=== PATIENT | male | born 1955 | race Caucasian/White ===

== ENCOUNTER 2021-10-23 16:01 | Inpatient (IN) | payer MEDICARE, SELFPAY ==
[2021-10-23] VITALS (31 sets, daily range): BP systolic 151–186; BP diastolic 91–123; PULSE 75–101; RESP 8–26; TEMP 36.6–37.2; O2SAT 92–100; BMI 23.3
--- NOTE | ~2021-10-23 | US_ITS ---
US renal BI DATE: 10/24/2021 10:05 INDICATION: Renal failure TECHNIQUE: Real-time imaging of kidneys and urinary bladder COMPARISON: None FINDINGS: The right kidney measures approximately 9.8 cm length, left kidney 10.8 cm. Approximately 1.3 cm right renal cyst. Approximately 1.3 cm left renal cyst. Probable dromedary hump of the mid left kidney. There is increased echogenicity of the renal parenchyma bilaterally, suggesting chronic medical disea se. There is no hydronephrosis of either kidney. The urinary bladder is very distended. No apparent filling defect is noted. IMPRESSION: Bilateral chronic renal disease; no hydronephrosis 1.3 cm cyst of each kidney Limited evaluation of urinary bladder Reviewed, dictated and finalized at [facility]. Reviewed, dictated and finalized at location B.
--- NOTE | ~2021-10-23 | XR_ITS ---
EXAMINATION: XR chest 2V DATE: 10/23/2021 16:44 INDICATION: Left-sided chest pain TECHNIQUE: PA and lateral views of the chest are obtained. COMPARISON: None available FINDINGS: The lungs are free of acute opacities. There is no pleural effusion or pneumothorax. The ca rdiomediastinal silhouette is normal. There is moderate thoracic spondylosis. IMPRESSION: 1. No acute cardiopulmonary abnormality. Reviewed, dictated and finalized at location A.
--- NOTE | 2021-10-23 16:02 | ECG_ITS ---
Measurements Intervals [place] Rate: 85 P: 37 W[place]: 137 QRS: -10 QRSD: 70 T: 32 QT: 360 QTc: 428 Interpretive Statements SINUS RHYTHM SEPTAL MYOCARDIAL INFARCTION , OF INDETERMINATE AGE T-WAVE ABNORMALITY, CONSIDER ISCHEMIA NO PREVIOUS ECG AVAILABLE FOR COMPARISON Electronically Signed On 10-24-2021 10:45:14 CDT by Ty Alba M.D.
[2021-10-23 16:19] LABS: Basophils Percent Auto 0.3 % (0.2-1.2); Hematocrit 39.9 % (42.0-52.0); Hemoglobin 13.9 g/dL (14.0-18.0); Immature Granulocyte Absolute 0.04 K/mm3 (0.00-0.031); Immature Granulocyte Percent A 0.3 % (0-0.5); Lymphocytes Absolute Auto 0.82 K/mm3 (0.9-3.2); Lymphocytes Percent Auto 6.8 % (18.3-44.2); Mean Corpuscular HGB Conc 34.8 g/dl (32-36); Mean Corpuscular Hemoglobin 33.2 pg (26-34); Mean Corpuscular Volume 95.2 fl (80-100); Mean Platelet Volume 9.8 fl (7.4-10.4); Monocytes Absolute Auto 0.6 K/mm3 (0.1-0.6); Monocytes Percent Auto 4.8 % (2.6-8.5); Neutrophils Absolute Auto 10.5 K/mm3 (1.3-6.7); Neutrophils Percent Auto 87.8 % (45.5-73.1); Platelet Count Result 241 k/mm3 (150-375); Red Blood Count 4.19 M/mm3 (4.6-6.20); Red Cell Distribution Width 11.3 % (11.5-14.5)
[2021-10-23 16:28] LABS: Alanine Aminotransferase 19 U/L (6-50); Albumin Level 4.2 g/dL (3.5-5.1); Alkaline Phosphatase 65 U/L (38-126); Anion Gap 10 mmol/L (8-16); Aspartate Amino Transferase 30 U/L (17-59); Blood Urea Nitrogen 18 mg/dL (9-20); Calcium 9.1 mg/dL (8.4-10.2); Carbon Dioxide 20 mmol/L (22-30); Chloride 110 mmol/L (98-107); Estimated CRCL calculation 25 ml/min; Estimated Glomerular Filt Rate 28; Glucose 127 mg/dL (65-110); Lipase 433 U/L (23-300); Potassium 3.6 mmol/L (3.4-5.0); Sodium 140 mmol/L (137-145)
[2021-10-23 16:35] LABS: Prothrombin Time 12.7 Seconds (11.1-14.7)
[2021-10-23 16:36] LABS: Partial Thromboplastin Time 23.1 SECONDS (22.3-36.8)
[2021-10-23 16:49] LABS: Troponin I 0.262 ng/mL (0.000-0.034)
--- NOTE | 2021-10-23 16:52 | ED.GENADULT ---
HPI - General Adult General Chief complaint: Chest Pain Stated complaint: pcp sent here for a heart attack Time Seen by Provider: 10/23/21 16:24 History of Present Illness HPI narrative: Patient is a 66-year-old male who presents ER with chest pain. Ongoing intermittently for the last 8 months. Worsening over the last month. Occur sporadically. Sharp intense left-sided chest pain that radiates to his back and down his left arm. He can last for hours. Patient has not seen her primary care doctor for several years since his primary retired. He endorses 30 pound weight loss. She reports she is always feeling cold and chilled. No fevers. No runny nose or sore throat or productive cough. Related Data Home Medications Medication Instructions Recorded Confirmed No Home Medications 10/23/21 10/23/21 Allergies Allergy/AdvReac Type Severity Reaction Status Date / Time No Known Allergies Allergy Unverified 10/23/21 14:39 Review of Systems Review of Systems: All systems reviewed & are unremarkable except as noted in HPI and below Constitutional: Constitutional: Reports chills, Reports fatigue and Denies fever(s) ENT: Denies nasal congestion and Denies sore throat Cardiovascular: Cardiovascular: Reports chest pain, Denies rapid heart rate and Reports radiating jaw, neck or arm pain Respiratory: Respiratory: Denies chest congestion, Denies cough and Reports dyspnea Gastrointestinal: Gastrointestinal: Denies abdominal pain, Denies nausea and Denies vomiting Neurologic: Denies headache(s), Denies focal weakness and Denies numbness PMFSH Past Medical History Medical History (Updated 10/23/21 @ 17:46 by Jacques Santos MD) Anxiety Arthritis Broken shoulder Left CTS (carpal tunnel syndrome) Surgery Dyslipidemia GERD (gastroesophageal reflux disease) Hypertension Surgical History Surgical History (Updated 10/23/21 @ 17:42 by Jacques Santos MD) H/O hand surgery Family History Family History (Updated 10/23/21 @ 14:40 by Clarita Pedroza CMA) Mother Acute myocardial infarction Liver cancer Father Acute myocardial infarction Liver cancer Social History Social History (Updated 10/23/21 @ 14:40 by Clarita Pedroza CMA) Smoking status: Former smoker Alcohol intake: current Exam Narrative: GENERAL: Well-appearing, well-nourished, and in no acute distress. HEAD: Normocephalic, atraumatic. EYES: PERRL and EOMI. ENT: Mucous membranes moist. CHEST: Clear to auscultation. No respiratory distress. HEART: Regular rate and rhythm. Normal peripheral pulses. ABDOMEN: Soft, nontender, nondistended. EXTREMITIES: Normal range of motion. No edema. SKIN: Warm, dry, no rash. NEURO: Alert and oriented x3. PSYCH: Normal mood and affect. Course Course Emergency Course: Patient resting comfortably. No chest pain at this time. Blood pressure elevated. As is troponin. Admit to hospitalist service. Heparin drip started. Cardiology consulted. Vital Signs Vital signs: Vital Signs Temperature 97.8 F 10/23/21 16:16 Pulse Rate 101 H 10/23/21 16:16 Respiratory Rate 18 10/23/21 16:16 Blood Pressure 176/108 H 10/23/21 16:16 Pulse Oximetry 100 10/23/21 16:16 Oxygen Delivery Room Air 10/23/21 16:16 Temperature 97.8 F 10/23/21 16:16 Pulse Rate 92 10/23/21 17:05 Respiratory Rate 18 10/23/21 16:16 Blood Pressure 176/108 H 10/23/21 16:16 Pulse Oximetry 100 10/23/21 16:16 Oxygen Delivery Room Air 10/23/21 16:16 Medical Decision Making Vital Signs Vital Signs: Vital Signs Temperature 97.8 F 10/23/21 16:16 Pulse Rate 101 H 10/23/21 16:16 Respiratory Rate 18 10/23/21 16:16 Blood Pressure 176/108 H 10/23/21 16:16 Pulse Oximetry 100 10/23/21 16:16 Oxygen Delivery Room Air 10/23/21 16:16 Temperature 97.8 F 10/23/21 16:16 Pulse Rate 92 10/23/21 17:05 Respiratory Rate 18 10/23/21 16:16 Blood Pressure 176/108 H 10/23
[2021-10-23] MEDS: ASPIRIN 81 MG CHEWABLE TABLET 324 MG PO (17:05)
[2021-10-23] MEDS: carvediloL 6.25 MG TABLET PO (17:05)
[2021-10-23] MEDS: HEPARIN SODIUM 5,000 UNITS/ML VIAL 4000 UNITS IV PUSH ×2 (17:06→23:37)
--- NOTE | 2021-10-23 17:08 | PC.NURSE ---
Dr. Javier at bedside to assess pt.
--- NOTE | 2021-10-23 17:19 | PM.CNCAR ---
Assessment and Plan Assessment and plan (1) Unstable angina: Code(s): I20.0 - Unstable angina Status: Acute Assessment and Plan: Received aspirin 325 x1 in ED. Start aspirin 81 mg daily in AM. Starting heparin drip. Trend troponin as first elevated at 0.262. EKG shows cannot r/o septal infarct, borderline ST-T wave abnormality in ant/high lat leads. Obtain echo. Discuss left heart cath with patient and risks/benefits/alternative treatment and he is agreeable to procedure. Advise he has higher risk for renal failure given his baseline significant CKD. Will notify HCG in AM about procedure. (2) Hypertension: Code(s): I10 - Essential (primary) hypertension Status: Acute Assessment and Plan: High. Start Coreg 6.25 mg BID. Monitor BP. (3) Dyslipidemia: Code(s): E78.5 - Hyperlipidemia, unspecified Status: Acute Assessment and Plan: Start Atorvastatin 80 mg daily. Obtain Lipid panel. History of Present Illness History of Present Illness Consult date/time: 10/23/21 17:19 Requesting physician: Jacques Santos MD Consult reason: chest pain Reason For Visit: pcp sent here for a heart attack Narrative: 66 yr old man presents to ER with his with chest pain. He has a history of hypertension and dyslipidemia, and borderline DM, CKD. Reports when his PCP Dr. Sawant retired he could not find a suitable PCP and stopped taking all his medication. He finally got a PCP today with Dr. Armando. Reports he has been having intermittent resting dull left side chest pain radiating to his back and left arm and sometimes associated with vomiting. In last week this has been happening more frequently and after he relayed this info to Dr. Armando today he was advised to come to ER. Currently chest pain free. He states he can walk unlimited distance and walking does not cause pain. He shivers due to being cold as he likes the room warmer. Denies orthopnea, PND, edema, dizziness, palpitations. Review of Systems Review of Systems: All systems reviewed & are unremarkable except as noted in HPI and below Constitutional: Constitutional: Reports as per HPI, Reports chills and Denies fever(s) Cardiovascular: Cardiovascular: Reports as per HPI, Reports chest pain, Denies irregular heart rhythm, Denies leg edema and Denies lightheadedness Respiratory: Respiratory: Reports as per HPI and Denies dyspnea Gastrointestinal: Gastrointestinal: Reports as per HPI and Denies abdominal pain Genitourinary: Genitourinary: Reports as per HPI and Denies dysuria Musculoskeletal: Musculoskeletal: Reports as per HPI Neurologic: Reports as per HPI, Denies dizziness and Denies syncope [facility] Past Medical History Medical History (Updated 10/23/21 @ 17:26 by Beny Javier DO) Anxiety Arthritis Broken shoulder Left CTS (carpal tunnel syndrome) Surgery GERD (gastroesophageal reflux disease) Family History Family History (Updated 10/23/21 @ 14:40 by Clarita Pedroza CMA) Mother Acute myocardial infarction Liver cancer Father Acute myocardial infarction Liver cancer Social History Social History (Updated 10/23/21 @ 14:40 by Clarita Pedroza CMA) Smoking status: Former smoker Alcohol intake: current Meds Home Medications and Allergies Home Medications Medication Instructions Recorded Confirmed Type No Home Medications 10/23/21 10/23/21 History Allergies Allergy/AdvReac Type Severity Reaction Status Date / Time No Known Allergies Allergy Unverified 10/23/21 14:39 Vital Signs Vital Signs - 24 hr 10/23/21 16:16 Temperature 97.8 F Pulse Rate 101 H Respiratory Rate 18 Blood Pressure 176/108 H Pulse Oximetry 100 Oxygen Delivery Room Air Exam Const: General: cooperative, healthy appearing and comfortable Resp: Auscultation: clear to auscultation bilaterally, no crackles, no rales, no rhonchi and no wheezes Cardio: Jugular venous distens
[2021-10-23] MEDS: HEPARIN SOD/D5W 100 UNITS/ML 25,000 UNITS/250 ML BAG 8 UNITS IV CONT (17:30)
[2021-10-23 18:12] LABS: SARS-CoV-2 RNA PCR Negative
[2021-10-23 18:18] LABS: Thyroid Stimulating Hormone 0.869 uIU/mL (0.465-4.680)
--- NOTE | 2021-10-23 19:15 | PC.NURSE ---
Patient report given to DENNIS Cole. All questions answered and care of patient transferred.
--- NOTE | 2021-10-23 19:58 | ADMGEN ---
This patient, Esther Altman, was admitted to IMU Room 200-01. Patient/family oriented to hospital policies and general routines including ID bracelet, bed and alarms, visiting hours, pain management, procedures, bathroom and other care routines, personal items, smoking policy, room service/diet, and visiting hours. Information on how to activate the Rapid Response Team has been discussed. Patient/Family are encouraged to report perceived risks to care and to ask questions if they do not understand what they are told or what they should do.
[2021-10-23 19:59] LABS: Cholesterol 196 mg/dL (0-200); HDL Direct 52 mg/dL; Triglycerides 146 mg/dL (<150)
[2021-10-23 20:10] LABS: LDL Cholesterol Direct 84 mg/dL
[2021-10-23 20:28] LABS: Troponin I 0.243 ng/mL (0.000-0.034)
[2021-10-23] MEDS: ATORVASTATIN 40 MG TABLET 80 MG PO (21:17)
--- NOTE | 2021-10-23 22:42 | PM.IMHP ---
H&P: HPI History of Present Illness Date/Time: 10/23/21 22:42 Chief Complaint: Chest pain Narrative: 66-year-old male with a past medical history of hypertension, hyperlipidemia, chronic kidney disease and kidney stones who presented to the ER with chest pain. The patient reports that he has been having chest pain for almost a year. Initially the pain was intermittent in nature but he has had a marked increase in symptoms since Saturday. He reported that he had 6 episodes on Saturday alone. The pain is in the left chest radiate down the left arm and radiating to his back. The pain is sharp and severe in nature. Was 9/10 in intensity at its worst. It usually lasts around 20 or 30 minutes but can last couple of hours. It is usually accompanied by profuse diaphoresis. He denies any cough, congestion, nausea or vomiting. He has not noticed any relation is symptoms to exertion. However he does state that when he got up to adjust the thermostat in the room he did have some chest pressure. He quit seeing his primary care physician in 2014 when he retired because he thought that his baseline hypertension with likely due to the stress he was under at his job. He had a colonoscopy in 2011 that demonstrated 3 colon polyps and internal hemorrhoids. He has not had a colonoscopy since that time. He has been having intermittent bloody stools but usually occurs when he is constipated. Does not eat much in the form of fiber or vegetables. He has had a 30 lb weight loss over the last year. The weight loss is unintentional. He reports good appetite and eating adequate amount of food. He did report having some dental issues to the ER physician that may have contributed to some of his weight loss. 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 He does report having get up 2 or 3 times a night to urinate. He denies any symptoms of incomplete bladder emptying. He denies any hematuria. Nursing staff reports that he is having multiple small voids of 80-100 mL. But his bladder scan demonstrated 0 residual. He reports that he drinks Pedialyte in order to stay hydrated. He reports increased fatigue with his chest pain symptoms. He asked what his blood pressure was while I was evaluating him. I told him that his systolic blood pressures were in the 170s. He shrugged and stated ?well I know they have been higher in the past.? Review of Systems Review of Systems: 12 systems were reviewed with pertinent positives and negatives per HPI. Except as documented in the HPI, all other systems were reviewed and are negative. [facility] Past Medical History Medical History (Updated 10/24/21 @ 05:14 by Patricia Valadez DO) Anxiety Arthritis Chronic kidney disease GERD (gastroesophageal reflux disease) Hyperlipidemia Hypertension Surgical History Surgical History (Updated 10/24/21 @ 05:04 by Patricia Valadez DO) H/O hand surgery Due to trauma had surgical repair of the left thenar eminence History of cardiac catheterization (~2003) No significant blockages History of carpal tunnel surgery of left wrist History of colonoscopy with polypectomy 3 polyps removed, internal hemorrhoids History of hemorrhoidectomy (~2011) History of lithotripsy X2 with complications including with sounds like shock History of repair of right rotator cuff (2008) History of tonsillectomy Family History Family History Mother Acute myocardial infarction Liver cancer Father Acute myocardial infarction Liver cancer Social History Social History (Updated 10/24/21 @ 05:09 by Patricia Valadez DO) Social History: He has been for 41 years. They have 2 children who are healthy. He has never smoked. He does smoke marijuana on a somewhat frequent basis. He drinks a couple of beers a day and some whiskey.
[2021-10-23 23:28] LABS: Cholesterol 199 mg/dL (0-200); HDL Direct 51 mg/dL; Partial Thromboplastin Time 44.3 SECONDS (22.3-36.8); Triglycerides 213 mg/dL (<150)
[2021-10-23 23:32] LABS: Hemoglobin A1C 4.9 % (<5.7)
[2021-10-23 23:38] LABS: Appearance Urine Clear (Clear); Bilirubin Urine Negative (Negative); Blood Urine Trace-lysed (Negative); Color Urine Yellow (Yellow); Glucose Urine UA Negative (Negative); Ketones Urine Negative (Negative); Leukocyte Esterase Ur Negative LEU/UL (NEGATIVE); Nitrate Urine Negative (Negative); Protein Urine 3+ mg/dL (Negative); Specific Grav Ur >= 1.030 (1.001-1.035); Urobilinogen Urine 0.2 mg/dL (<2.0); pH Urine 5.5 (5.0-9.0)
[2021-10-23 23:38] LABS: LDL Cholesterol Direct 92 mg/dL
[2021-10-23] MEDS: METOPROLOL TARTRATE INJ 5 MG/5 ML VIAL IV PUSH (23:39)
[2021-10-23 23:41] LABS: Troponin I 0.273 ng/mL (0.000-0.034)
[2021-10-23 23:43] LABS: Bacteria Urine Trace /hpf; Mucus Urine Rare /lpf; RBC Urine 0-2 /hpf (0-2); Squamous Epithelial Cell Urine Rare /hpf (Few); WBC Urine 0-3 /hpf (0-3)
[2021-10-23 23:44] LABS: Add Urine Microscopic? YES
[2021-10-24] VITALS (27 sets, daily range): BP systolic 136–176; BP diastolic 70–109; PULSE 58–107; RESP 12–20; TEMP 36.6–37.3; O2SAT 97–100
--- NOTE | 2021-10-24 | ECHO_ITS ---
Patient Info Name: Esther Altman Age: 66 years : 1955 Gender: Male Ht: 66 in Wt: 140 lbs BSA: 1.72 m2 HR: 74 bpm BP: 174 / 109 mmHg Heart Rhythm: Sinus Rhythm Technical Quality: Fair Exam Date: 10/24/2021 10:03 AM Exam Location: [facility] Card Pulmonary Patient Status: Inpatient Admit Date: 10/24/2021 Staff Ordering Physician: Beny Javier DO Outsole Compressor: Liz Vasquez RDCS Attending Provider: Gucci Colby MD Referring Physician: Yaya DOMÍNGUEZ; Exam Type: CA echo doppler color flow Study Info Indications - Unstable angina Complete two-dimensional, color flow and Doppler transthoracic echocardiogram is performed. Summary 1. Complete two-dimensional, color flow and Doppler transthoracic echocardiogram is performed. 2. Left ventricular chamber dimension is normal. 3. Left ventricular systolic function is normal, estimated at 60-65%. 4. There is mildly increased left ventricular wall thickness. 5. The left ventricular diastolic function is grade I diastolic dysfunction. 6. E/e' 8 is minimally elevated. 7. No pulmonary hypertension, estimated pulmonary arterial systolic pressure is 27 mmHg. Left Ventricle E/e' 8 is minimally elevated. Left ventricular chamber dimension is normal. Left ventricular systolic function is normal, estimated at 60-65%. There is mildly increased left ventricular wall thickness. The left ventricular diastolic function is grade I diastolic dysfunction. Right Ventricle Right ventricular systolic function is normal and with normal TAPSE 2.3 cm. Right ventricular chamber dimension is normal. Left Atria Left atrial chamber dimension is normal. Right Atria Right atrial chamber dimension is normal. Aortic Valve The aortic valve is trileaflet. There is no aortic valve stenosis. There is no aortic valve regurgitation. Pulmonic Valve There is no pulmonic regurgitation. Mitral Valve There is no mitral valve stenosis. There is no mitral valve regurgitation. Tricuspid Valve There is no tricuspid valve regurgitation. No pulmonary hypertension, estimated pulmonary arterial systolic pressure is 27 mmHg. Pericardium/Pleural There is no pericardial effusion. Inferior Vena Cava Normal inferior vena cava with >50% collapse upon inspiration consistent with normal right atrial pressure, 5 mmHg. Aorta The aortic root size at the sinus of Valsalva is normal. Left Ventricular Outflow Tract Name Value Normal LVOT 2D LVOT Diameter 2.1 cm LVOT Doppler LVOT Peak Gradient 7 mmHg LVOT Mean Gradient 3 mmHg LVOT VTI 25 cm LVOT VTI/AV VTI Ratio 0.9 LVOT Stroke Volume 89 ml LVOT CO 5.8 l/min LVOT CI 3.4 l/min/m2 Pulmonic Valve Name Value Normal RVOT Doppler ----
[2021-10-24] MEDS: SODIUM CHLORIDE 0.9% IV 1,000 ML 999 ML IV CONT (05:57)
[2021-10-24 06:45] LABS: Basophils Absolute Auto 0.1 K/mm3 (0.0-0.1); Basophils Percent Auto 0.5 % (0.2-1.2); Eosinophils Absolute Auto 0.1 K/mm3 (0-0.3); Eosinophils Percent Auto 0.9 % (0-4.4); Hematocrit 32.5 % (42.0-52.0); Hemoglobin 11.4 g/dL (14.0-18.0); Immature Granulocyte Absolute 0.03 K/mm3 (0.00-0.031); Immature Granulocyte Percent A 0.3 % (0-0.5); Lymphocytes Absolute Auto 2.02 K/mm3 (0.9-3.2); Lymphocytes Percent Auto 19.1 % (18.3-44.2); Mean Corpuscular HGB Conc 35.1 g/dl (32-36); Mean Corpuscular Hemoglobin 33.5 pg (26-34); Mean Corpuscular Volume 95.6 fl (80-100); Monocytes Absolute Auto 0.9 K/mm3 (0.1-0.6); Monocytes Percent Auto 8.2 % (2.6-8.5); Neutrophils Absolute Auto 7.5 K/mm3 (1.3-6.7); Platelet Count Result 191 k/mm3 (150-375); Red Cell Distribution Width 11.4 % (11.5-14.5); White Blood Count 10.6 K/mm3 (4.5-10.0)
[2021-10-24 06:55] LABS: Partial Thromboplastin Time 115.9 SECONDS (22.3-36.8)
[2021-10-24 07:03] LABS: Anion Gap 2 mmol/L (8-16); Blood Urea Nitrogen 19 mg/dL (9-20); Calcium 8.2 mg/dL (8.4-10.2); Carbon Dioxide 22 mmol/L (22-30); Chloride 112 mmol/L (98-107); Estimated CRCL calculation 28 ml/min; Estimated Glomerular Filt Rate 32; Glucose 107 mg/dL (65-110); Potassium 3.5 mmol/L (3.4-5.0); Sodium 136 mmol/L (137-145)
[2021-10-24] MEDS: SODIUM CHLORIDE 0.9% IV 1,000 ML 100 ML IV CONT ×3 (07:33→23:30)
[2021-10-24] MEDS: hydrALAZINE HCL 20 MG/ML VIAL 10 MG IV PUSH (07:51)
--- NOTE | 2021-10-24 08:20 | PM.PNCARD ---
Progress Note: A&P Assessment and Plan (1) Hypertension: Code(s): I10 - Essential (primary) hypertension Status: Acute Assessment and Plan: High. Increase Coreg 12.5 mg BID. Hold off on Alexis or ARB given renal dysfunction. Hydralazine q 4 hours prn for SBP>150. (2) Non-ST elevation MT (NSTEMI): Code(s): I21.4 - Non-ST elevation (NSTEMI) myocardial infarction Status: Acute Assessment and Plan: Received aspirin 325 x1 in ED.? Started aspirin 81 mg daily in AM. On heparin drip. Trend troponin which is moderately elevated at 0.273 not peaked. EKG shows cannot r/o septal infarct, borderline ST-T wave abnormality in ant/high lat leads. Obtain echo. Discuss left heart cath with patient and risks/benefits/alternative treatment and he is agreeable to procedure. Advise he has higher risk for renal failure given his baseline significant CKD.? Notified HCG about procedure. (3) Hyperlipidemia: Qualifiers: Hyperlipidemia type: mixed hyperlipidemia Qualified Code(s): E78.2 - Mixed hyperlipidemia Code(s): E78.5 - Hyperlipidemia, unspecified Status: Acute Assessment and Plan: Started Atorvastatin 80 mg daily. Subjective Date/time seen: 10/24/21 08:20 Reports intermittent chest pain. No sob. Exam Const: General: cooperative, healthy appearing and comfortable Resp: Auscultation: clear to auscultation bilaterally, no crackles, no rales, no rhonchi and no wheezes Cardio: Jugular venous distension: no JVD Rate: regular rate Rhythm: regular rhythm Heart sounds: no murmurs Peripheral pulses: dorsalis pedis present GI: GI Palp: No abdominal tenderness and Yes Soft to palpation Neuro: General: oriented to person, oriented to place and oriented to time Extrem: Right lower extremity: no edema Left lower extremity: no edema Objective Data Vital Signs Vital Signs: Vital Signs - 24 hr 10/23/21 16:16 10/23/21 17:05 10/23/21 17:16 Temperature 97.8 F Pulse Rate 101 H 92 89 Respiratory Rate 18 18 Blood Pressure 176/108 H Pulse Oximetry 100 100 Oxygen Delivery Room Air 10/23/21 17:17 10/23/21 17:29 10/23/21 17:30 Temperature Pulse Rate 89 90 87 Respiratory Rate 16 10 L 26 H Blood Pressure 178/112 H 165/106 H Pulse Oximetry Oxygen Delivery 10/23/21 17:31 10/23/21 17:45 10/23/21 17:46 Temperature Pulse Rate 87 81 83 Respiratory Rate 18 25 H 25 H Blood Pressure 176/120 H 151/102 H Pulse Oximetry 95 94 Oxygen Delivery 10/23/21 18:00 10/23/21 18:01 10/23/21 18:15 Temperature Pulse Rate 77 77 82 Respiratory Rate 8 L 21 H 21 H Blood Pressure 168/102 H Pulse Oximetry 95 92 97 Oxygen Delivery 10/23/21 18:16 10/23/21 18:17 10/23/21 18:30 Temperature Pulse Rate 75 75 77 Respiratory Rate 18 16 17 Blood Pressure 166/103 H Pulse Oximetry 95 95 96 Oxygen Delivery 10/23/21 18:31 10/23/21 18:45 10/23/21 18:46 Temperature Pulse Rate 77 87 87 Respiratory Rate 21 H 19 24 H Blood Pressure 168/100 H 167/109 H Pulse Oximetry 95 98 98 Oxygen Delivery 10/23/21 19:00 10/23/21 19:01 10/23/21 19:15 Temperature Pulse Rate 80 81 79 Respiratory Rate 23 H 18 16 Blood Pressure 165/109 H Pulse Oximetry 98 97 97 Oxygen Delivery 10/23/21 19:16 10/23/21 19:17 10/23/21 19:30 Temperature Pulse Rate 77 80 78 Respiratory Rate 17 19 16 Blood Pressure 164/114 H Pulse Oximetry 97 97 97 Oxygen Delivery 10/23/21 19:31 10/23/21 17:00 10/23/21 20:00 Temperature 98.9 F Pulse Rate 78 88 Respiratory Rate 17 18 Blood Pressure 167/103 H 186/123 H Pulse Oximetry 97 97 99 Oxygen Delivery Room Air 10/23/21 20:59 10/23/21 20:00 10/23/21 20:00 Temperature Pulse Rate 84 89 Respiratory Rate Blood Pressure 172/107 H Pulse Oximetry Oxygen Delivery Room Air 10/23/21 23:39 10/23/21 23:42 10/23/21 22:00 Temperature 98.2 F Pulse Rate 78 90 86 Respiratory Rate
--- NOTE | 2021-10-24 08:34 | PM.CNCAR ---
Assessment and Plan Assessment and plan (1) Non-ST elevation AR (NSTEMI): Code(s): I21.4 - Non-ST elevation (NSTEMI) myocardial infarction Status: Acute Assessment and Plan: 66-year-old male with hypertension, CKD, dyslipidemia. Patient admitted to the hospital with worsening chest pain. Troponins minimally elevated. EKG shows sinus rhythm, septal infarct age undetermined, nonspecific T-wave abnormality. Clinical presentation consistent with non ST elevation AR. After discussing benefits, risks and alternatives, patient is willing to proceed with cardiac catheterization with an eye towards intervention as necessary. Patient has renal insufficiency, and would be at increased risk of contrast induced nephropathy. Patient was informed about that, and he is willing to proceed. Patient will be initiated on IV hydration with normal saline pre and postprocedure. Standard treatment for ACS has been initiated including antiplatelet treatment, beta manuel, anticoagulation, statin. Further recommendations will follow after cardiac catheterization is complete. (2) Hypertension: Code(s): I10 - Essential (primary) hypertension Status: Acute Assessment and Plan: Optimal blood pressure control History of Present Illness History of Present Illness Consult date/time: 10/24/21 08:34 Requesting physician: Beny Javier, DO Consult reason: Other (Cardiac catheterization) Reason For Visit: NSTEMI Narrative: DATE OF CONSULT: 10/24/2021 REASON FOR CONSULT: Cardiac catheterization REQUESTING PHYSICIAN: CHIEF COMPLAINT: Chest pain, off and on for last several months HPI: 66-year-old male with hypertension, CKD, dyslipidemia. Patient presented to [facility] Emergency Room on 10/23/2021 with complaints of chest pain. Patient states that he has been experiencing chest pain for last several months with worsening of symptoms for last 1 week. He describes his chest pain as sharp pain in the left upper chest with radiation to the back and left arm, associated with shortness of breath and nausea/vomiting when the pain is intense. Patient states that he did not seek medical attention until symptoms got very intense lately. He denies palpitation, dizziness or syncope. No PND, orthopnea lower extremity swelling. Patient gives vague history of cardiac catheterization about 10-15 years ago, does not recall the name of the hospital. He does not recall being diagnosed with any significant obstructive CAD or any angioplasty or stenting. EKG on my personal evaluation shows sinus rhythm, septal infarct age undetermined, nonspecific T-wave abnormality. Troponins mildly elevated with current peak troponin level of 0.27. Chest x-ray unremarkable. COVID-19 negative. UA shows proteinuria. Patient has been evaluated by General Cardiology Dr. Javier, and interventional Cardiology was consulted cardiac catheterization and possible intervention. Review of Systems Review of Systems: General: Negative for fever, chills, fatigue Psychological: Negative for anxiety, depression Ophthalmic: negative for loss of vision ENT: Negative for epistaxis, headaches Allergy and immunology: Negative for hives, nasal congestion Hematologic and lymphatic: Negative for overt bleeding problems Endocrine: Negative for hot flashes, palpitations Respiratory: Negative for cough, hemoptysis Cardiovascular: Positive for chest pain Gastrointestinal: Positive for occasional nausea vomiting Musculoskeletal: Negative for myalgia, joint pains Neurological: Negative for weakness Dermatological: Negative for rash, skin discoloration PMFSH Past Medical History Medical History Anxiety Arthritis Chronic kidney disease GERD (gastroesophageal reflux disease) Hyperlipidemia Hypertension Surgical History Surgical History H/O hand surge
[2021-10-24] MEDS: carvediloL 12.5 MG TABLET PO ×2 (08:55→20:28)
[2021-10-24] MEDS: ASPIRIN 81 MG ENTERIC TABLET PO (08:55)
--- NOTE | 2021-10-24 09:08 | WPDMODSED ---
Moderate Sedation Note-Pt Data Patient Data Allergies Allergy/AdvReac Type Severity Reaction Status Date / Time No Known Allergies Allergy Unverified 10/23/21 14:39 Home Medications Medication Instructions Recorded Confirmed Type No Home Medications 10/23/21 10/23/21 History Current Medications: Active Medications Acetaminophen (Acetaminophen 325 Mg Tablet) 650 mg PO Q4H PRN PRN Reason: Mild Pain (1-3) or Fever Hydrocodone Bitart/Acetaminophen (Hydrocodone/Acetaminophen (*Crx) 5-325 Mg Tablet) 1 tab PO Q4H PRN PRN Reason: Pain Rated 4-6 Aspirin (Aspirin 81 Mg Enteric Tablet) 81 mg PO QAM [facility] Last Admin: 10/24/21 08:55 Dose: 81 mg Atorvastatin Calcium (Atorvastatin 40 Mg Tablet) 80 mg PO QHS [facility] Last Admin: 10/23/21 21:17 Dose: 80 mg Carvedilol (Carvedilol 12.5 Mg Tablet) 12.5 mg PO Q12HR [facility] Last Admin: 10/24/21 08:55 Dose: 12.5 mg Heparin Sodium (Porcine) (Heparin Sodium 5,000 Units/Ml Vial) 4,000 units IV PUSH PRN PRN PRN Reason: aPTT less than 55 seconds Last Admin: 10/23/21 23:37 Dose: 4,000 units Heparin Sodium (Porcine) (Heparin Sodium 5,000 Units/Ml Vial) 2,500 units IV PUSH PRN PRN PRN Reason: aPTT 55 - 70 seconds Hydralazine HCl (Hydralazine Hcl 20 Mg/Ml Vial) 10 mg IV PUSH Q4H PRN PRN Reason: Blood Pressure - High Last Admin: 10/24/21 07:51 Dose: 10 mg Heparin Sodium/Dextrose (Heparin Sodium/D5w 100 Units/Ml) 25,000 units in 250 mls @ 10 mls/hr IV CONT .Q24H [facility]; Protocol Last Titration: 10/24/21 07:02 Dose: 1,000 units/hr, 10 mls/hr Sodium Chloride (Normal Saline Iv) 1,000 mls @ 100 mls/hr IV CONT .Q10H [facility] Last Admin: 10/24/21 07:33 Dose: 100 mls/hr Morphine Sulfate (Morphine Sulfate (*Crx) 4 Mg/Ml Inj) 4 mg IV PUSH Q2H PRN PRN Reason: Pain Rated 7-10 Ondansetron HCl (Ondansetron Inj 4 Mg/2 Ml Vial) 4 mg IV PUSH Q4H PRN PRN Reason: Nausea Perflutren Lipid Microsphere (Perflutren Lipid Microspheres 1.5 Ml Vial Diluted To 10 Ml Total Volume) 0 ml IV PUSH ONCE PRN; Protocol PRN Reason: adequate visualization Sedation/Anesthesia: No previous sedation/anesthesia problems (including family history). [facility] Past Medical History Medical History Anxiety Arthritis Chronic kidney disease GERD (gastroesophageal reflux disease) Hyperlipidemia Hypertension Surgical History Surgical History H/O hand surgery Due to trauma had surgical repair of the left thenar eminence History of cardiac catheterization (~2003) No significant blockages History of carpal tunnel surgery of left wrist History of colonoscopy with polypectomy 3 polyps removed, internal hemorrhoids History of hemorrhoidectomy (~2011) History of lithotripsy X2 with complications including with sounds like shock History of repair of right rotator cuff (2008) History of tonsillectomy Family History Family History Mother Acute myocardial infarction Liver cancer Father Acute myocardial infarction Liver cancer Social History Social History Social History: He has been for 41 years. They have 2 children who are healthy. He has never smoked. He does smoke marijuana on a somewhat frequent basis. He drinks a couple of beers a day and some whiskey. 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 Spiritual care concerns: No Mod Sed Physical Exam Physical Exam Pre Procedural Exam: Normal: Airway Hours since solid foods: 10 Hour
--- NOTE | 2021-10-24 10:30 | P.PNIM_ITS ---
Progress Note: A&P Assessment and Plan (1) Non-ST elevation [place] (NSTEMI): Code(s): I21.4 - Non-ST elevation (NSTEMI) myocardial infarction Status: Acute Assessment and Plan: * EKG does not have any st elevation * Troponins elevated * Cardiology consulted * Cardiac cath on 10/24/21 and LAD stented for a 95% occlusion * Coreg, aspirin, and lipitor added * Trend Blood pressure * park interpreter (2) Uncontrolled stage 2 hypertension: Code(s): I10 - Essential (primary) hypertension Status: Acute Assessment and Plan: * Longstanding uncontrolled hypertension. * Current BP 163/88 * Continue Coreg poor response noted * Continuie IV Lopressor 5 mg q.6 hours as needed for systolic blood pressures greater than 160. * No further episodes of chest pain. * Continue to trend BP * Adjust therapy as indicated (3) Hyperlipidemia: Qualifiers: Hyperlipidemia type: mixed hyperlipidemia Qualified Code(s): E78.2 - Mixed hyperlipidemia Code(s): E78.5 - Hyperlipidemia, unspecified Status: Acute Assessment and Plan: * hyperlipidemia and hypertriglyceridemia noted per labs. * Continue atorvastatin 80 mg p.o. daily. * Triglycerides 213, cholesterol 199, LDL 92, HDL 51 * Lifestyle changes * Chemist Proteins consult (4) PITA (acute kidney injury): Code(s): N17.9 - Acute kidney failure, unspecified Status: Acute Assessment and Plan: * BUN/Cr 19/2.00 * Probably a componet of CKD * IV fluids for possible dehydration * Continue to trend labs * Labs in the am * Trend urine output * Avoid nephrotoxic medications (5) Abnormal urinalysis: Code(s): R82.90 - Unspecified abnormal findings in urine Status: Acute Assessment and Plan: * Patient's UA did demonstrate 3+ protein, hyaline casts and granular casts. * Protein is likely in part due to his chronically uncontrolled hypertension. * Consider Nephrology consult. . * renal ultrasound bilateral cysts Time Spent With Patient Time with patient: Greater than 35 minutes Subjective Date/time seen: 10/24/21 10:30 Interval history: 10/24/21 1030 Patient stated that he was doing okay today. Patient stated that he had no chest pain overnight. 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 He also stated that he is not urinating enough his blood pressure is high. He also stated that he has had no issues with urination at home. Patient denies any nausea, vomiting, diarrhea, constipation or fatigue. 10/23/21? 22:42 66-year-old male with a past medical history of hypertension, hyperlipidemia, chronic kidney disease and kidney stones who presented to the ER with chest pain.? The patient reports that he has been having chest pain for almost a year.? Initially the pain was intermittent in nature but he has had a marked increase in symptoms since Saturday.? He reported that he had 6 episodes on Saturday alone.? The pain is in the left chest radiate down the left arm and radi ating to his back.? The pain is sharp and severe in nature.? Was 9/10 in intensity at its worst.? It usually lasts around 20 or 30 minutes but can last couple of hours.? It is usually accompanied by profuse diaphoresis.? He denies any cough, congestion, nausea or vomiting.? He has not noticed any relation is symptoms to exertion.? However he does state that when he got up to adjust the thermostat in the [place]
--- NOTE | 2021-10-24 10:30 | PM.IMPN ---
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 Current BP 163/88 Continue Coreg poor response noted Continuie IV Lopressor 5 mg q.6 hours as needed for systolic blood pressures greater than 160. No further episodes of chest pain. Continue to trend BP Adjust therapy as indicated (3) Hyperlipidemia: Qualifiers: Hyperlipidemia type: mixed hyperlipidemia Qualified Code(s): E78.2 - Mixed hyperlipidemia Code(s): E78.5 - Hyperlipidemia, unspecified Status: Acute Assessment and Plan: hyperlipidemia and hypertriglyceridemia noted per labs. Continue atorvastatin 80 mg p.o. daily. Triglycerides 213, cholesterol 199, LDL 92, HDL 51 Lifestyle changes Instructor Decorating consult (4) PITA (acute kidney injury): Code(s): N17.9 - Acute kidney failure, unspecified Status: Acute Assessment and Plan: BUN/Cr 19/2.00 Probably a componet of CKD IV fluids for possible dehydration Continue to trend labs Labs in the am Trend urine output Avoid nephrotoxic medications (5) Abnormal urinalysis: Code(s): R82.90 - Unspecified abnormal findings in urine Status: Acute Assessment and Plan: Patient's UA did demonstrate 3+ protein, hyaline casts and granular casts. Protein is likely in part due to his chronically uncontrolled hypertension. Consider Nephrology consult. . renal ultrasound bilateral cysts Time Spent With Patient Time with patient: Greater than 35 minutes Subjective Date/time seen: 10/24/21 10:30 Interval history: 10/24/21 1030 Patient stated that he was doing okay today. Patient stated that he had no chest pain overnight. 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 He also stated that he is not urinating enough his blood pressure is high. He also stated that he has had no issues with urination at home. Patient denies any nausea, vomiting, diarrhea, constipation or fatigue. 10/23/21? 22:42 66-year-old male with a past medical history of hypertension, hyperlipidemia, chronic kidney disease and kidney stones who presented to the ER with chest pain.? The patient reports that he has been having chest pain for almost a year.? Initially the pain was intermittent in nature but he has had a marked increase in symptoms since Saturday.? He reported that he had 6 episodes on Saturday alone.? The pain is in the left chest radiate down the left arm and radiating to his back.? The pain is sharp and severe in nature.? Was 9/10 in intensity at its worst.? It usually lasts around 20 or 30 minutes but can last couple of hours.? It is usually accompanied by profuse diaphoresis.? He denies any cough, congestion, nausea or vomiting.? He has not noticed any relation is symptoms to exertion.? However he does state that when he got up to adjust the thermostat in the room he did have some chest pressure.? He quit seeing his primary care physician in 2014 when he retired because he thought that his baseline hypertension with likely due to the stress he was under at his job.? He had a colonoscopy in 2011 that demonstrated 3 colon polyps and internal hemorrhoids.? He has not had a colonoscopy since that time.? He has been having intermittent bloody stools but usually occurs when he is constipated.? Does not eat much in the form of fiber or vegetables
--- NOTE | 2021-10-24 10:54 | PC.NURSE ---
1030 To cardiac catheter builder for procedure accompanied by CCL RN's
--- NOTE | 2021-10-24 12:19 | WPDCARDPROC ---
Cardiac Cath Procedure Note Date of procedure:: 10/24/21 Performing physician:: Ty Alba MD Procedure Procedure note:: CARDIAC CATHETERIZATION AND PERCUTANEOUS CORONARY INTERVENTION REPORT DATE OF PROCEDURE: 10/24/2021 INDICATION FOR PROCEDURE: Non ST-elevation myocardial infarction BRIEF CLINICAL HISTORY:66-year-old male with hypertension, CKD, dyslipidemia. Patient admitted to the [facility] on 10/23/2021 with worsening chest pain.? Troponins minimally elevated.? EKG showed sinus rhythm, septal infarct age undetermined, nonspecific T-wave abnormality.? Clinical presentation consistent with non ST elevation NM. After discussing benefits, risks and alternatives, patient was willing to proceed with cardiac catheterization with an eye towards intervention as necessary.? Patient has renal insufficiency, and would be at increased risk of contrast induced nephropathy.? Patient was informed about that, and he was willing to proceed.? Patient was initiated on IV hydration with normal saline prereduce.? Benefits and risks of the procedure were discussed with the patient in depth, and informed consent was obtained prior to the procedure. Risks of the procedure include but are not limited to vascular complications including groin hematoma, retroperitoneal bleed, vessel perforation; periprocedural NM, cardiac arrhythmias, stroke, contrast induced nephropathy, and . After discussing all the benefits, risks and alternatives, patient was willing to proceed with the procedure. PROCEDURES PERFORMED: 1. Left heart catheterization- Selective left and right coronary angiogram; left ventriculogram and hemodynamic assessment 2. Percutaneous coronary intervention- a) balloon angioplasty and stenting of high-grade stenosis in the mid LAD using a 3.5 x 30 mm Biotronik orsiro sirolimus eluting stent; b) intravascular ultrasound (IVUS) of LAD 3. Deployment of Mynx hemostatic device 4. Moderate sedation-CPT code 65531 MODERATE SEDATION: Midazolam 2 mg; fentanyl 50 mcg. Start time 1106 , Stop time 1207 ; Total aqke-fs-utpo time 61 minutes; George Moon RN was trained observer for moderate sedation. ACCESS SITE: Right common femoral artery PROCEDURE NOTE: After obtaining informed consent, patient was brought to catheterization lab and prepped and draped in a usual sterile manner. After local anesthesia with lidocaine, right common femoral artery access was taken with micropuncture needle followed by insertion of a 5 [place] sheath. There was difficulty in engaging the left main coronary artery with catheters including 5 [place] JL 4, 5 [place] JL5. Finally, Selective left and right coronary angiogram was performed using 5 CLS 3.5 guide catheter and JR4 catheters respectively. Orthogonal views were taken. Next, a 5 [place] pigtail catheter was advanced in the LV cavity and was flushed with normal saline. LV pressure measurement was performed. After this, left ventriculogram was performed. The catheter was flushed again, and gradient across the aortic valve was measured on the pullback of the catheter. The angiographic findings and details of intervention are given below. FINDINGS: LEFT MAIN CORONARY: The left main coronary is a large caliber, long vessel. There is about 30-40% stenosis in the distal segment just before it gives rise to LAD and left circumflex branches. LEFT ANTERIOR DESCENDING ARTERY: The LAD is a medium caliber vessel. There is diffuse about 40-50% stenosis in the proximal segment. High-grade, 95% eccentric stenosis seen in the mid segment. The vessel tapers distally and does not reach LV apex. Major diagonal branch is a large caliber vessel, no significant focal stenosis. LEFT CIRCUMFLEX ARTERY: Small to medium caliber vessel, gives rise to small caliber tortuous OM1 and OM2 branches without significant focal stenosis. RIGHT CORONARY ARTERY: A very large caliber, dominant vessel. Diffuse minor irregularitie
--- NOTE | 2021-10-24 12:43 | ECG_ITS ---
Measurements Intervals [place] Rate: 80 P: 66 TX: 142 QRS: 4 QRSD: 83 T: 29 QT: 386 QTc: 446 Interpretive Statements SINUS RHYTHM WITH SINUS ARRHYTHMIA SEPTAL MYOCARDIAL INFARCTION , OF INDETERMINATE AGE T-WAVE ABNORMALITY, CONSIDER ISCHEMIA Electronically Signed On 10-24-2021 12:59:08 CDT by Ty Alba M.D.
--- NOTE | 2021-10-24 13:55 | PC.NURSE ---
1345- returned to room post cardiac cath- right groin with dressing CDI-, + 3 R pedal pulse- pt instructed on post activity - acknowledged understanding;
[2021-10-24 14:15] LABS: Partial Thromboplastin Time 61.4 SECONDS (22.3-36.8)
--- NOTE | 2021-10-24 15:46 | PC.NURSE ---
[facility] flyer was given to patient.
[2021-10-24 17:18] LABS: Appearance Urine Clear (Clear); Bilirubin Urine Negative (Negative); Blood Urine Negative (Negative); Color Urine Yellow (Yellow); Glucose Urine UA Negative (Negative); Ketones Urine Negative (Negative); Leukocyte Esterase Ur Negative LEU/UL (Negative); Nitrate Urine Negative (Negative); Protein Urine 3+ mg/dL (Negative); Specific Grav Ur 1.015 (1.001-1.035); Urobilinogen Urine 0.2 mg/dL (<2.0); pH Urine 5.5 (5.0-9.0)
[2021-10-24 17:20] LABS: Bacteria Urine Trace /hpf; RBC Urine 0-2 /hpf (0-2); Squamous Epithelial Cell Urine Rare /hpf (Few); WBC Urine 0-3 /hpf
[2021-10-24 17:21] LABS: Add Urine Microscopic? YES
[2021-10-24] MEDS: TICAGRELOR 90 MG TABLET PO (20:28)
[2021-10-24] MEDS: ATORVASTATIN 40 MG TABLET 80 MG PO (20:28)
[2021-10-25] VITALS (10 sets, daily range): BP systolic 150–176; BP diastolic 96–100; PULSE 64–88; RESP 18–20; TEMP 36.6–36.9; O2SAT 97–100; BMI 23.3
[2021-10-25 04:39] LABS: Basophils Percent Auto 0.3 % (0.2-1.2); Eosinophils Absolute Auto 0.1 K/mm3 (0-0.3); Eosinophils Percent Auto 0.9 % (0-4.4); Hematocrit 29.2 % (42.0-52.0); Hemoglobin 10.3 g/dL (14.0-18.0); Immature Granulocyte Absolute 0.04 K/mm3 (0.00-0.031); Immature Granulocyte Percent A 0.4 % (0-0.5); Lymphocytes Absolute Auto 1.53 K/mm3 (0.9-3.2); Lymphocytes Percent Auto 14.6 % (18.3-44.2); Mean Corpuscular HGB Conc 35.3 g/dl (32-36); Mean Corpuscular Hemoglobin 33.9 pg (26-34); Mean Corpuscular Volume 96.1 fl (80-100); Mean Platelet Volume 10.1 fl (7.4-10.4); Monocytes Percent Auto 9.1 % (2.6-8.5); Neutrophils Absolute Auto 7.8 K/mm3 (1.3-6.7); Neutrophils Percent Auto 74.7 % (45.5-73.1); Platelet Count Result 172 k/mm3 (150-375); Red Blood Count 3.04 M/mm3 (4.6-6.20); Red Cell Distribution Width 11.6 % (11.5-14.5); White Blood Count 10.5 K/mm3 (4.5-10.0)
[2021-10-25 04:50] LABS: Alanine Aminotransferase 12 U/L (6-50); Albumin Level 2.8 g/dL (3.5-5.1); Alkaline Phosphatase 41 U/L (38-126); Anion Gap 2 mmol/L (8-16); Aspartate Amino Transferase 25 U/L (17-59); Bilirubin,Total 0.8 mg/dL (0.2-1.3); Blood Urea Nitrogen 18 mg/dL (9-20); Calcium 8.1 mg/dL (8.4-10.2); Carbon Dioxide 23 mmol/L (22-30); Chloride 113 mmol/L (98-107); Estimated CRCL calculation 29 ml/min; Estimated Glomerular Filt Rate 33; Glucose 105 mg/dL (65-110); Magnesium 1.7 mg/dL (1.6-2.3); Sodium 138 mmol/L (137-145)
--- NOTE | 2021-10-25 05:11 | ECG_ITS ---
Measurements Intervals [place] Rate: 90 P: 60 WI: 152 QRS: -12 QRSD: 78 T: -14 QT: 404 QTc: 495 Interpretive Statements SINUS RHYTHM ST DEVIATION AND MODERATE T-WAVE ABNORMALITY, CONSIDER ANTEROLATERAL ISCHEMIA [-0.1+ mV T WAVE IN V3-V6] COMPARED TO ECG 10/24/2021 12:51:07 NO SIGNIFICANT CHANGES Electronically Signed On 10-25-2021 12:44:34 CDT by Luna Bliss M.D.
--- NOTE | 2021-10-25 07:46 | PM.PNCARD ---
Progress Note: A&P Assessment and Plan (1) Hypertension: Code(s): I10 - Essential (primary) hypertension Status: Acute Assessment and Plan: High. Increase Coreg 25 mg BID. Start Amlodipine 5 mg daily. Hold off on Alexis or ARB given renal dysfunction. Once renal function stabilizes to a baseline level, then will start Alexis inh or ARB. Hydralazine q 4 hours prn for SBP>150. (2) Non-ST elevation IN (NSTEMI): Code(s): I21.4 - Non-ST elevation (NSTEMI) myocardial infarction Status: Acute Assessment and Plan: Received aspirin 325 x1 in ED.? Started aspirin 81 mg daily in AM. Was treated with heparin drip. Trend troponin which is moderately elevated at 0.273 not peaked. EKG shows cannot r/o septal infarct, borderline ST-T wave abnormality in ant/high lat leads. Echo shows EF 60-65%, mild LVH, grade I diastolic dysfunction (E/e' 8). Cardiac cath with Dr. Alba shows LM distal 30-40%, prox LAD 40-50%, mid 95%, RPL mild plaque; PCI with MARCELLO to mid LAD with good results. On aspirin 81 mg daily, Brilinta 90 mg BID. Advise not to stop dual antiplatelet agents. May d/c home from cardiology standpoint and f/u with pa ini 1 week. At that time will start phase II cardiac rehab. (3) Hyperlipidemia: Qualifiers: Hyperlipidemia type: mixed hyperlipidemia Qualified Code(s): E78.2 - Mixed hyperlipidemia Code(s): E78.5 - Hyperlipidemia, unspecified Status: Acute Assessment and Plan: Started Atorvastatin 80 mg daily. Subjective Date/time seen: 10/25/21 07:46 Denies any more chest pain. No sob. Right groin access site without hematoma/pain/tenderness/bruit. Exam Const: General: cooperative, healthy appearing and comfortable Resp: Auscultation: clear to auscultation bilaterally, no crackles, no rales, no rhonchi and no wheezes Cardio: Jugular venous distension: no JVD Rate: regular rate Rhythm: regular rhythm Heart sounds: no murmurs Peripheral pulses: dorsalis pedis present GI: GI Palp: No abdominal tenderness and Yes Soft to palpation Neuro: General: oriented to person, oriented to place and oriented to time Extrem: Right lower extremity: no edema Left lower extremity: no edema Objective Data Vital Signs Vital Signs: Vital Signs - 24 hr 10/24/21 08:00 10/24/21 08:55 10/24/21 08:40 Temperature 98.0 F Pulse Rate 80 74 88 Respiratory Rate 16 20 Blood Pressure 174/101 H 163/88 H Pulse Oximetry 100 Oxygen Delivery 10/24/21 08:00 10/24/21 10:00 10/24/21 10:00 Temperature Pulse Rate 77 88 88 Respiratory Rate Blood Pressure Pulse Oximetry Oxygen Delivery 10/24/21 14:07 10/24/21 14:37 10/24/21 12:30 Temperature 98.2 F 98.4 F 98.7 F Pulse Rate 107 H 102 H 82 Respiratory Rate 20 18 14 Blood Pressure 158/85 H 143/82 H 176/89 H Pulse Oximetry 100 100 100 Oxygen Delivery Room Air 10/24/21 12:45 10/24/21 13:00 10/24/21 13:15 Temperature Pulse Rate 86 90 87 Respiratory Rate 16 18 15 Blood Pressure 154/87 H 145/88 H 154/91 H Pulse Oximetry 100 100 100 Oxygen Delivery Room Air Room Air Room Air 10/24/21 13:30 10/24/21 15:19 10/24/21 14:00 Temperature 98.8 F Pulse Rate 76 58 L 86 Respiratory Rate 12 18 Blood Pressure 143/70 H 154/85 H Pulse Oximetry 99 99 Oxygen Delivery Room Air 10/24/21 15:30 10/24/21 16:30 10/24/21 16:00 Temperature 98.8 F 98.8 F Pulse Rate 99 62 100 Respiratory Rate 16 16 Blood Pressure 148/94 H 157/93 H Pulse Oximetry 99 99 Oxygen Delivery 10/24/21 17:30 10/24/21 18:00 10/24/21 18:30 Temperature 97.8 F 99.2 F Pulse Rate 87 78 100 Respiratory Rate 16 16 Blood Pressure 136/87 162/89 H Pulse Oximetry 100 99 Oxygen Delivery 10/24/21 20:00 10/24/21 20:28 10/24/21 20:00 Temperature 97.9 F Pulse Rate 90 90 78 Respiratory Rate 18 Blood Pressure 169/93 H Pulse Oximetry 97 Oxygen Delivery 10/24/21 20:00 10/24/21 23:20 10/24/21 22:00 Temperature
[2021-10-25] MEDS: SODIUM CHLORIDE 0.9% IV 1,000 ML 125 ML IV CONT (08:50)
[2021-10-25] MEDS: MAGNESIUM SULF 2 GM/WATER 50ML 2 GM/50 ML BAG IVPB (08:53)
[2021-10-25] MEDS: POTASSIUM CHLORIDE 20 MEQ TABLET 40 MEQ PO (08:56)
[2021-10-25] MEDS: ASPIRIN 81 MG ENTERIC TABLET PO (08:57)
[2021-10-25] MEDS: amLODIPine BESYLATE 5 MG TABLET PO ×2 (08:57→15:32)
[2021-10-25] MEDS: carvediloL 25 MG TABLET PO (08:58)
[2021-10-25] MEDS: TICAGRELOR 90 MG TABLET PO (08:58)
--- NOTE | 2021-10-25 14:36 | P.DS_ITS ---
DS: Admitting Diagnosis Discharge Date 10/25/21 1430 Admitting Diagnosis NSTEMI DS: Discharge Diagnosis Discharge Diagnosis (1) Non-ST elevation OK (NSTEMI): Code(s): I21.4 - Non-ST elevation (NSTEMI) myocardial infarction Status: Acute Assessment and Plan: * EKG does not have any st elevation * Troponins elevated * Cardiology consulted * Cardiac cath on 10/24/21 and LAD stented for a 95% occlusion * Coreg, aspirin, and lipitor added * Brilinta was added * Trend Blood pressure * cotton roll packer (2) Uncontrolled stage 2 hypertension: Code(s): I10 - Essential (primary) hypertension Status: Acute Assessment and Plan: * Longstanding uncontrolled hypertension. * Current BP 156/96 * Continue Coreg poor response noted * amlodipine was added and increased to 10 mg p.o. daily * Continuie IV Lopressor 5 mg q.6 hours as needed for systolic blood pressures greater than 160. * No further episodes of chest pain. * Continue to trend BP * Adjust therapy as indicated (3) Hyperlipidemia: Qualifiers: Hyperlipidemia type: mixed hyperlipidemia Qualified Code(s): E78.2 - Mixed hyperlipidemia Code(s): E78.5 - Hyperlipidemia, unspecified Status: Acute Assessment and Plan: * hyperlipidemia and hypertriglyceridemia noted per labs. * Continue atorvastatin 80 mg p.o. daily. * Triglycerides 213, cholesterol 199, LDL 92, HDL 51 * Lifestyle changes * Branch Service Leader consult (4) PITA (acute kidney injury): Code(s): N17.9 - Acute kidney failure, unspecified Status: Acute Assessment and Plan: * BUN/Cr 18/2.00 * Probably a componet of CKD * IV fluids for possible dehydration * Continue to trend labs * Labs in the am * Trend urine output * Avoid nephrotoxic medications (5) Abnormal urinalysis: Code(s): R82.90 - Unspecified abnormal findings in urine Status: Acute Assessment and Plan: * Patient's UA did demonstrate 3+ protein, hyaline casts and granular casts. * Protein is likely in part due to his chronically uncontrolled hypertension. * Consider Nephrology consult. . * renal ultrasound bilateral cysts DS: Summary Hospital Course Hospital Course: patient is 66-year-old male with past medical history anxiety, chronic kidney disease, GERD, hyperlipidemia, hypertension who presented to the ED with on relieving chest pain. Troponins were noted to be elevated. EKG shows sinus rhythm in the 90s with T-wave abnormality. Cardiology was consulted and patient was started on a heparin drip. It was decided that patient would probably benefit from a cardiac catheterization. Patient did cardiac catheterization and 1 stent was placed in the LAD. Patient was also noted to have hypertension and is patient was placed on carvedilol for blood pressure control. Aspirin and Lipitor were also added for further control. Patient was placed on telemetry which had no ectopy. It was also noted that patient had acute renal failure with a creatinine of 2.4. Patient was started on IV fluids and creatinine has decreased to 2.0 today. Patient did have a renal ultrasound which showed bilateral cyst along with chronic kidney disease. Patient is ready to go and is stable for discharge at this time. Patient denies any chest pain, shortness of breath, nausea, vomiting, diarrhea, constipation, weakness fatigue, sweats, fevers, chills. Patient was updated on the plan of care and it was deep
--- NOTE | 2021-10-25 14:36 | PM.DS ---
DS: Admitting Diagnosis Discharge Date 10/25/21 1430 Admitting Diagnosis NSTEMI DS: Discharge Diagnosis Discharge Diagnosis (1) Non-ST elevation [place] (NSTEMI): Code(s): I21.4 - Non-ST elevation (NSTEMI) myocardial infarction Status: Acute Assessment and Plan: EKG does not have any st elevation Troponins elevated Cardiology consulted Cardiac cath on 10/24/21 and LAD stented for a 95% occlusion Coreg, aspirin, and lipitor added Brilinta was added Trend Blood pressure health information manager (2) Uncontrolled stage 2 hypertension: Code(s): I10 - Essential (primary) hypertension Status: Acute Assessment and Plan: Longstanding uncontrolled hypertension. Current BP 156/96 Continue Coreg poor response noted amlodipine was added and increased to 10 mg p.o. daily Continuie IV Lopressor 5 mg q.6 hours as needed for systolic blood pressures greater than 160. No further episodes of chest pain. Continue to trend BP Adjust therapy as indicated (3) Hyperlipidemia: Qualifiers: Hyperlipidemia type: mixed hyperlipidemia Qualified Code(s): E78.2 - Mixed hyperlipidemia Code(s): E78.5 - Hyperlipidemia, unspecified Status: Acute Assessment and Plan: hyperlipidemia and hypertriglyceridemia noted per labs. Continue atorvastatin 80 mg p.o. daily. Triglycerides 213, cholesterol 199, LDL 92, HDL 51 Lifestyle changes Insurance Business Analyst consult (4) PITA (acute kidney injury): Code(s): N17.9 - Acute kidney failure, unspecified Status: Acute Assessment and Plan: BUN/Cr 18/2.00 Probably a componet of CKD IV fluids for possible dehydration Continue to trend labs Labs in the am Trend urine output Avoid nephrotoxic medications (5) Abnormal urinalysis: Code(s): R82.90 - Unspecified abnormal findings in urine Status: Acute Assessment and Plan: Patient's UA did demonstrate 3+ protein, hyaline casts and granular casts. Protein is likely in part due to his chronically uncontrolled hypertension. Consider Nephrology consult. . renal ultrasound bilateral cysts DS: Summary Hospital Course Hospital Course: patient is 66-year-old male with past medical history anxiety, chronic kidney disease, GERD, hyperlipidemia, hypertension who presented to the ED with on relieving chest pain. Troponins were noted to be elevated. EKG shows sinus rhythm in the 90s with T-wave abnormality. Cardiology was consulted and patient was started on a heparin drip. It was decided that patient would probably benefit from a cardiac catheterization. Patient did cardiac catheterization and 1 stent was placed in the LAD. Patient was also noted to have hypertension and is patient was placed on carvedilol for blood pressure control. Aspirin and Lipitor were also added for further control. Patient was placed on telemetry which had no ectopy. It was also noted that patient had acute renal failure with a creatinine of 2.4. Patient was started on IV fluids and creatinine has decreased to 2.0 today. Patient did have a renal ultrasound which showed bilateral cyst along with chronic kidney disease. Patient is ready to go and is stable for discharge at this time. Patient denies any chest pain, shortness of breath, nausea, vomiting, diarrhea, constipation, weakness fatigue, sweats, fevers, chills. Patient was updated on the plan of care and it was reiterated about taking his medications and bleeding precautions were also given as well. The patient's was present and understood the plan of care. All questions were answered and patient verbalized understanding. Status at Discharge Functional status at discharge: independent ambulation Overall status at discharge: patient is progressing back to baseline Time Spent with Patient Time attestation: Total time spent providing and/or coordinating discharge services:
--- NOTE | 2021-10-25 14:51 | PCNSR ---
On 10/25/21, the student, Yvonne Salgado, provided care and completed [facility] documentation on this patient. I have reviewed the student's documentation and agree with the findings.
[2021-10-25 15:07] LABS: Alanine Aminotransferase 13 U/L (6-50); Albumin Level 2.9 g/dL (3.5-5.1); Alkaline Phosphatase 40 U/L (38-126); Anion Gap 4 mmol/L (8-16); Aspartate Amino Transferase 27 U/L (17-59); Bilirubin,Total 0.4 mg/dL (0.2-1.3); Blood Urea Nitrogen 16 mg/dL (9-20); Carbon Dioxide 21 mmol/L (22-30); Chloride 112 mmol/L (98-107); Estimated CRCL calculation 32 ml/min; Estimated Glomerular Filt Rate 38; Glucose 107 mg/dL (65-110); Potassium 3.4 mmol/L (3.4-5.0); Sodium 137 mmol/L (137-145)
--- NOTE | 2021-10-25 16:53 | PC.NURSE ---
discharged instructions given- pt/spouse verbalized understanding- mynx card given to pt
== END 2021-10-25 17:04 | disposition home or self-care (01) | DRG 247 ==
LOC: ANHED 17:46 → ANHIMU 18:39
PROVIDERS: Internal Medicine; Internal Medicine Cardiovascular Disease; Admitting Provider Internal Medicine; Emergency Provider Emergency Medicine; PCP Internal Medicine; Visit Provider Nurse Practitioner
PROC: 4A023N7 Measurement of Cardiac Sampling and Pressure, Left Heart, Percutaneous Approach (ICD-10-PCS; CPT 93452; principal; 2021-10-24 10:30)
PROC: 027034Z Dilation of Coronary Artery, One Artery with Drug-eluting Intraluminal Device, Percutaneous Approach (ICD-10-PCS; 2021-10-24 10:30)
PROC: 027034Z Dilation of Coronary Artery, One Artery with Drug-eluting Intraluminal Device, Percutaneous Approach (ICD-10-PCS; 2021-10-24 10:30)
PROC: 027034Z Dilation of Coronary Artery, One Artery with Drug-eluting Intraluminal Device, Percutaneous Approach (ICD-10-PCS; 2021-10-24 10:30)
DX: I21.4 Non-ST elevation (NSTEMI) myocardial infarction (principal); N17.9 Acute kidney failure, unspecified; I25.10 Atherosclerotic heart disease of native coronary artery without angina pectoris; E78.2 Mixed hyperlipidemia; R82.90 Unspecified abnormal findings in urine; F41.9 Anxiety disorder, unspecified; I12.9 Hypertensive chronic kidney disease with stage 1 through stage 4 chronic kidney disease, or unspecified chronic kidney disease; Z20.822 Contact with and (suspected) exposure to COVID-19; E11.22 Type 2 diabetes mellitus with diabetic chronic kidney disease; N18.9 Chronic kidney disease, unspecified; M19.90 Unspecified osteoarthritis, unspecified site; K21.9 Gastro-esophageal reflux disease without esophagitis; Z87.891 Personal history of nicotine dependence
CPT/HCPCS: 36415; 71046; 76775; 80048; 80053; 80061; 81001; 83036; 83690; 83735; 84443; 84484; 85025; 85610; 85730; 92978; 93005; 93306; 93458; 96361; 96365; 96366; 96375; 99291; A9270; C1725; C1753; C1760; C1769; C1874; C1887; C1894; C9600; C9803; G0269; G0378; J0360; J0583; J1644; J2250; J3010; J3475; J7030; J7040; U0003; U0005

== ENCOUNTER 2021-11-02 15:03 | Outpatient (CLI) | payer MEDICARE, SELFPAY ==
[2021-11-02 15:47] LABS: Alanine Aminotransferase 18 U/L (6-50); Albumin Level 3.7 g/dL (3.5-5.1); Alkaline Phosphatase 49 U/L (38-126); Anion Gap 4 mmol/L (8-16); Aspartate Amino Transferase 25 U/L (17-59); Bilirubin,Total 0.2 mg/dL (0.2-1.3); Blood Urea Nitrogen 24 mg/dL (9-20); Calcium 8.4 mg/dL (8.4-10.2); Carbon Dioxide 26 mmol/L (22-30); Chloride 107 mmol/L (98-107); Estimated Glomerular Filt Rate 30; Glucose 91 mg/dL (65-110); Potassium 3.8 mmol/L (3.4-5.0); Sodium 137 mmol/L (137-145)
== END 2021-11-02 15:04 | disposition home or self-care (01) ==
LOC: ANHLAB 15:04
PROVIDERS: PCP Internal Medicine; Visit Provider Nurse Practitioner
DX: N17.9 Acute kidney failure, unspecified (principal)
CPT/HCPCS: 36415; 80053

== ENCOUNTER 2021-11-14 15:05 | Outpatient (CLI) | payer MEDICARE, SELFPAY ==
[2021-11-14 18:35] LABS: Hematocrit 35.5 % (42.0-52.0); Hemoglobin 11.8 g/dL (14.0-18.0); Mean Corpuscular HGB Conc 33.2 g/dl (32-36); Mean Corpuscular Hemoglobin 32.7 pg (26-34); Mean Corpuscular Volume 98.3 fl (80-100); Mean Platelet Volume 10.1 fl (7.4-10.4); Platelet Count Result 345 k/mm3 (150-375); Red Blood Count 3.61 M/mm3 (4.6-6.20); White Blood Count 11.4 K/mm3 (4.5-10.0)
[2021-11-14 20:02] LABS: Folic Acid > 20.0 ng/mL (2.76->20)
== END 2021-11-14 15:06 | disposition home or self-care (01) ==
LOC: ANHGOSHLAB 15:08
PROVIDERS: PCP Internal Medicine; Visit Provider Internal Medicine
DX: D64.9 Anemia, unspecified (principal)
CPT/HCPCS: 36415; 82607; 82728; 82746; 85027

== ENCOUNTER 2021-12-06 13:30 | Outpatient (RCR) | payer MEDICARE, SELFPAY | END 2021-12-21 13:46 | disposition home or self-care (01) | LOC: ANHCPREHAB 13:30 | PROVIDERS: PCP Internal Medicine; Visit Provider Internal Medicine Cardiovascular Disease | DX: Z95.5 Presence of coronary angioplasty implant and graft (principal) | CPT/HCPCS: 93798 ==

== ENCOUNTER 2021-12-07 14:50 | Emergency (ER) | payer MEDICARE, SELFPAY ==
--- NOTE | ~2021-12-07 | CT_ITS ---
EXAMINATION: CT chest abdomen pelvis wo con DATE: 12/07/2021 16:54 CDT INDICATION: Fell off horse. Blunt trauma. TECHNIQUE: Computed tomography (CT) of the chest, abdomen, and pelvis was performed without intraveno us contrast. The dose-length product was 416.02 mGy-cm. Automated exposure control and iterative kiki nstruction technique were employed. COMPARISON: None FINDINGS: CHEST CT: No thoracic lymphadenopathy. Heart size normal. There is atherosclerosis of the aorta without aneurys m. Coronary atherosclerosis. No thoracic lymphadenopathy. There is a 3 mm subsolid nodule right upper lobe, image 59. There is dependent atelectasis. No pneumothorax. No endobronchial lesions. There is moderate thoracic and lumbar spondylosis. No acute osseous abnormality. ABDOMEN/PELVIS CT: The liver, spleen, pancreas, adrenal glands are unremarkable. There are bilateral nonobstructing nikolas l stones, largest in the right kidney measuring 12 mm. Gallbladder is distended. There is mild thicke tung of the sigmoid colon with associated colonic diverticula and mild peridiverticular inflammation, consistent with diverticulitis. No free air or free fluid. Bladder is not well distended. IMPRESSION: 1. Acute sigmoid diverticulitis. 2: Subsolid right upper lobe nodule measuring 3 mm, likely benign. 3: Nonobstructing bilateral nephrolithiasis. Reviewed, dictated and finalized at location A.
--- NOTE | ~2021-12-07 | XR_ITS ---
XR_[id number]_CR DATE: 12/07/2021 15:39 INDICATION: Right rib cage pain after being knocked down by horse. TECHNIQUE: AP chest COMPARISON: 10/23/2021 2 view chest FINDINGS: There is a slightly displaced lateral right sixth rib fracture. No other fracture or bone destruction of the right ribs. There is degenerative spurring and mild dextroscoliosis of the thoracic spine. Normal heart size. There is aortic calcification and minimal aortic unfolding. No hilar or mediasti nal enlargement. No pulmonary infiltrate or consolidation, pulmonary vascular congestion or pleural effusion or pneumothorax. IMPRESSION: No active cardiopulmonary disease Aortic atherosclerosis Slightly displaced right lateral sixth rib fracture Reviewed, dictated and finalized at Location [facility]. Reviewed, dictated and finalized at location B.
[2021-12-07 14:59] VITALS: BP 141/71; PULSE 66; RESP 18; TEMP 36.4; O2SAT 100
[2021-12-07] MEDS: ONDANSETRON INJ 4 MG/2 ML VIAL IV PUSH (15:21)
[2021-12-07] MEDS: MORPHINE SULFATE (*CRX) 4 MG/ML INJ IV PUSH (15:21)
--- NOTE | 2021-12-07 15:33 | PC.NURSE ---
Patient off unit to Radiology.
[2021-12-07 15:34] LABS: Basophils Percent Auto 0.3 % (0.2-1.2); Eosinophils Absolute Auto 0.3 K/mm3 (0-0.3); Eosinophils Percent Auto 2.4 % (0-4.4); Hematocrit 28.2 % (42.0-52.0); Hemoglobin 9.3 g/dL (14.0-18.0); Immature Granulocyte Absolute 0.03 K/mm3 (0.00-0.031); Immature Granulocyte Percent A 0.3 % (0-0.5); Lymphocytes Absolute Auto 1.47 K/mm3 (0.9-3.2); Lymphocytes Percent Auto 13.1 % (18.3-44.2); Mean Corpuscular Volume 96.9 fl (80-100); Monocytes Absolute Auto 0.8 K/mm3 (0.1-0.6); Neutrophils Absolute Auto 8.6 K/mm3 (1.3-6.7); Neutrophils Percent Auto 76.9 % (45.5-73.1); Platelet Count Result 205 k/mm3 (150-375); Red Blood Count 2.91 M/mm3 (4.6-6.20); White Blood Count 11.2 K/mm3 (4.5-10.0)
--- NOTE | 2021-12-07 15:37 | ED.FALL ---
HPI - Fall General Chief Complaint: Fall Stated Complaint: right rib pain Time Seen by Provider: 12/07/21 15:07 Source: patient and RN notes reviewed Mode of arrival: ambulatory Limitations: no limitations History of Present Illness HPI Narrative: This is a 66 year old male who presents for evaluation of right rib pain. He states he was riding on a horse yesterday. He was thrown 12 feet onto his right side. He denies hitting his head or LOC. He denies neck pain. He is complaining of right chest pain. He denies nasuea, vomiting or shortness of breath. He has been taking tylenol for his pain. His states she thinks he has taken 25 tylenol over past 24 hours. PAtient thinks he took 9 tylenol around 9 am this morning. he has not taken any medication since. Related Data Allergies Allergy/AdvReac Type Severity Reaction Status Date / Time No Known Allergies Allergy Verified 12/07/21 15:08 Review of Systems Review of Systems: CONSTITUTIONAL: Denies fever, chills, or sweats. EYES: Denies visual changes, redness, or discharge. ENT: Denies rhinorrhea, congestion, sore throat, or otalgia. CARDIOVASCULAR: Denies palpitations, or edema. RESPIRATORY: Denies cough or dyspnea. GASTROINTESTINAL: Denies abdominal pain, nausea, vomiting, or diarrhea. GENITOURINARY: Denies dysuria or hematuria. SKIN: Denies rash or itching. MUSCULOSKELETAL: Denies back pain, joint pain, or myalgia. NEUROLOGIC: Denies headache, numbness, or weakness. PSYCHIATRIC: Denies anxiety or depression. [facility] Past Medical History Medical History (Updated 12/07/21 @ 17:34 by Nelda Olson MD) Anxiety Arthritis Chronic kidney disease CKD (chronic kidney disease) GERD (gastroesophageal reflux disease) Hyperlipidemia Hypertension Osteoarthritis involving multiple joints on both sides of body Surgical History Surgical History H/O hand surgery Due to trauma had surgical repair of the left thenar eminence History of cardiac catheterization (~2003) No significant blockages History of carpal tunnel surgery of left wrist History of colonoscopy with polypectomy 3 polyps removed, internal hemorrhoids History of hemorrhoidectomy (~2011) History of lithotripsy X2 with complications including with sounds like shock History of repair of right rotator cuff (2008) History of tonsillectomy Family History Family History Mother Acute myocardial infarction Liver cancer Father Acute myocardial infarction Liver cancer Social History Social History Social History: He has been for 41 years. They have 2 children who are healthy. He has never smoked. He does smoke marijuana on a somewhat frequent basis. He drinks a couple of beers a day and some whiskey. 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 Spiritual care concerns: No Exam Const: General: alert Nutritional Appearance: well nourished Orientation/consciousness: patient oriented x3 Limitations: no limitations HENMT: Head: normal to inspection, no hematomas and no lacerations General nose exam: Normal external nose present Face and sinus: normal facial exam Mouth: Yes Normal oral and palatal mucosa present Eyes: Pupils: Equal, round and reactive pupils present EOM: EOMs intact bilaterally Neck: Neck: normal visual inspection Chest: Chest palpation & inspection: tenderness (right lateral , no bruising) rib Resp: Effort & Inspection: normal respiratory effo
[2021-12-07 15:44] LABS: INR 1.2; Prothrombin Time 14.9 Seconds (11.1-14.7)
[2021-12-07 15:45] LABS: Partial Thromboplastin Time 34.8 SECONDS (22.3-36.8)
[2021-12-07 15:46] LABS: Alanine Aminotransferase 16 U/L (6-50); Albumin Level 3.6 g/dL (3.5-5.1); Alkaline Phosphatase 51 U/L (38-126); Anion Gap 11 mmol/L (8-16); Aspartate Amino Transferase 31 U/L (17-59); Bilirubin,Total 0.4 mg/dL (0.2-1.3); Blood Urea Nitrogen 27 mg/dL (9-20); Calcium 8.3 mg/dL (8.4-10.2); Carbon Dioxide 19 mmol/L (22-30); Chloride 107 mmol/L (98-107); Estimated CRCL calculation 25 ml/min; Estimated Glomerular Filt Rate 27; Glucose 98 mg/dL (65-110); Potassium 4.7 mmol/L (3.4-5.0); Sodium 137 mmol/L (137-145)
[2021-12-07 15:47] LABS: Acetaminophen 21 ug/mL (10-30)
[2021-12-07 16:21] LABS: Appearance Urine Clear (Clear); Bilirubin Urine Negative (Negative); Blood Urine Negative (Negative); Color Urine Yellow (Yellow); Glucose Urine UA Negative (Negative); Ketones Urine Negative (Negative); Leukocyte Esterase Ur Negative LEU/UL (Negative); Nitrate Urine Negative (Negative); Protein Urine 2+ mg/dL (Negative); Specific Grav Ur 1.015 (1.001-1.035); Urobilinogen Urine 0.2 mg/dL (<2.0)
[2021-12-07 16:29] LABS: Add Urine Microscopic? YES; Mucus Urine Rare /lpf; RBC Urine 0-2 /hpf (0-2); Squamous Epithelial Cell Urine Rare /hpf (Few); WBC Urine 0-3 /hpf
[2021-12-07] MEDS: LACTATED RINGERS 1,000 ML 999 ML IV CONT (16:35)
[2021-12-07 17:55] VITALS: BP 142/75; PULSE 78; RESP 16; O2SAT 96
== END 2021-12-07 17:56 | disposition home or self-care (01) ==
PROVIDERS: Emergency Provider General Practice; PCP Internal Medicine
DX: S22.31XA Fracture of one rib, right side, initial encounter for closed fracture (principal); K57.32 Diverticulitis of large intestine without perforation or abscess without bleeding; I12.9 Hypertensive chronic kidney disease with stage 1 through stage 4 chronic kidney disease, or unspecified chronic kidney disease; N18.9 Chronic kidney disease, unspecified; M19.90 Unspecified osteoarthritis, unspecified site; K21.9 Gastro-esophageal reflux disease without esophagitis; Z86.010 Personal history of colon polyps; R91.1 Solitary pulmonary nodule; N20.0 Calculus of kidney; Z87.442 Personal history of urinary calculi; I70.0 Atherosclerosis of aorta; Z79.82 Long term (current) use of aspirin; Z79.02 Long term (current) use of antithrombotics/antiplatelets; Z79.899 Other long term (current) drug therapy; V80.010A Animal-rider injured by fall from or being thrown from horse in noncollision accident, initial encounter
CPT/HCPCS: 36415; 71101; 71250; 74176; 80053; 80307; 81001; 85025; 85610; 85730; 96374; 96375; 99284; J2270; J2405; J7120

== ENCOUNTER 2022-01-29 14:02 | Outpatient (CLI) | payer MEDICARE, SELFPAY ==
[2022-01-29 19:47] LABS: Iron 109 ug/dL (49-181)
[2022-01-29 19:56] LABS: Percent Iron Saturation 42 % (20-50)
[2022-01-29 20:32] LABS: Alanine Aminotransferase 28 U/L (6-50); Albumin Level 4.1 g/dL (3.5-5.1); Alkaline Phosphatase 49 U/L (38-126); Anion Gap 13 mmol/L (8-16); Aspartate Amino Transferase 95 U/L (17-59); Bilirubin,Total 0.4 mg/dL (0.2-1.3); Blood Urea Nitrogen 30 mg/dL (9-20); Calcium 8.8 mg/dL (8.4-10.2); Carbon Dioxide 20 mmol/L (22-30); Chloride 106 mmol/L (98-107); Estimated Glomerular Filt Rate 25; Glucose 140 mg/dL (65-110); Potassium 4.2 mmol/L (3.4-5.0); Sodium 139 mmol/L (137-145)
[2022-01-29 20:43] LABS: Thyroid Stimulating Hormone 0.384 uIU/mL (0.465-4.680)
[2022-01-29 21:09] LABS: Basophils Percent Auto 0.3 % (0.2-1.2); Eosinophils Absolute Auto 0.1 K/mm3 (0-0.3); Eosinophils Percent Auto 0.8 % (0-4.4); Hematocrit 33.5 % (42.0-52.0); Immature Granulocyte Absolute 0.19 K/mm3 (0.00-0.031); Immature Granulocyte Percent A 1.5 % (0-0.5); Lymphocytes Absolute Auto 1.47 K/mm3 (0.9-3.2); Lymphocytes Percent Auto 11.3 % (18.3-44.2); Mean Corpuscular HGB Conc 32.8 g/dl (32-36); Mean Corpuscular Hemoglobin 32.1 pg (26-34); Mean Corpuscular Volume 97.7 fl (80-100); Mean Platelet Volume 10.6 fl (7.4-10.4); Monocytes Absolute Auto 0.9 K/mm3 (0.1-0.6); Neutrophils Absolute Auto 10.3 K/mm3 (1.3-6.7); Neutrophils Percent Auto 79.1 % (45.5-73.1); Platelet Count Result 237 k/mm3 (150-375); Red Blood Count 3.43 M/mm3 (4.6-6.20); Red Cell Distribution Width 11.7 % (11.5-14.5)
[2022-01-29 21:11] LABS: Prostate Specific Antigen 1.2 ng/mL (< OR = 4.0)
== END 2022-01-29 14:03 | disposition home or self-care (01) ==
LOC: ANHGOSHLAB 14:04
PROVIDERS: PCP Internal Medicine; Visit Provider Nurse Practitioner
DX: D64.9 Anemia, unspecified (principal); N18.9 Chronic kidney disease, unspecified; Z12.5 Encounter for screening for malignant neoplasm of prostate; R53.83 Other fatigue
CPT/HCPCS: 36415; 80053; 83540; 83550; 84153; 84443; 85025; G0103

== ENCOUNTER 2022-02-16 08:48 | Outpatient (CLI) | payer MEDICARE, SELFPAY ==
[2022-02-16 19:44] LABS: Cholesterol 119 mg/dL (0-200); HDL Direct 36 mg/dL; Triglycerides 127 mg/dL (<150)
[2022-02-16 19:56] LABS: LDL Cholesterol Direct 55 mg/dL
[2022-02-16 20:15] LABS: Prostate Specific Antigen 1.3 ng/mL (< OR = 4.0)
== END 2022-02-16 08:49 | disposition home or self-care (01) ==
LOC: ANHGOSHLAB 08:51
PROVIDERS: PCP Internal Medicine; Visit Provider Internal Medicine Cardiovascular Disease
DX: E78.2 Mixed hyperlipidemia (principal); Z12.5 Encounter for screening for malignant neoplasm of prostate
CPT/HCPCS: 36415; 80061; 84153; G0103

== ENCOUNTER 2022-03-02 15:07 | Outpatient (CLI) | payer MEDICARE, SELFPAY ==
[2022-03-02 19:44] LABS: T4 Thyroxine 6.63 ug/dL (5.53-11.0)
[2022-03-02 19:58] LABS: Thyroid Stimulating Hormone 0.605 uIU/mL (0.465-4.680)
[2022-03-02 20:19] LABS: Hemoglobin A1C 5.3 % (<5.7)
== END 2022-03-02 15:08 | disposition home or self-care (01) ==
LOC: ANHGOSHLAB 15:12
PROVIDERS: PCP Internal Medicine; Visit Provider Nurse Practitioner
DX: E05.90 Thyrotoxicosis, unspecified without thyrotoxic crisis or storm (principal); R73.9 Hyperglycemia, unspecified
CPT/HCPCS: 36415; 83036; 84436; 84443

== ENCOUNTER 2022-03-28 14:51 | Outpatient (CLI) | payer MEDICARE, SELFPAY ==
[2022-03-28 19:06] LABS: Albumin Level 4.5 g/dL (3.5-5.1); Anion Gap 6 mmol/L (8-16); Blood Urea Nitrogen 37 mg/dL (9-20); Calcium 9.2 mg/dL (8.4-10.2); Carbon Dioxide 23 mmol/L (22-30); Chloride 108 mmol/L (98-107); Estimated Glomerular Filt Rate 25; Glucose 107 mg/dL (65-110); Potassium 4.7 mmol/L (3.4-5.0); Sodium 137 mmol/L (137-145)
[2022-03-28 19:13] LABS: Creatinine Urine 189.7 mg/dL; Total Protein Urine Random 186 mg/dL; Ur Ttl Prot Creatinine Ratio 0.98 mg/mg (0-0.20)
[2022-03-28 19:17] LABS: Complement C3 100 mg/dL (88-165); Parathyroid Intact 107.9 pg/mL (7.5-53.5)
[2022-03-28 19:18] LABS: Sodium Urine Random 41 meq/L
[2022-03-30 21:29] LABS: Albumin 4.1 g/dL (3.8-4.8); Alpha 1 Globulin 0.3 g/dL (0.2-0.3); Alpha 2 Globulin 0.7 g/dL (0.5-0.9); Beta 1 Globulin 0.4 g/dL (0.4-0.6); Gamma Globulin 0.7 g/dL (0.8-1.7); Protein, Total 6.6 g/dL (6.1-8.1)
[2022-03-30 21:57] LABS: ANCA Screen Negative (Negative)
[2022-04-01 09:01] LABS: Anti Glomerular Basement Memb <1.0 AI (<1.0)
[2022-04-02 20:28] LABS: Creatinine, Random Urine 164 mg/dL (20-320); Total Protein/Creatinine Ratio 957 mg/g creat (25-148)
== END 2022-03-28 14:52 | disposition home or self-care (01) ==
LOC: ANHGOSHLAB 14:55
PROVIDERS: PCP Internal Medicine; Visit Provider Internal Medicine
DX: I12.9 Hypertensive chronic kidney disease with stage 1 through stage 4 chronic kidney disease, or unspecified chronic kidney disease (principal); N18.4 Chronic kidney disease, stage 4 (severe); N20.0 Calculus of kidney
CPT/HCPCS: 36415; 80069; 82306; 82570; 83520; 83970; 84155; 84156; 84165; 84166; 84300; 85999; 86036; 86038; 86160; 86225

== ENCOUNTER 2022-08-08 10:54 | Outpatient (CLI) | payer MEDICARE, SELFPAY ==
[2022-08-08 19:09] LABS: Parathyroid Intact 102.1 pg/mL (7.5-53.5)
[2022-08-08 19:19] LABS: Albumin Level 4.3 g/dL (3.5-5.1); Anion Gap 6 mmol/L (8-16); Blood Urea Nitrogen 27 mg/dL (9-20); Calcium 9.3 mg/dL (8.4-10.2); Carbon Dioxide 26 mmol/L (22-30); Chloride 108 mmol/L (98-107); Estimated Glomerular Filt Rate 21; Glucose 114 mg/dL (65-110); Phosphorus 4.2 mg/dL (2.5-4.5); Potassium 4.8 mmol/L (3.4-5.0); Sodium 140 mmol/L (137-145)
[2022-08-08 19:38] LABS: Creatinine Urine 300.1 mg/dL
[2022-08-08 20:07] LABS: Total Protein Urine Random > 600 mg/dL
[2022-08-08 20:08] LABS: Ur Ttl Prot Creatinine Ratio > 2.00 mg/mg (0-0.20)
== END 2022-08-08 10:55 | disposition home or self-care (01) ==
LOC: ANHGOSHLAB 10:56
PROVIDERS: PCP Internal Medicine; Visit Provider Internal Medicine Nephrology
DX: N25.81 Secondary hyperparathyroidism of renal origin (principal); I12.9 Hypertensive chronic kidney disease with stage 1 through stage 4 chronic kidney disease, or unspecified chronic kidney disease; E55.9 Vitamin D deficiency, unspecified; N18.4 Chronic kidney disease, stage 4 (severe)
CPT/HCPCS: 36415; 80069; 82306; 82570; 83970; 84156

== ENCOUNTER 2022-12-10 15:22 | Outpatient (CLI) | payer MEDICARE, SELFPAY ==
[2022-12-10 19:21] LABS: Creatinine Urine 116.9 mg/dL
[2022-12-10 19:47] LABS: Total Protein Urine Random 317 mg/dL; Ur Ttl Prot Creatinine Ratio 2.71 mg/mg (0-0.20)
[2022-12-10 19:54] LABS: Albumin Level 4.1 g/dL (3.5-5.1); Anion Gap 7 mmol/L (8-16); Blood Urea Nitrogen 39 mg/dL (9-20); Carbon Dioxide 23 mmol/L (22-30); Chloride 107 mmol/L (98-107); Estimated Glomerular Filt Rate 14; Glucose 92 mg/dL (65-110); Potassium 4.9 mmol/L (3.4-5.0); Sodium 137 mmol/L (137-145)
== END 2022-12-10 15:23 | disposition home or self-care (01) ==
LOC: ANHGOSHLAB 15:27
PROVIDERS: PCP Internal Medicine; Visit Provider Internal Medicine Nephrology
DX: I12.9 Hypertensive chronic kidney disease with stage 1 through stage 4 chronic kidney disease, or unspecified chronic kidney disease (principal); N18.4 Chronic kidney disease, stage 4 (severe)
CPT/HCPCS: 36415; 80069; 82570; 84156

== ENCOUNTER 2023-01-14 13:50 | Outpatient (CLI) | payer MEDICARE, SELFPAY ==
[2023-01-14 20:27] LABS: Albumin Level 3.8 g/dL (3.5-5.1); Anion Gap 7 mmol/L (8-16); Blood Urea Nitrogen 49 mg/dL (9-20); Calcium 8.6 mg/dL (8.4-10.2); Carbon Dioxide 21 mmol/L (22-30); Chloride 109 mmol/L (98-107); Estimated Glomerular Filt Rate 15; Glucose 98 mg/dL (65-110); Phosphorus 5.1 mg/dL (2.5-4.5); Sodium 137 mmol/L (137-145)
== END 2023-01-14 13:51 | disposition home or self-care (01) ==
LOC: ANHGOSHLAB 13:52
PROVIDERS: PCP Internal Medicine; Visit Provider Internal Medicine Nephrology
DX: N18.4 Chronic kidney disease, stage 4 (severe) (principal)
CPT/HCPCS: 36415; 80069

== ENCOUNTER 2023-03-01 12:48 | Outpatient (CLI) | payer MEDICARE, SELFPAY ==
[2023-03-01 18:46] LABS: Anion Gap 10 mmol/L (8-16); Blood Urea Nitrogen 45 mg/dL (9-20); Calcium 9.3 mg/dL (8.4-10.2); Carbon Dioxide 23 mmol/L (22-30); Chloride 105 mmol/L (98-107); Estimated Glomerular Filt Rate 10; Glucose 108 mg/dL (65-110); Phosphorus 4.2 mg/dL (2.5-4.5); Potassium 4.5 mmol/L (3.4-5.0); Sodium 138 mmol/L (137-145)
== END 2023-03-01 12:49 | disposition home or self-care (01) ==
LOC: ANHGOSHLAB 12:51
PROVIDERS: PCP Internal Medicine; Visit Provider Internal Medicine Nephrology
DX: N18.4 Chronic kidney disease, stage 4 (severe) (principal)
CPT/HCPCS: 36415; 80069

== ENCOUNTER 2023-03-07 14:14 | Emergency (ER) | payer MEDICARE, SELFPAY ==
--- NOTE | ~2023-03-07 | XR_ITS ---
EXAMINATION: XR shoulder RT min 2V, XR clavicle RT, [id number]_CR DATE: 03/07/2023 14:43 INDICATION: Fall from horse with right rib and shoulder pain TECHNIQUE: 1. AP internally and externally rotated, AP oblique externally rotated and transscapular Y views of t he affected shoulder were obtained. 2. AP and cephalad angled AP views of the right clavicle were obtained. 3. AP and 3 views of the right ribs were obtained. COMPARISON: CT dated 12/07/2021 FINDINGS: Right shoulder and clavicle: Normal alignment. No fracture.Comminuted fracture at the junction of the mid and lateral thirds of t he right clavicle. There is one cortical width caudal displacement of the main lateral fragment relat aleida to the main medial fragment and 10 degrees apex cephalad angulation. There is a greater degree bu t still mild caudal displacement of a couple smaller fracture fragments which are at the expected loc ation of the footplate of the coracoclavicular ligament. Otherwise normal alignment at the right shou lder. No other fractures identified. Mild acromion clavicular osteoarthritis. Minimal joint is normal . Chest and right ribs: There are 11 left-sided ribs and 12 right-sided ribs, the caudal-most right rib is hypoplastic. Mildl y displaced anterolateral right 6th rib fracture. No other rib fractures identified. Calcite nodules at the medial right lung base and calcified subcarinal lymph node consistent with old granulomatous d isease. Lungs are otherwise clear with no airspace opacities, pulmonary edema, pleural effusion or pn eumothorax. Heart size is normal. 1.6 cm renal stone at the lower pole of the right kidney. Moderate thoracic and lumbar spondylosis. IMPRESSION: Mildly displaced, comminuted fractures at the junction of the mid to lateral thirds of the right clav icle. 2. Minimally displaced anterolateral right sixth rib. 3. No pneumothorax or other acute cardiopulmonary disease. 4. 16 mm right renal stone. Reviewed, dictated and finalized at location A. DCAST TRAFFIC COORDINATOR IMPRESSION: Mildly displaced, comminuted fractures at the junction of the mid to lateral th irds of the right clavicle. 2. Minimally displaced anterolateral right sixth rib. 3. No pneumothorax or other acute cardiopulmonary disease. 4. 16 mm right renal stone. IMPRESSION: Mildly displaced, comminuted fractures at the junction of the mid to lateral th irds of the right clavicle. 2. Minimally displaced anterolateral right sixth rib. 3. No pneumothorax or other acute cardiopulmonary disease. 4. 16 mm right renal stone.
--- NOTE | ~2023-03-07 | XR_ITS ---
EXAMINATION: XR tibia fibula RT 2V DATE: 03/07/2023 14:43 INDICATION: Right lower leg pain post fall TECHNIQUE: AP and lateral views of the right tibia and fibula were obtained. COMPARISON: None. FINDINGS: Alignment is normal. No fracture. Joint spaces are normal. Soft tissues are unremarkable. IMPRESSION: 1. Negative right tibia/fibula radiographs. Reviewed, dictated and finalized at location A. EATIONAL VEHICLE RESORT MANAGER
[2023-03-07 14:15] VITALS: BP 175/82; PULSE 99; RESP 18; TEMP 36.4; O2SAT 100
--- NOTE | 2023-03-07 17:33 | ED.GENADULT ---
HPI - General Adult General Chief complaint: Fall Stated complaint: R shoulder pain/RLE pain Time Seen by Provider: 03/07/23 17:13 Source: patient Mode of arrival: wheelchair Limitations: no limitations History of Present Illness HPI narrative: This is a 67-year-old male who presents to the ED with chief complaint of a fall off of a force that happened 2 days ago. Reports pain in the right chest and right shoulder.. Also reports pain in the right tibia-fibula area. Reports bruising and swelling in these areas. Patient states that when he was riding his horses horse suddenly bucked and caused him to fall off onto the right side. Reports the horse was 16 hand side. Patient states he was able to walk after this but had to use his walker due to pain of the leg. Reports swelling in the leg has decreased dramatically. Denies shortness of breath, cough, numbness, weakness, any further site of pain or injury. Denies back pain, neck pain or headache. Denies LOC. Related Data Allergies Allergy/AdvReac Type Severity Reaction Status Date / Time rosuvastatin [From Crestor] Allergy Mild Hives Verified 12/25/22 14:05 Review of Systems Review of Systems: All systems as dictated in [facility] Past Medical History Medical History (Updated 03/07/23 @ 17:39 by Celso Olson PA-C) Anxiety Arthritis Chronic kidney disease CKD (chronic kidney disease) CKD (chronic kidney disease) stage 4, GFR 15-29 ml/min Coronary artery disease GERD (gastroesophageal reflux disease) Hyperlipidemia Hypertension Osteoarthritis involving multiple joints on both sides of body Surgical History Surgical History H/O hand surgery Due to trauma had surgical repair of the left thenar eminence History of cardiac catheterization (~2003) No significant blockages History of carpal tunnel surgery of left wrist History of colonoscopy with polypectomy 3 polyps removed, internal hemorrhoids History of hemorrhoidectomy (~2011) History of lithotripsy X2 with complications including with sounds like shock History of repair of right rotator cuff (2008) History of tonsillectomy Family History Family History Mother Acute myocardial infarction Liver cancer Father Acute myocardial infarction Liver cancer Social History Social History Social History: He has been for 41 years. They have 2 children who are healthy. He has never smoked. He does smoke marijuana on a somewhat frequent basis. He drinks a couple of beers a day and some whiskey. 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 Gender identity (if verbalized by the patient): Male Spiritual care concerns: No Exam Narrative: GENERAL: Well-appearing, well-nourished, and in no acute distress. Presents in wheelchair for mobility HEAD: Normocephalic, atraumatic. EYES: PERRLA and EOMI. ENT: Nares clear, no rhinorrhea or epistaxis. Mucous membranes moist. Oropharynx without tonsillar hypertrophy exudate or other lesions. NECK: Supple. No adenopathy or masses. CHEST: No respiratory distress. Clear to ausculta
[2023-03-07] MEDS: HYDROcodone/acetaminophen (*CRX) 5-325 MG TABLET 1 TAB PO (17:43)
== END 2023-03-07 18:10 | disposition home or self-care (01) ==
LOC: ANHED 17:56
PROVIDERS: Emergency Provider Physician Assistant; PCP Internal Medicine
DX: S42.021A Displaced fracture of shaft of right clavicle, initial encounter for closed fracture (principal); S22.31XA Fracture of one rib, right side, initial encounter for closed fracture; S89.91XA Unspecified injury of right lower leg, initial encounter; I12.9 Hypertensive chronic kidney disease with stage 1 through stage 4 chronic kidney disease, or unspecified chronic kidney disease; N18.4 Chronic kidney disease, stage 4 (severe); I25.10 Atherosclerotic heart disease of native coronary artery without angina pectoris; E78.5 Hyperlipidemia, unspecified; K21.9 Gastro-esophageal reflux disease without esophagitis; M19.90 Unspecified osteoarthritis, unspecified site; Z87.442 Personal history of urinary calculi; V80.010A Animal-rider injured by fall from or being thrown from horse in noncollision accident, initial encounter
CPT/HCPCS: 71101; 73000; 73030; 73590; 99284; A4565; A9270

== ENCOUNTER 2023-03-29 14:34 | Outpatient (CLI) | payer MEDICARE, SELFPAY ==
[2023-03-29 19:48] LABS: Albumin Level 3.9 g/dL (3.5-5.1); Anion Gap 10 mmol/L (8-16); Blood Urea Nitrogen 31 mg/dL (9-20); Calcium 9.1 mg/dL (8.4-10.2); Carbon Dioxide 22 mmol/L (22-30); Chloride 106 mmol/L (98-107); Estimated Glomerular Filt Rate 12; Glucose 95 mg/dL (65-110); Phosphorus 3.6 mg/dL (2.5-4.5); Potassium 4.2 mmol/L (3.4-5.0); Sodium 138 mmol/L (137-145)
== END 2023-03-29 14:35 | disposition home or self-care (01) ==
LOC: ANHGOSHLAB 14:37
PROVIDERS: PCP Internal Medicine; Visit Provider Internal Medicine Nephrology
DX: N18.5 Chronic kidney disease, stage 5 (principal)
CPT/HCPCS: 36415; 80069

== ENCOUNTER 2023-06-04 13:29 | Outpatient (CLI) | payer MEDICARE, SELFPAY ==
[2023-06-04 20:08] LABS: Anion Gap 7 mmol/L (8-16); Blood Urea Nitrogen 36 mg/dL (9-20); Carbon Dioxide 20 mmol/L (22-30); Chloride 111 mmol/L (98-107); Estimated Glomerular Filt Rate 14; Glucose 98 mg/dL (65-110); Phosphorus 4.4 mg/dL (2.5-4.5); Potassium 4.5 mmol/L (3.4-5.0); Sodium 138 mmol/L (137-145)
[2023-06-04 20:18] LABS: Parathyroid Intact 188.5 pg/mL (7.5-53.5)
[2023-06-04 20:21] LABS: Vitamin D 25 Hydroxy 89.8 ng/mL
[2023-06-04 21:08] LABS: Total Protein Urine Random 360 mg/dL; Ur Ttl Prot Creatinine Ratio 2.47 mg/mg (0-0.20)
== END 2023-06-04 13:30 | disposition home or self-care (01) ==
LOC: ANHGOSHLAB 13:31
PROVIDERS: PCP Nurse Practitioner; Visit Provider Internal Medicine Nephrology
DX: E55.9 Vitamin D deficiency, unspecified (principal); I12.9 Hypertensive chronic kidney disease with stage 1 through stage 4 chronic kidney disease, or unspecified chronic kidney disease; N18.5 Chronic kidney disease, stage 5; N25.81 Secondary hyperparathyroidism of renal origin
CPT/HCPCS: 36415; 80069; 82306; 82570; 83970; 84156

== ENCOUNTER 2023-09-18 12:31 | Outpatient (CLI) | payer MEDICARE, SELFPAY ==
[2023-09-18 20:13] LABS: Creatinine Urine 208.3 mg/dL
[2023-09-18 20:23] LABS: Albumin Level 4.1 g/dL (3.5-5.1); Anion Gap 12 mmol/L (4-12); Blood Urea Nitrogen 46 mg/dL (9-20); Calcium 8.7 mg/dL (8.4-10.2); Carbon Dioxide 15 mmol/L (22-30); Chloride 112 mmol/L (98-107); Estimated Glomerular Filt Rate 12; Glucose 93 mg/dL (65-110); Phosphorus 4.4 mg/dL (2.5-4.5); Sodium 139 mmol/L (137-145)
[2023-09-18 20:48] LABS: Total Protein Urine Random 444 mg/dL; Ur Ttl Prot Creatinine Ratio 2.13 mg/mg (0-0.20)
== END 2023-09-18 12:32 | disposition home or self-care (01) ==
LOC: ANHGOSHLAB 12:33
PROVIDERS: PCP Nurse Practitioner; Visit Provider Internal Medicine Nephrology
DX: I12.9 Hypertensive chronic kidney disease with stage 1 through stage 4 chronic kidney disease, or unspecified chronic kidney disease (principal); N18.5 Chronic kidney disease, stage 5
CPT/HCPCS: 36415; 80069; 82570; 84156

== ENCOUNTER 2023-12-17 13:22 | Outpatient (CLI) | payer MEDICARE, SELFPAY ==
[2023-12-17 16:14] LABS: Creatinine Urine 155.1 mg/dL
[2023-12-17 16:54] LABS: Anion Gap 12 mmol/L (4-12); Blood Urea Nitrogen 40 mg/dL (9-20); Calcium 8.5 mg/dL (8.4-10.2); Carbon Dioxide 18 mmol/L (22-30); Chloride 105 mmol/L (98-107); Estimated Glomerular Filt Rate 11; Glucose 110 mg/dL (65-110); Phosphorus 5.7 mg/dL (2.5-4.5); Potassium 4.6 mmol/L (3.4-5.0); Sodium 135 mmol/L (137-145)
[2023-12-17 16:59] LABS: Total Protein Urine Random 295 mg/dL
[2023-12-17 17:06] LABS: Parathyroid Intact 178.7 pg/mL (14.5-75.2)
[2023-12-17 17:12] LABS: Vitamin D 25 Hydroxy 70.6 ng/mL
== END 2023-12-17 13:23 | disposition home or self-care (01) ==
PROVIDERS: PCP Nurse Practitioner; Visit Provider Internal Medicine Nephrology
DX: E55.9 Vitamin D deficiency, unspecified (principal); N25.81 Secondary hyperparathyroidism of renal origin; I12.0 Hypertensive chronic kidney disease with stage 5 chronic kidney disease or end stage renal disease; N18.5 Chronic kidney disease, stage 5
CPT/HCPCS: 36415; 80069; 82306; 82570; 83970; 84156

== ENCOUNTER 2024-04-02 14:19 | Outpatient (CLI) | payer MEDICARE, SELFPAY ==
[2024-04-02 20:15] LABS: Albumin Level 4.1 g/dL (3.5-5.1); Anion Gap 14 mmol/L (4-12); Blood Urea Nitrogen 45 mg/dL (9-20); Calcium 8.5 mg/dL (8.4-10.2); Carbon Dioxide 13 mmol/L (22-30); Chloride 113 mmol/L (98-107); Estimated Glomerular Filt Rate 7; Glucose 102 mg/dL (65-110); Phosphorus 5.4 mg/dL (2.5-4.5); Potassium 3.8 mmol/L (3.4-5.0); Sodium 140 mmol/L (137-145)
[2024-04-02 22:05] LABS: Total Protein Urine Random > 600 mg/dL
[2024-04-02 22:06] LABS: Ur Ttl Prot Creatinine Ratio > 3.37 mg/mg (0-0.20)
== END 2024-04-02 14:20 | disposition home or self-care (01) ==
LOC: ANHGOSHLAB 14:21
PROVIDERS: PCP Nurse Practitioner; Visit Provider Internal Medicine Nephrology
DX: I12.9 Hypertensive chronic kidney disease with stage 1 through stage 4 chronic kidney disease, or unspecified chronic kidney disease (principal); N18.5 Chronic kidney disease, stage 5
CPT/HCPCS: 36415; 80069; 82570; 84156

== ENCOUNTER 2024-04-15 09:56 | Inpatient (IN) | payer MEDICARE, SELFPAY ==
--- NOTE | ~2024-04-15 | XR_ITS ---
XR chest 1V portable Ordering provider: Cheryl Jara PA-C History: 68 years Male with . HTN . Comparison: None. FINDINGS: MEDIASTINUM: The cardiac silhouette is not enlarged. LUNGS: No infiltrates, effusions or pneumothorax. OTHER: No free air under the diaphragm. Degenerative changes of the spine. IMPRESSION: No acute cardiopulmonary pathology. Reviewed, dictated and finalized at location A. OR JAVASCRIPT ENGINEER
--- NOTE | ~2024-04-15 | XR_ITS ---
EXAMINATION: XR fl guide central line place DATE: 04/16/2024 16:28 INDICATION: Central line placement. TECHNIQUE: A single fluoroscopic view of the chest was obtained. I was not present. Fluoroscopy expos ure time was 23 seconds. COMPARISON: Chest single view 04/16/2024 FINDINGS: There is a central line tip at the superior cavoatrial junction. IMPRESSION: 1. Central line tip at the superior cavoatrial junction. Reviewed, dictated and finalized at location A. OMIST RESEARCH ASSISTANT
--- NOTE | ~2024-04-15 | XR_ITS ---
EXAMINATION: XR chest port-a-cath/central DATE: 04/16/2024 16:43 INDICATION: Central line placement. TECHNIQUE: A single frontal view of the chest was obtained. COMPARISON: Chest single view 04/15/2024, chest CT 12/07/2021 FINDINGS: A calcified right lung nodule is consistent with old granulomatous disease. No pleural effu anya or pneumothorax. The heart size is normal. A right internal jugular central venous catheter is s een with tip at the superior cavoatrial junction. There are old healed bilateral rib fractures. There is an old healed fracture of right clavicle. IMPRESSION: 1. Central line tip at the superior cavoatrial junction. Reviewed, dictated and finalized at location A. MANAGER
[2024-04-15 09:59] VITALS: BP 207/98; PULSE 79; RESP 18; TEMP 36.4; O2SAT 100
--- NOTE | 2024-04-15 10:10 | PC.NURSE ---
Family states Dr. Hawthorne sent pt due to his decreased kidney function and would like to be notified of pt's status. Dr. Hawthorne spoke with family about starting dialysis.
--- NOTE | 2024-04-15 10:25 | ECG_ITS ---
Test Date: 2024-04-15 10:45:01 Measurements Intervals [place] Rate: 61 P: 31 [place]: 145 QRS: -26 QRSD: 82 T: 38 QT: 406 QTc: 410 Interpretive Statements SINUS RHYTHM BORDERLINE LEFT AXIS DEVIATION [QRS AXIS < -20] No previous ECG available for comparison Electronically Signed On 04-15-2024 14:44:33 MEDICAL ASSISTANT SUPERVISOR by Tone Benítez M.D.
--- NOTE | 2024-04-15 10:26 | ED.RECABL ---
HPI - Recheck/Abnormal Lab/Rx General Chief Complaint: Recheck/Abnormal Lab/Rx <Cheryl Jara PA-C - Last Filed: 04/15/24 14:40> Stated Complaint: renal failure <Cheryl Jara PA-C - Last Filed: 04/15/24 14:40> Time Seen by Provider: 04/15/24 10:16 <Cheryl Jara PA-C - Last Filed: 04/15/24 14:40> History of Present Illness HPI narrative: 68-year-old male with history of CKD, CAD, GERD, hyperlipidemia, hypertension presents to the ED with friend/ POA at bedside for initiating dialysis. Patient is a patient of Dr. Hawthorne. the patient has had progressive CKD over the past several months and has been noncompliant with his medications including his losartan. When asked why he has not been taking his medications the patient states because I am lazy . The patient went to Dr. Hawthorne's office yesterday and was advised to start dialysis due to progressive renal decline. The patient presents today with hopes to start dialysis. Upon arrival to the ED he is hypertensive at 207/98. He denies signs or symptoms of hypertensive emergency including chest pain or shortness of breath, vision changes or neurologic complaints. Patient states he is still making urine. Denies abdominal pain, dysuria or hematuria, edema. He does note that he has had a GI bug for the past week with nausea, vomiting and diarrhea. His last episode of vomiting and diarrhea was yesterday. He feels like the symptoms are improving. He does endorse an 8 lb weight loss in 2 days at the onset of a GI virus. Patient's friend at bedside states the patient has had decreased p.o. intake. <Cheryl Jara PA-C - Last Filed: 04/15/24 14:40> Related Data Allergies/Adverse Reactions: Allergies Allergy/AdvReac Type Severity Reaction Status Date / Time rosuvastatin (From Crestor) Allergy Mild Hives Verified 04/15/24 10:14 <Cheryl Jara PA-C - Last Filed: 04/15/24 14:40> Review of Systems Review of Systems: All systems reviewed & are unremarkable except as noted in HPI and below <Cheryl Jara PA-C - Last Filed: 04/15/24 14:40> [facility] Past Medical History Medical History: Medical History Coronary artery disease CKD (chronic kidney disease) stage 4, GFR 15-29 ml/min Osteoarthritis involving multiple joints on both sides of body CKD (chronic kidney disease) Chronic kidney disease Hyperlipidemia Hypertension GERD (gastroesophageal reflux disease) Arthritis Anxiety <Cheryl Jara PA-C - Last Filed: 04/15/24 14:40> Surgical History Surgical History: Surgical History History of colonoscopy with polypectomy 3 polyps removed, internal hemorrhoids History of tonsillectomy History of hemorrhoidectomy (~2011) History of carpal tunnel surgery of left wrist History of cardiac catheterization (~2003) No significant blockages History of repair of right rotator cuff (2008) History of lithotripsy X2 with complications including with sounds like shock H/O hand surgery Due to trauma had surgical repair of the left thenar eminence <Cheryl Jara PA-C - Last Filed: 04/15/24 14:40> Family History Family History: Family History Mother Acute myocardial infarction Liver cancer Father Acute myocardial infarction Liver cancer <Cheryl Jara PA-C - Last Filed: 04/15/24 14:40> Social History Social History: Social History (Updated 04/15/24 @ 17:23 by Jud Styles APRN) Social History: He has been for 41 years. They have 2 children who are healthy. He has never smoked. He does smoke marijuana on a somewhat frequent basis. He drinks a couple of beers a day and some whiskey. 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 Gender identity (if verbalized by the patient): Male Spiritual care concerns: No <Cheryl Jara PA-C - Last Filed: 04/15/24 14:40> Exam Narrative: GENERAL: Well-appearing, well-nourished, and in no acute distress. HEAD: Normocephalic, atraumatic. EYES: PERRLA and EOMI. ENT: Nares clear, no rhinorrhea or epistaxis. Mucous membranes moist. NECK: Supple. CHEST: Clear to auscultation. No respiratory distress. HEART: Regular rate and rhythm. No murmur heard. Normal peripheral pulses. ABDOMEN: Soft, nontender, nondistended, normal active bowel sounds. EXTREMITIES: Normal range of motion. No edema. SKIN: Warm, dry, no rash. NEURO: No focal deficits. Alert and oriented x3 <Cheryl Jara PA-C - Last Filed: 04/15/24 14:40> Course SPECIALTY FOOD PRODUCTS SUPERVISOR/PA Physician Supervision For this patient encounter, I reviewed the SPECIALTY FOOD PRODUCTS SUPERVISOR or PA documentation, treatment plan, and medical decision making; and I had [id number] time with this patient. <Sukumar Hi MD - Last Filed: 04/15/24 20:00> Vital Signs Vital signs: Vital Signs Temperature 97.6 F 04/15/24 09:59 Pulse Rate 79 04/15/24 09:59 Respiratory Rate 18 04/15/24 09:59 Blood Pressure 207/98 H 04/15/24 09:59 Pulse Oximetry 100 04/15/24 09:59 Oxygen Delivery Room Air 04/15/24 09:59 Temperature 97.6 F 04/15/24 09:59 Pulse Rate 61 04/15/24 11:44 Respiratory Rate 16 04/15/24 11:44 Blood Pressure 181/98 H 04/15/24 11:44 Pulse Oximetry 100 04/15/24 11:44 Oxygen Delivery Room Air 04/15/24 09:59 <Cheryl Jara PA-C - Last Filed: 04/15/24 14:40> Vital Signs Temperature 97.6 F 04/15/24 09:59 Pulse Rate 79 04/15/24 09:59 Respiratory Rate 18 04/15/24 09:59 Blood Pressure 207/98 H 04/15/24 09:59 Pulse Oximetry 100 04/15/24 09:59 Oxygen Delivery Room Air 04/15/24 09:59 Temperature 97.6 F 04/15/24 09:59 Pulse Rate 61 04/15/24 11:44 Respiratory Rate 16 04/15/24 11:44 Blood Pressure 181/98 H 04/15/24 11:44 Pulse Oximetry 100 04/15/24 11:44 Oxygen Delivery Room Air 04/15/24 09:59 <Sukumar Hi MD - Last Filed: 04/15/24 20:00> MDM - Recheck/Abnormal Lab/Rx MDM Narrative Medical decision making narrative: 68-year-old male with stage 5 CKD, hypertension, hyperlipidemia, CAD presents to the emergency department with friend/POA at bedside for progressive renal failure an desire to start dialysis per Dr. Hawtohrne's recommendation. upon arrival to the ED the patient is hypertensive at 207/98. He admits to noncompliance with his antihypertensives. Denies symptoms of hypertensive emergency. Will provide his daily dose of p.o. XR and closely monitor. The patient has no complaints at this time. Will obtain lab work, EKG, electrolytes, chest x-ray with plans to consult Dr. Hawthorne. CBC shows nonspecific leukocytosis of 11.3 with chronic normocytic anemia with hemoglobin of 9.4. Chemistries are remarkable for CKD stage 5 with a GFR of 6, creatinine of 9, BUN of 62, bicarb of 9 and anion gap of 16. Potassium normal at 3.8. Phosphorus is elevated at 7.5 and magnesium is normal at 2.1. Urinalysis with 3+ protein urea. Chest x-ray shows no acute cardiopulmonary findings. EKG shows sinus rhythm with rate of 61 ppm, normal [place] interval, normal QRS duration, normal QTC, LAD, no ischemic changes. Patient and family updated on workup. His blood pressure remained persistently high at greater at 200/100. He was given a dose of labetalol with improvement at 181/98. Discussed the case with Dr. Hawthorne who agrees to admission and placement of tunneled dialysis catheter. Discussed with Dr. Mora who agrees to consult on admission for dialysis catheter placement. Discussed with hospitalist SPECIALTY FOOD PRODUCTS SUPERVISOR, Gypsy, who accepts admission. <Cheryl Jara PA-C - Last Filed: 04/15/24 14:40> Lab Data Result diagrams: 04/15/24 10:32 04/15/24 10:32 <Cheryl Jara PA-C - Last Filed: 04/15/24 14:40> Labs: Lab Results 04/15/24 04/15/24 04/15/24 Range/Units 10:32 10:32 11:19 WBC 11.3 H (4.5-10.0) K/mm3 RBC 3.06 L (4.6-6.20) M/mm3 Hgb 9.4 L (14.0-18.0) g/dL Hct 28.1 L (42.0-52.0) % MCV 91.8 (80-100) fl MCH 30.7 (26-34) pg MCHC 33.5 (32-36) g/dl RDW 13.1 (11.5-14.5) % Plt Count 262 (150-375) k/mm3 MPV 10.0 (7.4-10.4) fl Immature Gran % (Auto) 0.4 (0-0.5) % Neut % (Auto) 65.3 (45.5-73.1) % Lymph % (Auto) 24.0 (18.3-44.2) % [place] % (Auto) 5.0 (2.6-8.5) % Eos % (Auto) 4.8 H (0-4.4) % Baso % (Auto) 0.5 (0.2-1.2) % Lymph # (Auto) 2.71 (0.9-3.2) K/mm3 [place] # (Auto) 0.6 (0.1-0.6) K/mm3 Eos # (Auto) 0.5 H (0-0.3) K/mm3 Baso # (Auto) 0.1 (0.0-0.1) K/mm3 Abs Immat Gran (auto) 0.04 H (0.00-0.031) K/mm3 Absolute Neuts (auto) 7.4 H (1.3-6.7) K/mm3 Absolute Nucleated RBC 0.000 (0.0-0.012) K/mm3 Nucleated RBC % 0.0 (0.0-0.2) % Sodium 138 (137-145) mmol/L Potassium 3.8 (3.4-5.0) mmol/L Chloride 113 H (98-107) mmol/L Carbon Dioxide 9 L (22-30) mmol/L Anion Gap 16 H (4-12) mmol/L BUN 62 H D (9-20) mg/dL Creatinine 9.00 H (0.7-1.3) mg/dL Estim Creat Clear Calc 6 ml/min Estimated GFR 6 L (59 - ) Glucose 114 H (65-110) mg/dL Calcium 8.6 (8.4-10.2) mg/dL Phosphorus 7.5 H Cancelled (2.5-4.5) mg/dL Magnesium 2.1 (1.6-2.3) mg/dL Total Bilirubin 0.4 (0.2-1.3) mg/dL AST 23 (17-59) U/L ALT 12 (6-50) U/L Alkaline Phosphatase 57 (38-126) U/L Total Protein 7.0 (6.3-8.2) g/dL Albumin 4.4 (3.5-5.1) g/dL Urine Color Yellow (Yellow) Urine Appearance Clear (Clear) Urine pH 5.0 (5.0-9.0) Ur Specific [place] 1.013 (1.001-1.035) Urine Protein 3+ H (Negative) mg/dL Urine Glucose (UA) Negative (Negative) mg/dL Urine Ketones Negative (Negative) mg/dL Ur Blood (Man) Trace (Negative) Urine Nitrate Negative (Negative) Urine Bilirubin Negative (Negative) Urine Urobilinogen 0.2 (<2.0) mg/dL Leukocyte Esterase Rfl Negative (Negative) MADIHA/UL Urine RBC 0-2 (0-2) /hpf Urine WBC 0-5 (0-3) /hpf Ur Squamous Epith Cells None seen (Few) /hpf Urine Bacteria None seen /hpf Urine Casts 3-5 <Cheryl Jara PA-C - Last Filed: 04/15/24 14:40> Lab Results 04/15/24 04/15/24 04/15/24 Range/Units 10:32 10:32 11:19 WBC 11.3 H (4.5-10.0) K/mm3 RBC 3.06 L (4.6-6.20) M/mm3 Hgb 9.4 L (14.0-18.0) g/dL Hct 28.1 L (42.0-52.0) % MCV 91.8 (80-100) fl MCH 30.7 (26-34) pg MCHC 33.5 (32-36) g/dl RDW 13.1 (11.5-14.5) % Plt Count 262 (150-375) k/mm3 MPV 10.0 (7.4-10.4) fl Immature Gran % (Auto) 0.4 (0-0.5) % Neut % (Auto) 65.3 (45.5-73.1) % Lymph % (Auto) 24.0 (18.3-44.2) % [place] % (Auto) 5.0 (2.6-8.5) % Eos % (Auto) 4.8 H (0-4.4) % Baso % (Auto) 0.5 (0.2-1.2) % Lymph # (Auto) 2.71 (0.9-3.2) K/mm3 [place] # (Auto) 0.6 (0.1-0.6) K/mm3 Eos # (Auto) 0.5 H (0-0.3) K/mm3 Baso # (Auto) 0.1 (0.0-0.1) K/mm3 Abs Immat Gran (auto) 0.04 H (0.00-0.031) K/mm3 Absolute Neuts (auto) 7.4 H (1.3-6.7) K/mm3 Absolute Nucleated RBC 0.000 (0.0-0.012) K/mm3 Nucleated RBC % 0.0 (0.0-0.2) % Sodium 138 (137-145) mmol/L Potassium 3.8 (3.4-5.0) mmol/L Chloride 113 H (98-107) mmol/L Carbon Dioxide 9 L (22-30) mmol/L Anion Gap 16 H (4-12) mmol/L BUN 62 H D (9-20) mg/dL Creatinine 9.00 H (0.7-1.3) mg/dL Estim Creat Clear Calc 6 ml/min Estimated GFR 6 L (59 - ) Glucose 114 H (65-110) mg/dL Calcium 8.6 (8.4-10.2) mg/dL Phosphorus 7.5 H Cancelled (2.5-4.5) mg/dL Magnesium 2.1 (1.6-2.3) mg/dL Total Bilirubin 0.4 (0.2-1.3) mg/dL AST 23 (17-59) U/L ALT 12 (6-50) U/L Alkaline Phosphatase 57 (38-126) U/L Total Protein 7.0 (6.3-8.2) g/dL Albumin 4.4 (3.5-5.1) g/dL Urine Color Yellow (Yellow) Urine Appearance Clear (Clear) Urine pH 5.0 (5.0-9.0) Ur Specific [place] 1.013 (1.001-1.035) Urine Protein 3+ H (Negative) mg/dL Urine Glucose (UA) Negative (Negative) mg/dL Urine Ketones Negative (Negative) mg/dL Ur Blood (Man) Trace (Negative) Urine Nitrate Negative (Negative) Urine Bilirubin Negative (Negative) Urine Urobilinogen 0.2 (<2.0) mg/dL Leukocyte Esterase Rfl Negative (Negative) MADIHA/UL Urine RBC 0-2 (0-2) /hpf Urine WBC 0-5 (0-3) /hpf Ur Squamous Epith Cells None seen (Few) /hpf Urine Bacteria None seen /hpf Urine Casts 3-5 <Sukumra Hi MD - Last Filed: 04/15/24 20:00> Discharge Plan Discharge Clinical Impression: Renal failure Qualifiers: Renal failure chronicity: chronic Chronic kidney disease stage: stage 5 (GFR < 15), not on chronic dialysis Qualified Code(s): N18.5 - Chronic kidney disease, stage 5 Hypertension Qualifiers: Hypertension type: unspecified Qualified Code(s): I10 - Essential (primary) hypertension <Cheryl Jara PA-C - Last Filed: 04/15/24 14:40> Patient Disposition: Still a Patient <Cheryl Jara PA-C - Last Filed: 04/15/24 14:40> Condition: Stable <Cheryl Jara PA-C - Last Filed: 04/15/24 14:40>
[2024-04-15] MEDS: LOSARTAN POTASSIUM 25 MG TABLET PO (10:36)
[2024-04-15 10:37] VITALS: BP 205/93; PULSE 72; RESP 16; O2SAT 100
[2024-04-15 10:47] LABS: Basophils Absolute Auto 0.1 K/mm3 (0.0-0.1); Basophils Percent Auto 0.5 % (0.2-1.2); Eosinophils Absolute Auto 0.5 K/mm3 (0-0.3); Eosinophils Percent Auto 4.8 % (0-4.4); Hematocrit 28.1 % (42.0-52.0); Hemoglobin 9.4 g/dL (14.0-18.0); Immature Granulocyte Absolute 0.04 K/mm3 (0.00-0.031); Immature Granulocyte Percent A 0.4 % (0-0.5); Lymphocytes Absolute Auto 2.71 K/mm3 (0.9-3.2); Mean Corpuscular HGB Conc 33.5 g/dl (32-36); Mean Corpuscular Hemoglobin 30.7 pg (26-34); Mean Corpuscular Volume 91.8 fl (80-100); Monocytes Absolute Auto 0.6 K/mm3 (0.1-0.6); Neutrophils Absolute Auto 7.4 K/mm3 (1.3-6.7); Neutrophils Percent Auto 65.3 % (45.5-73.1); Platelet Count Result 262 k/mm3 (150-375); Red Blood Count 3.06 M/mm3 (4.6-6.20); Red Cell Distribution Width 13.1 % (11.5-14.5); White Blood Count 11.3 K/mm3 (4.5-10.0)
[2024-04-15 10:57] LABS: Alanine Aminotransferase 12 U/L (6-50); Albumin Level 4.4 g/dL (3.5-5.1); Alkaline Phosphatase 57 U/L (38-126); Anion Gap 16 mmol/L (4-12); Aspartate Amino Transferase 23 U/L (17-59); Bilirubin,Total 0.4 mg/dL (0.2-1.3); Blood Urea Nitrogen 62 mg/dL (9-20); Calcium 8.6 mg/dL (8.4-10.2); Carbon Dioxide 9 mmol/L (22-30); Chloride 113 mmol/L (98-107); Estimated CRCL calculation 6 ml/min; Estimated Glomerular Filt Rate 6; Glucose 114 mg/dL (65-110); Magnesium 2.1 mg/dL (1.6-2.3); Phosphorus 7.5 mg/dL (2.5-4.5); Potassium 3.8 mmol/L (3.4-5.0); Sodium 138 mmol/L (137-145)
[2024-04-15] MEDS: LABETALOL HCL INJ 100 MG/20 ML VIAL 20 MG IV PUSH (11:04)
[2024-04-15 11:30] LABS: Add Urine Microscopic? YES; Appearance Urine Clear (Clear); Bacteria Urine None Seen /hpf; Bilirubin Urine Negative (Negative); Blood Urine Trace (Negative); Color Urine Yellow (Yellow); Glucose Urine UA Negative (Negative); Ketones Urine Negative (Negative); Leukocyte Esterase Ur Negative LEU/UL (Negative); Nitrate Urine Negative (Negative); Protein Urine 3+ mg/dL (Negative); RBC Urine 0-2 /hpf (0-2); Specific Grav Ur 1.013 (1.001-1.035); Squamous Epithelial Cell Urine None Seen /hpf (Few); Urobilinogen Urine 0.2 mg/dL (<2.0); WBC Urine 0-5 /hpf (0-3)
[2024-04-15 11:44] VITALS: BP 181/98; PULSE 61; RESP 16; O2SAT 100
--- NOTE | 2024-04-15 13:03 | PC.NURSE ---
OR called with update, Dr. Mora just started a case and it will be several hours before he would be able to do surgery on this pt. Provider aware.
--- NOTE | 2024-04-15 13:27 | P.HP_ITS ---
H&P: HPI History of Present Illness Date/Time: 04/15/24 13:27 Chief Complaint: Abnormal Labs Narrative: 68 y/o M presents here with abnormal labs with PMH of CKD stage 5, anxiety, arthritis, CAD, GERD, HLD, and HTN. The patient presents here from home for further evaluation of abnormal labs regarding his kidney function. He has been following with the [facility] for his nephro care. He has had long standing CKD stage 4. Dialysis was not indicated in Dec of this year given he had no critical electrolyte, acid-base disorders, signs of volume overload, or evidence of uremia. Patient then followed up on 04/14/2024 with his nephrologists and at this visit he reported poor appetite, nausea, vomiting, diarrhea, fatigue, and general malaise. Reported then that he has been off all his medications due to stress over his 's health and his symptoms. Stating today he has been off of his medications for the past 6 months. During his visit yesterday, the patient and his diesel engine mechanic apprentice discussed him being directed to the ER for initiation of dialysis. However the patient elected to go home and attempt to review things prior to coming to the ER today. Patient is still able to make urine, volume has not decreased. Now reporting right upper lip swelling that started shortly after 21:00. Denies throat itching, dysphagia, or shortness of breath. Initial VS at presentation: 97.6? F, HR 79, R 18, 207/98, and 100% on RA. ED workup showed: wbc 11.3, hgb 9.4, K 3.8, anion gap 16, creatinine 9.0 and GFR 6, glucose 114, phosphorus 7.5, mag 2.1, and UA showed 3+ protein. CXR showed no acute cardiopulmonary pathology. Review of Systems Review of Systems: All systems reviewed & are unremarkable except as noted in HPI and below [facility] Past Medical History Medical History Coronary artery disease CKD (chronic kidney disease) stage 4, GFR 15-29 ml/min Osteoarthritis involving multiple joints on both sides of body CKD (chronic kidney disease) Chronic kidney disease Hyperlipidemia Hypertension GERD (gastroesophageal reflux disease) Arthritis Anxiety Surgical History Surgical History History of colonoscopy with polypectomy 3 polyps removed, internal hemorrhoids History of tonsillectomy History of hemorrhoidectomy (~2011) History of carpal tunnel surgery of left wrist History of cardiac catheterization (~2003) No significant blockages History of repair of right rotator cuff (2008) History of lithotripsy X2 with complications including with sounds like shock H/O hand surgery Due to trauma had surgical repair of the left thenar eminence Family History Family History Mother Acute myocardial infarction Liver cancer Father Acute myocardial infarction Liver cancer Social History Social History Social History: He has been for 41 years. They have 2 children who are healthy. He has never smoked. He does smoke marijuana on a somewhat frequent basis. He drinks a couple of beers a day and some whiskey. 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 Gender identity (if verbalized by the patient): Male Spiritual care concerns: No Meds Home Medications and Allergies Home Medications ?Medication ?Instructions ?Recorded ?Confirmed ?Type amlodipine 10 mg tablet 10 mg PO QAM #90 tabs 03/14/23 04/15/24 Rx aspirin 81 mg tablet,delayed See Rx Instructions .Route 03/14/23 04/15/24 Rx release .COMPLEX #90 tabs atorvastatin 80 mg tablet 80 mg PO QHS #90 tabs 03/14/23 04/15/24 Rx carvedilol 6.25 mg tablet 6.25 mg PO Q12H #180 tabs 03/14/23 04/15/24 Rx clopidogrel 75 mg tablet 75 mg PO DAILY #90 tabs 03/14/23 04/15/24 Rx sodium bicarbonate 650 mg tablet 650 mg PO BID #60 tabs 09/24/23 04/15/24 Rx losartan 25 mg tablet See Rx Instructions .Route 02/24/24 04/15/24 Rx .COMPLEX #90 tabs acetaminophen 300 mg-codeine 30 mg 1 tablet PO TID PRN pain #30 tabs 02/28/24 04/15/24 Rx tablet Allergies Allergy/AdvReac Type Severity Reaction Status Date / Time rosuvastatin (From [employer]) Allergy Mild Hives Verified 04/15/24 10:14 Vital Signs Vital Signs - 24 hr 04/15/24 09:59 04/15/24 10:37 04/15/24 11:44 Temperature 97.6 F Pulse Rate 79 72 61 Respiratory Rate 18 16 16 Blood Pressure 207/98 H 205/93 H 181/98 H Pulse Oximetry 100 100 100 Oxygen Delivery Room Air Exam Const: General: comfortable and no acute distress Other: , male, elderly, nontoxic appearance HENMT: Face/Nose/Sinus: Normal nares present Mouth: Yes moist mucous membranes Other: Right upper lip swelling approximately 1 cm across and unilateral. No palatal or tongue swelling. Uvula midline. Eyes: General: appearance normal, both eyes and all related structures Sclera: sclerae normal Pupils: Equal, round and reactive pupils present EOM: EOMs intact bilaterally Resp: Effort & Inspection: normal respiratory effort Auscultation: clear to auscultation bilaterally Cardio: Rate: regular rate Rhythm: regular rhythm Other: S1-S2 present without murmur, rub, ectopy GI: Other: Abdomen soft, nondistended, nontender. : Other: Urine clear, pale yellow. Skin: General skin exam: normal color and no rashes or lesions noted Wounds: no wounds Neuro: Speech: normal speech Motor exam (neuro): 5/5 motor strength present throughout Sensory Exam: normal sensation Other: A&O x4 Extrem: General: normal to inspection Psych: Mental Status: mental status grossly normal Affect: normal affect Other: Good insight and judgment, pleasant H&P: Results Labs Labs: Short CBC 04/15/24 Range/Units 10:32 WBC 11.3 H (4.5-10.0) K/mm3 Hgb 9.4 L (14.0-18.0) g/dL Hct 28.1 L (42.0-52.0) % Plt Count 262 (150-375) k/mm3 BMP 04/15/24 10:32 Sodium 138 Potassium 3.8 Chloride 113 H Carbon Dioxide 9 L BUN 62 H D Creatinine 9.00 H Glucose 114 H Calcium 8.6 Liver Function 04/15/24 Range/Units 10:32 Total Bilirubin 0.4 (0.2-1.3) mg/dL AST 23 (17-59) U/L ALT 12 (6-50) U/L Alkaline Phosphatase 57 (38-126) U/L Albumin 4.4 (3.5-5.1) g/dL Urine 04/15/24 Range/Units 11:19 Urine Color Yellow (Yellow) Urine Appearance Clear (Clear) Urine pH 5.0 (5.0-9.0) Ur Specific [place] 1.013 (1.001-1.035) Urine Protein 3+ H (Negative) mg/dL Urine Glucose (UA) Negative (Negative) mg/dL Assessment and Plan Assessment and plan (1) Chronic kidney disease (CKD), stage V: Code(s): N18.5 - Chronic kidney disease, stage 5 Status: Acute Assessment and Plan: - creatinine 9.0 and GFR 6 <- 8.0 and GFR 7 (04/02/2024) <- 5.1 and GFR 11 (12/17/2023) - nephrology consulted, plan for initiation of dialysis - general surgery consulted for dialysis catheter placement - trend renal function - trend electrolytes, correct as needed (2) Hypertension: Qualifiers: Hypertension type: unspecified Qualified Code(s): I10 - Essential (primary) hypertension Code(s): I10 - Essential (primary) hypertension Status: Chronic Assessment and Plan: - chronic, currently 181/98 -hypertension meds re-initiated: Losartan 25 mg daily, held due to lip swelling Coreg 6.25 mg b.i.d. - p.r.n. hydralazine for BP greater than 180/90 - monitor (3) Anemia: Qualifiers: Anemia type: other cause Other causes of anemia: chronic disease, other Qualified Code(s): D63.8 - Anemia in other chronic diseases classified elsewhere Code(s): D64.9 - Anemia, unspecified Status: Acute Assessment and Plan: - Hgb 9.4 - normal MCV and MCHC - trend (4) Swollen upper lip: Code(s): R22.0 - Localized swelling, mass and lump, head Status: Acute Assessment and Plan: - upper lip swelling on the left starting around 21:00 - given losartan at 10:30 a.m., now discontinued - famotidine PO and Benadryl IVP ordered - nursing staff alerted to change, plan for close monitoring overnight - education to patient about red flag symptoms and when to alert staff to changes Plan Diet: renal GI Prophylaxis: not currently indicated DVT Prophylaxis: SCDs Lines: peripheral Code Status: full code Quality VTE Prophylaxis VTE prophylaxis: mechanical ordered Hospitalist MIPS Advance Care Plan I have confirmed that the patient's Advanced Care Plan is present, code status is documented, or surrogate decision maker is listed in patient medical record.: Yes Medication Reconciliation I have utilized all available resources to obtain, update and review the patients current medications (includes all prescriptions, OTC, herbals, cannabis, and nutritional supplements).: Yes
--- NOTE | 2024-04-15 14:53 | ADMGEN ---
This patient, Esther Altman, was admitted to Medical Room 252-01. Patient/family oriented to hospital policies and general routines including ID bracelet, bed and alarms, visiting hours, pain management, procedures, bathroom and other care routines, personal items, smoking policy, room service/diet, and visiting hours. Information on how to activate the Rapid Response Team has been discussed. Patient/Family are encouraged to report perceived risks to care and to ask questions if they do not understand what they are told or what they should do.
[2024-04-15 15:45] VITALS: BMI 20.8
--- NOTE | 2024-04-15 15:48 | PM.CNGS ---
Assessment and Plan Assessment and plan (1) CKD (chronic kidney disease) stage 5, GFR less than 15 ml/min: Code(s): N18.5 - Chronic kidney disease, stage 5 Status: Acute Assessment and Plan: Progressive chronic kidney disease with some mild uremic symptoms. He was seen by Nephrology as an outpatient yesterday and is now being admitted for initiation of hemodialysis. Nephrology has asked our service to place a tunneled hemodialysis catheter. Description of the procedure, risks, benefits, alternatives, and expected recovery were discussed with the patient in detail. He agrees to proceed and all questions were answered. He has been added on for Permcath placement tomorrow by Dr. Mora. We will allow him to eat a diet tonight, and make him NPO after midnight. (2) Anemia: Qualifiers: Anemia type: other cause Other causes of anemia: chronic disease, other Qualified Code(s): D63.8 - Anemia in other chronic diseases classified elsewhere Code(s): D64.9 - Anemia, unspecified Status: Acute (3) Hypertension: Qualifiers: Hypertension type: primary hypertension Qualified Code(s): I10 - Essential (primary) hypertension Code(s): I10 - Essential (primary) hypertension Status: Acute (4) Coronary artery disease: Qualifiers: Coronary Disease-Associated Artery/Lesion type: unspecified vessel or lesion type [place] vs. transplanted heart: unspecified whether [place] or transplanted heart Associated angina: unspecified whether angina present Qualified Code(s): I25.10 - Atherosclerotic heart disease of [place] coronary artery without angina pectoris Code(s): I25.10 - Atherosclerotic heart disease of [place] coronary artery without angina pectoris Status: Acute Assessment and Plan: Hx CAD with stent placement 2 years ago, previously on Plavix which he stopped taking on his own about 1 year ago. Plan I have discussed the patient's case and plan of care with Dr. Mora. History of Present Illness Consult details Consult date: 04/15/24 Reason for consult: other (Placement of tunneled hemodialysis catheter) Requesting physician: Maricruz Hawthorne MD Narrative: This is a 68-year-old man with PMH of CKD stage 5, anxiety, arthritis, CAD s/p cardiac stent 2 years ago, GERD, HLD, and HTN, who we have been asked to see in surgical consultation for placement of a tunneled hemodialysis catheter for initiation of hemodialysis. The patient has never required hemodialysis in the past, but has followed with nephrology for chronic kidney disease. He was evaluated by the natural sciences professor yesterday in the office and has had progression of his chronic kidney disease over the last several months. He also endorses generalized malaise, fatigue, nausea, vomiting, diarrhea, and poor appetite over the past few weeks. He has not been eating or taking good care of himself due to stress and health issues with his over the past year. He reportedly stopped taking all his home medications about a year ago. He is not currently on any medications and has not been on the Plavix for a year. He had discussions with Nephrology as an outpatient and decision was made to come into the ED and be admitted for initiation of hemodialysis due to progressive chronic kidney disease. He went home and returned to the ED today after taking care of a few things at his house. [place] [address], hemoglobin 9.4, hematocrit 28.1, sodium 138, potassium 3.8, chloride 113, phosphorus 7.5, carbon dioxide 9, BUN 62, creatinine 9.0, GFR 6. He has been admitted to the hospitalist service. He was hypertensive on arrival, but asymptomatic. He has been given antihypertensives with some improvement in his blood pressure. Review of Systems Review of Systems: All systems reviewed & are unremarkable except as noted in HPI and below PMFSH Past Medical History Medical History Coronary artery disease CKD (chronic kidney disease) stage 4, GFR 15-29 ml/min Osteoarthritis involving multiple joints on both sides of body CKD (chronic kidney disease) Chronic kidney disease Hyperlipidemia Hypertension GERD (gastroesophageal reflux disease) Arthritis Anxiety Surgical History Surgical History History of colonoscopy with polypectomy 3 polyps removed, internal hemorrhoids History of tonsillectomy History of hemorrhoidectomy (~2011) History of carpal tunnel surgery of left wrist History of cardiac catheterization (~2003) No significant blockages History of repair of right rotator cuff (2008) History of lithotripsy X2 with complications including with sounds like shock H/O hand surgery Due to trauma had surgical repair of the left thenar eminence Family History Family History Mother Acute myocardial infarction Liver cancer Father Acute myocardial infarction Liver cancer Social History Social History Social History: He has been for 41 years. They have 2 children who are healthy. He has never smoked. He does smoke marijuana on a somewhat frequent basis. He drinks a couple of beers a day and some whiskey. 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 Gender identity (if verbalized by the patient): Male Spiritual care concerns: No Meds Home Medications and Allergies Home Medications ?Medication ?Instructions ?Recorded ?Confirmed ?Type amlodipine 10 mg tablet 10 mg PO QAM #90 tabs 03/14/23 04/15/24 Rx aspirin 81 mg tablet,delayed See Rx Instructions .Route 03/14/23 04/15/24 Rx release .COMPLEX #90 tabs atorvastatin 80 mg tablet 80 mg PO QHS #90 tabs 03/14/23 04/15/24 Rx carvedilol 6.25 mg tablet 6.25 mg PO Q12H #180 tabs 03/14/23 04/15/24 Rx clopidogrel 75 mg tablet 75 mg PO DAILY #90 tabs 03/14/23 04/15/24 Rx sodium bicarbonate 650 mg tablet 650 mg PO BID #60 tabs 09/24/23 04/15/24 Rx losartan 25 mg tablet See Rx Instructions .Route 02/24/24 04/15/24 Rx .COMPLEX #90 tabs acetaminophen 300 mg-codeine 30 mg 1 tablet PO TID PRN pain #30 tabs 02/28/24 04/15/24 Rx tablet Allergies Allergy/AdvReac Type Severity Reaction Status Date / Time rosuvastatin (From Crestor) Allergy Mild Hives Verified 04/15/24 10:14 Vital Signs Vital Signs - 24 hr 04/15/24 09:59 04/15/24 10:37 04/15/24 11:44 Temperature 97.6 F Pulse Rate 79 72 61 Respiratory Rate 18 16 16 Blood Pressure 207/98 H 205/93 H 181/98 H Pulse Oximetry 100 100 100 Oxygen Delivery Room Air Exam Const: General: comfortable and no acute distress Nutritional Appearance: average body habitus Orientation/consciousness: patient oriented x3 HENMT: Head: normocephalic and atraumatic Ears: hearing grossly normal bilaterally Mouth: Yes moist mucous membranes Eyes: General: appearance normal, both eyes and all related structures Pupils: Equal, round and reactive pupils present Neck: Neck: normal visual inspection, full ROM and no lymphadenopathy Chest: Chest palpation & inspection: normal inspection of the chest and normal palpation of entire chest wall Resp: Effort & Inspection: no respiratory distress Auscultation: clear to auscultation bilaterally Cardio: Rate: regular rate Rhythm: regular rhythm Peripheral pulses: Peripheral pulses 2+ throughout GI: Inspection: non-distended and no visible herniation GI Palp: Yes Soft to palpation, No Tenderness to palpation present (GI), No Guarding due to palpation present (GI) and No Rebound tenderness present Percussion: Yes normal to percussion Auscultation: normal bowel sounds Skin: General skin exam: normal color Neuro: General: moves all extremities and no focal motor deficits Speech: normal speech Motor exam (neuro): 5/5 motor strength present throughout Extrem: General: normal to inspection and no edema Psych: Mental Status: mental status grossly normal Attitude: cooperative Insight: Good insight present (Psych) Judgement: Good judgement present (Psych) Results Labs 04/15/24 10:32 04/15/24 10:32 Labs: Abnormal lab results 04/15/24 04/15/24 Range/Units 10:32 11:19 WBC 11.3 H (4.5-10.0) K/mm3 RBC 3.06 L (4.6-6.20) M/mm3 Hgb 9.4 L (14.0-18.0) g/dL Hct 28.1 L (42.0-52.0) % Eos % (Auto) 4.8 H (0-4.4) % Eos # (Auto) 0.5 H (0-0.3) K/mm3 Abs Immat Gran (auto) 0.04 H (0.00-0.031) K/mm3 Absolute Neuts (auto) 7.4 H (1.3-6.7) K/mm3 Chloride 113 H (98-107) mmol/L Carbon Dioxide 9 L (22-30) mmol/L Anion Gap 16 H (4-12) mmol/L BUN 62 H D (9-20) mg/dL Creatinine 9.00 H (0.7-1.3) mg/dL Estimated GFR 6 L (59 - ) Glucose 114 H (65-110) mg/dL Phosphorus 7.5 H (2.5-4.5) mg/dL Urine Protein 3+ H (Negative) mg/dL Diabetes panel 04/15/24 Range/Units 10:32 Sodium 138 (137-145) mmol/L Potassium 3.8 (3.4-5.0) mmol/L Chloride 113 H (98-107) mmol/L Carbon Dioxide 9 L (22-30) mmol/L BUN 62 H D (9-20) mg/dL Creatinine 9.00 H (0.7-1.3) mg/dL Glucose 114 H (65-110) mg/dL Calcium 8.6 (8.4-10.2) mg/dL AST 23 (17-59) U/L ALT 12 (6-50) U/L Alkaline Phosphatase 57 (38-126) U/L Total Protein 7.0 (6.3-8.2) g/dL Albumin 4.4 (3.5-5.1) g/dL Calcium panel 04/15/24 04/15/24 Range/Units 10:32 10:32 Calcium 8.6 (8.4-10.2) mg/dL Phosphorus 7.5 H Cancelled (2.5-4.5) mg/dL Albumin 4.4 (3.5-5.1) g/dL Pituitary panel 04/15/24 Range/Units 10:32 Sodium 138 (137-145) mmol/L Potassium 3.8 (3.4-5.0) mmol/L Chloride 113 H (98-107) mmol/L Carbon Dioxide 9 L (22-30) mmol/L BUN 62 H D (9-20) mg/dL Creatinine 9.00 H (0.7-1.3) mg/dL Glucose 114 H (65-110) mg/dL Calcium 8.6 (8.4-10.2) mg/dL Adrenal panel 04/15/24 Range/Units 10:32 Sodium 138 (137-145) mmol/L Potassium 3.8 (3.4-5.0) mmol/L Chloride 113 H (98-107) mmol/L Carbon Dioxide 9 L (22-30) mmol/L BUN 62 H D (9-20) mg/dL Creatinine 9.00 H (0.7-1.3) mg/dL Glucose 114 H (65-110) mg/dL Calcium 8.6 (8.4-10.2) mg/dL Total Bilirubin 0.4 (0.2-1.3) mg/dL AST 23 (17-59) U/L ALT 12 (6-50) U/L Alkaline Phosphatase 57 (38-126) U/L Total Protein 7.0 (6.3-8.2) g/dL Albumin 4.4 (3.5-5.1) g/dL All other labs normal. Imaging Additional studies: ITS Impressions Chest X-Ray 04/15/24 10:46 IMPRESSION: No acute cardiopulmonary pathology.
--- NOTE | 2024-04-15 16:31 | PM.CNNEP ---
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 admission Surgery consulted for tunneled HD catheter placement follow electrolytes, volume status, and clearance (2) Uremia: Code(s): N19 - Unspecified kidney failure Status: Acute Assessment and Plan: as suggested by current symptoms: fatigue malaise poor appetite/oral intake weight loss nausea vomiting should hopefully improve with dialysis (but may take a while) continue supportive therapy (3) Hypertension: Qualifiers: Hypertension type: unspecified Qualified Code(s): I10 - Essential (primary) hypertension Code(s): I10 - Essential (primary) hypertension Status: Chronic Assessment and Plan: quite elevated on admission worsened by non-compliance with medications home BP medications initiated p.r.n. hydralazine ordered as well will adjust further once dialysis started (4) Anemia: Qualifiers: Anemia type: other cause Other causes of anemia: chronic disease, other Qualified Code(s): D63.8 - Anemia in other chronic diseases classified elsewhere Code(s): D64.9 - Anemia, unspecified Status: Chronic Assessment and Plan: likely due to advanced CKD/ESRD check iron studies Retacrit with HD follow trend of H/H (5) Renal osteodystrophy: Code(s): N25.0 - Renal osteodystrophy Status: Chronic Assessment and Plan: check PTH and Vitamin D follow trend of phosphorus with dialysis will likely need binders down the line Long extensive discussion (greater than 20 minutes) with the patient along with family/friends at bedside regarding his advanced chronic kidney disease and subsequent symptoms related to uremia and the need for renal replacement therapy/dialysis given his symptoms. I already discussed with them yesterday as well as today the issue placement of tunneled dialysis catheter, the procedure itself, the risks, benefits, pros, cons...etc with regard to dialysis in general and the hope that this intervention will clinically improve how he feels and his symptoms in general. They all appeared to voice understanding and are willing to proceed. I will continue to follow the patient with you while he remains hospitalized and make further recommendations as deemed necessary. Thank you for allowing me to participate in the care of this patient. History of Present Illness Reason for Consult Consult date: 04/15/24 Reason for consult: end stage renal disease Chief Complaint Chief complaint: renal failure History of Present Illness Narrative: The patient is a 68-year-old male with a past medical history as outlined who presented to [facility] Emergency Room due to his worsening renal function by recent blood work. The patient has a known history of advanced chronic kidney disease that has been slowly and progressively worsening over last several months. More recently, he has noted multiple symptoms concerning for uremia including poor appetite, nausea, vomiting, profound fatigue, generalized malaise and generalized sensation of just not feeling good. Further complicating matters is that due to recent stressors at home, he decided to stop all of his medications and has not taken any of them for last 6 months. When I saw the patient in the office yesterday, and reviewed with him his most recent labs, I voiced my concern that he may be at a point where we need to start renal replacement therapy/dialysis and I offered to directly admit him to the hospital this purpose but he want to go home to take care of some things as he has been having some issues and problems with his 's health. He then informed me that he would come back to the hospital via the ER. Workup and evaluation emergency room demonstrated the patient to be hemodynamically stable quite hypertensive. Repeat labs demonstrated mildly elevated white blood cell count 11.3 relative anemia hemoglobin 9.4, normal platelet count, and a chemistry panel that was consistent his known history of advanced chronic kidney disease. His chest x-ray showed no acute cardiopulmonary pathology. He was given IV labetalol to help improve his blood pressure and reinitiate his home blood pressure medications. He was subsequently admitted to the hospital initiation of renal replacement therapy /dialysis. Since his admission to the hospital, he has already been seen by surgery and is tentatively scheduled for a tunneled dialysis catheter placement sometime tomorrow. Renal consultation was requested due to his advanced chronic kidney disease that appears to have progressed to end-stage renal disease. As mentioned above, I have been following the patient for his chronic kidney disease her last few years and in the last several months, I have urged him to get access placement for the eventual need for renal replacement therapy/dialysis. He did attend [employer] (dialysis education) and initially was interested in a home-based dialysis therapy but per my discussion with his friends and family, he does not have the discipline to do home dialysis at this time although this may be a reconsideration at a later date. Nevertheless, he kept pulling issue dialysis up until his most recent office appointment with me yesterday which of course subsequent led to his hospitalization at this time. Surprisingly, despite his advanced chronic kidney disease, he has no critical electrolyte abnormalities and his volume status is relatively stable although he does have an associated metabolic acidosis along with the symptoms of uremia as mentioned above. Currently, at the time my evaluation, he appears to be in no acute distress. Review of Systems Review of Systems: As per HPI. [facility] Past Medical History Medical History Coronary artery disease CKD (chronic kidney disease) stage 4, GFR 15-29 ml/min Osteoarthritis involving multiple joints on both sides of body CKD (chronic kidney disease) Chronic kidney disease Hyperlipidemia Hypertension GERD (gastroesophageal reflux disease) Arthritis Anxiety Surgical History Surgical History History of colonoscopy with polypectomy 3 polyps removed, internal hemorrhoids History of tonsillectomy History of hemorrhoidectomy (~2011) History of carpal tunnel surgery of left wrist History of cardiac catheterization (~2003) No significant blockages History of repair of right rotator cuff (2008) History of lithotripsy X2 with complications including with sounds like shock H/O hand surgery Due to trauma had surgical repair of the left thenar eminence Family History Family History Mother Acute myocardial infarction Liver cancer Father Acute myocardial infarction Liver cancer Social History Social History Social History: He has been for 41 years. They have 2 children who are healthy. He has never smoked. He does smoke marijuana on a somewhat frequent basis. He drinks a couple of beers a day and some whiskey. 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 Gender identity (if verbalized by the patient): Male Spiritual care concerns: No Meds Home Medications and Allergies Home Medications ?Medication ?Instructions ?Recorded ?Confirmed ?Type amlodipine 10 mg tablet 10 mg PO QAM #90 tabs 03/14/23 04/15/24 Rx aspirin 81 mg tablet,delayed See Rx Instructions .Route 03/14/23 04/15/24 Rx release .COMPLEX #90 tabs atorvastatin 80 mg tablet 80 mg PO QHS #90 tabs 03/14/23 04/15/24 Rx carvedilol 6.25 mg tablet 6.25 mg PO Q12H #180 tabs 03/14/23 04/15/24 Rx clopidogrel 75 mg tablet 75 mg PO DAILY #90 tabs 03/14/23 04/15/24 Rx sodium bicarbonate 650 mg tablet 650 mg PO BID #60 tabs 09/24/23 04/15/24 Rx losartan 25 mg tablet See Rx Instructions .Route 02/24/24 04/15/24 Rx .COMPLEX #90 tabs acetaminophen 300 mg-codeine 30 mg 1 tablet PO TID PRN pain #30 tabs 02/28/24 04/15/24 Rx tablet Allergies Allergy/AdvReac Type Severity Reaction Status Date / Time rosuvastatin (From Crestor) Allergy Mild Hives Verified 04/15/24 10:14 Vital Signs Vital Signs Temp Pulse Resp BP Pulse Ox O2 Del Method 04/15/24 11:44 61 16 181/98 H 100 04/15/24 10:37 72 16 205/93 H 100 04/15/24 09:59 97.6 F 79 18 207/98 H 100 Room Air Exam Narrative: GENERAL APPEARANCE: elderly but well developed well nourished male in no acute distress HEENT: normocephalic, atraumatic, normal conjunctiva and sclera, nares patient NECK: no lymphadenopathy, thyromegaly, or JVD MOUTH: normal lips, teeth, and gums CARDIOVASCULAR: RRR, normal S1 and S2, no rub RESPIRATORY: clear to auscultation bilaterally ABDOMEN: soft, nontender, nondistended, positive bowel sounds present EXTREMITIES: no evidence of cyanosis, clubbing, or edema NEUROLOGICAL: alert and oriented x 3; CN II - XII intact bilaterally; no focal deficits noted Results Lab Results 04/18/24 05:26 04/18/24 05:26 Lab results: Most recent lab results Calcium 8.6 mg/dL (8.4-10.2) 04/15/24 10:32 Phosphorus 7.5 mg/dL (2.5-4.5) H 04/15/24 10:32 Phosphorus Cancelled 04/15/24 10:32 Magnesium 2.1 mg/dL (1.6-2.3) 04/15/24 10:32
[2024-04-15 19:48] VITALS: BP 202/98; PULSE 76; RESP 16; TEMP 37.4; O2SAT 100
[2024-04-15 20:05] VITALS: PULSE 61
[2024-04-15] MEDS: carvediloL 6.25 MG TABLET PO (20:05)
[2024-04-15 20:57] VITALS: BP 186/92
[2024-04-15] MEDS: FAMOTIDINE 20 MG TABLET 40 MG PO (21:27)
[2024-04-15] MEDS: diphenhydrAMINE HCl INJ 50 MG/ML VIAL 25 MG IV PUSH (21:27)
[2024-04-16] VITALS (25 sets, daily range): BP systolic 159–217; BP diastolic 64–122; PULSE 60–111; RESP 16–20; TEMP 36.2–37.2; O2SAT 10–100
[2024-04-16] MEDS: hydrALAZINE HCL 20 MG/ML VIAL 10 MG IV PUSH (04:30)
[2024-04-16 06:43] LABS: Basophils Absolute Auto 0.1 K/mm3 (0.0-0.1); Basophils Percent Auto 0.6 % (0.2-1.2); Eosinophils Absolute Auto 0.9 K/mm3 (0-0.3); Eosinophils Percent Auto 7.7 % (0-4.4); Hematocrit 27.6 % (42.0-52.0); Hemoglobin 9.3 g/dL (14.0-18.0); Immature Granulocyte Absolute 0.03 K/mm3 (0.00-0.031); Immature Granulocyte Percent A 0.3 % (0-0.5); Lymphocytes Absolute Auto 3.08 K/mm3 (0.9-3.2); Lymphocytes Percent Auto 27.4 % (18.3-44.2); Mean Corpuscular HGB Conc 33.7 g/dl (32-36); Monocytes Absolute Auto 0.8 K/mm3 (0.1-0.6); Monocytes Percent Auto 6.8 % (2.6-8.5); Neutrophils Absolute Auto 6.4 K/mm3 (1.3-6.7); Neutrophils Percent Auto 57.2 % (45.5-73.1); Platelet Count Result 223 k/mm3 (150-375); Red Cell Distribution Width 13.2 % (11.5-14.5); White Blood Count 11.3 K/mm3 (4.5-10.0)
[2024-04-16 07:00] LABS: Alanine Aminotransferase 10 U/L (6-50); Alkaline Phosphatase 48 U/L (38-126); Anion Gap 13 mmol/L (4-12); Aspartate Amino Transferase 23 U/L (17-59); Bilirubin,Total 0.4 mg/dL (0.2-1.3); Blood Urea Nitrogen 63 mg/dL (9-20); Calcium 8.9 mg/dL (8.4-10.2); Carbon Dioxide 12 mmol/L (22-30); Chloride 114 mmol/L (98-107); Estimated CRCL calculation 6 ml/min; Estimated Glomerular Filt Rate 6; Glucose 92 mg/dL (65-110); Partial Thromboplastin Time 26.2 Seconds (22.3-36.8); Potassium 3.8 mmol/L (3.4-5.0); Prothrombin Time 13.1 Seconds (11.1-14.7); Sodium 139 mmol/L (137-145)
[2024-04-16 07:13] LABS: Parathyroid Intact 257.2 pg/mL (14.5-75.2)
[2024-04-16 07:15] LABS: Iron 96 ug/dL (49-181)
[2024-04-16 07:24] LABS: Percent Iron Saturation 40 % (20-50)
[2024-04-16 07:28] LABS: Hepatitis B Surface Antigen Negative (Negative)
[2024-04-16 07:46] LABS: Hepatitis B Surface Anti Res Negative
[2024-04-16 07:52] LABS: Vitamin D 25 Hydroxy 64.1 ng/mL
[2024-04-16 08:04] LABS: Folic Acid 17.2 ng/mL (2.76->20)
--- NOTE | 2024-04-16 08:34 | PM.IMPN ---
Progress Note: A&P Assessment and Plan (1) Swollen upper lip: Code(s): R22.0 - Localized swelling, mass and lump, head Status: Acute (2) Hypertension: Qualifiers: Hypertension type: unspecified Qualified Code(s): I10 - Essential (primary) hypertension Code(s): I10 - Essential (primary) hypertension Status: Chronic (3) Renal failure: Qualifiers: Chronic kidney disease stage: stage 5 (GFR < 15), not on chronic dialysis Renal failure chronicity: chronic Qualified Code(s): N18.5 - Chronic kidney disease, stage 5 Code(s): N19 - Unspecified kidney failure Status: Acute (4) Anemia: Qualifiers: Anemia type: other cause Other causes of anemia: chronic disease, other Qualified Code(s): D63.8 - Anemia in other chronic diseases classified elsewhere Code(s): D64.9 - Anemia, unspecified Status: Acute Plan 68 y/o M presents here with abnormal labs with PMH of CKD stage 5, anxiety, arthritis, CAD, GERD, HLD, and HTN.The patient presents here from home for further evaluation of abnormal labs regarding his kidney function. He has been following with the [facility] for his nephro care. He has had long standing CKD stage 4. Dialysis was not indicated in Sept of this year given he had no critical electrolyte, acid-base disorders, signs of volume overload, or evidence of uremia. Patient then followed up on 04/14/2024 with his nephrologists and at this visit he reported poor appetite, nausea, vomiting, diarrhea, fatigue, and general malaise. Reported then that he has been off all his medications due to stress over his 's health and his symptoms. (1) Chronic kidney disease (CKD), stage V: Code(s): N18.5 - Chronic kidney disease, stage 5 Status: Acute Assessment and Plan: - creatinine 9.0 and GFR 6 <- 8.0 and GFR 7 (04/02/2024) <- 5.1 and GFR 11 (12/17/2023) BUN creatinine stable today - trend renal function - trend electrolytes, correct as needed place a tunneled hemodialysis catheter per general surgeon, physiotherapy practice manager will arrange for dialysis (2) Hypertension: Qualifiers: Hypertension type: unspecified Qualified Code(s): I10 - Essential (primary) hypertension Code(s): I10 - Essential (primary) hypertension Status: Chronic Assessment and Plan: Uncontrolled hypertension Upon arrival in the ED, -hypertension meds re-initiated: Losartan 25 mg daily, held due to lip swelling Coreg 6.25 mg b.i.d. - p.r.n. hydralazine for BP greater than 180/90 - monitor Patient needs dialysis to control blood pressure (3) Anemia: Qualifiers: Anemia type: other cause Other causes of anemia: chronic disease, other Qualified Code(s): D63.8 - Anemia in other chronic diseases classified elsewhere Code(s): D64.9 - Anemia, unspecified Status: Acute Assessment and Plan: - Hgb 9.4 - normal MCV and MCHC - trend Hemoglobin stable (4) Swollen upper lip: Code(s): R22.0 - Localized swelling, mass and lump, head Status: Acute Assessment and Plan: - upper lip swelling on the left starting around 21:00 - given losartan at 10:30 a.m., now discontinued - famotidine PO and Benadryl IVP ordered - nursing staff alerted to change, plan for close monitoring overnight - education to patient about red flag symptoms and when to alert staff to changes 04/16: No air way obstruction, patient denies shortness breath, dysphagia, continue current managements today Plan Diet: renal GI Prophylaxis: not currently indicated DVT Prophylaxis: SCDs Lines: peripheral Code Status: full code Subjective Date/time seen: 04/16/24 08:34 Interval history: I saw examined patient today, patient denies shortness breath, chest pain, dysphagia, abdomen pain. Patient is afebrile, blood pressure stable, no O2 desaturation on room air Exam Narrative: GENERAL: Pleasant, in no acute distress. Well-nourished. - EYES: EOMI. Anicteric. - HENT: Moist mucous membranes. - LUNGS: Clear to auscultation bilaterally, no wheezing, rhonchi, or rales. - CARDIOVASCULAR: Regular rate and rhythm. No murmur. No JVD. - ABDOMEN: Soft, non-tender and non-distended. No palpable masses. - EXTREMITIES: No edema. Peripheral pulses 2+. Non-tender. - NEUROLOGIC: No focal neurological deficits. CN II-XII grossly intact. - PSYCHIATRIC: Awake, Alert and oriented x 3. Appropriate mood and affect. - SKIN: No rashes or lesions. Warm. - LYMPH: No cervical lymphadenopathy. Objective Data Vital Signs Vital Signs: Vital Signs - 24 hr 04/15/24 09:59 04/15/24 10:37 04/15/24 11:44 Temperature 97.6 F Pulse Rate 79 72 61 Respiratory Rate 18 16 16 Blood Pressure 207/98 H 205/93 H 181/98 H Pulse Oximetry 100 100 100 Oxygen Delivery Room Air 04/15/24 19:48 04/15/24 20:00 04/15/24 20:05 Temperature 99.3 F Pulse Rate 76 61 Respiratory Rate 16 Blood Pressure 202/98 H Pulse Oximetry 100 Oxygen Delivery Room Air 04/15/24 20:57 04/16/24 03:05 04/16/24 06:02 Temperature 98.3 F Pulse Rate 67 Respiratory Rate 20 Blood Pressure 186/92 H 198/122 H 161/82 H Pulse Oximetry 99 Oxygen Delivery Intake/Output Intake/Output: Intake & Output 04/13/24 04/14/24 04/15/24 04/16/24 23:59 23:59 23:59 23:59 Intake Total 240 550 Output Total 900 Balance 240 -350 Meds/Results Medications: Active Medications Generic Name Dose Route Start Last Admin Trade Name Freq PRN Reason Stop Dose Admin Acetaminophen/Codeine Phosphate 1 tab 04/15/24 22:53 Acetaminophen/Codeine (*Crx) 300/30 Mg Tablet PO TID PRN pain 4-6 Carvedilol 6.25 mg 04/15/24 21:00 04/16/24 07:38 Carvedilol 6.25 Mg Tablet PO Not Given Q12HR RUBEN Diphenhydramine HCl 25 mg 04/15/24 21:09 04/15/24 21:27 Diphenhydramine Hcl Inj 50 Mg/Ml Vial IV PUSH 25 mg Q4H PRN Administration swelling/allergic reaction Hydralazine HCl 10 mg 04/15/24 13:55 04/16/24 04:30 Hydralazine Hcl 20 Mg/Ml Vial IV PUSH 10 mg Q8H PRN Administration BP greater than 180/90 Radiology Results: ITS Impressions Chest X-Ray 04/15/24 10:46 IMPRESSION: No acute cardiopulmonary pathology. Labs Labs: Laboratory Results - last 24 hr 04/15/24 04/15/24 04/15/24 10:32 10:32 11:19 WBC 11.3 H RBC 3.06 L Hgb 9.4 L Hct 28.1 L MCV 91.8 MCH 30.7 MCHC 33.5 RDW 13.1 Plt Count 262 MPV 10.0 Immature Gran % (Auto) 0.4 Neut % (Auto) 65.3 Lymph % (Auto) 24.0 [place] % (Auto) 5.0 Eos % (Auto) 4.8 H Baso % (Auto) 0.5 Lymph # (Auto) 2.71 [place] # (Auto) 0.6 Eos # (Auto) 0.5 H Baso # (Auto) 0.1 Abs Immat Gran (auto) 0.04 H Absolute Neuts (auto) 7.4 H Absolute Nucleated RBC 0.000 Nucleated RBC % 0.0 PT INR APTT Sodium 138 Potassium 3.8 Chloride 113 H Carbon Dioxide 9 L Anion Gap 16 H BUN 62 H D Creatinine 9.00 H Estim Creat Clear Calc 6 Estimated GFR 6 L Glucose 114 H Calcium 8.6 Phosphorus 7.5 H Cancelled Magnesium 2.1 Iron TIBC % Saturation Ferritin Total Bilirubin 0.4 AST 23 ALT 12 Alkaline Phosphatase 57 Total Protein 7.0 Albumin 4.4 Vitamin B12 Vitamin D 25-Hydroxy Folate PTH Intact Urine Color Yellow Urine Appearance Clear Urine pH 5.0 Ur Specific [place] 1.013 Urine Protein 3+ H Urine Glucose (UA) Negative Urine Ketones Negative Ur Blood (Man) Trace Urine Nitrate Negative Urine Bilirubin Negative Urine Urobilinogen 0.2 Leukocyte Esterase Rfl Negative Urine RBC 0-2 Urine WBC 0-5 Ur Squamous Epith Cells None seen Urine Bacteria None seen Urine Casts 3-5 Hep Bs Antigen Hep Bs Antibody Blood Type Antibody Screen 04/16/24 06:29 WBC 11.3 H RBC 3.00 L Hgb 9.3 L Hct 27.6 L MCV 92.0 MCH 31.0 MCHC 33.7 RDW 13.2 Plt Count 223 MPV 10.0 Immature Gran % (Auto) 0.3 Neut % (Auto) 57.2 Lymph % (Auto) 27.4 [place] % (Auto) 6.8 Eos % (Auto) 7.7 H Baso % (Auto) 0.6 Lymph # (Auto) 3.08 [place] # (Auto) 0.8 H Eos # (Auto) 0.9 H Baso # (Auto) 0.1 Abs Immat Gran (auto) 0.03 Absolute Neuts (auto) 6.4 Absolute Nucleated RBC 0.000 Nucleated RBC % 0.0 PT 13.1 INR 1.0 APTT 26.2 Sodium 139 Potassium 3.8 Chloride 114 H Carbon Dioxide 12 L Anion Gap 13 H BUN 63 H Creatinine 8.60 H Estim Creat Clear Calc 6 Estimated GFR 6 L Glucose 92 Calcium 8.9 Phosphorus Magnesium Iron 96 TIBC 239 L % Saturation 40 Ferritin 151.00 Total Bilirubin 0.4 AST 23 ALT 10 Alkaline Phosphatase 48 Total Protein 7.0 Albumin 4.0 Vitamin B12 881.0 Vitamin D 25-Hydroxy 64.1 Folate 17.2 PTH Intact 257.2 H Urine Color Urine Appearance Urine pH Ur Specific [place] Urine Protein Urine Glucose (UA) Urine Ketones Ur Blood (Man) Urine Nitrate Urine Bilirubin Urine Urobilinogen Leukocyte Esterase Rfl Urine RBC Urine WBC Ur Squamous Epith Cells Urine Bacteria Urine Casts Hep Bs Antigen Negative Hep Bs Antibody Negative Blood Type A Positive Antibody Screen Negative
--- NOTE | 2024-04-16 14:14 | WPDHPUPDATE1 ---
History and Physical Update Update Date/Time: 04/16/24 14:14 History and Physical has been reviewed, including an updated exam of the patient. There are NO changes in the patient's condition. Risks, benefits, and alternatives have been discussed and questions answered. Patient agrees to proceed with procedure.
[2024-04-16] MEDS: LACTATED RINGERS 1,000 ML 30 ML IV CONT (14:30)
--- NOTE | 2024-04-16 15:11 | WPDANESEPPF ---
Anes - Initial Pre Proc Eval Procedure: Operation Date: 04/16/24 15:00 Proposed Procedures p Permacath Placement - Ishan Mora MD Date/Time: 04/16/24 15:11 Surgeon: Petr Arteaga MD Pre Op Diagnosis: renal failure Patient Data Age: 68 Gender: M Height: 1.68 m Weight: 58.6 kg Last Vital Signs Temp 36.9 C 04/16/24 14:47 Pulse 68 04/16/24 14:47 Resp 16 04/16/24 14:47 BP 165/85 H 04/16/24 14:47 Pulse Ox 99 04/16/24 14:47 O2 Del Method Room Air 04/16/24 14:47 Allergies Allergy/AdvReac Type Severity Reaction Status Date / Time rosuvastatin (From Crestor) Allergy Mild Hives Verified 04/15/24 10:14 Home Medications ?Medication ?Instructions ?Recorded ?Confirmed ?Type amlodipine 10 mg tablet 10 mg PO QAM #90 tabs 03/14/23 04/15/24 Rx aspirin 81 mg tablet,delayed See Rx Instructions .Route 03/14/23 04/15/24 Rx release .COMPLEX #90 tabs atorvastatin 80 mg tablet 80 mg PO QHS #90 tabs 03/14/23 04/15/24 Rx carvedilol 6.25 mg tablet 6.25 mg PO Q12H #180 tabs 03/14/23 04/15/24 Rx clopidogrel 75 mg tablet 75 mg PO DAILY #90 tabs 03/14/23 04/15/24 Rx sodium bicarbonate 650 mg tablet 650 mg PO BID #60 tabs 09/24/23 04/15/24 Rx losartan 25 mg tablet See Rx Instructions .Route 02/24/24 04/15/24 Rx .COMPLEX #90 tabs acetaminophen 300 mg-codeine 30 mg 1 tablet PO TID PRN pain #30 tabs 02/28/24 04/15/24 Rx tablet Laboratory Tests 04/16/24 06:29 WBC 11.3 H K/mm3 (4.5-10.0) RBC 3.00 L M/mm3 (4.6-6.20) Hgb 9.3 L g/dL (14.0-18.0) Hct 27.6 L % (42.0-52.0) MCV 92.0 fl (80-100) MCH 31.0 pg (26-34) MCHC 33.7 g/dl (32-36) RDW 13.2 % (11.5-14.5) Plt Count 223 k/mm3 (150-375) MPV 10.0 fl (7.4-10.4) Immature Gran % (Auto) 0.3 % (0-0.5) Neut % (Auto) 57.2 % (45.5-73.1) Lymph % (Auto) 27.4 % (18.3-44.2) [place] % (Auto) 6.8 % (2.6-8.5) Eos % (Auto) 7.7 H % (0-4.4) Baso % (Auto) 0.6 % (0.2-1.2) Lymph # (Auto) 3.08 K/mm3 (0.9-3.2) [place] # (Auto) 0.8 H K/mm3 (0.1-0.6) Eos # (Auto) 0.9 H K/mm3 (0-0.3) Baso # (Auto) 0.1 K/mm3 (0.0-0.1) Abs Immat Gran (auto) 0.03 K/mm3 (0.00-0.031) Absolute Neuts (auto) 6.4 K/mm3 (1.3-6.7) Absolute Nucleated RBC 0.000 K/mm3 (0.0-0.012) Nucleated RBC % 0.0 % (0.0-0.2) PT 13.1 Seconds (11.1-14.7) INR 1.0 APTT 26.2 Seconds (22.3-36.8) Sodium 139 mmol/L (137-145) Potassium 3.8 mmol/L (3.4-5.0) Chloride 114 H mmol/L (98-107) Carbon Dioxide 12 L mmol/L (22-30) Anion Gap 13 H mmol/L (4-12) BUN 63 H mg/dL (9-20) Creatinine 8.60 H mg/dL (0.7-1.3) Estim Creat Clear Calc 6 ml/min Estimated GFR 6 L (59 - ) Glucose 92 mg/dL (65-110) Calcium 8.9 mg/dL (8.4-10.2) Iron 96 ug/dL (49-181) TIBC 239 L ug/dL (265-497) % Saturation 40 % (20-50) Ferritin 151.00 ng/mL (11.1-264) Total Bilirubin 0.4 mg/dL (0.2-1.3) AST 23 U/L (17-59) ALT 10 U/L (6-50) Alkaline Phosphatase 48 U/L (38-126) Total Protein 7.0 g/dL (6.3-8.2) Albumin 4.0 g/dL (3.5-5.1) Vitamin B12 881.0 pg/mL (239-931) Vitamin D 25-Hydroxy 64.1 ng/mL Folate 17.2 ng/mL (2.76->20) PTH Intact 257.2 H pg/mL (14.5-75.2) Hep Bs Antigen Negative (Negative) Hep Bs Antibody Negative Hep B Core Total Ab Pending Blood Type A Positive Antibody Screen Negative Patient hx anesthesia problems: none Family hx anesthesia problems: none Results Review: All pre-operative results and documents have been reviewed as part of the pre-operative evaluation. [facility] Past Medical History Medical History Coronary artery disease CKD (chronic kidney disease) stage 4, GFR 15-29 ml/min Osteoarthritis involving multiple joints on both sides of body CKD (chronic kidney disease) Chronic kidney disease Hyperlipidemia Hypertension GERD (gastroesophageal reflux disease) Arthritis Anxiety Surgical History Surgical History History of colonoscopy with polypectomy 3 polyps removed, internal hemorrhoids History of tonsillectomy History of hemorrhoidectomy (~2011) History of carpal tunnel surgery of left wrist History of cardiac catheterization (~2003) No significant blockages History of repair of right rotator cuff (2008) History of lithotripsy X2 with complications including with sounds like shock H/O hand surgery Due to trauma had surgical repair of the left thenar eminence Family History Family History Mother Acute myocardial infarction Liver cancer Father Acute myocardial infarction Liver cancer Social History Social History Social History: He has been for 41 years. They have 2 children who are healthy. He has never smoked. He does smoke marijuana on a somewhat frequent basis. He drinks a couple of beers a day and some whiskey. 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 Gender identity (if verbalized by the patient): Male Spiritual care concerns: No Anes - Eval Final PreProcedure Day of Procedure 04/16/24 15:11 Patient weight: overweight Heart: regular rate and rhythm Lungs: decreased breath sounds Airway: Mallampati scale class II Neurological: alert and oriented Last oral intake: >/= 8 hours ASA classification: IV Emergent: no Anesthetic plan: proceed Anesthesia type and monitoring: general GIVS and standard monitoring Results Review: All pre-operative results and documents have been reviewed as part of the pre-operative evaluation. Informed Consent: The patient's anesthetic plan and its attendant risks and benefits were discussed with the patient/family/POA. Questions were solicited and answers provided to the satisfaction of the patient/family/POA.
[2024-04-16] MEDS: BUPivacaine HCL 0.5% PF 30 ML VIAL INFILTRATE (15:36)
[2024-04-16] MEDS: ceFAZolin 2 GM/D5W 50 ML 2 GM/50 ML BAG IVPB (15:36)
[2024-04-16] MEDS: LIDO 1%/EPINEPHRINE 1:100,000 50 ML VIAL 30 ML INFILTRATE (16:09)
[2024-04-16] MEDS: HEPARIN SODIUM 1,000 UNITS/ML VIAL 1000 UNITS IV PUSH (16:09)
[2024-04-16] MEDS: HEPARIN SODIUM 5,000 UNITS/ML VIAL 5000 UNITS XX (16:11)
--- NOTE | 2024-04-16 16:31 | W.PM.PROC2 ---
Procedure Note - Detailed Date of Procedure 04/16/24 Pre-op Diagnosis End-stage renal disease Post-op Diagnosis Same Procedure Performed Placement of right internal jugular vein tunneled hemodialysis catheter with intraoperative fluoroscopy Surgeon Ishan Mora MD Substance Abuse Clinician Isaiah Lopez, GAS COMBUSTION ENGINEER Anesthesia MAC Indications Patient is a 68-year-old male who has recently developed end-stage renal disease. He presents now for placement tunneled hemodialysis catheter. Findings None significant Description of Procedure After informed consent was obtained patient brought to the operating room was placed in a supine position and then IV sedation was administered by anesthesia. The bilateral upper anterior neck and chest was then prepped and draped usual sterile fashion. A time-out was then performed correctly identifying the patient as well as procedure to be performed. He was given perioperative IV antibiotics. 1% lidocaine with 0.5% Marcaine mixed 50 50 was then injected between the 2 heads of the right sternocleidomastoid muscle. The patient was then placed in the head-down Trendelenburg position. I then used a long 18gauge spinal needle to cannulate the right internal jugular vein on the 1st pass without difficulty. There was prompt return of dark venous appearing blood. A guidewire was then advanced through the needle into the right internal jugular vein subsequent down into the superior vena cava. Intraoperative fluoroscopy was then used to document and confirm the downward position of the guidewire. I then proceeded to anesthetize the subcutaneous tunnel with the same local anesthetic mixture. I then made a stab incision with a scalpel on the anterior right chest wall in the skin and then tunneled the dura flow hemodialysis catheter through the subcutaneous tunnel up to the insertion site of the guidewire after enlarging the incision in that area. The catheter was then positioned about 2cm away from the exit site of the catheter the subcutaneous tissues. I then advanced serial dilators over the guidewire to enlarge to be not a me. Lastly the deploying dilator sheath was advanced over the guidewire. The guidewire and dilator were removed leaving the sheath in place. The catheter was then advanced through the sheath into the right internal jugular vein down into the superior vena cava. The sheath was then torn away leaving the catheter in place. I then proceeded to aspirate and flush both ports of the catheter which had good flows and flushed easily. I then secured the catheter in place at the skin utilizing 3-0 nylon sutures. Intraoperative fluoroscopy was used 1 last time to document the position the tip of the catheter. It was located at the atriocaval junction. I then flushed the catheter with 5000units of heparin. A sterile dressing was then placed. The patient tolerated the procedure well no complications. All sponges, needles, and instrument counts were correct at the end procedure. EBL was _10__cc. The patient was awakened and taken to recovery in stable and satisfactory condition. Implants Dura flow tunneled hemodialysis catheter right internal jugular vein Estimated Blood Loss 10 Urine Output 900 Drains No Packing No Pathology None sent Complications No immediate complications Condition Stable Disposition PACU [facility] Billing Surgery - Charge Forward: Surgery Billing
[2024-04-16] MEDS: SODIUM CHLORIDE 0.9% IV 500 ML 30 ML IV CONT (16:32)
--- NOTE | 2024-04-16 17:17 | SUR.PHASEI ---
Report given to [facility] DENNIS Rodarte. Floor RN would like patient to be dropped off straight to dialysis instead of returning to floor first. head resident made aware. Okay per crop pest control specialist to bring patient at this time.
--- NOTE | 2024-04-16 17:40 | SUR.PHASEI ---
This RN transported patient to dialysis room at 1731. Report given to yarn worker.
--- NOTE | 2024-04-16 18:03 | P.PNNP_ITS ---
Progress Note: A&P Assessment and Plan (1) End stage renal disease: Code(s): N18.6 - End stage renal disease Status: Chronic Assessment and Plan: * due to slow and progressive decline in baseline CKD * thought to be secondary to hypertension, vascular disease, and age-related change based on outpatient evaluation * although no critical electrolytes or evidence of volume overload on admission he has significant symptoms or uremia and an associated metabolic acidosis * s/p tunneled HD catheter placement earlier today * HD today, tomorrow and day after * will need outpatient dialysis on discharge * follow electrolytes, volume status, and clearance (2) Uremia: Code(s): N19 - Unspecified kidney failure Status: Acute Assessment and Plan: * as suggested by current symptoms: * fatigue * malaise * poor appetite/oral intake * weight loss * nausea * vomiting * should hopefully improve with dialysis (but may take a while) * continue supportive therapy (3) Hypertension: Qualifiers: Hypertension type: unspecified Qualified Code(s): I10 - Essential (primary) hypertension Code(s): I10 - Essential (primary) hypertension Status: Chronic Assessment and Plan: * quite elevated on admission * worsened by non-compliance with medications * home BP medications initiated * p.r.n. hydralazine ordered as well * losartan on hold due to possible angioedema (upper lip swelling/edema yesterday evening) * will adjust medications further after dialysis start (4) Anemia: Qualifiers: Anemia type: other cause Other causes of anemia: chronic disease, other Qualified Code(s): D63.8 - Anemia in other chronic diseases classified elsewhere Code(s): D64.9 - Anemia, unspecified Status: Chronic Assessment and Plan: * likely due to advanced CKD/ESRD * anemia studies demonstrate adequate iron stores * Retacrit with HD * follow trend of H/H (5) Renal osteodystrophy: Code(s): N25.0 - Renal osteodystrophy Status: Chronic Assessment and Plan: * adequate Vitamin D * PTH at goal for ESRD * follow trend of phosphorus with dialysis * will likely need binders down the line Will continue to follow. Subjective Date/time seen: 04/16/24 18:03 Interval history: Follow-up for advanced chronic kidney disease with progression to end stage renal disease. Seen earlier today and currently; possible angioedema reaction to losartan last night so this medication has been discontinued; s/p tunneled HD catheter placement today and tolerating first dialysis treatment at the time of my visit (seen on HD at 5:50PM); no apparent distress noted at this time; remains in relatively good spirits; no acute complaints voiced. Exam 2 Narrative: General: elederly but WD/WN male in NAD Heart: normal S1 and S2; no rub Lungs: clear to auscultation Abdomen: soft, nontender, nondistended, positive bowel sounds Extremities: no cyanosis or clubbing; no edema Skin: warm and dry Objective Data Vital Signs Vital Signs: Vital Signs Temp Pulse Resp BP Pulse Ox O2 Del Method 04/16/24 17:27 97.1 F L 66 20 163/88 H 100 Room Air 04/16/24 17:15 71 18 169/68 H 99 Room Air 04/16/24 17:00 60 16 169/64 H 98 Room Air 04/16/24 16:45 64 18 169/79 H 99 Room Air 04/16/24 16:32 97.2 F L 75 16 177/109 H 10 L Room Air 04/16/24 14:47 98.5 F 68 16 165/85 H 99 Room Air 04/16/24 14:13 97.6 F 81 17 191/91 H 97 04/16/24 06:02 98.3 F 67 20 161/82 H 99 04/16/24 03:05 198/122 H 04/15/24 20:57 186/92 H 04/15/24 20:05 61 04/15/24 20:00 Room Air 04/15/24 19:48 99.3 F 76 16 202/98 H 100 Intake/Output Intake/Output: Intake & Output 04/13/24 04/14/24 04/15/24 04/16/24 23:59 23:59 23:59 23:59 Intake Total 240 625 Output Total 1800 Balance 240 -1175 Meds/Results Medications: Active Medications Generic Name Dose Route Start Last Admin Trade Name Freq PRN Reason Stop Dose Admin Acetaminophen 1,000 mg 04/16/24 16:29 Acetaminophen 500 Mg Tablet PO Q6H PRN Mild Pain (1-3) or Fever Acetaminophen/Codeine Phosphate 1 tab 04/15/24 22:53 Acetaminophen/Codeine (*Crx) 300/30 Mg Tablet PO TID PRN pain 4-6 Hydrocodone Bitart/Acetaminophen 1 tab 04/16/24 16:27 Hydrocodone/Acetaminophen (*Crx) 5-325 Mg Tablet PO Q4H PRN Pain Rated 7-10 Carvedilol 6.25 mg 04/15/24 21:00 04/16/24 07:38 Carvedilol 6.25 Mg Tablet PO Not Given Q12HR RUBEN Diphenhydramine HCl 25 mg 04/15/24 21:09 04/15/24 21:27 Diphenhydramine Hcl Inj 50 Mg/Ml Vial IV PUSH 25 mg Q4H PRN Administration swelling/allergic reaction Epoetin Jarrett-epbx 10,000 units 04/16/24 20:05 Epoetin Jarrett-Epbx 10,000 Units/Ml Vial IV PUSH 04/16/24 20:06 ONCE ONE Hydralazine HCl 10 mg 04/15/24 13:55 04/16/24 04:30 Hydralazine Hcl 20 Mg/Ml Vial IV PUSH 10 mg Q8H PRN Administration BP greater than 180/90 Albumin Human 50 mls @ 999 mls/hr 04/16/24 13:05 Albutein IVPB 05/16/24 13:04 Q10M PRN HYPOTENSION Radiology Results: ITS Impressions Chest X-Ray 04/16/24 16:44 IMPRESSION: 1. Central line tip at the superior cavoatrial junction. Central Venous Line 04/16/24 16:51 IMPRESSION: 1. Central line tip at the superior cavoatrial junction. Labs Labs: Laboratory Tests 04/16/24 06:29 04/16/24 06:29 Calcium 8.9 Iron 96 TIBC 239 L % Saturation 40 Ferritin 151.00 Total Bilirubin 0.4 AST 23 ALT 10 Alkaline Phosphatase 48 Total Protein 7.0 Albumin 4.0 Vitamin B12 881.0 Vitamin D 25-Hydroxy 64.1 Folate 17.2 PTH Intact 257.2 H
[2024-04-16] MEDS: EPOETIN ALFA-EPBX 10,000 UNITS/ML VIAL 10000 UNITS IV PUSH (18:50)
[2024-04-16] MEDS: carvediloL 6.25 MG TABLET PO (21:36)
[2024-04-16] MEDS: ACETAMINOPHEN/CODEINE (*CRX) 300/30 MG TABLET 1 TAB PO (21:36)
[2024-04-17] VITALS (21 sets, daily range): BP systolic 145–204; BP diastolic 61–104; PULSE 69–85; RESP 14–153; TEMP 36.4–37.1; O2SAT 99–100
[2024-04-17] MEDS: ACETAMINOPHEN/CODEINE (*CRX) 300/30 MG TABLET 1 TAB PO ×3 (05:52→20:42)
[2024-04-17 06:22] LABS: Basophils Absolute Auto 0.1 K/mm3 (0.0-0.1); Basophils Percent Auto 0.5 % (0.2-1.2); Eosinophils Absolute Auto 0.3 K/mm3 (0-0.3); Eosinophils Percent Auto 1.9 % (0-4.4); Hematocrit 25.4 % (42.0-52.0); Hemoglobin 8.6 g/dL (14.0-18.0); Immature Granulocyte Absolute 0.04 K/mm3 (0.00-0.031); Immature Granulocyte Percent A 0.3 % (0-0.5); Lymphocytes Absolute Auto 2.85 K/mm3 (0.9-3.2); Lymphocytes Percent Auto 21.3 % (18.3-44.2); Mean Corpuscular HGB Conc 33.9 g/dl (32-36); Mean Corpuscular Hemoglobin 30.4 pg (26-34); Mean Corpuscular Volume 89.8 fl (80-100); Mean Platelet Volume 10.1 fl (7.4-10.4); Monocytes Absolute Auto 1.3 K/mm3 (0.1-0.6); Monocytes Percent Auto 9.5 % (2.6-8.5); Neutrophils Absolute Auto 8.9 K/mm3 (1.3-6.7); Neutrophils Percent Auto 66.5 % (45.5-73.1); Platelet Count Result 208 k/mm3 (150-375); Red Blood Count 2.83 M/mm3 (4.6-6.20); Red Cell Distribution Width 12.9 % (11.5-14.5); White Blood Count 13.4 K/mm3 (4.5-10.0)
[2024-04-17 06:46] LABS: Albumin Level 3.7 g/dL (3.5-5.1); Anion Gap 6 mmol/L (4-12); Blood Urea Nitrogen 39 mg/dL (9-20); Calcium 8.3 mg/dL (8.4-10.2); Carbon Dioxide 25 mmol/L (22-30); Chloride 107 mmol/L (98-107); Estimated CRCL calculation 10 ml/min; Estimated Glomerular Filt Rate 10; Glucose 104 mg/dL (65-110); Phosphorus 4.8 mg/dL (2.5-4.5); Potassium 3.8 mmol/L (3.4-5.0); Sodium 138 mmol/L (137-145)
[2024-04-17] MEDS: SODIUM CHLORIDE 0.9% IV 1,000 ML 999 ML IV CONT (08:15)
--- NOTE | 2024-04-17 09:10 | P.PNNP_ITS ---
Progress Note: A&P Assessment and Plan (1) End stage renal disease: Code(s): N18.6 - End stage renal disease Status: Chronic Assessment and Plan: * due to slow and progressive decline in baseline CKD * thought to be secondary to hypertension, vascular disease, and age-related change based on outpatient evaluation * although no critical electrolytes or evidence of volume overload on admission he has significant symptoms or uremia and an associated metabolic acidosis * s/p tunneled HD catheter placement earlier today * HD yesterda and today * plan another treatment tomorrow * will need outpatient dialysis on discharge - this is being arranged * follow electrolytes, volume status, and clearance (2) Uremia: Code(s): N19 - Unspecified kidney failure Status: Acute Assessment and Plan: * as suggested by current symptoms: * fatigue * malaise * poor appetite/oral intake * weight loss * nausea * vomiting * should hopefully improve with dialysis (but may take a while) * continue supportive therapy (3) Hypertension: Qualifiers: Hypertension type: unspecified Qualified Code(s): I10 - Essential (primary) hypertension Code(s): I10 - Essential (primary) hypertension Status: Chronic Assessment and Plan: * quite elevated on admission * worsened by non-compliance with 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 hydralazine ordered as well * losartan on hold due to possible angioedema (upper lip swelling/edema on evening of admission) * will adjust medications further depending on response to dialysis (4) Anemia: Qualifiers: Anemia type: other cause Other causes of anemia: chronic disease, other Qualified Code(s): D63.8 - Anemia in other chronic diseases classified elsewhere Code(s): D64.9 - Anemia, unspecified Status: Chronic Assessment and Plan: * likely due to advanced CKD/ESRD * anemia studies demonstrate adequate iron stores * Retacrit with HD * follow trend of H/H (5) Renal osteodystrophy: Code(s): N25.0 - Renal osteodystrophy Status: Chronic Assessment and Plan: * adequate Vitamin D * PTH at goal for ESRD * follow trend of phosphorus with dialysis * will likely need binders down the line Will continue to follow. Subjective Date/time seen: 04/17/24 09:10 Interval history: Follow-up for end stage renal disease with initiation of hemodialysis. Tolerated tunneled HD catheter placement and first dialysis treatment yesterday without any issues or problems; tolerating dialysis treatment at the time of my visit (seen on HD at 9:00AM); no apparent distress noted when seen; seems in good spirits; no events overnight or earlier this morning. Exam 2 Narrative: General: elderly but WD/WN female in NAD Heart: normal S1 and S2; no rub Lungs: clear to auscultation Abdomen: soft, nontender, nondistended, positive bowel sounds Extremities: no cyanosis or clubbing; no edema Skin: warm and intact Objective Data Vital Signs Vital Signs: Vital Signs Temp Pulse Resp BP Pulse Ox O2 Del Method 04/17/24 09:00 78 184/98 H 04/17/24 08:45 84 192/104 H 04/17/24 08:30 74 204/98 H 04/17/24 08:15 98.7 F 79 18 189/101 H 04/17/24 05:38 97.5 F L 73 153 H 153/96 H 99 04/17/24 00:45 85 145/61 H 04/16/24 21:36 100 04/16/24 21:20 98.5 F 100 16 217/100 H 100 04/16/24 20:39 98.5 F 101 H 18 175/96 H 04/16/24 20:28 111 H 171/108 H 04/16/24 20:15 106 H 177/107 H 04/16/24 20:00 Room Air 04/16/24 20:00 103 H 159/96 H 04/16/24 19:45 102 H 163/101 H 04/16/24 19:30 102 H 185/101 H 04/16/24 19:15 90 183/101 H 04/16/24 19:00 93 182/102 H 04/16/24 18:45 96 184/106 H 04/16/24 18:30 78 191/98 H 04/16/24 18:15 86 192/106 H 04/16/24 18:00 68 191/96 H 04/16/24 17:56 64 192/101 H 04/16/24 17:43 97.9 F 71 18 210/91 H 04/16/24 17:27 97.1 F L 66 20 163/88 H 100 Room Air 04/16/24 17:15 71 18 169/68 H 99 Room Air 04/16/24 17:00 60 16 169/64 H 98 Room Air 04/16/24 16:45 64 18 169/79 H 99 Room Air 04/16/24 16:32 97.2 F L 75 16 177/109 H 10 L Room Air 04/16/24 14:47 98.5 F 68 16 165/85 H 99 Room Air 04/16/24 14:13 97.6 F 81 17 191/91 H 97 Intake/Output Intake/Output: Intake & Output 04/14/24 04/15/24 04/16/24 04/17/24 23:59 23:59 23:59 23:59 Intake Total 240 625 550 Output Total 1800 400 Balance 240 -1175 150 Meds/Results Medications: Active Medications Generic Name Dose Route Start Last Admin Trade Name Freq PRN Reason Stop Dose Admin Acetaminophen 1,000 mg 04/16/24 16:29 Acetaminophen 500 Mg Tablet PO Q6H PRN Mild Pain (1-3) or Fever Acetaminophen/Codeine Phosphate 1 tab 04/15/24 22:53 04/17/24 05:52 Acetaminophen/Codeine (*Crx) 300/30 Mg Tablet PO 1 tab TID PRN Administration pain 4-6 Hydrocodone Bitart/Acetaminophen 1 tab 04/16/24 16:27 Hydrocodone/Acetaminophen (*Crx) 5-325 Mg Tablet PO Q4H PRN Pain Rated 7-10 Amlodipine Besylate 10 mg 04/17/24 09:00 Amlodipine Besylate 10 Mg Tablet PO DAILY RUBEN Carvedilol 6.25 mg 04/15/24 21:00 04/16/24 21:36 Carvedilol 6.25 Mg Tablet PO 6.25 mg Q12HR RUBEN Administration Diphenhydramine HCl 25 mg 04/15/24 21:09 04/15/24 21:27 Diphenhydramine Hcl Inj 50 Mg/Ml Vial IV PUSH 25 mg Q4H PRN Administration swelling/allergic reaction Epoetin Jarrett-epbx 10,000 units 04/17/24 18:40 04/17/24 10:18 Epoetin Jarrett-Epbx 10,000 Units/Ml Vial IV PUSH 04/17/24 18:41 10,000 units ONCE ONE Administration Hydralazine HCl 10 mg 04/15/24 13:55 04/16/24 04:30 Hydralazine Hcl 20 Mg/Ml Vial IV PUSH 10 mg Q8H PRN Administration BP greater than 180/90 Albumin Human 50 mls @ 999 mls/hr 04/16/24 13:05 Albutein IVPB 05/16/24 13:04 Q10M PRN HYPOTENSION Radiology Results: ITS Impressions Chest X-Ray 04/16/24 16:44 IMPRESSION: 1. Central line tip at the superior cavoatrial junction. Central Venous Line 04/16/24 16:51 IMPRESSION: 1. Central line tip at the superior cavoatrial junction. Labs Labs: Laboratory Tests 04/17/24 05:59 04/17/24 05:59 Calcium 8.3 L Phosphorus 4.8 H Albumin 3.7
[2024-04-17 10:13] LABS: Hepatitis B Core Ab Total NON-REACTIVE (NON-REACTIVE)
[2024-04-17] MEDS: EPOETIN ALFA-EPBX 10,000 UNITS/ML VIAL 10000 UNITS IV PUSH (10:18)
--- NOTE | 2024-04-17 10:48 | WPDPN ---
Progress Note: A&P Assessment and Plan (1) Renal failure: Qualifiers: Chronic kidney disease stage: stage 5 (GFR < 15), not on chronic dialysis Renal failure chronicity: chronic Qualified Code(s): N18.5 - Chronic kidney disease, stage 5 Code(s): N19 - Unspecified kidney failure Status: Acute Assessment and Plan: Patient had placement of a tunneled hemodialysis catheter into the right internal jugular vein yesterday. Catheter seems to be functioning well today. May discharge at discretion of the revenue liaison and hospitalists. No need for follow-up with Dr. Mora in the office discharge. Subjective Date/time seen: 04/17/24 10:48 Interval history: Patient is doing well postop day 1 after placement of a right internal jugular vein tunneled hemodialysis catheter. He is currently getting his hemodialysis treatment. Hemodialysis nurses there is no issues with flows or functioning of the catheter. Exam Neck: Other: Right internal jugular vein catheter in place. No bleeding from the exit site. No hematoma or ecchymosis. Objective Data Vital Signs Vital Signs: Vital Signs - 24 hr 04/16/24 14:13 04/16/24 14:47 04/16/24 16:32 Temperature 36.4 C 36.9 C 36.2 C L Pulse Rate 81 68 75 Respiratory Rate 17 16 16 Blood Pressure 191/91 H 165/85 H 177/109 H Pulse Oximetry 97 99 10 L Oxygen Delivery Room Air Room Air 04/16/24 16:45 04/16/24 17:00 04/16/24 17:15 Temperature Pulse Rate 64 60 71 Respiratory Rate 18 16 18 Blood Pressure 169/79 H 169/64 H 169/68 H Pulse Oximetry 99 98 99 Oxygen Delivery Room Air Room Air Room Air 04/16/24 17:27 04/16/24 17:43 04/16/24 17:56 Temperature 36.2 C L 36.6 C Pulse Rate 66 71 64 Respiratory Rate 20 18 Blood Pressure 163/88 H 210/91 H 192/101 H Pulse Oximetry 100 Oxygen Delivery Room Air 04/16/24 18:00 04/16/24 18:15 04/16/24 18:30 Temperature Pulse Rate 68 86 78 Respiratory Rate Blood Pressure 191/96 H 192/106 H 191/98 H Pulse Oximetry Oxygen Delivery 04/16/24 18:45 04/16/24 19:00 04/16/24 19:15 Temperature Pulse Rate 96 93 90 Respiratory Rate Blood Pressure 184/106 H 182/102 H 183/101 H Pulse Oximetry Oxygen Delivery 04/16/24 19:30 04/16/24 19:45 04/16/24 20:00 Temperature Pulse Rate 102 H 102 H 103 H Respiratory Rate Blood Pressure 185/101 H 163/101 H 159/96 H Pulse Oximetry Oxygen Delivery 04/16/24 20:00 04/16/24 20:15 04/16/24 20:28 Temperature Pulse Rate 106 H 111 H Respiratory Rate Blood Pressure 177/107 H 171/108 H Pulse Oximetry Oxygen Delivery Room Air 04/16/24 20:39 04/16/24 21:20 04/16/24 21:36 Temperature 36.9 C 36.9 C Pulse Rate 101 H 100 100 Respiratory Rate 18 16 Blood Pressure 175/96 H 217/100 H Pulse Oximetry 100 Oxygen Delivery 04/17/24 00:45 04/17/24 05:38 04/17/24 08:15 Temperature 36.4 C L 37.1 C Pulse Rate 85 73 79 Respiratory Rate 153 H 18 Blood Pressure 145/61 H 153/96 H 189/101 H Pulse Oximetry 99 Oxygen Delivery 04/17/24 08:30 04/17/24 08:45 04/17/24 09:00 Temperature Pulse Rate 74 84 78 Respiratory Rate Blood Pressure 204/98 H 192/104 H 184/98 H Pulse Oximetry Oxygen Delivery 04/17/24 09:15 04/17/24 09:30 04/17/24 09:45 Temperature Pulse Rate 73 69 74 Respiratory Rate Blood Pressure 192/95 H 169/86 H 185/93 H Pulse Oximetry Oxygen Delivery 04/17/24 10:00 Temperature Pulse Rate 69 Respiratory Rate Blood Pressure 169/88 H Pulse Oximetry Oxygen Delivery Intake/Output Intake/Output: Intake & Output 04/14/24 04/15/24 04/16/24 04/17/24 23:59 23:59 23:59 23:59 Intake Total 240 625 550 Output Total 1800 400 Balance 240 -1175 150 Meds/Results Medications: Active Medications Generic Name Dose Route Start Last Admin Trade Name Freq PRN Reason Stop Dose Admin Acetaminophen 1,000 mg 04/16/24 16:29 Acetaminophen 500 Mg Tablet PO Q6H PRN Mild Pain (1-3) or Fever Acetaminophen/Codeine Phosphate 1 tab 04/15/24 22:53 04/17/24 05:52 Acetaminophen/Codeine (*Crx) 300/30 Mg Tablet PO 1 tab TID PRN Administration pain 4-6 Hydrocodone Bitart/Acetaminophen 1 tab 04/16/24 16:27 Hydrocodone/Acetaminophen (*Crx) 5-325 Mg Tablet PO Q4H PRN Pain Rated 7-10 Amlodipine Besylate 10 mg 04/17/24 09:00 Amlodipine Besylate 10 Mg Tablet PO DAILY RUBEN Carvedilol 6.25 mg 04/15/24 21:00 04/16/24 21:36 Carvedilol 6.25 Mg Tablet PO 6.25 mg Q12HR RUBEN Administration Diphenhydramine HCl 25 mg 04/15/24 21:09 04/15/24 21:27 Diphenhydramine Hcl Inj 50 Mg/Ml Vial IV PUSH 25 mg Q4H PRN Administration swelling/allergic reaction Epoetin Jarrett-epbx 10,000 units 04/17/24 18:40 04/17/24 10:18 Epoetin Jarrett-Epbx 10,000 Units/Ml Vial IV PUSH 04/17/24 18:41 10,000 units ONCE ONE Administration Hydralazine HCl 10 mg 04/15/24 13:55 04/16/24 04:30 Hydralazine Hcl 20 Mg/Ml Vial IV PUSH 10 mg Q8H PRN Administration BP greater than 180/90 Albumin Human 50 mls @ 999 mls/hr 04/16/24 13:05 Albutein IVPB 05/16/24 13:04 Q10M PRN HYPOTENSION Radiology Results: ITS Impressions Chest X-Ray 04/16/24 16:44 IMPRESSION: 1. Central line tip at the superior cavoatrial junction. Central Venous Line 04/16/24 16:51 IMPRESSION: 1. Central line tip at the superior cavoatrial junction. Labs Labs: Laboratory Results - last 24 hr 04/16/24 04/17/24 06:29 05:59 WBC 13.4 H RBC 2.83 L Hgb 8.6 L Hct 25.4 L MCV 89.8 MCH 30.4 MCHC 33.9 RDW 12.9 Plt Count 208 MPV 10.1 Immature Gran % (Auto) 0.3 Neut % (Auto) 66.5 Lymph % (Auto) 21.3 [place] % (Auto) 9.5 H Eos % (Auto) 1.9 Baso % (Auto) 0.5 Lymph # (Auto) 2.85 [place] # (Auto) 1.3 H Eos # (Auto) 0.3 Baso # (Auto) 0.1 Abs Immat Gran (auto) 0.04 H Absolute Neuts (auto) 8.9 H Absolute Nucleated RBC 0.000 Nucleated RBC % 0.0 Sodium 138 Potassium 3.8 Chloride 107 Carbon Dioxide 25 Anion Gap 6 BUN 39 H D Creatinine 5.80 H Estim Creat Clear Calc 10 Estimated GFR 10 L Glucose 104 Calcium 8.3 L Phosphorus 4.8 H Albumin 3.7 Hep B Core Total Ab Non-reactive
[2024-04-17] MEDS: carvediloL 6.25 MG TABLET PO ×2 (12:10→20:45)
[2024-04-17] MEDS: amLODIPine BESYLATE 10 MG TABLET PO (12:10)
--- NOTE | 2024-04-17 14:29 | P.PNIM_ITS ---
Progress Note: A&P Assessment and Plan (1) Swollen upper lip: Code(s): R22.0 - Localized swelling, mass and lump, head Status: Acute (2) Hypertension: Qualifiers: Hypertension type: unspecified Qualified Code(s): I10 - Essential (primary) hypertension Code(s): I10 - Essential (primary) hypertension Status: Chronic (3) Renal failure: Qualifiers: Chronic kidney disease stage: stage 5 (GFR < 15), not on chronic dialysis Renal failure chronicity: chronic Qualified Code(s): N18.5 - Chronic kidney disease, stage 5 Code(s): N19 - Unspecified kidney failure Status: Acute (4) Anemia: Qualifiers: Anemia type: other cause Other causes of anemia: chronic disease, other Qualified Code(s): D63.8 - Anemia in other chronic diseases classified elsewhere Code(s): D64.9 - Anemia, unspecified Status: Acute Plan 68 y/o M presents here with abnormal labs with PMH of CKD stage 5, anxiety, arthritis, CAD, GERD, HLD, and HTN.The patient presents here from home for further evaluation of abnormal labs regarding his kidney function. He has been following with [facility] for his nephro care. He has had long standing CKD stage 4. Dialysis was not indicated in Sept of this year given he had no critical electrolyte, acid-base disorders, signs of volume overload, or evidence of uremia. Patient then followed up on 04/14/2024 with his nephrologists and at this visit he reported poor appetite, nausea, vomiting, diarrhea, fatigue, and general malaise. Reported then that he has been off all his medications due to stress over his 's health and his symptoms. 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 - p.r.n. hydralazine for BP greater than 180/90 - monitor Patient needs dialysis to control blood pressure (3) Anemia: Qualifiers: Anemia type: other cause Other causes of anemia: chronic disease, other Qualified Code(s): D63.8 - Anemia in other chronic diseases classified elsewhere Code(s): D64.9 - Anemia, unspecified Status: Acute Assessment and Plan: - Hgb 9.4 - normal MCV and MCHC - trend Hemoglobin stable (4) Swollen upper lip: Code(s): R22.0 - Localized swelling, mass and lump, head Status: Acute Assessment and Plan: - upper lip swelling on the left starting around 21:00 - given losartan at 10:30 a.m., now discontinued - famotidine PO and Benadryl IVP ordered - nursing staff alerted to change, plan for close monitoring overnight - education to patient about red flag symptoms and when to alert staff to changes 04/16: No air way obstruction, patient denies shortness breath, dysphagia, continue current managements today Plan Diet: renal GI Prophylaxis: not currently indicated DVT Prophylaxis: SCDs Lines: peripheral Code Status: full code Subjective Date/time seen: 04/17/24 14:29 Interval history: Patient underwent dialysis catheter yesterday and received dialysis yesterday and today. No acute events. Review of Systems Review of Systems: All systems reviewed & are unremarkable except as noted in HPI and below Exam Narrative: GENERAL: Pleasant, in no acute distress. Well-nourished. - EYES: EOMI. Anicteric. - HENT: Moist mucous membranes. - LUNGS: Clear to auscultation bilateral ly, no wheezing, rhonchi, or rales. - CARDIOVASCULAR: Regular rate and rhyth m. No murmur. No JVD. - ABDOMEN: Soft, non-tender and non-dist ended. No palpable masses. - EXTREMITIES: No edema. Peripheral puls es 2+. Non-tender. - NEUROLOGIC: No focal neurological defi cits. CN II-XII grossly intact. - PSYCHIATRIC: Awake, Alert and oriented x 3. Appropriate mood and affect. - SKIN: No rashes or lesions. Warm. - LYMPH: No cervical lymphadenopathy. Const: General: comfortable and no acute distress Other: , male, elderly, nontoxic appearance HENMT: Face/Nose/Sinus: Normal nares present Mouth: Yes moist mucous membranes Other: Right upper lip swelling approximately 1 cm across and unilateral. No palatal or tongue swelling. Uvula midline. Eyes: General: appearance normal, both eyes and all related structures Sclera: sclerae normal Pupils: Equal, round and reactive pupils present EOM: EOMs intact bilaterally Resp: Effort & Inspection: normal respiratory effort Auscultation: clear to auscultation bilaterally Cardio: Rate: regular rate Rhythm: regular rhythm Other: S1-S2 present without murmur, rub, ectopy GI: Other: Abdomen soft, nondistended, nontender. : Other: Urine clear, pale yellow. Skin: General skin exam: normal color and no rashes or lesions noted Wounds: no wounds Neuro: Cranial nerves: Yes Equal, round and reactive pupils present Speech: normal speech Motor exam (neuro): 5/5 motor strength present throughout Sensory Exam: normal sensation Other: A&O x4 Extrem: General: normal to inspection Psych: Mental Status: mental status grossly normal Affect: normal affect Other: Good insight and judgment, pleasant Objective Data Vital Signs Vital Signs: Vital Signs - 24 hr 04/16/24 14:47 04/16/24 16:32 04/16/24 16:45 Temperature 98.5 F 97.2 F L Pulse Rate 68 75 64 Respiratory Rate 16 16 18 Blood Pressure 165/85 H 177/109 H 169/79 H Pulse Oximetry 99 10 L 99 Oxygen Delivery Room Air Room Air Room Air 04/16/24 17:00 04/16/24 17:15 04/16/24 17:27 Temperature 97.1 F L Pulse Rate 60 71 66 Respiratory Rate 16 18 20 Blood Pressure 169/64 H 169/68 H 163/88 H Pulse Oximetry 98 99 100 Oxygen Delivery Room Air Room Air Room Air 04/16/24 17:43 04/16/24 17:56 04/16/24 18:00 Temperature 97.9 F Pulse Rate 71 64 68 Respiratory Rate 18 Blood Pressure 210/91 H 192/101 H 191/96 H Pulse Oximetry Oxygen Delivery 04/16/24 18:15 04/16/24 18:30 04/16/24 18:45 Temperature Pulse Rate 86 78 96 Respiratory Rate Blood Pressure 192/106 H 191/98 H 184/106 H Pulse Oximetry Oxygen Delivery 04/16/24 19:00 04/16/24 19:15 04/16/24 19:30 Temperature Pulse Rate 93 90 102 H Respiratory Rate Blood Pressure 182/102 H 183/101 H 185/101 H Pulse Oximetry Oxygen Delivery 04/16/24 19:45 04/16/24 20:00 04/16/24 20:00 Temperature Pulse Rate 102 H 103 H Respiratory Rate Blood Pressure 163/101 H 159/96 H Pulse Oximetry Oxygen Delivery Room Air 04/16/24 20:15 04/16/24 20:28 04/16/24 20:39 Temperature 98.5 F Pulse Rate 106 H 111 H 101 H Respiratory Rate 18 Blood Pressure 177/107 H 171/108 H 175/96 H Pulse Oximetry Oxygen Delivery 04/16/24 21:20 04/16/24 21:36 04/17/24 00:45 Temperature 98.5 F Pulse Rate 100 100 85 Respiratory Rate 16 Blood Pressure 217/100 H 145/61 H Pulse Oximetry 100 Oxygen Delivery 04/17/24 05:38 04/17/24 08:15 04/17/24 08:30 Temperature 97.5 F L 98.7 F Pulse Rate 73 79 74 Respiratory Rate 153 H 18 Blood Pressure 153/96 H 189/101 H 204/98 H Pulse Oximetry 99 Oxygen Delivery 04/17/24 08:45 04/17/24 09:00 04/17/24 09:15 Temperature Pulse Rate 84 78 73 Respiratory Rate Blood Pressure 192/104 H 184/98 H 192/95 H Pulse Oximetry Oxygen Delivery 04/17/24 09:30 04/17/24 09:45 04/17/24 10:00 Temperature Pulse Rate 69 74 69 Respiratory Rate Blood Pressure 169/86 H 185/93 H 169/88 H Pulse Oximetry Oxygen Delivery 04/17/24 10:15 04/17/24 10:30 04/17/24 10:45 Temperature Pulse Rate 78 72 74 Respiratory Rate Blood Pressure 151/98 H 178/90 H 175/93 H Pulse Oximetry Oxygen Delivery 04/17/24 11:00 04/17/24 11:15 04/17/24 11:29 Temperature Pulse Rate 70 69 74 Respiratory Rate Blood Pressure 183/87 H 169/92 H 192/90 H Pulse Oximetry Oxygen Delivery 04/17/24 11:39 04/17/24 12:10 Temperature 98.5 F Pulse Rate 74 70 Respiratory Rate 18 Blood Pressure 192/90 H Pulse Oximetry Oxygen Delivery Intake/Output Intake/Output: Intake & Output 04/14/24 04/15/24 04/16/24 04/17/24 23:59 23:59 23:59 23:59 Intake Total 240 625 550 Output Total 1800 400 Balance 240 -1175 150 Meds/Results Medications: Active Medications Generic Name Dose Route Start Last Admin Trade Name Freq PRN Reason Stop Dose Admin Acetaminophen 1,000 mg 04/16/24 16:29 Acetaminophen 500 Mg Tablet PO Q6H PRN Mild Pain (1-3) or Fever Acetaminophen/Codeine Phosphate 1 tab 04/15/24 22:53 04/17/24 12:14 Acetaminophen/Codeine (*Crx) 300/30 Mg Tablet PO 1 tab TID PRN Administration pain 4-6 Hydrocodone Bitart/Acetaminophen 1 tab 04/16/24 16:27 Hydrocodone/Acetaminophen (*Crx) 5-325 Mg Tablet PO Q4H PRN Pain Rated 7-10 Amlodipine Besylate 10 mg 04/17/24 09:00 04/17/24 12:10 Amlodipine Besylate 10 Mg Tablet PO 10 mg DAILY RUBEN Administration Carvedilol 6.25 mg 04/15/24 21:00 04/17/24 12:10 Carvedilol 6.25 Mg Tablet PO 6.25 mg Q12HR RUBEN Administration Diphenhydramine HCl 25 mg 04/15/24 21:09 04/15/24 21:27 Diphenhydramine Hcl Inj 50 Mg/Ml Vial IV PUSH 25 mg Q4H PRN Administration swelling/allergic reaction Epoetin Jarrett-epbx 10,000 units 04/17/24 18:40 04/17/24 10:18 Epoetin Jarrett-Epbx 10,000 Units/Ml Vial IV PUSH 04/17/24 18:41 10,000 units ONCE ONE Administration Hydralazine HCl 10 mg 04/15/24 13:55 04/16/24 04:30 Hydralazine Hcl 20 Mg/Ml Vial IV PUSH 10 mg Q8H PRN Administration BP greater than 180/90 Albumin Human 50 mls @ 999 mls/hr 04/16/24 13:05 Albutein IVPB 05/16/24 13:04 Q10M PRN HYPOTENSION Radiology Results: ITS Impressions Chest X-Ray 04/16/24 16:44 IMPRESSION: 1. Central line tip at the superior cavoatrial junction. Central Venous Line 04/16/24 16:51 IMPRESSION: 1. Central line tip at the superior cavoatrial junction. Labs Labs: Laboratory Results - last 24 hr 04/16/24 04/17/24 06:29 05:59 WBC 13.4 H RBC 2.83 L Hgb 8.6 L Hct 25.4 L MCV 89.8 MCH 30.4 MCHC 33.9 RDW 12.9 Plt Count 208 MPV 10.1 Immature Gran % (Auto) 0.3 Neut % (Auto) 66.5 Lymph % (Auto) 21.3 [place] % (Auto) 9.5 H Eos % (Auto) 1.9 Baso % (Auto) 0.5 Lymph # (Auto) 2.85 [place] # (Auto) 1.3 H Eos # (Auto) 0.3 Baso # (Auto) 0.1 Abs Immat Gran (auto) 0.04 H Absolute Neuts (auto) 8.9 H Absolute Nucleated RBC 0.000 Nucleated RBC % 0.0 Sodium 138 Potassium 3.8 Chloride 107 Carbon Dioxide 25 Anion Gap 6 BUN 39 H D Creatinine 5.80 H Estim Creat Clear Calc 10 Estimated GFR 10 L Glucose 104 Calcium 8.3 L Phosphorus 4.8 H Albumin 3.7 Hep B Core Total Ab Non-reactive Hospitalist MIPS Advance Care Plan I have confirmed that the patient's Advanced Care Plan is present, code status is documented, or surrogate decision maker is listed in patient medical record.: Yes Medication Reconciliation I have utilized all available resources to obtain, update and review the patients current medications (includes all prescriptions, OTC, herbals, cannabis, and nutritional supplements).: Yes
[2024-04-17] MEDS: HYDROcodone/acetaminophen (*CRX) 5-325 MG TABLET 1 TAB PO ×2 (18:10→22:21)
[2024-04-18] VITALS (22 sets, daily range): BP systolic 147–204; BP diastolic 82–111; PULSE 65–86; RESP 14–20; TEMP 36.2–37.3; O2SAT 96–99
[2024-04-18 05:41] LABS: Basophils Percent Auto 0.3 % (0.2-1.2); Eosinophils Absolute Auto 0.4 K/mm3 (0-0.3); Eosinophils Percent Auto 3.6 % (0-4.4); Hematocrit 27.8 % (42.0-52.0); Hemoglobin 9.2 g/dL (14.0-18.0); Immature Granulocyte Absolute 0.03 K/mm3 (0.00-0.031); Immature Granulocyte Percent A 0.2 % (0-0.5); Lymphocytes Absolute Auto 3.63 K/mm3 (0.9-3.2); Lymphocytes Percent Auto 29.3 % (18.3-44.2); Mean Corpuscular HGB Conc 33.1 g/dl (32-36); Mean Corpuscular Hemoglobin 30.3 pg (26-34); Mean Corpuscular Volume 91.4 fl (80-100); Monocytes Absolute Auto 1.1 K/mm3 (0.1-0.6); Neutrophils Absolute Auto 7.1 K/mm3 (1.3-6.7); Neutrophils Percent Auto 57.6 % (45.5-73.1); Platelet Count Result 197 k/mm3 (150-375); Red Blood Count 3.04 M/mm3 (4.6-6.20); Red Cell Distribution Width 13.1 % (11.5-14.5); White Blood Count 12.4 K/mm3 (4.5-10.0)
[2024-04-18 06:12] LABS: Albumin Level 3.8 g/dL (3.5-5.1); Anion Gap 5 mmol/L (4-12); Blood Urea Nitrogen 26 mg/dL (9-20); Calcium 8.8 mg/dL (8.4-10.2); Carbon Dioxide 28 mmol/L (22-30); Chloride 103 mmol/L (98-107); Estimated CRCL calculation 11 ml/min; Estimated Glomerular Filt Rate 12; Glucose 105 mg/dL (65-110); Phosphorus 4.2 mg/dL (2.5-4.5); Potassium 3.4 mmol/L (3.4-5.0); Sodium 136 mmol/L (137-145)
--- NOTE | 2024-04-18 11:40 | P.PNNP_ITS ---
Progress Note: A&P Assessment and Plan (1) End stage renal disease: Code(s): N18.6 - End stage renal disease Status: Chronic Assessment and Plan: * due to slow and progressive decline in baseline CKD * thought to be secondary to hypertension, vascular disease, and age-related change based on outpatient evaluation * although no critical electrolytes or evidence of volume overload on admission he has significant symptoms or uremia and an associated metabolic acidosis * s/p tunneled HD catheter placement earlier today * HD yesterda and today * plan another treatment tomorrow * will need outpatient dialysis on discharge - this is being arranged * follow electrolytes, volume status, and clearance (2) Uremia: Code(s): N19 - Unspecified kidney failure Status: Acute Assessment and Plan: * as suggested by current symptoms: * fatigue * malaise * poor appetite/oral intake * weight loss * nausea * vomiting * should hopefully improve with dialysis (but may take a while) * continue supportive therapy (3) Hypertension: Qualifiers: Hypertension type: unspecified Qualified Code(s): I10 - Essential (primary) hypertension Code(s): I10 - Essential (primary) hypertension Status: Chronic Assessment and Plan: * quite elevated on admission * 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 hydralazine ordered as well * losartan on hold due to possible angioedema (upper lip swelling/edema on evening of admission) * will adjust medications further depending on response to dialysis (4) Anemia: Qualifiers: Anemia type: other cause Other causes of anemia: chronic disease, other Qualified Code(s): D63.8 - Anemia in other chronic diseases classified elsewhere Code(s): D64.9 - Anemia, unspecified Status: Chronic Assessment and Plan: * likely due to advanced CKD/ESRD * anemia studies demonstrate adequate iron stores * Retacrit with HD * follow trend of H/H (5) Renal osteodystrophy: Code(s): N25.0 - Renal osteodystrophy Status: Chronic Assessment and Plan: * adequate Vitamin D * PTH at goal for ESRD * follow trend of phosphorus with dialysis * will likely need binders down the line Will continue to follow. Subjective Date/time seen: 04/18/24 11:40 Interval history: Patient is alert. He feels okay. No chest pain or shortness of breath On dialysis and tolerating. He was seen at 11:30 a.m. Review of Systems Cardiovascular: Cardiovascular: Reports no additional cardiovascular complaints Respiratory: Respiratory: Reports no additional respiratory complaints Gastrointestinal: Gastrointestinal: Reports no additional gastrointestinal complaints Genitourinary: Genitourinary: Reports no additional male genitourinary complaints Exam Narrative: WDWN in NAD skin no rash head ncat lungs clear cor reg no rub abd BS+ nontender and soft ext no edema. Objective Data Vital Signs Vital Signs: Vital Signs - 24 hr 04/17/24 12:10 04/17/24 14:00 04/17/24 20:45 Temperature 98.2 F Pulse Rate 70 71 70 Respiratory Rate 14 Blood Pressure 173/96 H Pulse Oximetry 99 Oxygen Delivery Oxygen Flow Rate Fraction of Inspired Oxygen 04/17/24 20:45 04/17/24 20:48 04/18/24 05:10 Temperature 98.1 F 98.0 F Pulse Rate 85 65 Respiratory Rate 20 18 Blood Pressure 175/89 H 168/82 H Pulse Oximetry 100 96 Oxygen Delivery Room Air Oxygen Flow Rate Fraction of Inspired Oxygen 04/18/24 08:34 04/18/24 08:46 04/18/24 08:46 Temperature 97.2 F L Pulse Rate 73 72 Respiratory Rate 17 Blood Pressure 204/110 H 190/111 H Pulse Oximetry 99 Oxygen Delivery Oxygen Flow Rate 0 Fraction of Inspired Oxygen 0 04/18/24 09:00 04/18/24 09:15 04/18/24 09:30 Temperature Pulse Rate 80 82 72 Respiratory Rate Blood Pressure 189/108 H 184/97 H 174/102 H Pulse Oximetry Oxygen Delivery Oxygen Flow Rate Fraction of Inspired Oxygen 04/18/24 09:45 Temperature Pulse Rate 84 Respiratory Rate Blood Pressure 183/92 H Pulse Oximetry Oxygen Delivery Oxygen Flow Rate Fraction of Inspired Oxygen Intake/Output Intake/Output: Intake & Output 04/15/24 04/16/24 04/17/24 04/18/24 23:59 23:59 23:59 23:59 Intake Total 330 678 7204 390 Output Total 1800 400 Balance 240 -1175 630 390 Meds/Results Medications: Active Medications Generic Name Dose Route Start Last Admin Trade Name Freq PRN Reason Stop Dose Admin Acetaminophen 1,000 mg 04/16/24 16:29 Acetaminophen 500 Mg Tablet PO Q6H PRN Mild Pain (1-3) or Fever Acetaminophen/Codeine Phosphate 1 tab 04/15/24 22:53 04/17/24 20:42 Acetaminophen/Codeine (*Crx) 300/30 Mg Tablet PO 1 tab TID PRN Administration pain 4-6 Hydrocodone Bitart/Acetaminophen 1 tab 04/16/24 16:27 04/17/24 22:21 Hydrocodone/Acetaminophen (*Crx) 5-325 Mg Tablet PO 1 tab Q4H PRN Administration Pain Rated 7-10 Amlodipine Besylate 10 mg 04/17/24 09:00 04/17/24 12:10 Amlodipine Besylate 10 Mg Tablet PO 10 mg DAILY RUBEN Administration Carvedilol 6.25 mg 04/15/24 21:00 04/17/24 20:45 Carvedilol 6.25 Mg Tablet PO 6.25 mg Q12HR RUBEN Administration Diphenhydramine HCl 25 mg 04/15/24 21:09 04/15/24 21:27 Diphenhydramine Hcl Inj 50 Mg/Ml Vial IV PUSH 25 mg Q4H PRN Administration swelling/allergic reaction Epoetin Jarrett-epbx 10,000 units 04/18/24 18:50 Epoetin Jarrett-Epbx 10,000 Units/Ml Vial IV PUSH 04/18/24 18:51 ONCE ONE Hydralazine HCl 10 mg 04/15/24 13:55 04/16/24 04:30 Hydralazine Hcl 20 Mg/Ml Vial IV PUSH 10 mg Q8H PRN Administration BP greater than 180/90 Albumin Human 50 mls @ 999 mls/hr 04/16/24 13:05 Albutein IVPB 05/16/24 13:04 Q10M PRN HYPOTENSION Radiology Results: ITS Impressions Chest X-Ray 04/16/24 16:44 IMPRESSION: 1. Central line tip at the superior cavoatrial junction. Central Venous Line 04/16/24 16:51 IMPRESSION: 1. Central line tip at the superior cavoatrial junction. Labs Labs: Laboratory Results - last 24 hr 04/18/24 05:26 WBC 12.4 H RBC 3.04 L Hgb 9.2 L Hct 27.8 L MCV 91.4 MCH 30.3 MCHC 33.1 RDW 13.1 Plt Count 197 MPV 10.0 Immature Gran % (Auto) 0.2 Neut % (Auto) 57.6 Lymph % (Auto) 29.3 [place] % (Auto) 9.0 H Eos % (Auto) 3.6 Baso % (Auto) 0.3 Lymph # (Auto) 3.63 H [place] # (Auto) 1.1 H Eos # (Auto) 0.4 H Baso # (Auto) 0.0 Abs Immat Gran (auto) 0.03 Absolute Neuts (auto) 7.1 H Absolute Nucleated RBC 0.000 Nucleated RBC % 0.0 Sodium 136 L Potassium 3.4 Chloride 103 Carbon Dioxide 28 Anion Gap 5 BUN 26 H D Creatinine 4.80 H Estim Creat Clear Calc 11 Estimated GFR 12 L Glucose 105 Calcium 8.8 Phosphorus 4.2 Albumin 3.8
--- NOTE | 2024-04-18 11:41 | P.PNNP_ITS ---
Progress Note: A&P Assessment and Plan (1) End stage renal disease: Code(s): N18.6 - End stage renal disease Status: Chronic Assessment and Plan: * due to slow and progressive decline in baseline CKD * thought to be secondary to hypertension, vascular disease, and age-related change based on outpatient evaluation * s/p tunneled HD catheter placement yesterday and dialyaia started yesterday. * Getting dialysis now. * will need outpatient dialysis on discharge - this is being arranged * Hepatitis studies are negative (2) Uremia: Code(s): N19 - Unspecified kidney failure Status: Acute Assessment and Plan: * as suggested by current symptoms: * fatigue * malaise * poor appetite/oral intake * weight loss * nausea * vomiting * These seem much better. * In good spirits. 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 hydralazine ordered as well * losartan on hold due to possible angioedema (upper lip swelling/edema on ev ening of admission) * Currently on amlodipine 10, carvedilol 6.25 twice a day. Will increase the latter (4) Anemia: Qualifiers: Anemia type: other cause Other causes of anemia: chronic disease, other Qualified Code(s): D63.8 - Anemia in other chronic diseases classified elsewhere Code(s): D64.9 - Anemia, unspecified Status: Chronic Assessment and Plan: * likely due to advanced CKD/ESRD * Hemoglobin 9.2 today P * Retacrit with HD * Check tomorrow morning (5) Renal osteodystrophy: Code(s): N25.0 - Renal osteodystrophy Status: Chronic Assessment and Plan: * adequate Vitamin D * PTH at goal for ESRD * Phosphorus down to normal Will continue to follow. Subjective Date/time seen: 04/18/24 11:41 Objective Data Vital Signs Vital Signs: Vital Signs - 24 hr 04/17/24 12:10 04/17/24 14:00 04/17/24 20:45 Temperature 98.2 F Pulse Rate 70 71 70 Respiratory Rate 14 Blood Pressure 173/96 H Pulse Oximetry 99 Oxygen Delivery Oxygen Flow Rate Fraction of Inspired Oxygen 04/17/24 20:45 04/17/24 20:48 04/18/24 05:10 Temperature 98.1 F 98.0 F Pulse Rate 85 65 Respiratory Rate 20 18 Blood Pressure 175/89 H 168/82 H Pulse Oximetry 100 96 Oxygen Delivery Room Air Oxygen Flow Rate Fraction of Inspired Oxygen 04/18/24 08:34 04/18/24 08:46 04/18/24 08:46 Temperature 97.2 F L Pulse Rate 73 72 Respiratory Rate 17 Blood Pressure 204/110 H 190/111 H Pulse Oximetry 99 Oxygen Delivery Oxygen Flow Rate 0 Fraction of Inspired Oxygen 0 04/18/24 09:00 04/18/24 09:15 04/18/24 09:30 Temperature Pulse Rate 80 82 72 Respiratory Rate Blood Pressure 189/108 H 184/97 H 174/102 H Pulse Oximetry Oxygen Delivery Oxygen Flow Rate Fraction of Inspired Oxygen 04/18/24 09:45 Temperature Pulse Rate 84 Respiratory Rate Blood Pressure 183/92 H Pulse Oximetry Oxygen Delivery Oxygen Flow Rate Fraction of Inspired Oxygen Intake/Output Intake/Output: Intake & Output 04/15/24 04/16/24 04/17/24 04/18/24 23:59 23:59 23:59 23:59 Intake Total 559 325 0788 390 Output Total 1800 400 Balance 240 -1175 630 390 Meds/Results Medications: Active Medications Generic Name Dose Route Start Last Admin Trade Name Freq PRN Reason Stop Dose Admin Acetaminophen 1,000 mg 04/16/24 16:29 Acetaminophen 500 Mg Tablet PO Q6H PRN Mild Pain (1-3) or Fever Acetaminophen/Codeine Phosphate 1 tab 04/15/24 22:53 04/17/24 20:42 Acetaminophen/Codeine (*Crx) 300/30 Mg Tablet PO 1 tab TID PRN Administration pain 4-6 Hydrocodone Bitart/Acetaminophen 1 tab 04/16/24 16:27 04/17/24 22:21 Hydrocodone/Acetaminophen (*Crx) 5-325 Mg Tablet PO 1 tab Q4H PRN Administration Pain Rated 7-10 Amlodipine Besylate 10 mg 04/17/24 09:00 04/17/24 12:10 Amlodipine Besylate 10 Mg Tablet PO 10 mg DAILY RUBEN Administration Carvedilol 6.25 mg 04/15/24 21:00 04/17/24 20:45 Carvedilol 6.25 Mg Tablet PO 6.25 mg Q12HR RUBEN Administration Diphenhydramine HCl 25 mg 04/15/24 21:09 04/15/24 21:27 Diphenhydramine Hcl Inj 50 Mg/Ml Vial IV PUSH 25 mg Q4H PRN Administration swelling/allergic reaction Epoetin Jarrett-epbx 10,000 units 04/18/24 18:50 Epoetin Jarrett-Epbx 10,000 Units/Ml Vial IV PUSH 04/18/24 18:51 ONCE ONE Hydralazine HCl 10 mg 04/15/24 13:55 04/16/24 04:30 Hydralazine Hcl 20 Mg/Ml Vial IV PUSH 10 mg Q8H PRN Administration BP greater than 180/90 Albumin Human 50 mls @ 999 mls/hr 04/16/24 13:05 Albutein IVPB 05/16/24 13:04 Q10M PRN HYPOTENSION Radiology Results: ITS Impressions Chest X-Ray 04/16/24 16:44 IMPRESSION: 1. Central line tip at the superior cavoatrial junction. Central Venous Line 04/16/24 16:51 IMPRESSION: 1. Central line tip at the superior cavoatrial junction. Labs Labs: Laboratory Results - last 24 hr 04/18/24 05:26 WBC 12.4 H RBC 3.04 L Hgb 9.2 L Hct 27.8 L MCV 91.4 MCH 30.3 MCHC 33.1 RDW 13.1 Plt Count 197 MPV 10.0 Immature Gran % (Auto) 0.2 Neut % (Auto) 57.6 Lymph % (Auto) 29.3 [place] % (Auto) 9.0 H Eos % (Auto) 3.6 Baso % (Auto) 0.3 Lymph # (Auto) 3.63 H [place] # (Auto) 1.1 H Eos # (Auto) 0.4 H Baso # (Auto) 0.0 Abs Immat Gran (auto) 0.03 Absolute Neuts (auto) 7.1 H Absolute Nucleated RBC 0.000 Nucleated RBC % 0.0 Sodium 136 L Potassium 3.4 Chloride 103 Carbon Dioxide 28 Anion Gap 5 BUN 26 H D Creatinine 4.80 H Estim Creat Clear Calc 11 Estimated GFR 12 L Glucose 105 Calcium 8.8 Phosphorus 4.2 Albumin 3.8
[2024-04-18] MEDS: EPOETIN ALFA-EPBX 10,000 UNITS/ML VIAL 10000 UNITS IV PUSH (12:01)
[2024-04-18] MEDS: amLODIPine BESYLATE 10 MG TABLET PO (12:55)
[2024-04-18] MEDS: HYDROcodone/acetaminophen (*CRX) 5-325 MG TABLET 1 TAB PO ×2 (12:57→17:32)
--- NOTE | 2024-04-18 15:12 | PM.IMPN ---
Progress Note: A&P Assessment and Plan (1) Swollen upper lip: Code(s): R22.0 - Localized swelling, mass and lump, head Status: Acute (2) Hypertension: Qualifiers: Hypertension type: unspecified Qualified Code(s): I10 - Essential (primary) hypertension Code(s): I10 - Essential (primary) hypertension Status: Chronic (3) Renal failure: Qualifiers: Chronic kidney disease stage: stage 5 (GFR < 15), not on chronic dialysis Renal failure chronicity: chronic Qualified Code(s): N18.5 - Chronic kidney disease, stage 5 Code(s): N19 - Unspecified kidney failure Status: Acute (4) Anemia: Qualifiers: Anemia type: other cause Other causes of anemia: chronic disease, other Qualified Code(s): D63.8 - Anemia in other chronic diseases classified elsewhere Code(s): D64.9 - Anemia, unspecified Status: Chronic Plan 68 y/o M presents here with abnormal labs with PMH of CKD stage 5, anxiety, arthritis, CAD, GERD, HLD, and HTN.The patient presents here from home for further evaluation of abnormal labs regarding his kidney function. He has been following with [facility] for his nephro care. He has had long standing CKD stage 4. Dialysis was not indicated in Sept of this year given he had no critical electrolyte, acid-base disorders, signs of volume overload, or evidence of uremia. Patient then followed up on 04/14/2024 with his nephrologists and at this visit he reported poor appetite, nausea, vomiting, diarrhea, fatigue, and general malaise. Reported then that he has been off all his medications due to stress over his 's health and his symptoms. 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 - p.r.n. hydralazine for BP greater than 180/90 - monitor Patient needs dialysis to control blood pressure (3) Anemia: Qualifiers: Anemia type: other cause Other causes of anemia: chronic disease, other Qualified Code(s): D63.8 - Anemia in other chronic diseases classified elsewhere Code(s): D64.9 - Anemia, unspecified Status: Acute Assessment and Plan: - Hgb 9.4 - normal MCV and MCHC - trend Hemoglobin stable (4) Swollen upper lip: Code(s): R22.0 - Localized swelling, mass and lump, head Status: Acute Assessment and Plan: - upper lip swelling on the left starting around 21:00 - given losartan at 10:30 a.m., now discontinued - famotidine PO and Benadryl IVP ordered - nursing staff alerted to change, plan for close monitoring overnight - education to patient about red flag symptoms and when to alert staff to changes 04/16: No air way obstruction, patient denies shortness breath, dysphagia, continue current managements today Plan Diet: renal GI Prophylaxis: not currently indicated DVT Prophylaxis: SCDs Lines: peripheral Code Status: full code Subjective Date/time seen: 04/18/24 15:12 Interval history: No acute events. Patient currently doing well. Review of Systems Review of Systems: All systems reviewed & are unremarkable except as noted in HPI and below Exam Narrative: GENERAL: Pleasant, in no acute distress. Well-nourished. - EYES: EOMI. Anicteric. - HENT: Moist mucous membranes. - LUNGS: Clear to auscultation bilaterally, no wheezing, rhonchi, or rales. - CARDIOVASCULAR: Regular rate and rhythm. No murmur. No JVD. - ABDOMEN: Soft, non-tender and non-distended. No palpable masses. - EXTREMITIES: No edema. Peripheral pulses 2+. Non-tender. - NEUROLOGIC: No focal neurological deficits. CN II-XII grossly intact. - PSYCHIATRIC: Awake, Alert and oriented x 3. Appropriate mood and affect. - SKIN: No rashes or lesions. Warm. - LYMPH: No cervical lymphadenopathy. Const: General: comfortable and no acute distress Other: , male, elderly, nontoxic appearance HENMT: Face/Nose/Sinus: Normal nares present Mouth: Yes moist mucous membranes Other: Right upper lip swelling approximately 1 cm across and unilateral. No palatal or tongue swelling. Uvula midline. Eyes: General: appearance normal, both eyes and all related structures Sclera: sclerae normal Pupils: Equal, round and reactive pupils present EOM: EOMs intact bilaterally Resp: Effort & Inspection: normal respiratory effort Auscultation: clear to auscultation bilaterally Cardio: Rate: regular rate Rhythm: regular rhythm Other: S1-S2 present without murmur, rub, ectopy GI: Other: Abdomen soft, nondistended, nontender. : Other: Urine clear, pale yellow. Skin: General skin exam: normal color and no rashes or lesions noted Wounds: no wounds Neuro: Cranial nerves: Yes Equal, round and reactive pupils present Speech: normal speech Motor exam (neuro): 5/5 motor strength present throughout Sensory Exam: normal sensation Other: A&O x4 Extrem: General: normal to inspection Psych: Mental Status: mental status grossly normal Affect: normal affect Other: Good insight and judgment, pleasant Objective Data Vital Signs Vital Signs: Vital Signs - 24 hr 04/17/24 20:45 04/17/24 20:45 04/17/24 20:48 Temperature 98.1 F Pulse Rate 70 85 Respiratory Rate 20 Blood Pressure 175/89 H Pulse Oximetry 100 Oxygen Delivery Room Air Oxygen Flow Rate Fraction of Inspired Oxygen 04/18/24 05:10 04/18/24 08:34 04/18/24 08:46 Temperature 98.0 F 97.2 F L Pulse Rate 65 73 Respiratory Rate 18 17 Blood Pressure 168/82 H 204/110 H Pulse Oximetry 96 99 Oxygen Delivery Oxygen Flow Rate 0 Fraction of Inspired Oxygen 0 04/18/24 08:46 04/18/24 09:00 04/18/24 09:15 Temperature Pulse Rate 72 80 82 Respiratory Rate Blood Pressure 190/111 H 189/108 H 184/97 H Pulse Oximetry Oxygen Delivery Oxygen Flow Rate Fraction of Inspired Oxygen 04/18/24 09:30 04/18/24 09:45 04/18/24 10:00 Temperature Pulse Rate 72 84 71 Respiratory Rate Blood Pressure 174/102 H 183/92 H 170/95 H Pulse Oximetry Oxygen Delivery Oxygen Flow Rate Fraction of Inspired Oxygen 04/18/24 10:15 04/18/24 10:30 04/18/24 10:46 Temperature Pulse Rate 86 68 68 Respiratory Rate Blood Pressure 188/100 H 173/95 H 173/94 H Pulse Oximetry Oxygen Delivery Oxygen Flow Rate Fraction of Inspired Oxygen 04/18/24 11:00 04/18/24 11:15 04/18/24 11:30 Temperature Pulse Rate 72 72 74 Respiratory Rate Blood Pressure 147/90 H 181/93 H 166/96 H Pulse Oximetry Oxygen Delivery Oxygen Flow Rate Fraction of Inspired Oxygen 04/18/24 11:45 04/18/24 12:00 04/18/24 12:18 Temperature Pulse Rate 71 74 78 Respiratory Rate Blood Pressure 178/92 H 169/94 H 162/91 H Pulse Oximetry Oxygen Delivery Oxygen Flow Rate Fraction of Inspired Oxygen 04/18/24 12:38 Temperature 99.1 F Pulse Rate 78 Respiratory Rate 14 Blood Pressure 157/93 H Pulse Oximetry 99 Oxygen Delivery Oxygen Flow Rate Fraction of Inspired Oxygen Intake/Output Intake/Output: Intake & Output 04/15/24 04/16/24 04/17/24 04/18/24 23:59 23:59 23:59 23:59 Intake Total 275 560 1699 630 Output Total 8364 320 5205 Balance 240 -8023 630 370 Meds/Results Medications: Active Medications Generic Name Dose Route Start Last Admin Trade Name Freq PRN Reason Stop Dose Admin Acetaminophen 1,000 mg 04/16/24 16:29 Acetaminophen 500 Mg Tablet PO Q6H PRN Mild Pain (1-3) or Fever Acetaminophen/Codeine Phosphate 1 tab 04/15/24 22:53 04/17/24 20:42 Acetaminophen/Codeine (*Crx) 300/30 Mg Tablet PO 1 tab TID PRN Administration pain 4-6 Hydrocodone Bitart/Acetaminophen 1 tab 04/16/24 16:27 04/18/24 12:57 Hydrocodone/Acetaminophen (*Crx) 5-325 Mg Tablet PO 1 tab Q4H PRN Administration Pain Rated 7-10 Amlodipine Besylate 10 mg 04/17/24 09:00 04/18/24 12:55 Amlodipine Besylate 10 Mg Tablet PO 10 mg DAILY RUBEN Administration Carvedilol 12.5 mg 04/18/24 21:00 Carvedilol 12.5 Mg Tablet PO Q12HR RUBEN Diphenhydramine HCl 25 mg 04/15/24 21:09 04/15/24 21:27 Diphenhydramine Hcl Inj 50 Mg/Ml Vial IV PUSH 25 mg Q4H PRN Administration swelling/allergic reaction Epoetin Jarrett-epbx 10,000 units 04/18/24 18:50 04/18/24 12:01 Epoetin Jarrett-Epbx 10,000 Units/Ml Vial IV PUSH 04/18/24 18:51 10,000 units ONCE ONE Administration Hydralazine HCl 10 mg 04/15/24 13:55 04/16/24 04:30 Hydralazine Hcl 20 Mg/Ml Vial IV PUSH 10 mg Q8H PRN Administration BP greater than 180/90 Albumin Human 50 mls @ 999 mls/hr 04/16/24 13:05 Albutein IVPB 05/16/24 13:04 Q10M PRN HYPOTENSION Radiology Results: ITS Impressions Chest X-Ray 04/16/24 16:44 IMPRESSION: 1. Central line tip at the superior cavoatrial junction. Central Venous Line 04/16/24 16:51 IMPRESSION: 1. Central line tip at the superior cavoatrial junction. Labs Labs: Laboratory Results - last 24 hr 04/18/24 05:26 WBC 12.4 H RBC 3.04 L Hgb 9.2 L Hct 27.8 L MCV 91.4 MCH 30.3 MCHC 33.1 RDW 13.1 Plt Count 197 MPV 10.0 Immature Gran % (Auto) 0.2 Neut % (Auto) 57.6 Lymph % (Auto) 29.3 [place] % (Auto) 9.0 H Eos % (Auto) 3.6 Baso % (Auto) 0.3 Lymph # (Auto) 3.63 H [place] # (Auto) 1.1 H Eos # (Auto) 0.4 H Baso # (Auto) 0.0 Abs Immat Gran (auto) 0.03 Absolute Neuts (auto) 7.1 H Absolute Nucleated RBC 0.000 Nucleated RBC % 0.0 Sodium 136 L Potassium 3.4 Chloride 103 Carbon Dioxide 28 Anion Gap 5 BUN 26 H D Creatinine 4.80 H Estim Creat Clear Calc 11 Estimated GFR 12 L Glucose 105 Calcium 8.8 Phosphorus 4.2 Albumin 3.8 Quality VTE Prophylaxis VTE prophylaxis: mechanical ordered Hospitalist MIPS Advance Care Plan I have confirmed that the patient's Advanced Care Plan is present, code status is documented, or surrogate decision maker is listed in patient medical record.: Yes Medication Reconciliation I have utilized all available resources to obtain, update and review the patients current medications (includes all prescriptions, OTC, herbals, cannabis, and nutritional supplements).: Yes
[2024-04-18] MEDS: carvediloL 12.5 MG TABLET PO (21:30)
[2024-04-18] MEDS: ACETAMINOPHEN/CODEINE (*CRX) 300/30 MG TABLET 1 TAB PO (21:33)
[2024-04-19] MEDS: HYDROcodone/acetaminophen (*CRX) 5-325 MG TABLET 1 TAB PO ×3 (04:55→20:33)
[2024-04-19 05:28] VITALS: BP 162/100; PULSE 71; RESP 20; TEMP 36.5; O2SAT 99
[2024-04-19 05:56] LABS: Basophils Absolute Auto 0.1 K/mm3 (0.0-0.1); Basophils Percent Auto 0.4 % (0.2-1.2); Eosinophils Absolute Auto 0.5 K/mm3 (0-0.3); Eosinophils Percent Auto 3.5 % (0-4.4); Hematocrit 27.7 % (42.0-52.0); Hemoglobin 9.2 g/dL (14.0-18.0); Immature Granulocyte Absolute 0.05 K/mm3 (0.00-0.031); Immature Granulocyte Percent A 0.4 % (0-0.5); Lymphocytes Absolute Auto 3.56 K/mm3 (0.9-3.2); Lymphocytes Percent Auto 25.3 % (18.3-44.2); Mean Corpuscular HGB Conc 33.2 g/dl (32-36); Mean Corpuscular Volume 93.3 fl (80-100); Mean Platelet Volume 10.1 fl (7.4-10.4); Monocytes Absolute Auto 1.3 K/mm3 (0.1-0.6); Neutrophils Absolute Auto 8.7 K/mm3 (1.3-6.7); Neutrophils Percent Auto 61.4 % (45.5-73.1); Nucleated Red Blood Cells Perc 0.2 % (0.0-0.2); Platelet Count Result 203 k/mm3 (150-375); Red Blood Count 2.97 M/mm3 (4.6-6.20); White Blood Count 14.1 K/mm3 (4.5-10.0)
[2024-04-19 06:06] LABS: Albumin Level 3.9 g/dL (3.5-5.1); Anion Gap 6 mmol/L (4-12); Blood Urea Nitrogen 25 mg/dL (9-20); Calcium 8.9 mg/dL (8.4-10.2); Carbon Dioxide 27 mmol/L (22-30); Chloride 102 mmol/L (98-107); Estimated CRCL calculation 12 ml/min; Estimated Glomerular Filt Rate 12; Glucose 100 mg/dL (65-110); Phosphorus 3.7 mg/dL (2.5-4.5); Potassium 3.7 mmol/L (3.4-5.0); Sodium 135 mmol/L (137-145)
[2024-04-19 08:15] VITALS: PULSE 71
[2024-04-19] MEDS: amLODIPine BESYLATE 10 MG TABLET PO (08:15)
[2024-04-19] MEDS: carvediloL 12.5 MG TABLET PO ×2 (08:15→20:30)
[2024-04-19 08:16] VITALS: BP 143/77
--- NOTE | 2024-04-19 10:13 | P.PNNP_ITS ---
Progress Note: A&P Assessment and Plan (1) End stage renal disease: Code(s): N18.6 - End stage renal disease Status: Chronic Assessment and Plan: * due to slow and progressive decline in baseline CKD * thought to be secondary to hypertension, vascular disease, and age-related change based on outpatient evaluation * although no critical electrolytes or evidence of volume overload on admission he has significant symptoms or uremia and an associated metabolic acidosis * s/p tunneled HD catheter placement on Saturday * HD yesterday and will get another treatment tomorrow * will need outpatient dialysis on discharge - this is being arranged * Uremic symptoms much better. * Volume status looks okay. 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 * He is on amlodipine 10 and carvedilol 12.5 b.i.d.. * We will see how the blood pressure is tomorrow. * Cannot use losartan anymore because of angioedema. (3) Anemia: Qualifiers: Anemia type: other cause Other causes of anemia: chronic disease, other Qualified Code(s): D63.8 - Anemia in other chronic diseases classified elsewhere Code(s): D64.9 - Anemia, unspecified Status: Chronic Assessment and Plan: * likely due to advanced CKD/ESRD * anemia studies demonstrate adequate iron stores * Retacrit with HD * follow trend of H/H (4) Renal osteodystrophy: Code(s): N25.0 - Renal osteodystrophy Status: Chronic Assessment and Plan: * adequate Vitamin D * PTH at goal for ESRD * Phosphorus is normal Subjective Date/time seen: 04/19/24 10:13 Interval history: Patient is alert. He is under quite some stress because his just moved out and he is having a lot of trouble with that. The patient is trying to keep a stiff upper lip. Exam Narrative: WDWN male in NAD skin no rash head ncat lungs clear bilaterally cor reg no rub abd BS+ nontender and soft ext no edema. Objective Data Vital Signs Vital Signs: Vital Signs - 24 hr 04/18/24 10:15 04/18/24 10:30 04/18/24 10:46 Temperature Pulse Rate 86 68 68 Respiratory Rate Blood Pressure 188/100 H 173/95 H 173/94 H Pulse Oximetry Oxygen Delivery Fraction of Inspired Oxygen 04/18/24 11:00 04/18/24 11:15 04/18/24 11:30 Temperature Pulse Rate 72 72 74 Respiratory Rate Blood Pressure 147/90 H 181/93 H 166/96 H Pulse Oximetry Oxygen Delivery Fraction of Inspired Oxygen 04/18/24 11:45 04/18/24 12:00 04/18/24 12:18 Temperature Pulse Rate 71 74 78 Respiratory Rate Blood Pressure 178/92 H 169/94 H 162/91 H Pulse Oximetry Oxygen Delivery Fraction of Inspired Oxygen 04/18/24 12:38 04/18/24 15:26 04/18/24 20:00 Temperature 99.1 F 98.4 F Pulse Rate 78 85 83 Respiratory Rate 14 16 20 Blood Pressure 157/93 H 166/83 H Pulse Oximetry 99 98 99 Oxygen Delivery Room Air Fraction of Inspired Oxygen 0 04/18/24 21:30 04/18/24 21:55 04/19/24 05:28 Temperature 97.9 F 97.7 F Pulse Rate 82 83 71 Respiratory Rate 20 20 Blood Pressure 150/99 H 162/100 H Pulse Oximetry 99 99 Oxygen Delivery Fraction of Inspired Oxygen 04/19/24 08:15 04/19/24 08:16 Temperature Pulse Rate 71 Respiratory Rate Blood Pressure 143/77 H Pulse Oximetry Oxygen Delivery Fraction of Inspired Oxygen Intake/Output Intake/Output: Intake & Output 04/16/24 04/17/24 04/18/24 04/19/24 23:59 23:59 23:59 23:59 Intake Total 625 1030 1840 535 Output Total 1525 121 3560 Balance -1175 630 840 535 Meds/Results Medications: Active Medications Generic Name Dose Route Start Last Admin Trade Name Freq PRN Reason Stop Dose Admin Acetaminophen 1,000 mg 04/16/24 16:29 Acetaminophen 500 Mg Tablet PO Q6H PRN Mild Pain (1-3) or Fever Acetaminophen/Codeine Phosphate 1 tab 04/15/24 22:53 04/18/24 21:33 Acetaminophen/Codeine (*Crx) 300/30 Mg Tablet PO 1 tab TID PRN Administration pain 4-6 Hydrocodone Bitart/Acetaminophen 1 tab 04/16/24 16:27 04/19/24 04:55 Hydrocodone/Acetaminophen (*Crx) 5-325 Mg Tablet PO 1 tab Q4H PRN Administration Pain Rated 7-10 Amlodipine Besylate 10 mg 04/17/24 09:00 04/19/24 08:15 Amlodipine Besylate 10 Mg Tablet PO 10 mg DAILY RUBEN Administration Carvedilol 12.5 mg 04/18/24 21:00 04/19/24 08:15 Carvedilol 12.5 Mg Tablet PO 12.5 mg Q12HR RUBEN Administration Diphenhydramine HCl 25 mg 04/15/24 21:09 04/15/24 21:27 Diphenhydramine Hcl Inj 50 Mg/Ml Vial IV PUSH 25 mg Q4H PRN Administration swelling/allergic reaction Hydralazine HCl 10 mg 04/15/24 13:55 04/16/24 04:30 Hydralazine Hcl 20 Mg/Ml Vial IV PUSH 10 mg Q8H PRN Administration BP greater than 180/90 Albumin Human 50 mls @ 999 mls/hr 04/16/24 13:05 Albutein IVPB 05/16/24 13:04 Q10M PRN HYPOTENSION Radiology Results: ITS Impressions Chest X-Ray 04/16/24 16:44 IMPRESSION: 1. Central line tip at the superior cavoatrial junction. Central Venous Line 04/16/24 16:51 IMPRESSION: 1. Central line tip at the superior cavoatrial junction. Labs Labs: Laboratory Results - last 24 hr 04/19/24 05:37 WBC 14.1 H RBC 2.97 L Hgb 9.2 L Hct 27.7 L MCV 93.3 MCH 31.0 MCHC 33.2 RDW 13.0 Plt Count 203 MPV 10.1 Immature Gran % (Auto) 0.4 Neut % (Auto) 61.4 Lymph % (Auto) 25.3 [place] % (Auto) 9.0 H Eos % (Auto) 3.5 Baso % (Auto) 0.4 Lymph # (Auto) 3.56 H [place] # (Auto) 1.3 H Eos # (Auto) 0.5 H Baso # (Auto) 0.1 Abs Immat Gran (auto) 0.05 H Absolute Neuts (auto) 8.7 H Absolute Nucleated RBC 0.030 H Nucleated RBC % 0.2 Sodium 135 L Potassium 3.7 Chloride 102 Carbon Dioxide 27 Anion Gap 6 BUN 25 H Creatinine 4.70 H Estim Creat Clear Calc 12 Estimated GFR 12 L Glucose 100 Calcium 8.9 Phosphorus 3.7 Albumin 3.9
--- NOTE | 2024-04-19 11:39 | PM.IMPN ---
Progress Note: A&P Assessment and Plan (1) Swollen upper lip: Code(s): R22.0 - Localized swelling, mass and lump, head Status: Acute (2) Hypertension: Qualifiers: Hypertension type: unspecified Qualified Code(s): I10 - Essential (primary) hypertension Code(s): I10 - Essential (primary) hypertension Status: Chronic (3) Renal failure: Qualifiers: Chronic kidney disease stage: stage 5 (GFR < 15), not on chronic dialysis Renal failure chronicity: chronic Qualified Code(s): N18.5 - Chronic kidney disease, stage 5 Code(s): N19 - Unspecified kidney failure Status: Acute (4) Anemia: Qualifiers: Anemia type: other cause Other causes of anemia: chronic disease, other Qualified Code(s): D63.8 - Anemia in other chronic diseases classified elsewhere Code(s): D64.9 - Anemia, unspecified Status: Chronic Plan 68 y/o M presents here with abnormal labs with PMH of CKD stage 5, anxiety, arthritis, CAD, GERD, HLD, and HTN.The patient presents here from home for further evaluation of abnormal labs regarding his kidney function. He has been following with the [facility] for his nephro care. He has had long standing CKD stage 4. Dialysis was not indicated in Dec of this year given he had no critical electrolyte, acid-base disorders, signs of volume overload, or evidence of uremia. Patient then followed up on 04/14/2024 with his nephrologists and at this visit he reported poor appetite, nausea, vomiting, diarrhea, fatigue, and general malaise. Reported then that he has been off all his medications due to stress over his 's health and his symptoms. 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 -Amlodipine 10mg PO QD - p.r.n. hydralazine for BP greater than 180/90 - monitor Patient needs dialysis to control blood pressure Anemia - Hgb 9.4 - normal MCV and MCHC - trend Hemoglobin stable Swollen upper lip: - upper lip swelling on the left starting around 21:00 - given losartan at 10:30 a.m., now discontinued - famotidine PO and Benadryl IVP ordered - nursing staff alerted to change, plan for close monitoring overnight - education to patient about red flag symptoms and when to alert staff to changes 04/16: No air way obstruction, patient denies shortness breath, dysphagia, continue current managements today Plan Diet: renal GI Prophylaxis: not currently indicated DVT Prophylaxis: SCDs Lines: peripheral Code Status: full code Subjective Date/time seen: 04/19/24 11:39 Interval history: Patient reported he had chest pain around 11.30 am and stayed for few minutes and went away. He denies any SOB or diaphoresis or radiation of the pain. During my evaluation he was completely fine and denies chest pain at that moment. EKG shows Sinus rhythm, LAD, Anteroseptal [place] of indeterminate age. In my interpretation no evidence of ST elevation/depression . Initial troponin is negative , repeated another one at 3 pm. Patient has history of stent placement 2 years ago here at [facility].Possible d/c tomorrow. Will coordinate with Care co-ordination for dialysis setup. Review of Systems Review of Systems: All systems reviewed & are unremarkable except as noted in HPI and below Exam Narrative: GENERAL: Pleasant, in no acute distress. Well-nourished. - EYES: EOMI. Anicteric. - HENT: Moist mucous membranes. - LUNGS: Clear to auscultation bilaterally, no wheezing, rhonchi, or rales. - CARDIOVASCULAR: Regular rate and rhythm. No murmur. No JVD. - ABDOMEN: Soft, non-tender and non-distended. No palpable masses. - EXTREMITIES: No edema. Peripheral pulses 2+. Non-tender. - NEUROLOGIC: No focal neurological deficits. CN II-XII grossly intact. - PSYCHIATRIC: Awake, Alert and oriented x 3. Appropriate mood and affect. - SKIN: No rashes or lesions. Warm. - LYMPH: No cervical lymphadenopathy. Const: General: comfortable and no acute distress Other: , male, elderly, nontoxic appearance HENMT: Face/Nose/Sinus: Normal nares present Mouth: Yes moist mucous membranes Other: Right upper lip swelling approximately 1 cm across and unilateral. No palatal or tongue swelling. Uvula midline. Eyes: General: appearance normal, both eyes and all related structures Sclera: sclerae normal Pupils: Equal, round and reactive pupils present EOM: EOMs intact bilaterally Resp: Effort & Inspection: normal respiratory effort Auscultation: clear to auscultation bilaterally Cardio: Rate: regular rate Rhythm: regular rhythm Other: S1-S2 present without murmur, rub, ectopy GI: Other: Abdomen soft, nondistended, nontender. : Other: Urine clear, pale yellow. Skin: General skin exam: normal color and no rashes or lesions noted Wounds: no wounds Neuro: Cranial nerves: Yes Equal, round and reactive pupils present Speech: normal speech Motor exam (neuro): 5/5 motor strength present throughout Sensory Exam: normal sensation Other: A&O x4 Extrem: General: normal to inspection Psych: Mental Status: mental status grossly normal Affect: normal affect Other: Good insight and judgment, pleasant Objective Data Vital Signs Vital Signs: Vital Signs - 24 hr 04/18/24 11:45 04/18/24 12:00 04/18/24 12:18 Temperature Pulse Rate 71 74 78 Respiratory Rate Blood Pressure 178/92 H 169/94 H 162/91 H Pulse Oximetry Oxygen Delivery Fraction of Inspired Oxygen 04/18/24 12:38 04/18/24 15:26 04/18/24 20:00 Temperature 99.1 F 98.4 F Pulse Rate 78 85 83 Respiratory Rate 14 16 20 Blood Pressure 157/93 H 166/83 H Pulse Oximetry 99 98 99 Oxygen Delivery Room Air Fraction of Inspired Oxygen 0 04/18/24 21:30 04/18/24 21:55 04/19/24 05:28 Temperature 97.9 F 97.7 F Pulse Rate 82 83 71 Respiratory Rate 20 20 Blood Pressure 150/99 H 162/100 H Pulse Oximetry 99 99 Oxygen Delivery Fraction of Inspired Oxygen 04/19/24 08:00 04/19/24 08:15 04/19/24 08:16 Temperature Pulse Rate 71 Respiratory Rate Blood Pressure 143/77 H Pulse Oximetry Oxygen Delivery Room Air Fraction of Inspired Oxygen Intake/Output Intake/Output: Intake & Output 04/16/24 04/17/24 04/18/24/22/24 23:59 23:59 23:59 23:59 Intake Total 625 1030 1840 535 Output Total 4808 261 0941 Balance -1175 630 840 535 Meds/Results Medications: Active Medications Generic Name Dose Route Start Last Admin Trade Name Freq PRN Reason Stop Dose Admin Acetaminophen 1,000 mg 04/16/24 16:29 Acetaminophen 500 Mg Tablet PO Q6H PRN Mild Pain (1-3) or Fever Acetaminophen/Codeine Phosphate 1 tab 04/15/24 22:53 04/18/24 21:33 Acetaminophen/Codeine (*Crx) 300/30 Mg Tablet PO 1 tab TID PRN Administration pain 4-6 Hydrocodone Bitart/Acetaminophen 1 tab 04/16/24 16:27 04/19/24 04:55 Hydrocodone/Acetaminophen (*Crx) 5-325 Mg Tablet PO 1 tab Q4H PRN Administration Pain Rated 7-10 Amlodipine Besylate 10 mg 04/17/24 09:00 04/19/24 08:15 Amlodipine Besylate 10 Mg Tablet PO 10 mg DAILY RUBEN Administration Carvedilol 12.5 mg 04/18/24 21:00 04/19/24 08:15 Carvedilol 12.5 Mg Tablet PO 12.5 mg Q12HR RUBEN Administration Diphenhydramine HCl 25 mg 04/15/24 21:09 04/15/24 21:27 Diphenhydramine Hcl Inj 50 Mg/Ml Vial IV PUSH 25 mg Q4H PRN Administration swelling/allergic reaction Epoetin Jarrett-epbx 10,000 units 04/20/24 07:00 Epoetin Jarrett-Epbx 10,000 Units/Ml Vial IV PUSH 04/20/24 07:01 ONCE ONE Hydralazine HCl 10 mg 04/15/24 13:55 04/16/24 04:30 Hydralazine Hcl 20 Mg/Ml Vial IV PUSH 10 mg Q8H PRN Administration BP greater than 180/90 Albumin Human 50 mls @ 999 mls/hr 04/16/24 13:05 Albutein IVPB 05/16/24 13:04 Q10M PRN HYPOTENSION Albumin Human 50 mls @ 999 mls/hr 04/19/24 10:17 Albutein IVPB 04/20/24 10:16 Q10M PRN HYPOTENSION Radiology Results: ITS Impressions Chest X-Ray 04/16/24 16:44 IMPRESSION: 1. Central line tip at the superior cavoatrial junction. Central Venous Line 04/16/24 16:51 IMPRESSION: 1. Central line tip at the superior cavoatrial junction. Labs Labs: Laboratory Results - last 24 hr 04/19/24 05:37 WBC 14.1 H RBC 2.97 L Hgb 9.2 L Hct 27.7 L MCV 93.3 MCH 31.0 MCHC 33.2 RDW 13.0 Plt Count 203 MPV 10.1 Immature Gran % (Auto) 0.4 Neut % (Auto) 61.4 Lymph % (Auto) 25.3 [place] % (Auto) 9.0 H Eos % (Auto) 3.5 Baso % (Auto) 0.4 Lymph # (Auto) 3.56 H [place] # (Auto) 1.3 H Eos # (Auto) 0.5 H Baso # (Auto) 0.1 Abs Immat Gran (auto) 0.05 H Absolute Neuts (auto) 8.7 H Absolute Nucleated RBC 0.030 H Nucleated RBC % 0.2 Sodium 135 L Potassium 3.7 Chloride 102 Carbon Dioxide 27 Anion Gap 6 BUN 25 H Creatinine 4.70 H Estim Creat Clear Calc 12 Estimated GFR 12 L Glucose 100 Calcium 8.9 Phosphorus 3.7 Albumin 3.9 Quality VTE Prophylaxis VTE prophylaxis: mechanical ordered Hospitalist MIPS Advance Care Plan I have confirmed that the patient's Advanced Care Plan is present, code status is documented, or surrogate decision maker is listed in patient medical record.: Yes Medication Reconciliation I have utilized all available resources to obtain, update and review the patients current medications (includes all prescriptions, OTC, herbals, cannabis, and nutritional supplements).: Yes
--- NOTE | 2024-04-19 12:08 | ECG_ITS ---
Test Date: 2024-04-19 12:17:52 Measurements Intervals [place] Rate: 69 P: 49 NV: 165 QRS: -33 QRSD: 78 T: 32 QT: 408 QTc: 438 Interpretive Statements SINUS RHYTHM LEFT AXIS DEVIATION [QRS AXIS < -30] ANTEROSEPTAL MYOCARDIAL INFARCTION , OF INDETERMINATE AGE [40+ ms Q WAVE IN V1-V4] Compared to ECG 04/15/2024 10:45:01 Myocardial infarct finding now present Electronically Signed On 04-19-2024 13:11:42 [employer]ILLING [employer] OPERATOR by Ashok Watts M.D.
[2024-04-19 12:52] LABS: Troponin I 0.031 ng/mL (0.000-0.034)
[2024-04-19 15:03] VITALS: BP 162/87; PULSE 75; RESP 18; TEMP 36.8; O2SAT 99
[2024-04-19 20:03] VITALS: BP 153/71; PULSE 74; RESP 17; TEMP 36.9; O2SAT 100
[2024-04-19 20:30] VITALS: PULSE 74
[2024-04-20] VITALS (21 sets, daily range): BP systolic 134–156; BP diastolic 74–95; PULSE 70–88; RESP 16–18; TEMP 36.5–37.8; O2SAT 96–100
[2024-04-20 06:05] LABS: Basophils Absolute Auto 0.1 K/mm3 (0.0-0.1); Basophils Percent Auto 0.3 % (0.2-1.2); Eosinophils Absolute Auto 0.6 K/mm3 (0-0.3); Eosinophils Percent Auto 4.2 % (0-4.4); Hematocrit 26.4 % (42.0-52.0); Hemoglobin 8.7 g/dL (14.0-18.0); Immature Granulocyte Absolute 0.07 K/mm3 (0.00-0.031); Immature Granulocyte Percent A 0.5 % (0-0.5); Lymphocytes Absolute Auto 3.04 K/mm3 (0.9-3.2); Lymphocytes Percent Auto 20.6 % (18.3-44.2); Mean Corpuscular Hemoglobin 31.1 pg (26-34); Mean Corpuscular Volume 94.3 fl (80-100); Monocytes Absolute Auto 1.2 K/mm3 (0.1-0.6); Monocytes Percent Auto 7.9 % (2.6-8.5); Neutrophils Absolute Auto 9.8 K/mm3 (1.3-6.7); Neutrophils Percent Auto 66.5 % (45.5-73.1); Platelet Count Result 228 k/mm3 (150-375); Red Cell Distribution Width 12.9 % (11.5-14.5); White Blood Count 14.8 K/mm3 (4.5-10.0)
[2024-04-20 06:25] LABS: Albumin Level 3.6 g/dL (3.5-5.1); Anion Gap 4 mmol/L (4-12); Blood Urea Nitrogen 31 mg/dL (9-20); Calcium 8.5 mg/dL (8.4-10.2); Carbon Dioxide 29 mmol/L (22-30); Chloride 102 mmol/L (98-107); Estimated CRCL calculation 9 ml/min; Estimated Glomerular Filt Rate 9; Glucose 96 mg/dL (65-110); Phosphorus 4.1 mg/dL (2.5-4.5); Potassium 3.2 mmol/L (3.4-5.0); Sodium 135 mmol/L (137-145)
[2024-04-20] MEDS: EPOETIN ALFA-EPBX 10,000 UNITS/ML VIAL 10000 UNITS IV PUSH (12:01)
[2024-04-20 12:16] LABS: Glucose Point of Care 87 mg/dl (65-105)
[2024-04-20] MEDS: carvediloL 12.5 MG TABLET PO (13:25)
[2024-04-20] MEDS: HYDROcodone/acetaminophen (*CRX) 5-325 MG TABLET 1 TAB PO (13:25)
[2024-04-20] MEDS: amLODIPine BESYLATE 10 MG TABLET PO (13:25)
--- NOTE | 2024-04-20 13:32 | P.PNNP_ITS ---
Progress Note: A&P Assessment and Plan (1) End stage renal disease: Code(s): N18.6 - End stage renal disease Status: Chronic Assessment and Plan: * due to slow and progressive decline in baseline CKD * thought to be secondary to hypertension, vascular disease, and age-related change based on outpatient evaluation * although no critical electrolytes or evidence of volume overload on admission he has significant symptoms or uremia and an associated metabolic acidosis * s/p tunneled HD catheter placement on Saturday * just finished his dialysis. 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 * He is on amlodipine 10 and carvedilol 12.5 b.i.d.. * blood pressure is doing much better. 147/81 last check. (3) Anemia: Qualifiers: Anemia type: other cause Other causes of anemia: chronic disease, other Qualified Code(s): D63.8 - Anemia in other chronic diseases classified elsewhere Code(s): D64.9 - Anemia, unspecified Status: Chronic Assessment and Plan: * likely due to advanced CKD/ESRD * anemia studies demonstrate adequate iron stores * Retacrit with HD * hemoglobin 8.7 last check (4) Renal osteodystrophy: Code(s): N25.0 - Renal osteodystrophy Status: Chronic Assessment and Plan: * adequate Vitamin D * PTH at goal for ESRD * Phosphorus is normal Subjective Date/time seen: 04/20/24 13:32 Interval history: patient is feeling okay just finished HD eager for discharge. Exam Narrative: WDWN male in NAD skin no rash head ncat lungs clear bilaterally cor reg no rub or gallop abd BS+ nontender and soft ext no edema or cyanosis Objective Data Vital Signs Vital Signs: Vital Signs - 24 hr 04/19/24 15:03 04/19/24 20:00 04/19/24 20:03 Temperature 98.3 F 98.5 F Pulse Rate 75 74 Respiratory Rate 18 17 Blood Pressure 162/87 H 153/71 H Pulse Oximetry 99 100 Oxygen Delivery Room Air Oxygen Flow Rate Fraction of Inspired Oxygen 0 04/19/24 20:30 04/20/24 04:53 04/20/24 08:00 Temperature 97.7 F Pulse Rate 74 70 Respiratory Rate 17 Blood Pressure 154/77 H Pulse Oximetry 96 Oxygen Delivery Room Air Oxygen Flow Rate Fraction of Inspired Oxygen 04/20/24 08:38 04/20/24 13:24 04/20/24 13:25 Temperature Pulse Rate 88 88 Respiratory Rate Blood Pressure 147/81 H Pulse Oximetry 100 Oxygen Delivery Oxygen Flow Rate 0 Fraction of Inspired Oxygen 0 Intake/Output Intake/Output: Intake & Output 04/17/24 04/18/24 04/19/24 04/20/24 23:59 23:59 23:59 23:59 Intake Total 1030 1840 2155 1040 Output Total 400 1000 Balance 163 932 4650 1040 Meds/Results Medications: Active Medications Generic Name Dose Route Start Last Admin Trade Name Freq PRN Reason Stop Dose Admin Acetaminophen 1,000 mg 04/16/24 16:29 Acetaminophen 500 Mg Tablet PO Q6H PRN Mild Pain (1-3) or Fever Acetaminophen/Codeine Phosphate 1 tab 04/15/24 22:53 04/18/24 21:33 Acetaminophen/Codeine (*Crx) 300/30 Mg Tablet PO 1 tab TID PRN Administration pain 4-6 Hydrocodone Bitart/Acetaminophen 1 tab 04/16/24 16:27 04/20/24 13:25 Hydrocodone/Acetaminophen (*Crx) 5-325 Mg Tablet PO 1 tab Q4H PRN Administration Pain Rated 7-10 Amlodipine Besylate 10 mg 04/17/24 09:00 04/20/24 13:25 Amlodipine Besylate 10 Mg Tablet PO 10 mg DAILY RUBEN Administration Carvedilol 12.5 mg 04/18/24 21:00 04/20/24 13:25 Carvedilol 12.5 Mg Tablet PO 12.5 mg Q12HR RUBEN Administration Diphenhydramine HCl 25 mg 04/15/24 21:09 04/15/24 21:27 Diphenhydramine Hcl Inj 50 Mg/Ml Vial IV PUSH 25 mg Q4H PRN Administration swelling/allergic reaction Hydralazine HCl 10 mg 04/15/24 13:55 04/16/24 04:30 Hydralazine Hcl 20 Mg/Ml Vial IV PUSH 10 mg Q8H PRN Administration BP greater than 180/90 Hydralazine HCl 5 mg 04/20/24 11:50 Hydralazine 5 Mg Tablet PO BID PRN Hypertension Albumin Human 50 mls @ 999 mls/hr 04/16/24 13:05 Albutein IVPB 05/16/24 13:04 Q10M PRN HYPOTENSION Radiology Results: ITS Impressions Chest X-Ray 04/16/24 16:44 IMPRESSION: 1. Central line tip at the superior cavoatrial junction. Central Venous Line 04/16/24 16:51 IMPRESSION: 1. Central line tip at the superior cavoatrial junction. Labs Labs: Laboratory Results - last 24 hr 04/19/24 04/20/24 04/20/24 14:52 05:36 12:09 WBC 14.8 H RBC 2.80 L Hgb 8.7 L Hct 26.4 L MCV 94.3 MCH 31.1 MCHC 33.0 RDW 12.9 Plt Count 228 MPV 10.0 Immature Gran % (Auto) 0.5 Neut % (Auto) 66.5 Lymph % (Auto) 20.6 [place] % (Auto) 7.9 Eos % (Auto) 4.2 Baso % (Auto) 0.3 Lymph # (Auto) 3.04 [place] # (Auto) 1.2 H Eos # (Auto) 0.6 H Baso # (Auto) 0.1 Abs Immat Gran (auto) 0.07 H Absolute Neuts (auto) 9.8 H Absolute Nucleated RBC 0.000 Nucleated RBC % 0.0 Sodium 135 L Potassium 3.2 L Chloride 102 Carbon Dioxide 29 Anion Gap 4 BUN 31 H Creatinine 6.50 H Estim Creat Clear Calc 9 Estimated GFR 9 L Glucose 96 POC Capillary Glucose 87 Calcium 8.5 Phosphorus 4.1 Troponin I 0.030 Albumin 3.6
--- NOTE | 2024-04-20 14:18 | PM.DS ---
DS: Admitting Diagnosis Discharge Date 04/20/2024 Admitting Diagnosis Abnormal Labs DS: Discharge Diagnosis Discharge Diagnosis (1) Swollen upper lip: Code(s): R22.0 - Localized swelling, mass and lump, head Status: Acute Assessment and Plan: see below (2) Hypertension: Qualifiers: Hypertension type: unspecified Qualified Code(s): I10 - Essential (primary) hypertension Code(s): I10 - Essential (primary) hypertension Status: Chronic Assessment and Plan: see below (3) Renal failure: Qualifiers: Chronic kidney disease stage: stage 5 (GFR < 15), not on chronic dialysis Renal failure chronicity: chronic Qualified Code(s): N18.5 - Chronic kidney disease, stage 5 Code(s): N19 - Unspecified kidney failure Status: Acute Assessment and Plan: see below (4) Anemia: Qualifiers: Anemia type: other cause Other causes of anemia: chronic disease, other Qualified Code(s): D63.8 - Anemia in other chronic diseases classified elsewhere Code(s): D64.9 - Anemia, unspecified Status: Chronic Assessment and Plan: see below Plan Chronic kidney disease, stage 5 - creatinine 9.0 and GFR 6 <- 8.0 and GFR 7 (04/02/2024) <- 5.1 and GFR 11 (12/17/2023)pt had a tunneled hemodialysis catheter placed per general surgeon, medical office representative will arrange for dialysis Pt had dialysis in hospital [facility] with dialysis OPD in [facility]. Hypertension -Uncontrolled hypertension -Upon arrival in the ED, -hypertension meds re-initiated: -Losartan 25 mg daily, held due to lip swelling -Coreg 12.5 mg b.i.d. -Amlodipine 10mg PO QD - BP is better today ok to [place] Anemia - Hgb 9.4 Hemoglobin stable Swollen upper lip: - upper lip swelling on the left starting around 21:00 - given losartan at 10:30 a.m., now discontinued - famotidine PO and Benadryl IVP ordered - nursing staff alerted to change, plan for close monitoring overnight - education to patient about red flag symptoms and when to alert staff to changes 04/16: No air way obstruction, patient denies shortness breath, dysphagia, continue current managements today 04/20: no further SOB or dysphagia no swelling of lips ok to DC DS: Summary Hospital Course Hospital Course: 68 y/o M presents here with abnormal labs with PMH of CKD stage 5, anxiety, arthritis, CAD, GERD, HLD, and HTN.The patient presents here from home for further evaluation of abnormal labs regarding his kidney function. He has been following with the [facility] for his nephro care. He has had long standing CKD stage 4. Dialysis was not indicated in Dec of this year given he had no critical electrolyte, acid-base disorders, signs of volume overload, or evidence of uremia. Patient then followed up on 04/14/2024 with his nephrologists and at this visit he reported poor appetite, nausea, vomiting, diarrhea, fatigue, and general malaise. Reported then that he has been off all his medications due to stress over his 's health and his symptoms. Time Spent with Patient Time attestation: Total time spent providing and/or coordinating discharge services:55 minutes on day of dc Exam Narrative: GENERAL: Pleasant, in no acute distress. Well-nourished. - EYES: EOMI. Anicteric. - HENT: Moist mucous membranes. - LUNGS: Clear to auscultation bilaterally, no wheezing, rhonchi, or rales. - CARDIOVASCULAR: Regular rate and rhythm. No murmur. No JVD. - ABDOMEN: Soft, non-tender and non-distended. No palpable masses. - EXTREMITIES: No edema. Peripheral pulses 2+. Non-tender. - NEUROLOGIC: No focal neurological deficits. CN II-XII grossly intact. - PSYCHIATRIC: Awake, Alert and oriented x 3. Appropriate mood and affect. - SKIN: No rashes or lesions. Warm. - LYMPH: No cervical lymphadenopathy. Const: General: comfortable and no acute distress Other: , male, elderly, nontoxic appearance HENMT: Face/Nose/Sinus: Normal nares present Mouth: Yes moist mucous membranes Other: Right upper lip swelling approximately 1 cm across and unilateral. No palatal or tongue swelling. Uvula midline. Eyes: General: appearance normal, both eyes and all related structures Sclera: sclerae normal Pupils: Equal, round and reactive pupils present EOM: EOMs intact bilaterally Resp: Effort & Inspection: normal respiratory effort Auscultation: clear to auscultation bilaterally Cardio: Rate: regular rate Rhythm: regular rhythm Other: S1-S2 present without murmur, rub, ectopy GI: Other: Abdomen soft, nondistended, nontender. : Other: Urine clear, pale yellow. Skin: General skin exam: normal color and no rashes or lesions noted Wounds: no wounds Neuro: Cranial nerves: Yes Equal, round and reactive pupils present Speech: normal speech Motor exam (neuro): 5/5 motor strength present throughout Sensory Exam: normal sensation Other: A&O x4 Extrem: General: normal to inspection Psych: Mental Status: mental status grossly normal Affect: normal affect Other: Good insight and judgment, pleasant DS: Data Data Completed and Pending Labs on day of discharge: Labs from last 24 hours 04/20/24 04/20/24 04/19/24 12:09 05:36 14:52 WBC 14.8 H RBC 2.80 L Hgb 8.7 L Hct 26.4 L MCV 94.3 MCH 31.1 MCHC 33.0 RDW 12.9 Plt Count 228 MPV 10.0 Immature Gran % (Auto) 0.5 Neut % (Auto) 66.5 Lymph % (Auto) 20.6 [place] % (Auto) 7.9 Eos % (Auto) 4.2 Baso % (Auto) 0.3 Lymph # (Auto) 3.04 [place] # (Auto) 1.2 H Eos # (Auto) 0.6 H Baso # (Auto) 0.1 Abs Immat Gran (auto) 0.07 H Absolute Neuts (auto) 9.8 H Absolute Nucleated RBC 0.000 Nucleated RBC % 0.0 Sodium 135 L Potassium 3.2 L Chloride 102 Carbon Dioxide 29 Anion Gap 4 BUN 31 H Creatinine 6.50 H Estim Creat Clear Calc 9 Estimated GFR 9 L Glucose 96 POC Capillary Glucose 87 Calcium 8.5 Phosphorus 4.1 Troponin I 0.030 Albumin 3.6 Discharge Plan Discharge Attending physician on discharge: Aviva Hewitt Consulting providers: Maricruz Hawthorne; Sukumar Hi; Karine Pollard; Ishan Mora; Jud Styles; Tone Benítez; Chevy Castellanos; Jose Handy V.; Ayo Mitchell; Scott Sosa; Ashok Watts; Marlon Inman Discharging Clinician: Aviva Hewitt Anticipated Discharge Date/Time: 04/20/24 14:13 Patient Disposition: Home, Self-Care Activity: as tolerated Diet: renal Discharge Instructions: Dialysis three times a week First session tomorrow 04/21/24 at 10 am in [facility]. Pt. schedule is MWF at [address]. Patient Instructions: Antibiotic Form, Pain Management (DC) Patient Language: [place] Stand Alone Forms: General Discharge Information Follow-up/Referrals: Scott Sosa MD [Physician] - (in 3-4 weeks time ) Fadia Martin NP [Primary Care Provider] - Discharge Medications: New carvedilol [Coreg] 12.5 mg Tablet 25 mg PO Q12HR Qty: 120 0RF Continued amlodipine 10 mg tablet 10 mg PO QAM Qty: 90 3RF aspirin 81 mg tablet,delayed release (DR/EC) See Rx Instructions .ROUTE .COMPLEX Qty: 90 3RF Dose Instruction: TAKE 1 TABLET BY MOUTH ONCE DAILY IN THE MORNING Rx Instructions: TAKE 1 TABLET BY MOUTH ONCE DAILY IN THE MORNING atorvastatin 80 mg tablet 80 mg PO QHS Qty: 90 3RF clopidogrel 75 mg tablet 75 mg PO DAILY Qty: 90 3RF losartan 25 mg tablet See Rx Instructions .ROUTE .COMPLEX Qty: 90 3RF Dose Instruction: Take 1 tablet by mouth once daily Rx Instructions: Take 1 tablet by mouth once daily acetaminophen-codeine 300-30 mg tablet 1 tablet PO TID PRN (Reason: pain) Qty: 30 0RF Discontinued carvedilol 6.25 mg tablet 6.25 mg PO Q12H Qty: 180 3RF Rx Instructions: must administer with a meal/food sodium bicarbonate 650 mg tablet 650 mg PO BID Qty: 60 6RF Date of admission: 04/15/24 15:15 Primary Care Provider: Fadia Martin Admitting Provider: Petr Arteaga Attending physician on admission: Aviva Hewitt Condition: Stable
[2024-04-20] MEDS: POTASSIUM CHLORIDE 20 MEQ PACKET (FOR LIQUID) PO (14:40)
--- OUTSIDE RECORDS SUMMARY | 2024-04-24 14:24 | XMS_ITS | Clinical Summary ---
Author Organization [facility] Address [address], [place] [address] Phone Care Team Providers Care Audit Senior Associate Name Role Phone Wes Armando DO Primary Care Provider [phone] Allergies Active Allergy Reactions Criticality Noted Date Comments Rosuvastatin Calcium Itching 12/13/2021 Medications Medication Sig Dispensed Refills Start Date End Date Status acetaminophen-codeine (TYLENOL #3) 300-30 MG per tablet Take 1 tablet by mouth every 6 (six) hours if needed for pain 12/07/2021 Active amLODIPine (NORVASC) 10 MG tablet TAKE 1 TABLET BY MOUTH ONCE DAILY IN THE MORNING 11/14/2021 Active Aspirin Low Dose 81 MG EC tablet TAKE 1 TABLET BY MOUTH ONCE DAILY IN THE MORNING 10/25/2021 Active atorvastatin (LIPITOR) 80 MG tablet Take 80 mg by mouth every night 11/14/2021 Active Brilinta 90 MG tablet Take 90 mg by mouth every 12 (twelve) hours 11/22/2021 Active losartan (COZAAR) 25 MG tablet Take 25 mg by mouth 1 (one) time each day 02/07/2022 Active carvedilol (COREG) 3.125 MG tablet TAKE 1 TABLET BY MOUTH EVERY 12 HOURS WITH FOOD 02/09/2022 Active Active Problems Problem Noted Date Diagnosed Date Osteoarthritis 01/08/2022 Nephrolithiasis 01/08/2022 Hypertension 01/08/2022 Hyperlipidemia 01/08/2022 Gastroesophageal reflux disease 01/08/2022 Coronary arteriosclerosis 01/08/2022 Chronic kidney disease 01/08/2022 Anxiety 01/08/2022 Family History Medical History Relation Comments Heart disease Father Liver cancer Father Heart disease Mother Liver cancer Mother Relation Status Comments Father Mother Social History Tobacco Use Types Packs/Day Years Used Date Smoking Tobacco: Never Smokeless Tobacco: Never Tobacco Cessation:Counseling Given: Not Answered Alcohol Use Standard Drinks/Week Comments Yes 21 (1 standard drink = 0.6 oz pu re alcohol) Sex and Gender Information Value Date Recorded Sex Assigned at Not on file Gender Identity Not on file Sexual Orientation Not on file Last Filed Vital Signs Vital Sign Reading Time Taken Comments Blood Pressure 138/82 03/21/2022 11:50 AM FLOATLIGHT LOADING SUPERVISOR Pulse - - Temperature 36.1 ??C (97 ??F) 03/21/2022 11:50 AM FLOATLIGHT LOADING SUPERVISOR Respiratory Rate 18 03/21/2022 11:50 AM FLOATLIGHT LOADING SUPERVISOR Oxygen Saturation - - Inhaled Oxygen Concentration - - Weight 60.3 kg (133 lb) 03/21/2022 11:50 AM FLOATLIGHT LOADING SUPERVISOR Height 170.2 cm (5' 7 ) 03/21/2022 11:50 AM FLOATLIGHT LOADING SUPERVISOR Body Mass Index 20.83 03/21/2022 11:50 AM FLOATLIGHT LOADING SUPERVISOR Plan of Treatment Health Maintenance Due Date Last Done Comments Pneumococcal PPSV23/PCV13 65 + Years / Low and Medium Risk (1 of 4 - PCV) 2018 Influenza Vaccine (#1) 2023 Care Teams Audit Senior Associate Relationship Specialty Start Date End Date Wes Armando DO [address] [place] [address] PCP - General Internal Medicine 11/15/21
--- OUTSIDE RECORDS SUMMARY | 2024-04-24 14:24 | XMS_ITS | Encounter Summary ---
Author Organization [facility] Address [address] [place] [address] Phone Care Team Providers Care Registrar Assistant Name Role Phone Wes Armando DO Primary Care Provider [phone] Encounter Details Date Type Department Care Team (Late st Contact Info) Description 03/21/2022 11:45 AM CREDIT RATING INSPECTOR Office Visit [facility] Nephrology and Hypertension [address] [place] [address], [address] [place] [address] Maricruz Hawthorne MD [address] [place] [address] Chronic kidney disease stage 4 (CMS-HCC); Benign hypertension with chronic kidney disease Social History Tobacco Use Types Packs/Day Years Used Date Smoking Tobacco: Never Smokeless Tobacco: Never Tobacco Cessation:Counseling Given: Not Answered Alcohol Use Standard Drinks/Week Comments Yes 21 (1 standard drink = 0.6 oz pu re alcohol) Sex and Gender Information Value Date Recorded Sex Assigned at Not on file Gender Identity Not on file Sexual Orientation Not on file documented as of this encounter Last Filed Vital Signs Vital Sign Reading Time Taken Comments Blood Pressure 138/82 03/21/2022 11:50 AM CREDIT RATING INSPECTOR Pulse - - Temperature 36.1 ??C (97 ??F) 03/21/2022 11:50 AM CREDIT RATING INSPECTOR Respiratory Rate 18 03/21/2022 11:50 AM CREDIT RATING INSPECTOR Oxygen Saturation - - Inhaled Oxygen Concentration - - Weight 60.3 kg (133 lb) 03/21/2022 11:50 AM CREDIT RATING INSPECTOR Height 170.2 cm (5' 7 ) 03/21/2022 11:50 AM CREDIT RATING INSPECTOR Body Mass Index 20.83 03/21/2022 11:50 AM CREDIT RATING INSPECTOR documented in this encounter Progress Notes * Maricruz Hawthorne MD - 03/21/2022 11:45 AM CST FOLLOW-UP OFFICE VISIT Patient: Esther Altman Birthdate: 1955 PCP: Wes Armando DO Visit Date: 03/21/2022 INTERIM HISTORY Esther Altman here for follow-up regarding his chronic kidney disease. He was seen about 3 months ago for initial evaluation of this issue. Since last seen, he appears to be doing reasonably well. No apparent distress or concerns voiced atthis time. No issues or problems to report on this clinic visit. Past medical history, social history and family history has not changed since previous visit. ALLERGIES Allergen Reactions ??? Crestor [Rosuvastatin Calcium] Itching MEDICATIONS Current Outpatient Medications: ??? acetaminophen-codeine (TYLENOL #3) 300-30 MG per tablet, Take 1 tablet by mouth every 6 (six) hours if needed for pain, Disp: , Rfl: ??? amLODIPine (NORVASC) 10 MG tablet, TAKE 1 TABLET BY MOUTH ONCE DAILY IN THE MORNING, Disp: , Rfl: ??? Aspirin Low Dose 81 MG EC tablet, TAKE 1 TABLET BY MOUTH ONCE DAILY IN THE MORNING, Disp: , Rfl: ??? atorvastatin (LIPITOR) 80 MG tablet, Take 80 mg by mouth every night, Disp: , Rfl: ??? Brilinta 90 MG tablet, Take 90 mg by mouth every 12 (twelve) hours, Disp: , Rfl: ??? carvedilol (COREG) 3.125 MG tablet, TAKE 1 TABLET BY MOUTH EVERY 12 HOURS WITH FOOD, Disp: , Rfl: ??? losartan (COZAAR) 25 MG tablet, Take 25 mg by mouth 1 (one) time each day, Disp: , Rfl: REVIEW OF SYSTEMS Constitutional: No fever, weight loss or gain, no fatigue. No loss of appetite. Cardiovascular: No chest pain. No Orthopnea, PND. Respiratory: No cough, no sputum production, no SOB or SAGASTUME. : No dysuria or gross hematuria. No frequency or urgency. No nocturia. Skin: No rash or itching. VITALS BP 138/82 (BP Location: Right arm, Patient Position: Sitting) Temp 97 ??F (36.1 ??C) Resp 18 Ht 5' 7 (1.702 m) Wt 133 lb (60.3 kg) BMI 20.83 kg/m?? BSA 1.69 m?? PHYSICAL EXAM General: Comfortable and in no acute distress Cardiovascular: Normal S1, S2; no rub Respiratory: Clear bilaterally Abdominal: Soft, non-tender, non-distended; positive bowel sounds Extremities: No cyanosis, clubbing, or edema Skin: Warm and dry RECENT LABS/IMAGING Lab Results Component Value Date BUN 30 01/29/2022 CREATININE 2.6 01/29/2022 EGFR 25 01/29/2022 NA 139 01/29/2022 K 4.2 01/29/2022 CL 106 01/29/2022 CO2 20 01/29/2022 CA 8.8 01/29/2022 ALBUMIN 4.1 01/29/2022 GLUCOSE 140 01/29/2022 10/24/21 Renal U/S: right kidney 9.8cm, left kidney 10.8cm; increased echogenicity of renal parenchymal bilaterally suggesting chronic medical disease, 1.3cm cyst on each kidney; no hydronephrosis Creatinine, Serum/Plasma Date Value Ref Range Status 01/29/2022 2.6 mg/dL Final 12/07/2021 2.4 mg/dL Final 11/02/2021 2.2 mg/dL Final 10/25/2021 1.8 mg/dL Final 10/23/2021 2.3 mg/dL Final ASSESSMENT 1. Chronic kidney disease stage 4 (CMS-HCC) 2. Benign hypertension with chronic kidney disease DISCUSSION/PLAN Esther has chronic kidney disease due to his hypertension, vascular disease, and age. His renal ultrasound is consistent with chronic kidney disease but he has no critical electrolyte abnormalities or evidence of fluid overload. Unfortunately, he never did any of the testing I requested when I last saw him in clinic but his last labs demonstrate relative stability in his renal function. Will proceed with re-ordering serological testing to ensure there is other disease process playing a role with his kidney functionality. Blood Pressure for this visit is 138/82. The follow up plan to address blood pressure is follow thetrend.. Body mass index is 20.83 kg/m??. Follow up plan to address BMI is no intervention as he is at goal. Continue current medications Repeat labs soon Call and review results with patient SLola Hawthorne MD documented in this encounter Plan of Treatment Not on file documented as of this encounter Procedures Procedure Name Priority Date/Time Associated Diagnosis Comments RENAL FUNCTION PANEL (RFP) Routine 01/29/2022 documented in this encounter Results * Renal Function Panel (RFP) (01/29/2022) Albumin, Serum/Plasma 4.1 g/L EXTERNAL LAB (NON-INTERFACE D) Calcium, Serum/Plasma 8.8 mg/dL EXTERNAL LAB (NON-INTERFACE D) Carbon dioxide CO2), total, Serum/Plasma 20 mmol/L EXTERNAL LAB (NON-INTERFACE D) Chloride, Serum/Plasma 106 mmol/L EXTERNAL LAB (NON-INTERFACE D) Creatinine, Serum/Plasma 2.6 mg/dL EXTERNAL LAB (NON-INTERFACE D) Glucose, Serum/Plasma 140 mg/dL EXTERNAL LAB (NON-INTERFACE D) Potassium, Serum/Plasma 4.2 mmol/L EXTERNAL LAB (NON-INTERFACE D) Sodium, Serum/Plasma 139 mmol/L EXTERNAL LAB (NON-INTERFACE D) Urea nitrogen, Serum/Plasma (BUN) 30 mg/dL EXTERNAL LAB (NON-INTERFACE D) eGFR, non 25 mL/min EXTERNAL LAB (NON-INTERFACE D) Blood (Blood, Venous) Historical Provider MD LAB BLOOD ORDERAB LES EXTERNAL LAB (NON-INTERFACED) documented in this encounter Visit Diagnoses Diagnosis Chronic kidney disease stage 4 (CMS-HCC) Benign hypertension with chronic kidney disease documented in this encounter Care Teams Registrar Assistant Relationship Specialty Start Date End Date Wes Armando DO [address] [place] [id number] PCP - General Internal Medicine 11/15/21 documented as of this encounter
--- OUTSIDE RECORDS SUMMARY | 2024-04-24 14:24 | XMS_ITS | Encounter Summary ---
Author Organization [facility] Address [address] [place] [address] Phone Care Team Providers Care Early Childhood Teacher Assistant Name Role Phone Wes Armando DO Primary Care Provider [phone] Encounter Details Date Type Department Care Team (Late st Contact Info) Description 12/13/2021 11:00 AM CDT Office Visit [facility] Nephrology and Hypertension [address] [place] [address], [address] [place] [address] Maricruz Hawthorne MD [address] [facility], [address] [place] [address] Chronic kidney disease stage 4 (CMS-HCC); Benign hypertension with chronic kidney disease Social History Tobacco Use Types Packs/Day Years Used Date Smoking Tobacco: Never Smokeless Tobacco: Never Alcohol Use Standard Drinks/Week Comments Yes 21 (1 standard drink = 0.6 oz pu re alcohol) Sex and Gender Information Value Date Recorded Sex Assigned at Not on file Gender Identity Not on file Sexual Orientation Not on file documented as of this encounter Last Filed Vital Signs Vital Sign Reading Time Taken Comments Blood Pressure 140/78 12/13/2021 11:15 AM CDT Pulse - - Temperature 36.2 ??C (97.2 ??F) 12/13/2021 11:15 AM C DT Respiratory Rate 18 12/13/2021 11:15 AM CDT Oxygen Saturation - - Inhaled Oxygen Concentration - - Weight 68.9 kg (152 lb) 12/13/2021 11:15 AM CDT Height 170.2 cm (5' 7 ) 12/13/2021 11:15 AM CDT Body Mass Index 23.81 12/13/2021 11:15 AM CDT documented in this encounter Progress Notes * Maricruz Hawthorne MD - 12/13/2021 11:00 AM CDT NEW PATIENT CONSULTATION Patient: Esther Altman Birthdate: 1955 Referring Provider: Wes Armando DO PCP: Wes Armando DO Visit Date: 12/13/2021 CHIEF COMPLAINT Chronic kidney disease HISTORY OF PRESENT ILLNESS Esther Altman is a 66 y.o. male with a past medical history as outlined below who presents for further evaluation of chronic kidney disease. The patient was just recently hospitalized a couple of months ago at [facility] for a non STelevation NH. During that hospital stay blood test demonstrated that he had evidence of chronic kidney disease. Nephrology referral/ consultation was requested for further evaluation of this issue post discharge. The patient recently established care with his new primary care physician prior to his recent hospitalization. At that time, there was no reported history of chronic kidney disease that I am aware ofalthough it is very possible that this was a long-standing issue that was never discussed with him in detail. His creatinine during his hospitalization and post discharge as fluctuating anywhere from1.8-2.4 mg/dL. With regard to risk factors for kidney disease he does have now recently diagnosed coronary artery disease, longstanding hypertension, vascular disease (coronary artery disease + hyperlipidemia), nephrolithiasis, and age. He has no reported history of diabetes, liver disease, peripheral vascular disease, congestive heart failure, obstructive sleep apnea, pulmonary hypertension, or any autoimmune disorders. He has no history of recent hospitalizations (aside from September 2021 for his NSTEMI along with cardiac catheterization), or new medications with regard to NSAIDs or antibiotics. He reports no issues with hematuria, dysuria, nephrolithiasis, CVA/flank pain or trauma, foamy urine, frequent urinary tract infections, or urinary incontinence. He denies any other systemic issues/symptoms with regard to fevers, chills, blurry vision, headaches, abdominal pain, nausea, vomiting, diarrhea, chest pain, shortness of breath, palpitations, dizziness, or lightheadedness. Currently, on this clinic visit, he feels reasonably well. PAST MEDICAL HISTORY ??? Anxiety ??? Chronic kidney disease ??? Coronary arteriosclerosis ??? Gastroesophageal reflux disease ??? Hyperlipidemia ??? Hypertension ??? Nephrolithiasis ??? Osteoarthritis ALLERGIES Allergen Reactions ??? Crestor [Rosuvastatin Calcium] [...] hours, Disp: , Rfl: ??? carvedilol (COREG) 12.5 MG tablet, TAKE 1 TABLET BY MOUTH EVERY 12 HOURS WITH FOOD, Disp: , Rfl: SOCIAL HISTORY Tobacco Use ??? Smoking status: Never Smoker ??? Smokeless tobacco: Never Used Substance Use Topics ??? Alcohol use: Yes Alcohol/week: 21.0 standard drinks ??? Drug use: Yes Types: Marijuana FAMILY HISTORY Problem Relation ??? Liver cancer Mother ??? Heart disease Mother ??? Heart disease Father ??? Liver cancer Father REVIEW OF SYSTEMS Constitutional: No fever, weight loss or gain, no fatigue. No loss of appetite. Eyes: No sudden change in vision, eye pain, or light sensitivity ENMT: No ringing in ear, no nasal drainage. Cardiovascular: No chest pain. No Orthopnea, PND. Respiratory: No cough, no sputum production, no SOB or SAGASTUME. GI: No abdominal pain. No tenderness or masses. : No dysuria or gross hematuria. No frequency or urgency. No nocturia. Musculoskeletal: No weakness, cramps, or muscle aches. No joint pain. Skin: No rash or itching. Neurologic: No weakness, tingling, or numbness in extremities. No seizures. Psychiatric: Not depressed, no suicidal ideation, generally satisfied with life. Endocrine: No excessive thirst or hunger. Not excessively hot or cold. Hematologic: No abnormal bruising or bleeding. Immunologic: No seasonal allergy/hay fever, no abnormal rashes, no excessive itching. VITALS BP 140/78 (BP Location: Right arm, Patient Position: Sitting) Temp 97.2 ??F (36.2 ??C) Resp 18 Ht 5' 7 (1.702 m) Wt 152 lb (68.9 kg) BMI 23.81 kg/m?? BSA 1.8 m?? PHYSICAL EXAM Head: Atraumatic, normocephalic Eyes: PERRLA, anicteric sclerae, moist conjuntivae ENMT: Moist mucous membranes, no oral lesions or exudates Neck: Supple, no tenderness or masses Cardiovascular: Normal S1, S2; no rub Respiratory: Clear bilaterally Abdominal: Soft, non-tender, non-distended; positive bowel sounds Skin: No rash, bruising, or excoriations Extremities: No cyanosis, clubbing, or edema Functional: Comfortable and in no acute distress Cognitive: Cranial nerves 2-12 intact, no focal musculoskeletal or sensory deficits noted Psychological: Appropriate affect, alert and oriented to person, place and time RECENT LABS/IMAGES Lab Results Component Value Date BUN 12/07/2021 CREATININE 2.4 12/07/2021 EGFR 27 12/07/2021 NA 137 12/07/2021 K 4.7 12/07/2021 CL 107 12/07/2021 CO2 19 12/07/2021 CA 8.3 12/07/2021 ALBUMIN 3.6 12/07/2021 GLUCOSE 98 12/07/2021 10/24/21 Renal U/S: right kidney 9.8cm, left kidney 10.8cm; increased echogenicity of renal parenchymal bilaterally suggesting chronic medical disease, 1.3cm cyst on each kidney; no hydronephrosis Creatinine, Serum/Plasma Date Value Ref Range Status 12/07/2021 2.4 mg/dL Final 11/02/2021 2.2 mg/dL Final 10/25/2021 1.8 mg/dL Final 10/23/2021 2.3 mg/dL Final ASSESSMENT 1. Chronic kidney disease stage 4 (CMS-HCC) 2. Benign hypertension with chronic kidney disease DISCUSSION/PLAN Esther has chronic kidney disease due to his hypertension, vascular disease, and age. His recent renal ultrasound is consistent with chronic kidney disease but he has no critical electrolyte abnormalities or evidence of fluid overload. However, since this is a relatively new issue, I do not want to assume there are no other issues / factors playing a role with regard to his kidney function...hence, it seems further investigation is warranted. With this in mind, I check some baseline serological studies to rule out any instrinsic, infiltrative, or inflammatory disorder, and assess for proteinuria with a random urine protein to creatinine ratio. I will review the above results with the patient on his next clinic visit and determine our next course of action at that time. Blood Pressure for this visit is 140/78. The follow up plan to address blood pressure is follow trend. Body mass index is 23.81 kg/m??. Follow up plan to address BMI is no intervention as he is at goal. Thank you for allowing me to participate in the care of your patient. Lizzie Hawthorne MD documented in this encounter Plan of Treatment Not on file documented as of this encounter Procedures Procedure Name Priority Date/Time Associated Diagnosis Comments RENAL FUNCTION PANEL (RFP) Routine 12/07/2021 RENAL FUNCTION PANEL (RFP) Routine 11/02/2021 RENAL FUNCTION PANEL (RFP) Routine 10/25/2021 RENAL FUNCTION PANEL (RFP) Routine 10/23/2021 documented in this encounter Results * Renal Function Panel (RFP) (12/07/2021) Albumin, Serum/Plasma 3.6 g/L EXTERNAL LAB (NON-INTERFACE D) Calcium, Serum/Plasma 8.3 mg/dL EXTERNAL LAB (NON-INTERFACE D) Carbon dioxide CO2), total, Serum/Plasma 19 mmol/L EXTERNAL LAB (NON-INTERFACE D) Chloride, Serum/Plasma 107 mmol/L EXTERNAL LAB (NON-INTERFACE D) Creatinine, Serum/Plasma 2.4 mg/dL EXTERNAL LAB (NON-INTERFACE D) Glucose, Serum/Plasma 98 mg/dL EXTERNAL LAB (NON-INTERFACE D) Potassium, Serum/Plasma 4.7 mmol/L EXTERNAL LAB (NON-INTERFACE D) Sodium, Serum/Plasma 137 mmol/L EXTERNAL LAB (NON-INTERFACE D) Urea nitrogen, Serum/Plasma (BUN) 27 mg/dL EXTERNAL LAB (NON-INTERFACE D) eGFR, non 27 mL/min EXTERNAL LAB (NON-INTERFACE D) Blood (Blood, Venous) Historical Provider MD LAB BLOOD ORDERAB LES Performing Organization Address [facility]/ZIP Co de Phone Number EXTERNAL LAB (NON-INTERFACED) * Renal Function Panel (RFP) (11/02/2021) Creatinine, Serum/Plasma 2.2 mg/dL EXTERNAL LAB (NON-INTERFACE D) Blood (Blood, Venous) Historical Provider MD LAB BLOOD ORDERAB LES Performing Organization Address [facility] Co de Phone Number EXTERNAL LAB (NON-INTERFACED) * Renal Function Panel (RFP) (10/25/2021) Creatinine, Serum/Plasma 1.8 mg/dL EXTERNAL LAB (NON-INTERFACE D) Blood (Blood, Venous) Historical Provider MD LAB BLOOD ORDERAB LES Performing Organization Address [facility] Co de Phone Number EXTERNAL LAB (NON-INTERFACED) * Renal Function Panel (RFP) (10/23/2021) Creatinine, Serum/Plasma 2.3 mg/dL EXTERNAL LAB (NON-INTERFACE D) Blood (Blood, Venous) Historical Provider MD LAB BLOOD ORDERAB LES Performing Organization Address [facility]/ZIP Co de Phone Number EXTERNAL LAB (NON-INTERFACED) documented in this encounter Visit Diagnoses Diagnosis Chronic kidney disease stage 4 (CMS-HCC) Benign hypertension with chronic kidney disease documented in this encounter Care Teams Early Childhood Teacher Assistant Relationship Specialty Start Date End Date Wes Armando DO [address] [place] [address] PCP - General Internal Medicine 11/15/21 documented as of this encounter
== END 2024-04-20 15:35 | disposition home or self-care (01) | DRG 675 ==
LOC: ANHED 13:34 → ANH2MED 14:12
PROVIDERS: General Practice; Internal Medicine Nephrology; Nurse Practitioner Family; Student in an Organized Health Care Education/Training Program; Surgery; Admitting Provider Hospitalist; Emergency Provider Physician Assistant; PCP Nurse Practitioner; Visit Provider Family Medicine
PROC: 0JH63XZ Insertion of Tunneled Vascular Access Device into Chest Subcutaneous Tissue and Fascia, Percutaneous Approach (ICD-10-PCS; CPT 36908; principal; 2024-04-16 15:00)
DX: I12.0 Hypertensive chronic kidney disease with stage 5 chronic kidney disease or end stage renal disease (principal); N18.5 Chronic kidney disease, stage 5; Z91.148 Patient's other noncompliance with medication regimen for other reason; I25.10 Atherosclerotic heart disease of native coronary artery without angina pectoris; K21.9 Gastro-esophageal reflux disease without esophagitis; E78.5 Hyperlipidemia, unspecified; F41.9 Anxiety disorder, unspecified; R22.0 Localized swelling, mass and lump, head; M15.9 Polyosteoarthritis, unspecified; N25.0 Renal osteodystrophy; D63.1 Anemia in chronic kidney disease; Z99.2 Dependence on renal dialysis; Z79.82 Long term (current) use of aspirin; Z95.5 Presence of coronary angioplasty implant and graft
CPT/HCPCS: 36415; 71045; 77001; 80053; 80069; 81001; 82306; 82607; 82728; 82746; 82948; 83540; 83550; 83735; 83970; 84100; 84484; 85025; 85610; 85730; 86704; 86706; 86850; 86900; 86901; 87340; 93005; 96374; 96375; 99285; A9270; C1750; G0257; G0378; J0360; J0690; J1200; J1644; J2004; J2704; J7030; J7040; J7120; Q5105

== ENCOUNTER 2024-11-12 01:17 | Day surgery (SDC) | payer MEDICARE, SELFPAY ==
[2024-11-03 12:32] VITALS: BMI 23.1
--- NOTE | 2024-11-03 13:16 | PC.NURSE ---
Spoke with patient regarding medication Plavix. Patient verbalizes understanding that the last dose is to be taken on 11/04/2024 and the Endoscopist will instruct them when to restart after the procedure.
--- OUTSIDE RECORDS SUMMARY | 2024-11-12 01:20 | XMS_ITS ---
Author Organization [facility] Address [address] [facility] [place] [address] Care Team Providers Care Public Relations Consultant Name Role Phone Unknown, Provider Primary Care Provider Unavaila ble Transplant Episode Kidney Candidate [facility] ([place], [place]) - [facility] Evaluation began on 07/03/2024 Marked as Active on 07/03/2024 Kidney CoordinatorPatricia Garsia RN Phone: N/A Fax: N/A Email: N/A Scores Score Value Updated Exceptions/Reas ons CPRA Not available EPTS (Calc) 58 11/12/2024 Ramona Organ Diagnosis Organ Primary Contributory Kidney Hypertensive Nephrosclerosis Care Team Name Role Phone Fax Email Patricia Garsia RN Kidney Coordinator N/A N/A N/A Jeanna Kan Crane Mechanic N/A N/A N/A Patricia Fuentes LMSW Rail Operator [phone] N/A N/A Maricruz Hawthorne MD Referring Physician [phone] N/A Events Pre-Transplant Referred: 05/13/2024 Evaluation began: 07/03/2024 Dialysis History Dialysis History Start End Type Comments Center 04/16/2024 In-center Hemodialysis [facility] Dialysis Center Information Center Phone Fax Address [facility] [phone] [place] [phone]
--- OUTSIDE RECORDS SUMMARY | 2024-11-12 01:20 | XMS_ITS ---
Author Organization [facility] Guilherme valencia ([facility] interaction) Address [address] [place] [id number] Care Team Providers Care [employer] Officer Name Role Phone Unavailable Unavailable Unavailable Allergies, Adverse Reactions, Alerts Allergy Name Allergy Type Status Severity Reaction(s) Onset Date Inactive Date Treating Clinician Comments Crestor Allergy Active Moderate Allergy Hives 2024-03 20:25:1 9 Medications Ordered Medication Name Filled Medication Name Start Date Stop Date Current Medication? Ordering Clinician Indication Dosage Frequency Signature (SIG) Comments Components calcitriol 6-09 15:39: 49 Yes [id number] Number of Repeats Allowed: Frequency: Three times a week Mircera 09-19 05:00: 00 Yes [id number] Number of Repeats Allowed: Frequency: EMERALD dosing, every four weeks Venofer 1-30 21:56: 00 Yes [id number] Number of Repeats Allowed: Frequency: One time a weekDosesO rdered: Maintenanc e Dose 50 Milligram Route: Intravenou s ONS [facility] 1-14 06:00: 00 Yes [id number] Number of Repeats Allowed: Frequency: Every Dialysis Treatment Tums E-X 750 2023-04 20:42: 52 Yes [id number] Number of Repeats Allowed: Frequency: Every 4 hours as needed Oxygen 2023-04 20:42: 45 Yes [id number] Number of Repeats Allowed: Frequency: As needed ondansetron hydrochlori de 2023-04 20:42: 36 Yes [id number] Number of Repeats Allowed: Frequency: Every 4 hours as needed diphenhydra mine hydrochlori de 2023-04 20:41: 25 Yes [id number] Number of Repeats Allowed: Frequency: Every 4 hours as needed diphenhydra mine hydrochlori de 2023-04 20:38: 51 Yes [id number] Number of Repeats Allowed: Frequency: Every 4 hours as needed clonidine 2023-04 20:38: 31 Yes [id number] Number of Repeats Allowed: Frequency: Every 4 hours as needed acetaminoph en 2023-04 20:37: 48 Yes [id number] Number of Repeats Allowed: Frequency: Every 4 hours as needed Normal Saline Solution 0.9% NaCl 2023-04 20:29: 44 Yes [id number] Number of Repeats Allowed: Frequency: Pre-dialys isDosesOrd ered: Arterial Lumen 10 mL Route: Intracathe terDosesOr dered: Venous Lumen 10 mL Route: Intracathe ter heparin sodium, porcine 2023-04 20:29: 30 Yes [id number] Number of Repeats Allowed: Frequency: Every Dialysis TreatmentD osesOrdere d: Hourly Dose 600 Units/Hr 1:1000 Units/mLRo lavelle: Intravenou s heparin sodium, porcine 2023-04 20:29: 30 Yes [id number] Number of Repeats Allowed: Frequency: Every Dialysis TreatmentD osesOrdere d: Loading Dose 1000 Units 1:1000 Units/mLRo lavelle: Intravenou s Problems This patient has no known problems. Procedures Procedure Date / Time Performed Performing Clinician Emilia ce Details Central Venous Catheter (CVC) 2024-04-15 06:00:00 Access Site Chest (Right) Access Use Start Date 2024-04-21 00:00:0 0 DIALYSIS TREATMENT INFORMATION Conventional Hemodialysis Date Type Treatment Start Date Treatment End Date Pre-Treatment Vitals Post-Treatment Vitals Weight Gain BFR DFR Actual UF Dialysis Access November 11, 2024 In-Ce nter Hemod ialys is Treat ment 2024-11-11 T10:04:26. 000Z 2024-11-11 T13:47:46. 000Z BP Sitting (Pre-Dialysis) 145/79 mmHg BP Sitting (Post-D ialysis ) 144/ 81 mmHg BP Standing (Pre-Dialysis) 146/83 mmHg BP Standing (P ost-Dialysis) 129/87 mmHg Sitting Heart Rate Pre-Dialysis 80 BPM Sitting Heart Rate Post-Dialysis 74 BPM Standing Heart Rate Pre-Dialysis 82 BPM Standing Heart Rate Post-Dialysis 83 BPM Temperature Pre-Dialysis 97.8 degF Temperature Post -Dialysis 98.1 degF November 09, 2024 In-Center Hemodialysis Treatment 7399-99-19Z09:15:53.000Z 3948-72-58J73:45:53.000Z BP Sitting (Pre-Dialysis) 181/97 mmHg BP Sitting (Post-Dialysis) 139/95 mmHg Concurrent Access: falseCentral Venous Catheter (CVC) Chest (Right) Arterial BP Standing (Pre-Dialysis) 169/102 mmHg BP Standing (P ost-Dialysis) 137/99 mmHg Sitting Heart Rate Pre-Dialysis 85 BPM Sitting Heart Rate Post-Dialysis 88 BPM Standing Heart Rate Pre-Dialysis 92 BPM Standing Heart Rate Post-Dialysis 91 BPM Temperature Pre-Dialysis 98 degF Temperature Post -Dialysis 98 degF November 06, 2024 In-Center Hemodialysis Treatment 6653-79-32P17:17:18.000Z 7043-48-86H99:46:53.000Z BP Sitting (Pre-Dialysis) 181/114 mmHg BP Sitting (Post-Dialysis) 164/103 mmHg Concurrent Access: falseCentral Venous Catheter (CVC) Chest (Right) Arterial BP Standing (Pre-Dialysis) 183/102 mmHg BP Standing (P ost-Dialysis) 170/100 mmHg Sitting Heart Rate Pre-Dialysis 85 BPM Sitting Heart Rate Post-Dialysis 80 BPM Standing Heart Rate Pre-Dialysis 86 BPM Standing Heart Rate Post-Dialysis 90 BPM Temperature Pre-Dialysis 97.8 degF Temperature Post -Dialysis 97.6 degF November 04, 2024 In-Center Hemodialysis Treatment 7759-74-28F42:15:57.000Z 4809-29-44X55:47:12.000Z BP Sitting (Pre-Dialysis) 174/98 mmHg BP Sitting (Post-Dialysis) 180/98 mmHg Concurrent Access: falseCentral Venous Catheter (CVC) Chest (Right) Arterial BP Standing (Pre-Dialysis) 173/104 mmHg BP Standing (P ost-Dialysis) 140/87 mmHg Sitting Heart Rate Pre-Dialysis 87 BPM Sitting Heart Rate Post-Dialysis 77 BPM Standing Heart Rate Pre-Dialysis 92 BPM Standing Heart Rate Post-Dialysis 98 BPM Temperature Pre-Dialysis 98.7 degF Temperature Post -Dialysis 98 degF November 02, 2024 In-Center Hemodialysis Treatment 8325-21-04B59:31:43.000Z 1527-01-28S25:01:43.000Z BP Sitting (Pre-Dialysis) 171/96 mmHg BP Sitting (Post-Dialysis) 190/112 mmHg Concurrent Access: falseCentral Venous Catheter (CVC) Chest (Right) Arterial BP Standing (Pre-Dialysis) 168/97 mmHg BP Standing (P ost-Dialysis) 158/96 mmHg Sitting Heart Rate Pre-Dialysis 76 BPM Sitting Heart Rate Post-Dialysis 78 BPM Standing Heart Rate Pre-Dialysis 96 BPM Standing Heart Rate Post-Dialysis 89 BPM Temperature Pre-Dialysis 98.4 degF Temperature Post -Dialysis 98.3 degF October 30, 2024 In-Center Hemodialysis Treatment 8704-64-72I58:59:30.000Z 3924-09-38S26:35:01.000Z BP Sitting (Pre-Dialysis) 173/105 mmHg BP Sitting (Post-Dialysis) 164/89 mmHg Concurrent Access: falseCentral Venous Catheter (CVC) Chest (Right) Arterial BP Standing (Pre-Dialysis) 142/109 mmHg BP Standing (P ost-Dialysis) 149/99 mmHg Sitting Heart Rate Pre-Dialysis 68 BPM Sitting Heart Rate Post-Dialysis 88 BPM Standing Heart Rate Pre-Dialysis 77 BPM Standing Heart Rate Post-Dialysis 80 BPM Temperature Pre-Dialysis 98 degF Temperature Post -Dialysis 98 degF October 28, 2024 In-Center Hemodialysis Treatment 8123-07-05C74:11:00.000Z 3270-30-68K88:41:39.000Z BP Sitting (Pre-Dialysis) 153/101 mmHg BP Sitting (Post-Dialysis) 167/97 mmHg Concurrent Access: falseCentral Venous Catheter (CVC) Chest (Right) Arterial BP Standing (Pre-Dialysis) 151/92 mmHg BP Standing (P ost-Dialysis) 141/96 mmHg Sitting Heart Rate Pre-Dialysis 82 BPM Sitting Heart Rate Post-Dialysis 86 BPM Standing Heart Rate Pre-Dialysis 87 BPM Standing Heart Rate Post-Dialysis 110 BPM Temperature Pre-Dialysis 98.4 degF Temperature Post -Dialysis 98.3 degF October 26, 2024 In-Center Hemodialysis Treatment 3142-90-85F61:27:58.000Z 2209-08-76Y56:12:44.000Z BP Sitting (Pre-Dialysis) 158/104 mmHg BP Sitting (Post-Dialysis) 165/94 mmHg Concurrent Access: falseCentral Venous Catheter (CVC) Chest (Right) Arterial BP Standing (Pre-Dialysis) 151/107 mmHg BP Standing (P ost-Dialysis) 144/92 mmHg Sitting Heart Rate Pre-Dialysis 89 BPM Sitting Heart Rate Post-Dialysis 82 BPM Standing Heart Rate Pre-Dialysis 95 BPM Standing Heart Rate Post-Dialysis 91 BPM Temperature Pre-Dialysis 97.8 degF Temperature Post -Dialysis 97.6 degF October 23, 2024 In-Center Hemodialysis Treatment 4190-86-47A23:17:16.000Z 3462-96-90A39:46:51.000Z BP Sitting (Pre-Dialysis) 128/74 mmHg BP Sitting (Post-Dialysis) 135/86 mmHg Concurrent Access: falseCentral Venous Catheter (CVC) Chest (Right) Arterial BP Standing (Pre-Dialysis) 151/85 mmHg BP Standing (P ost-Dialysis) 112/63 mmHg Sitting Heart Rate Pre-Dialysis 73 BPM Sitting Heart Rate Post-Dialysis 71 BPM Standing Heart Rate Pre-Dialysis 77 BPM Standing Heart Rate Post-Dialysis 75 BPM Temperature Pre-Dialysis 97.7 degF Temperature Post -Dialysis 97.5 degF October 21, 2024 In-Center Hemodialysis Treatment 3799-27-65U31:13:47.000Z 3662-14-36T24:40:27.000Z BP Sitting (Pre-Dialysis) 138/85 mmHg BP Sitting (Post-Dialysis) 124/75 mmHg Concurrent Access: falseCentral Venous Catheter (CVC) Chest (Right) Arterial BP Standing (Pre-Dialysis) 112/67 mmHg Sitting Heart Rate Post-Dialysis 63 BPM Sitting Heart Rate Pre-Dialysis 73 BPM Temperatu re Post-Dialysis 98 degF Standing Heart Rate Pre-Dialysis 77 BPM Temperature Pre-Dialysis 97.6 degF October 19, 2024 In-Center Hemodialysis Treatment 7651-60-16C73:16:57.000Z 6631-33-04E13:40:42.000Z BP Sitting (Pre-Dialysis) 152/80 mmHg BP Sitting (Post-Dialysis) 152/87 mmHg Concurrent Access: falseCentral Venous Catheter (CVC) Chest (Right) Arterial BP Standing (Pre-Dialysis) 137/82 mmHg BP Standing (P ost-Dialysis) 130/90 mmHg Sitting Heart Rate Pre-Dialysis 68 BPM Sitting Heart Rate Post-Dialysis 73 BPM Standing Heart Rate Pre-Dialysis 69 BPM Standing Heart Rate Post-Dialysis 92 BPM Temperature Pre-Dialysis 98.2 degF Temperature Post -Dialysis 98.3 degF October 16, 2024 In-Center Hemodialysis Treatment 4048-74-67Q66:15:00.000Z 1300-41-94Q29:49:30.000Z BP Sitting (Pre-Dialysis) 148/80 mmHg BP Sitting (Post-Dialysis) 165/102 mmHg Concurrent Access: falseCentral Venous Catheter (CVC) Chest (Right) Arterial BP Standing (Pre-Dialysis) 167/88 mmHg BP Standing (P ost-Dialysis) 133/85 mmHg Sitting Heart Rate Pre-Dialysis 64 BPM Sitting Heart Rate Post-Dialysis 83 BPM Standing Heart Rate Pre-Dialysis 69 BPM Standing Heart Rate Post-Dialysis 79 BPM Temperature Pre-Dialysis 98.2 degF Temperature Post -Dialysis 98.3 degF October 14, 2024 In-Center Hemodialysis Treatment 3862-29-20U99:13:00.000Z 2960-70-47H61:45:02.000Z BP Sitting (Pre-Dialysis) 133/81 mmHg BP Sitting (Post-Dialysis) 128/73 mmHg Concurrent Access: falseCentral Venous Catheter (CVC) Chest (Right) Arterial BP Standing (Pre-Dialysis) 171/84 mmHg BP Standing (P ost-Dialysis) 126/80 mmHg Sitting Heart Rate Pre-Dialysis 111 BPM Sitting Heart Rate Post-Dialysis 89 BPM Standing Heart Rate Pre-Dialysis 112 BPM Standing Heart Rate Post-Dialysis 93 BPM Temperature Pre-Dialysis 97.8 degF Temperature Post -Dialysis 98.2 degF October 12, 2024 In-Center Hemodialysis Treatment 7823-82-42I05:23:00.000Z 5997-34-32C68:54:18.000Z BP Sitting (Pre-Dialysis) 160/95 mmHg BP Sitting (Post-Dialysis) 186/97 mmHg Concurrent Access: falseCentral Venous Catheter (CVC) Chest (Right) Arterial BP Standing (Pre-Dialysis) 168/95 mmHg BP Standing (P ost-Dialysis) 192/96 mmHg Sitting Heart Rate Pre-Dialysis 90 BPM Sitting Heart Rate Post-Dialysis 78 BPM Standing Heart Rate Pre-Dialysis 82 BPM Standing Heart Rate Post-Dialysis 144 BPM Temperature Pre-Dialysis 97.8 degF Temperature Post -Dialysis 98.3 degF October 09, 2024 In-Center Hemodialysis Treatment 3849-34-09E90:16:56.000Z 2919-63-10O75:46:06.000Z BP Sitting (Pre-Dialysis) 173/80 mmHg BP Sitting (Post-Dialysis) 158/99 mmHg Concurrent Access: falseCentral Venous Catheter (CVC) Chest (Right) Arterial BP Standing (Pre-Dialysis) 166/96 mmHg BP Standing (P ost-Dialysis) 155/100 mmHg Sitting Heart Rate Pre-Dialysis 72 BPM Sitting Heart Rate Post-Dialysis 76 BPM Standing Heart Rate Pre-Dialysis 76 BPM Standing Heart Rate Post-Dialysis 83 BPM Temperature Pre-Dialysis 98.2 degF Temperature Post -Dialysis 98.2 degF October 07, 2024 In-Center Hemodialysis Treatment 0369-86-45J26:13:00.000Z 7558-37-42V17:43:56.000Z BP Sitting (Pre-Dialysis) 161/117 mmHg BP Sitting (Post-Dialysis) 157/85 mmHg Concurrent Access: falseCentral Venous Catheter (CVC) Chest (Right) Arterial BP Standing (Pre-Dialysis) 153/91 mmHg BP Standing (P ost-Dialysis) 152/87 mmHg Sitting Heart Rate Pre-Dialysis 84 BPM Sitting Heart Rate Post-Dialysis 72 BPM Standing Heart Rate Pre-Dialysis 83 BPM Standing Heart Rate Post-Dialysis 78 BPM Temperature Pre-Dialysis 98.2 degF Temperature Post -Dialysis 98.2 degF October 05, 2024 In-Center Hemodialysis Treatment 6492-49-63E53:21:20.000Z 2950-27-47R55:51:20.000Z BP Sitting (Pre-Dialysis) 195/92 mmHg BP Sitting (Post-Dialysis) 144/91 mmHg Concurrent Access: falseCentral Venous Catheter (CVC) Chest (Right) Arterial BP Standing (Pre-Dialysis) 194/102 mmHg BP Standing (P ost-Dialysis) 130/80 mmHg Sitting Heart Rate Pre-Dialysis 96 BPM Sitting Heart Rate Post-Dialysis 74 BPM Standing Heart Rate Pre-Dialysis 97 BPM Standing Heart Rate Post-Dialysis 84 BPM Temperature Pre-Dialysis 98.3 degF Temperature Post -Dialysis 97.1 degF October 02, 2024 In-Center Hemodialysis Treatment 8574-95-36U50:21:20.000Z 3821-21-55P01:01:20.000Z BP Sitting (Pre-Dialysis) 179/86 mmHg BP Sitting (Post-Dialysis) 173/99 mmHg Concurrent Access: falseCentral Venous Catheter (CVC) Chest (Right) Arterial BP Standing (Pre-Dialysis) 173/82 mmHg BP Standing (P ost-Dialysis) 168/88 mmHg Sitting Heart Rate Pre-Dialysis 81 BPM Sitting Heart Rate Post-Dialysis 81 BPM Standing Heart Rate Pre-Dialysis 88 BPM Standing Heart Rate Post-Dialysis 84 BPM Temperature Pre-Dialysis 97.8 degF Temperature Post -Dialysis 98 degF September 30, 2024 In-Center Hemodialysis Treatment 5648-48-61F85:11:09.000Z 4293-96-58E16:41:59.000Z BP Sitting (Pre-Dialysis) 181/88 mmHg BP Sitting (Post-Dialysis) 156/85 mmHg Concurrent Access: falseCentral Venous Catheter (CVC) Chest (Right) Arterial BP Standing (Pre-Dialysis) 142/81 mmHg BP Standing (P ost-Dialysis) 133/79 mmHg Sitting Heart Rate Pre-Dialysis 86 BPM Sitting Heart Rate Post-Dialysis 75 BPM Standing Heart Rate Pre-Dialysis 90 BPM Standing Heart Rate Post-Dialysis 90 BPM Temperature Pre-Dialysis 97.9 degF Temperature Post -Dialysis 98.4 degF September 28, 2024 In-Center Hemodialysis Treatment 7208-74-60Y67:17:00.000Z 7793-07-70Q10:51:44.000Z BP Sitting (Pre-Dialysis) 165/96 mmHg BP Sitting (Post-Dialysis) 165/93 mmHg Concurrent Access: falseCentral Venous Catheter (CVC) Chest (Right) Arterial BP Standing (Pre-Dialysis) 150/91 mmHg BP Standing (P ost-Dialysis) 138/85 mmHg Sitting Heart Rate Pre-Dialysis 93 BPM Sitting Heart Rate Post-Dialysis 75 BPM Standing Heart Rate Pre-Dialysis 91 BPM Standing Heart Rate Post-Dialysis 88 BPM Temperature Pre-Dialysis 97.7 degF Temperature Post -Dialysis 98.1 degF September 25, 2024 In-Center Hemodialysis Treatment 8947-83-48T81:17:00.000Z 1695-34-97K00:48:53.000Z BP Sitting (Pre-Dialysis) 171/93 mmHg BP Sitting (Post-Dialysis) 178/96 mmHg Concurrent Access: falseCentral Venous Catheter (CVC) Chest (Right) Arterial BP Standing (Pre-Dialysis) 169/92 mmHg BP Standing (P ost-Dialysis) 160/102 mmHg Sitting Heart Rate Pre-Dialysis 79 BPM Sitting Heart Rate Post-Dialysis 81 BPM Standing Heart Rate Pre-Dialysis 97 BPM Standing Heart Rate Post-Dialysis 101 BPM Temperature Pre-Dialysis 98.3 degF Temperature Post -Dialysis 98.4 degF September 23, 2024 In-Center Hemodialysis Treatment 9856-94-22U60:14:00.000Z 0673-97-41R46:44:58.000Z BP Sitting (Pre-Dialysis) 179/94 mmHg BP Sitting (Post-Dialysis) 170/90 mmHg Concurrent Access: falseCentral Venous Catheter (CVC) Chest (Right) Arterial BP Standing (Pre-Dialysis) 171/93 mmHg Sitti ng Heart Rate Post-Dialysis 84 BPM Sitting Heart Rate Pre-Dialysis 82 BPM Temperatu re Post-Dialysis 98.2 degF Standing Heart Rate Pre-Dialysis 90 BPM Temperature Pre-Dialysis 98.6 degF September 21, 2024 In-Center Hemodialysis Treatment 7369-20-78U03:16:15.000Z 6826-42-33M92:49:10.000Z BP Sitting (Pre-Dialysis) 159/103 mmHg BP Sitting (Post-Dialysis) 166/90 mmHg Concurrent Access: falseCentral Venous Catheter (CVC) Chest (Right) Arterial BP Standing (Pre-Dialysis) 144/83 mmHg BP Standing (P ost-Dialysis) 171/96 mmHg Sitting Heart Rate Pre-Dialysis 88 BPM Sitting Heart Rate Post-Dialysis 75 BPM Standing Heart Rate Pre-Dialysis 94 BPM Standing Heart Rate Post-Dialysis 89 BPM Temperature Pre-Dialysis 98.2 degF Temperature Post -Dialysis 98.3 degF September 18, 2024 In-Center Hemodialysis Treatment 0288-36-70I58:10:42.000Z 1585-87-52N84:41:07.000Z BP Sitting (Pre-Dialysis) 164/99 mmHg BP Sitting (Post-Dialysis) 163/80 mmHg Concurrent Access: falseCentral Venous Catheter (CVC) Chest (Right) Arterial BP Standing (Pre-Dialysis) 166/92 mmHg BP Standing (P ost-Dialysis) 132/76 mmHg Sitting Heart Rate Pre-Dialysis 93 BPM Sitting Heart Rate Post-Dialysis 77 BPM Standing Heart Rate Pre-Dialysis 93 BPM Standing Heart Rate Post-Dialysis 83 BPM Temperature Pre-Dialysis 98.1 degF Temperature Post -Dialysis 97.9 degF September 16, 2024 In-Center Hemodialysis Treatment 8280-68-51N60:16:38.000Z 5451-68-92H97:45:23.000Z BP Sitting (Pre-Dialysis) 163/84 mmHg BP Sitting (Post-Dialysis) 176/94 mmHg Concurrent Access: falseCentral Venous Catheter (CVC) Chest (Right) Arterial BP Standing (Pre-Dialysis) 162/96 mmHg BP Standing (P ost-Dialysis) 149/79 mmHg Sitting Heart Rate Pre-Dialysis 72 BPM Sitting Heart Rate Post-Dialysis 78 BPM Standing Heart Rate Pre-Dialysis 86 BPM Standing Heart Rate Post-Dialysis 82 BPM Temperature Pre-Dialysis 98.3 degF Temperature Post -Dialysis 98.2 degF September 14, 2024 In-Center Hemodialysis Treatment 6687-03-65C71:12:00.000Z 5916-90-08C88:43:31.000Z BP Sitting (Pre-Dialysis) 164/85 mmHg BP Sitting (Post-Dialysis) 156/85 mmHg Concurrent Access: falseCentral Venous Catheter (CVC) Chest (Right) Arterial BP Standing (Pre-Dialysis) 151/85 mmHg BP Standing (P ost-Dialysis) 148/83 mmHg Sitting Heart Rate Pre-Dialysis 99 BPM Sitting Heart Rate Post-Dialysis 77 BPM Standing Heart Rate Pre-Dialysis 112 BPM Standing Heart Rate Post-Dialysis 90 BPM Temperature Pre-Dialysis 98.1 degF Temperature Post -Dialysis 98.2 degF September 11, 2024 In-Center Hemodialysis Treatment 8812-61-25J86:10:00.000Z 8728-32-81O62:48:27.000Z BP Sitting (Pre-Dialysis) 145/94 mmHg BP Sitting (Post-Dialysis) 171/94 mmHg Concurrent Access: falseCentral Venous Catheter (CVC) Chest (Right) Arterial BP Standing (Pre-Dialysis) 173/96 mmHg BP Standing (P ost-Dialysis) 178/87 mmHg Sitting Heart Rate Pre-Dialysis 81 BPM Sitting Heart Rate Post-Dialysis 79 BPM Standing Heart Rate Pre-Dialysis 82 BPM Standing Heart Rate Post-Dialysis 85 BPM Temperature Pre-Dialysis 98 degF Temperature Post -Dialysis 97.9 degF September 09, 2024 In-Center Hemodialysis Treatment 5189-45-97W76:16:24.000Z 8878-57-44G84:54:49.000Z BP Sitting (Pre-Dialysis) 180/98 mmHg BP Sitting (Post-Dialysis) 197/105 mmHg Concurrent Access: falseCentral Venous Catheter (CVC) Chest (Right) Arterial BP Standing (Pre-Dialysis) 172/94 mmHg BP Standing (P ost-Dialysis) 212/114 mmHg Sitting Heart Rate Pre-Dialysis 107 BPM Sitting Heart Rate Post-Dialysis 89 BPM Standing Heart Rate Pre-Dialysis 109 BPM Standing Heart Rate Post-Dialysis 102 BPM Temperature Pre-Dialysis 97.7 degF Temperature Post -Dialysis 98.3 degF September 07, 2024 In-Center Hemodialysis Treatment 1922-60-38B90:31:32.000Z 3286-79-58W29:01:07.000Z BP Sitting (Pre-Dialysis) 153/85 mmHg BP Sitting (Post-Dialysis) 167/83 mmHg Concurrent Access: falseCentral Venous Catheter (CVC) Chest (Right) Arterial BP Standing (Pre-Dialysis) 150/82 mmHg BP Standing (P ost-Dialysis) 147/80 mmHg Sitting Heart Rate Pre-Dialysis 88 BPM Sitting Heart Rate Post-Dialysis 87 BPM Standing Heart Rate Pre-Dialysis 85 BPM Standing Heart Rate Post-Dialysis 95 BPM Temperature Pre-Dialysis 98.2 degF Temperature Post -Dialysis 98.1 degF September 04, 2024 In-Center Hemodialysis Treatment 8833-61-94L89:21:35.000Z 4711-57-93C15:52:25.000Z BP Sitting (Pre-Dialysis) 168/82 mmHg BP Sitting (Post-Dialysis) 189/95 mmHg Concurrent Access: falseCentral Venous Catheter (CVC) Chest (Right) Arterial BP Standing (Pre-Dialysis) 155/91 mmHg BP Standing (P ost-Dialysis) 153/86 mmHg Sitting Heart Rate Pre-Dialysis 63 BPM Sitting Heart Rate Post-Dialysis 82 BPM Standing Heart Rate Pre-Dialysis 73 BPM Standing Heart Rate Post-Dialysis 92 BPM Temperature Pre-Dialysis 97.9 degF Temperature Post -Dialysis 98 degF September 02, 2024 In-Center Hemodialysis Treatment 2117-81-93B15:22:14.000Z 1954-57-94B77:55:34.000Z BP Sitting (Pre-Dialysis) 186/97 mmHg BP Sitting (Post-Dialysis) 178/96 mmHg Concurrent Access: falseCentral Venous Catheter (CVC) Chest (Right) Arterial BP Standing (Pre-Dialysis) 162/88 mmHg Sitti ng Heart Rate Post-Dialysis 70 BPM Sitting Heart Rate Pre-Dialysis 78 BPM Temperatu re Post-Dialysis 97.7 degF Standing Heart Rate Pre-Dialysis 94 BPM Temperature Pre-Dialysis 97.8 degF August 31, 2024 In-Center Hemodialysis Treatment 2297-61-19L01:23:05.000Z 5981-12-86M77:53:05.000Z BP Sitting (Pre-Dialysis) 167/89 mmHg BP Sitting (Post-Dialysis) 164/87 mmHg Concurrent Access: falseCentral Venous Catheter (CVC) Chest (Right) Arterial BP Standing (Pre-Dialysis) 162/87 mmHg BP Standing (P ost-Dialysis) 160/82 mmHg Sitting Heart Rate Pre-Dialysis 68 BPM Sitting Heart Rate Post-Dialysis 70 BPM Standing Heart Rate Pre-Dialysis 79 BPM Standing Heart Rate Post-Dialysis 91 BPM Temperature Pre-Dialysis 98 degF Temperature Post -Dialysis 98 degF August 28, 2024 In-Center Hemodialysis Treatment 7010-17-39F12:03:00.000Z 5808-61-40M95:34:48.000Z BP Sitting (Pre-Dialysis) 192/92 mmHg BP Sitting (Post-Dialysis) 163/85 mmHg Concurrent Access: falseCentral Venous Catheter (CVC) Chest (Right) Arterial BP Standing (Pre-Dialysis) 174/91 mmHg BP Standing (P ost-Dialysis) 194/84 mmHg Sitting Heart Rate Pre-Dialysis 93 BPM Sitting Heart Rate Post-Dialysis 73 BPM Standing Heart Rate Pre-Dialysis 90 BPM Standing Heart Rate Post-Dialysis 101 BPM Temperature Pre-Dialysis 98.1 degF Temperature Post -Dialysis 98.3 degF August 26, 2024 In-Center Hemodialysis Treatment 2854-79-66Z63:06:00.000Z 9074-10-18C70:37:39.000Z BP Sitting (Pre-Dialysis) 162/91 mmHg BP Sitting (Post-Dialysis) 154/84 mmHg Concurrent Access: falseCentral Venous Catheter (CVC) Chest (Right) Arterial BP Standing (Pre-Dialysis) 132/81 mmHg Sitti ng Heart Rate Post-Dialysis 74 BPM Sitting Heart Rate Pre-Dialysis 86 BPM Temperatu re Post-Dialysis 98.1 degF Standing Heart Rate Pre-Dialysis 89 BPM Temperature Pre-Dialysis 97.7 degF August 24, 2024 In-Center Hemodialysis Treatment 0924-65-89G77:05:00.000Z 7616-39-95A26:37:17.000Z BP Sitting (Pre-Dialysis) 147/70 mmHg BP Sitting (Post-Dialysis) 160/82 mmHg Concurrent Access: falseCentral Venous Catheter (CVC) Chest (Right) Arterial BP Standing (Pre-Dialysis) 125/72 mmHg BP Standing (P ost-Dialysis) 140/79 mmHg Sitting Heart Rate Pre-Dialysis 72 BPM Sitting Heart Rate Post-Dialysis 67 BPM Standing Heart Rate Pre-Dialysis 87 BPM Standing Heart Rate Post-Dialysis 70 BPM Temperature Pre-Dialysis 97.9 degF Temperature Post -Dialysis 97.7 degF August 21, 2024 In-Center Hemodialysis Treatment 6338-24-68A88:15:00.000Z 1361-07-61U52:45:57.000Z BP Sitting (Pre-Dialysis) 136/69 mmHg BP Sitting (Post-Dialysis) 131/78 mmHg Concurrent Access: falseCentral Venous Catheter (CVC) Chest (Right) Arterial BP Standing (Pre-Dialysis) 112/69 mmHg BP Standing (P ost-Dialysis) 128/73 mmHg Sitting Heart Rate Pre-Dialysis 83 BPM Sitting Heart Rate Post-Dialysis 67 BPM Standing Heart Rate Pre-Dialysis 79 BPM Standing Heart Rate Post-Dialysis 80 BPM Temperature Pre-Dialysis 97.8 degF Temperature Post -Dialysis 97.7 degF August 19, 2024 In-Center Hemodialysis Treatment 0940-73-41Q99:21:32.000Z 3654-64-37C90:52:22.000Z BP Sitting (Pre-Dialysis) 145/79 mmHg BP Sitting (Post-Dialysis) 150/83 mmHg Concurrent Access: falseCentral Venous Catheter (CVC) Chest (Right) Arterial BP Standing (Pre-Dialysis) 179/98 mmHg BP Standing (P ost-Dialysis) 135/74 mmHg Sitting Heart Rate Pre-Dialysis 68 BPM Sitting Heart Rate Post-Dialysis 73 BPM Standing Heart Rate Pre-Dialysis 93 BPM Standing Heart Rate Post-Dialysis 88 BPM Temperature Pre-Dialysis 98.3 degF Temperature Post -Dialysis 97.9 degF August 17, 2024 In-Center Hemodialysis Treatment 4563-15-50U43:22:00.000Z 6961-57-81Q74:53:27.000Z BP Sitting (Pre-Dialysis) 167/92 mmHg BP Sitting (Post-Dialysis) 150/81 mmHg Concurrent Access: falseCentral Venous Catheter (CVC) Chest (Right) Arterial BP Standing (Pre-Dialysis) 149/83 mmHg BP Standing (P ost-Dialysis) 142/82 mmHg Sitting Heart Rate Pre-Dialysis 101 BPM Sitting Heart Rate Post-Dialysis 75 BPM Standing Heart Rate Pre-Dialysis 84 BPM Standing Heart Rate Post-Dialysis 86 BPM Temperature Pre-Dialysis 98.1 degF Temperature Post -Dialysis 97.5 degF August 12, 2024 In-Center Hemodialysis Treatment [id number]:16:00.000Z [id number]:48:55.000Z BP Sitting (Pre-Dialysis) 164/80 mmHg BP Sitting (Post-Dialysis) 160/95 mmHg Concurrent Access: falseCentral Venous Catheter (CVC) Chest (Right) Arterial BP Standing (Pre-Dialysis) 135/84 mmHg BP Standing (P ost-Dialysis) 169/91 mmHg Sitting Heart Rate Pre-Dialysis 95 BPM Sitting Heart Rate Post-Dialysis 81 BPM Standing Heart Rate Pre-Dialysis 94 BPM Standing Heart Rate Post-Dialysis 91 BPM Temperature Pre-Dialysis 97.9 degF Temperature Post -Dialysis 98.2 degF August 10, 2024 In-Center Hemodialysis Treatment [id number]:52:22.000Z [id number]:52:22.000Z BP Sitting (Pre-Dialysis) 143/81 mmHg BP Sitting (Post-Dialysis) 143/87 mmHg Concurrent Access: falseCentral Venous Catheter (CVC) Chest (Right) Arterial BP Standing (Pre-Dialysis) 143/74 mmHg BP Standing (P ost-Dialysis) 140/80 mmHg Sitting Heart Rate Pre-Dialysis 92 BPM Sitting Heart Rate Post-Dialysis 85 BPM Standing Heart Rate Pre-Dialysis 91 BPM Standing Heart Rate Post-Dialysis 90 BPM Temperature Pre-Dialysis 98 degF Temperature Post -Dialysis 98 degF August 07, 2024 In-Center Hemodialysis Treatment [id number]:13:55.000Z 8519-09-73O51:56:07.000Z BP Sitting (Pre-Dialysis) 124/73 mmHg BP Sitting (Post-Dialysis) 157/82 mmHg Concurrent Access: falseCentral Venous Catheter (CVC) Chest (Right) Arterial BP Standing (Pre-Dialysis) 108/78 mmHg BP Standing (P ost-Dialysis) 133/97 mmHg Sitting Heart Rate Pre-Dialysis 82 BPM Sitting Heart Rate Post-Dialysis 89 BPM Standing Heart Rate Pre-Dialysis 96 BPM Standing Heart Rate Post-Dialysis 114 BPM Temperature Pre-Dialysis 98.1 degF Temperature Post -Dialysis 98.3 degF August 05, 2024 In-Center Hemodialysis Treatment [id number]:56:34.000Z [id number]:29:54.000Z BP Sitting (Pre-Dialysis) 174/95 mmHg BP Sitting (Post-Dialysis) 154/85 mmHg Concurrent Access: falseCentral Venous Catheter (CVC) Chest (Right) Arterial BP Standing (Pre-Dialysis) 138/80 mmHg BP Standing (P ost-Dialysis) 137/74 mmHg Sitting Heart Rate Pre-Dialysis 94 BPM Sitting Heart Rate Post-Dialysis 90 BPM Standing Heart Rate Pre-Dialysis 92 BPM Standing Heart Rate Post-Dialysis 98 BPM Temperature Pre-Dialysis 97.4 degF Temperature Post -Dialysis 98.2 degF August 03, 2024 In-Center Hemodialysis Treatment [id number]:01:00.000Z [id number]:32:36.000Z BP Sitting (Pre-Dialysis) 144/92 mmHg BP Sitting (Post-Dialysis) 166/86 mmHg Concurrent Access: falseCentral Venous Catheter (CVC) Chest (Right) Arterial BP Standing (Pre-Dialysis) 147/81 mmHg Sitti ng Heart Rate Post-Dialysis 76 BPM Sitting Heart Rate Pre-Dialysis 86 BPM Temperatu re Post-Dialysis 98.3 degF Standing Heart Rate Pre-Dialysis 92 BPM Temperature Pre-Dialysis 97.6 degF July 31, 2024 In-Center Hemodialysis Treatment [id number]:48:10.000Z 9543-95-06X77:14:50.000Z BP Sitting (Pre-Dialysis) 152/87 mmHg BP Sitting (Post-Dialysis) 180/96 mmHg Concurrent Access: falseCentral Venous Catheter (CVC) Chest (Right) Arterial BP Standing (Pre-Dialysis) 148/97 mmHg BP Standing (P ost-Dialysis) 152/74 mmHg Sitting Heart Rate Pre-Dialysis 90 BPM Sitting Heart Rate Post-Dialysis 78 BPM Standing Heart Rate Pre-Dialysis 93 BPM Standing Heart Rate Post-Dialysis 95 BPM Temperature Pre-Dialysis 98 degF Temperature Post -Dialysis 98.3 degF July 29, 2024 In-Center Hemodialysis Treatment 0728-74-02G62:56:23.000Z 2018-87-04B45:25:00.000Z BP Sitting (Pre-Dialysis) 146/87 mmHg BP Sitting (Post-Dialysis) 130/83 mmHg Concurrent Access: falseCentral Venous Catheter (CVC) Chest (Right) Arterial BP Standing (Pre-Dialysis) 139/75 mmHg BP Standing (P ost-Dialysis) 161/86 mmHg Sitting Heart Rate Pre-Dialysis 81 BPM Sitting Heart Rate Post-Dialysis 89 BPM Standing Heart Rate Pre-Dialysis 87 BPM Standing Heart Rate Post-Dialysis 91 BPM Temperature Pre-Dialysis 97.3 degF Temperature Post -Dialysis 98.3 degF July 27, 2024 In-Center Hemodialysis Treatment 8879-09-09Y17:03:00.000Z [id number]:36:36.000Z BP Sitting (Pre-Dialysis) 134/72 mmHg BP Sitting (Post-Dialysis) 132/77 mmHg Concurrent Access: falseCentral Venous Catheter (CVC) Chest (Right) Arterial BP Standing (Pre-Dialysis) 122/74 mmHg BP Standing (P ost-Dialysis) 110/72 mmHg Sitting Heart Rate Pre-Dialysis 71 BPM Sitting Heart Rate Post-Dialysis 71 BPM Standing Heart Rate Pre-Dialysis 72 BPM Standing Heart Rate Post-Dialysis 77 BPM Temperature Pre-Dialysis 97.7 degF Temperature Post -Dialysis 98 degF July 24, 2024 In-Center Hemodialysis Treatment [id number]:52:58.000Z 6110-48-11R27:24:38.000Z BP Sitting (Pre-Dialysis) 160/66 mmHg BP Sitting (Post-Dialysis) 151/82 mmHg Concurrent Access: falseCentral Venous Catheter (CVC) Chest (Right) Arterial BP Standing (Pre-Dialysis) 140/79 mmHg Sitti ng Heart Rate Post-Dialysis 71 BPM Sitting Heart Rate Pre-Dialysis 72 BPM Temperatu re Post-Dialysis 97.6 degF Standing Heart Rate Pre-Dialysis 77 BPM Temperature Pre-Dialysis 98.1 degF July 22, 2024 In-Center Hemodialysis Treatment 9028-82-58W79:09:41.000Z 8126-64-67J10:43:26.000Z BP Sitting (Pre-Dialysis) 118/88 mmHg BP Sitting (Post-Dialysis) 139/74 mmHg Concurrent Access: falseCentral Venous Catheter (CVC) Chest (Right) Arterial BP Standing (Pre-Dialysis) 110/62 mmHg Sitti ng Heart Rate Post-Dialysis 71 BPM Sitting Heart Rate Pre-Dialysis 73 BPM Temperatu re Post-Dialysis 98.8 degF Standing Heart Rate Pre-Dialysis 68 BPM Temperature Pre-Dialysis 97.7 degF July 20, 2024 In-Center Hemodialysis Treatment 1611-90-42U77:58:00.000Z 3096-46-72K01:30:20.000Z BP Sitting (Pre-Dialysis) 95/52 mmHg BP Sitting (Post-Dialysis) 136/74 mmHg Concurrent Access: falseCentral Venous Catheter (CVC) Chest (Right) Arterial BP Standing (Pre-Dialysis) 92/58 mmHg BP Standing (P ost-Dialysis) 130/66 mmHg Sitting Heart Rate Pre-Dialysis 63 BPM Sitting Heart Rate Post-Dialysis 65 BPM Standing Heart Rate Pre-Dialysis 65 BPM Standing Heart Rate Post-Dialysis 76 BPM Temperature Pre-Dialysis 98.3 degF Temperature Post -Dialysis 98.5 degF July 17, 2024 In-Center Hemodialysis Treatment 3669-58-44Y78:12:00.000Z 2551-66-03T18:44:17.000Z BP Sitting (Pre-Dialysis) 150/77 mmHg BP Sitting (Post-Dialysis) 118/69 mmHg Concurrent Access: falseCentral Venous Catheter (CVC) Chest (Right) Arterial BP Standing (Pre-Dialysis) 125/70 mmHg BP Standing (P ost-Dialysis) 110/69 mmHg Sitting Heart Rate Pre-Dialysis 65 BPM Sitting Heart Rate Post-Dialysis 81 BPM Standing Heart Rate Pre-Dialysis 70 BPM Standing Heart Rate Post-Dialysis 77 BPM Temperature Pre-Dialysis 98.2 degF Temperature Post -Dialysis 98.2 degF July 15, 2024 In-Center Hemodialysis Treatment 3951-74-53Y37:32:00.000Z 4814-07-39Y14:41:47.000Z BP Sitting (Pre-Dialysis) 134/103 mmHg BP Sitting (Post-Dialysis) 145/85 mmHg Concurrent Access: falseCentral Venous Catheter (CVC) Chest (Right) Arterial BP Standing (Pre-Dialysis) 141/73 mmHg BP Standing (P ost-Dialysis) 116/75 mmHg Sitting Heart Rate Pre-Dialysis 60 BPM Sitting Heart Rate Post-Dialysis 86 BPM Standing Heart Rate Pre-Dialysis 84 BPM Standing Heart Rate Post-Dialysis 96 BPM Temperature Pre-Dialysis 97.9 degF Temperature Post -Dialysis 98.2 degF July 13, 2024 In-Center Hemodialysis Treatment 4934-86-19T72:00:44.000Z 2598-27-41T86:30:19.000Z BP Sitting (Pre-Dialysis) 17/96 mmHg BP Sitting (Post-Dialysis) 162/86 mmHg Concurrent Access: falseCentral Venous Catheter (CVC) Chest (Right) Arterial BP Standing (Pre-Dialysis) 137/84 mmHg BP Standing (P ost-Dialysis) 136/82 mmHg Sitting Heart Rate Pre-Dialysis 73 BPM Sitting Heart Rate Post-Dialysis 76 BPM Standing Heart Rate Pre-Dialysis 72 BPM Standing Heart Rate Post-Dialysis 76 BPM Temperature Pre-Dialysis 98.1 degF Temperature Post -Dialysis 98 degF July 10, 2024 In-Center Hemodialysis Treatment [id number]:53:00.000Z 2504-49-63O35:31:14.000Z BP Sitting (Pre-Dialysis) 164/83 mmHg BP Sitting (Post-Dialysis) 146/83 mmHg Concurrent Access: falseCentral Venous Catheter (CVC) Chest (Right) Arterial BP Standing (Pre-Dialysis) 149/83 mmHg BP Standing (P ost-Dialysis) 137/82 mmHg Sitting Heart Rate Pre-Dialysis 89 BPM Sitting Heart Rate Post-Dialysis 86 BPM Standing Heart Rate Pre-Dialysis 98 BPM Standing Heart Rate Post-Dialysis 89 BPM Temperature Pre-Dialysis 97.7 degF Temperature Post -Dialysis 98.6 degF July 08, 2024 In-Center Hemodialysis Treatment 6967-22-25S67:05:00.000Z 4122-19-31Y69:37:03.000Z BP Sitting (Pre-Dialysis) 152/92 mmHg BP Sitting (Post-Dialysis) 170/97 mmHg Concurrent Access: falseCentral Venous Catheter (CVC) Chest (Right) Arterial BP Standing (Pre-Dialysis) 148/77 mmHg BP Standing (P ost-Dialysis) 151/83 mmHg Sitting Heart Rate Pre-Dialysis 104 BPM Sitting Heart Rate Post-Dialysis 94 BPM Standing Heart Rate Pre-Dialysis 99 BPM Standing Heart Rate Post-Dialysis 98 BPM Temperature Pre-Dialysis 96.4 degF Temperature Post -Dialysis 98.6 degF July 06, 2024 In-Center Hemodialysis Treatment 1753-05-11I78:46:00.000Z 2874-02-55B89:12:02.000Z BP Sitting (Pre-Dialysis) 156/88 mmHg BP Sitting (Post-Dialysis) 137/84 mmHg Concurrent Access: falseCentral Venous Catheter (CVC) Chest (Right) Arterial BP Standing (Pre-Dialysis) 104/68 mmHg BP Standing (P ost-Dialysis) 140/85 mmHg Sitting Heart Rate Pre-Dialysis 92 BPM Sitting Heart Rate Post-Dialysis 88 BPM Standing Heart Rate Pre-Dialysis 85 BPM Standing Heart Rate Post-Dialysis 85 BPM Temperature Pre-Dialysis 98.1 degF Temperature Post -Dialysis 98.2 degF July 03, 2024 In-Center Hemodialysis Treatment [id number]:52:52.000Z 6202-86-07M28:14:32.000Z BP Sitting (Pre-Dialysis) 157/81 mmHg BP Sitting (Post-Dialysis) 168/92 mmHg Concurrent Access: falseCentral Venous Catheter (CVC) Chest (Right) Arterial BP Standing (Pre-Dialysis) 145/87 mmHg BP Standing (P ost-Dialysis) 195/122 mmHg Sitting Heart Rate Pre-Dialysis 90 BPM Sitting Heart Rate Post-Dialysis 74 BPM Standing Heart Rate Pre-Dialysis 97 BPM Standing Heart Rate Post-Dialysis 88 BPM Temperature Pre-Dialysis 98 degF Temperature Post -Dialysis 98.1 degF July 01, 2024 In-Center Hemodialysis Treatment 9077-34-93Y19:43:34.000Z 0462-72-70E59:24:24.000Z BP Sitting (Pre-Dialysis) 127/76 mmHg BP Sitting (Post-Dialysis) 164/103 mmHg Concurrent Access: falseCentral Venous Catheter (CVC) Chest (Right) Arterial BP Standing (Pre-Dialysis) 112/74 mmHg BP Standing (P ost-Dialysis) 131/93 mmHg Sitting Heart Rate Pre-Dialysis 79 BPM Sitting Heart Rate Post-Dialysis 92 BPM Standing Heart Rate Pre-Dialysis 87 BPM Standing Heart Rate Post-Dialysis 99 BPM Temperature Pre-Dialysis 98.4 degF Temperature Post -Dialysis 99 degF June 29, 2024 In-Center Hemodialysis Treatment 7869-14-53B47:54:47.000Z 6374-61-12D00:24:22.000Z BP Sitting (Pre-Dialysis) 146/85 mmHg BP Sitting (Post-Dialysis) 145/80 mmHg Concurrent Access: falseCentral Venous Catheter (CVC) Chest (Right) Arterial BP Standing (Pre-Dialysis) 135/77 mmHg BP Standing (P ost-Dialysis) 125/74 mmHg Sitting Heart Rate Pre-Dialysis 92 BPM Sitting Heart Rate Post-Dialysis 103 BPM Standing Heart Rate Pre-Dialysis 91 BPM Standing Heart Rate Post-Dialysis 108 BPM Temperature Pre-Dialysis 98.1 degF Temperature Post -Dialysis 98.1 degF June 26, 2024 In-Center Hemodialysis Treatment 6622-48-39U87:51:00.000Z 8540-36-02T24:24:05.000Z BP Sitting (Pre-Dialysis) 166/91 mmHg BP Sitting (Post-Dialysis) 184/95 mmHg Concurrent Access: falseCentral Venous Catheter (CVC) Chest (Right) Arterial BP Standing (Pre-Dialysis) 166/89 mmHg Sitting Heart Rate Post-Dialysis 83 BPM Sitting Heart Rate Pre-Dialysis 83 BPM Temperatu re Post-Dialysis 98 degF Standing Heart Rate Pre-Dialysis 95 BPM Temperature Pre-Dialysis 98 degF June 24, 2024 In-Center Hemodialysis Treatment [id number]:50:20.000Z 9287-21-45J93:21:35.000Z BP Sitting (Pre-Dialysis) 147/77 mmHg BP Sitting (Post-Dialysis) 162/94 mmHg Concurrent Access: falseCentral Venous Catheter (CVC) Chest (Right) Arterial BP Standing (Pre-Dialysis) 133/85 mmHg BP Standing (P ost-Dialysis) 139/92 mmHg Sitting Heart Rate Pre-Dialysis 85 BPM Sitting Heart Rate Post-Dialysis 90 BPM Standing Heart Rate Pre-Dialysis 84 BPM Standing Heart Rate Post-Dialysis 99 BPM Temperature Pre-Dialysis 98.2 degF Temperature Post -Dialysis 98.8 degF June 22, 2024 In-Center Hemodialysis Treatment 9711-48-49P13:53:05.000Z [id number]:20:35.000Z BP Sitting (Pre-Dialysis) 148/90 mmHg BP Sitting (Post-Dialysis) 147/84 mmHg Concurrent Access: falseCentral Venous Catheter (CVC) Chest (Right) Arterial BP Standing (Pre-Dialysis) 146/92 mmHg Sitti ng Heart Rate Post-Dialysis 88 BPM Sitting Heart Rate Pre-Dialysis 73 BPM Temperatu re Post-Dialysis 98.2 degF Standing Heart Rate Pre-Dialysis 72 BPM Temperature Pre-Dialysis 98.3 degF June 19, 2024 In-Center Hemodialysis Treatment 7612-40-02U17:45:32.000Z 6854-25-17Z50:10:32.000Z BP Sitting (Pre-Dialysis) 155/83 mmHg BP Sitting (Post-Dialysis) 144/69 mmHg Concurrent Access: falseCentral Venous Catheter (CVC) Chest (Right) Arterial BP Standing (Pre-Dialysis) 147/90 mmHg BP Standing (P ost-Dialysis) 185/99 mmHg Sitting Heart Rate Pre-Dialysis 80 BPM Sitting Heart Rate Post-Dialysis 94 BPM Standing Heart Rate Pre-Dialysis 80 BPM Standing Heart Rate Post-Dialysis 93 BPM Temperature Pre-Dialysis 98 degF Temperature Post -Dialysis 98.4 degF June 17, 2024 In-Center Hemodialysis Treatment 2668-00-57S77:22:17.000Z 9504-20-62K01:57:42.000Z BP Sitting (Pre-Dialysis) 149/90 mmHg BP Sitting (Post-Dialysis) 158/95 mmHg Concurrent Access: falseCentral Venous Catheter (CVC) Chest (Right) Arterial BP Standing (Pre-Dialysis) 152/88 mmHg BP Standing (P ost-Dialysis) 160/87 mmHg Sitting Heart Rate Pre-Dialysis 85 BPM Sitting Heart Rate Post-Dialysis 94 BPM Standing Heart Rate Pre-Dialysis 84 BPM Standing Heart Rate Post-Dialysis 98 BPM Temperature Pre-Dialysis 98.6 degF Temperature Post -Dialysis 98.2 degF June 15, 2024 In-Center Hemodialysis Treatment 8275-77-97B23:59:54.000Z 1094-28-81O54:29:29.000Z BP Sitting (Pre-Dialysis) 147/81 mmHg BP Sitting (Post-Dialysis) 144/96 mmHg Concurrent Access: falseCentral Venous Catheter (CVC) Chest (Right) Arterial BP Standing (Pre-Dialysis) 135/82 mmHg BP Standing (P ost-Dialysis) 145/100 mmHg Sitting Heart Rate Pre-Dialysis 85 BPM Sitting Heart Rate Post-Dialysis 71 BPM Standing Heart Rate Pre-Dialysis 86 BPM Standing Heart Rate Post-Dialysis 97 BPM Temperature Pre-Dialysis 98.5 degF Temperature Post -Dialysis 98.2 degF June 12, 2024 In-Center Hemodialysis Treatment 7306-67-24D97:32:22.000Z 0860-63-05X26:02:47.000Z BP Sitting (Pre-Dialysis) 176/94 mmHg BP Sitting (Post-Dialysis) 161/91 mmHg Concurrent Access: falseCentral Venous Catheter (CVC) Chest (Right) Arterial BP Standing (Pre-Dialysis) 143/80 mmHg BP Standing (P ost-Dialysis) 177/100 mmHg Sitting Heart Rate Pre-Dialysis 78 BPM Sitting Heart Rate Post-Dialysis 77 BPM Standing Heart Rate Pre-Dialysis 76 BPM Standing Heart Rate Post-Dialysis 84 BPM Temperature Pre-Dialysis 98.2 degF Temperature Post -Dialysis 97.7 degF June 10, 2024 In-Center Hemodialysis Treatment 8342-03-11U36:35:31.000Z 9759-42-54B91:06:21.000Z BP Sitting (Pre-Dialysis) 182/89 mmHg BP Sitting (Post-Dialysis) 173/93 mmHg Concurrent Access: falseCentral Venous Catheter (CVC) Chest (Right) Arterial BP Standing (Pre-Dialysis) 139/78 mmHg BP Standing (P ost-Dialysis) 177/87 mmHg Sitting Heart Rate Pre-Dialysis 73 BPM Sitting Heart Rate Post-Dialysis 84 BPM Standing Heart Rate Pre-Dialysis 80 BPM Standing Heart Rate Post-Dialysis 86 BPM Temperature Pre-Dialysis 98 degF Temperature Post -Dialysis 98 degF June 08, 2024 In-Center Hemodialysis Treatment [id number]:06:53.000Z 6177-96-60D84:06:53.000Z BP Sitting (Pre-Dialysis) 141/87 mmHg BP Sitting (Post-Dialysis) 159/92 mmHg Concurrent Access: falseCentral Venous Catheter (CVC) Chest (Right) Arterial BP Standing (Pre-Dialysis) 118/79 mmHg BP Standing (P ost-Dialysis) 137/88 mmHg Sitting Heart Rate Pre-Dialysis 76 BPM Sitting Heart Rate Post-Dialysis 79 BPM Standing Heart Rate Pre-Dialysis 79 BPM Standing Heart Rate Post-Dialysis 80 BPM Temperature Pre-Dialysis 98 degF Temperature Post -Dialysis 98.4 degF June 05, 2024 In-Center Hemodialysis Treatment 4455-12-43J37:55:12.000Z 8076-50-32E66:54:47.000Z BP Sitting (Pre-Dialysis) 134/84 mmHg BP Sitting (Post-Dialysis) 145/74 mmHg Concurrent Access: falseCentral Venous Catheter (CVC) Chest (Right) Arterial BP Standing (Pre-Dialysis) 155/64 mmHg BP Standing (P ost-Dialysis) 142/76 mmHg Sitting Heart Rate Pre-Dialysis 74 BPM Sitting Heart Rate Post-Dialysis 90 BPM Standing Heart Rate Pre-Dialysis 87 BPM Standing Heart Rate Post-Dialysis 82 BPM Temperature Pre-Dialysis 98.2 degF Temperature Post -Dialysis 98 degF June 03, 2024 In-Center Hemodialysis Treatment 9069-62-28P78:04:00.000Z 7279-81-04K75:08:02.000Z BP Sitting (Pre-Dialysis) 151/88 mmHg BP Sitting (Post-Dialysis) 174/95 mmHg Concurrent Access: falseCentral Venous Catheter (CVC) Chest (Right) Arterial BP Standing (Pre-Dialysis) 140/83 mmHg BP Standing (P ost-Dialysis) 161/89 mmHg Sitting Heart Rate Pre-Dialysis 91 BPM Sitting Heart Rate Post-Dialysis 85 BPM Standing Heart Rate Pre-Dialysis 94 BPM Standing Heart Rate Post-Dialysis 94 BPM Temperature Pre-Dialysis 97.5 degF Temperature Post -Dialysis 98.3 degF June 01, 2024 In-Center Hemodialysis Treatment 7777-34-88W53:48:00.000Z 2482-95-62Z24:57:48.000Z BP Sitting (Pre-Dialysis) 162/87 mmHg BP Sitting (Post-Dialysis) 162/90 mmHg Concurrent Access: falseCentral Venous Catheter (CVC) Chest (Right) Arterial BP Standing (Pre-Dialysis) 134/72 mmHg Sitti ng Heart Rate Post-Dialysis 70 BPM Sitting Heart Rate Pre-Dialysis 75 BPM Temperatu re Post-Dialysis 98.4 degF Standing Heart Rate Pre-Dialysis 72 BPM Temperature Pre-Dialysis 98.3 degF May 29, 2024 In-Center Hemodialysis Treatment 7355-33-20C55:57:00.000Z 6994-23-51E48:14:26.000Z BP Sitting (Pre-Dialysis) 129/76 mmHg BP Sitting (Post-Dialysis) 159/84 mmHg Concurrent Access: falseCentral Venous Catheter (CVC) Chest (Right) Arterial BP Standing (Pre-Dialysis) 120/69 mmHg BP Standing (P ost-Dialysis) 154/93 mmHg Sitting Heart Rate Pre-Dialysis 80 BPM Sitting Heart Rate Post-Dialysis 87 BPM Standing Heart Rate Pre-Dialysis 85 BPM Standing Heart Rate Post-Dialysis 107 BPM Temperature Pre-Dialysis 98.2 degF Temperature Post -Dialysis 98.7 degF May 27, 2024 In-Center Hemodialysis Treatment [id number]:20:09.000Z 6750-95-63X67:39:44.000Z BP Sitting (Pre-Dialysis) 135/75 mmHg BP Sitting (Post-Dialysis) 160/101 mmHg Concurrent Access: falseCentral Venous Catheter (CVC) Chest (Right) Arterial Sitting Heart Rate Pre-Dialysis 93 BPM BP Standing (Post-Dialysis) 118/64 mmHg Temperature Pre-Dialysis 98.8 degF Sitting Heart Ra te Post-Dialysis 89 BPM Standing Heart Rate Post-[place] lysis 81 BPM Temperature Post-Dialysis 99 .1 degF May 25, 2024 In-Center Hemodialysis Treatment [id number]:58:29.000Z 9695-73-22I24:58:29.000Z BP Sitting (Pre-Dialysis) 125/44 mmHg BP Sitting (Post-Dialysis) 137/75 mmHg Concurrent Access: falseCentral Venous Catheter (CVC) Chest (Right) Arterial Sitting Heart Rate Pre-Dialysis 67 BPM BP Standi ng (Post-Dialysis) 170/90 mmHg Temperature Pre-Dialysis 98 degF Sitting Heart Ra te Post-Dialysis 86 BPM Standing Heart Rate Post-[place] lysis 85 BPM Temperature Post-Dialysis 98 .1 degF May 22, 2024 In-Center Hemodialysis Treatment 7847-81-82J55:28:27.000Z 4436-81-44X14:58:02.000Z BP Sitting (Pre-Dialysis) 138/67 mmHg BP Sitting (Post-Dialysis) 127/69 mmHg Concurrent Access: falseCentral Venous Catheter (CVC) Chest (Right) Arterial BP Standing (Pre-Dialysis) 115/76 mmHg Sitti ng Heart Rate Post-Dialysis 93 BPM Sitting Heart Rate Pre-Dialysis 78 BPM Temperatu re Post-Dialysis 97.2 degF Standing Heart Rate Pre-Dialysis 91 BPM Temperature Pre-Dialysis 98.1 degF May 20, 2024 In-Center Hemodialysis Treatment 1234-03-63B47:25:38.000Z 5202-32-60I27:51:53.000Z BP Sitting (Pre-Dialysis) 100/65 mmHg BP Sitting (Post-Dialysis) 136/70 mmHg Concurrent Access: falseCentral Venous Catheter (CVC) Chest (Right) Arterial BP Standing (Pre-Dialysis) 88/52 mmHg BP Standing (P ost-Dialysis) 142/97 mmHg Sitting Heart Rate Pre-Dialysis 98 BPM Sitting Heart Rate Post-Dialysis 94 BPM Standing Heart Rate Pre-Dialysis 99 BPM Standing Heart Rate Post-Dialysis 106 BPM Temperature Pre-Dialysis 98 degF Temperature Post -Dialysis 98.4 degF May 18, 2024 In-Center Hemodialysis Treatment 2827-99-15F36:20:46.000Z 0503-22-74V70:50:21.000Z BP Sitting (Pre-Dialysis) 144/73 mmHg BP Sitting (Post-Dialysis) 112/65 mmHg Concurrent Access: falseCentral Venous Catheter (CVC) Chest (Right) Arterial BP Standing (Pre-Dialysis) 129/66 mmHg BP Standing (P ost-Dialysis) 128/59 mmHg Sitting Heart Rate Pre-Dialysis 90 BPM Sitting Heart Rate Post-Dialysis 78 BPM Standing Heart Rate Pre-Dialysis 89 BPM Standing Heart Rate Post-Dialysis 101 BPM Temperature Pre-Dialysis 98.7 degF Temperature Post -Dialysis 98.3 degF May 15, 2024 In-Center Hemodialysis Treatment [id number]:22:50.000Z 6678-02-38J10:54:05.000Z BP Sitting (Pre-Dialysis) 133/65 mmHg BP Sitting (Post-Dialysis) 122/66 mmHg Concurrent Access: falseCentral Venous Catheter (CVC) Chest (Right) Arterial BP Standing (Pre-Dialysis) 104/62 mmHg BP Standing (P ost-Dialysis) 119/80 mmHg Sitting Heart Rate Pre-Dialysis 97 BPM Sitting Heart Rate Post-Dialysis 81 BPM Standing Heart Rate Pre-Dialysis 101 BPM Standing Heart Rate Post-Dialysis 88 BPM Temperature Pre-Dialysis 97.9 degF Temperature Post -Dialysis 97.8 degF May 13, 2024 In-Center Hemodialysis Treatment 1629-34-55H34:29:00.000Z 2450-11-70F41:09:21.000Z BP Sitting (Pre-Dialysis) 123/66 mmHg BP Sitting (Post-Dialysis) 132/77 mmHg Concurrent Access: falseCentral Venous Catheter (CVC) Chest (Right) Arterial BP Standing (Pre-Dialysis) 110/62 mmHg Sitti ng Heart Rate Post-Dialysis 91 BPM Sitting Heart Rate Pre-Dialysis 74 BPM Temperatu re Post-Dialysis 97.8 degF Standing Heart Rate Pre-Dialysis 80 BPM Temperature Pre-Dialysis 98.5 degF May 11, 2024 In-Center Hemodialysis Treatment [id number]:36:28.000Z 4590-58-08Z29:09:49.000Z BP Sitting (Pre-Dialysis) 123/71 mmHg BP Sitting (Post-Dialysis) 159/91 mmHg Concurrent Access: falseCentral Venous Catheter (CVC) Chest (Right) Arterial BP Standing (Pre-Dialysis) 115/64 mmHg Sitti ng Heart Rate Post-Dialysis 82 BPM Sitting Heart Rate Pre-Dialysis 85 BPM Temperatu re Post-Dialysis 98.7 degF Standing Heart Rate Pre-Dialysis 86 BPM Temperature Pre-Dialysis 98.3 degF May 08, 2024 In-Center Hemodialysis Treatment 8480-54-15T94:10:00.000Z 9571-15-78O76:41:39.000Z BP Sitting (Pre-Dialysis) 112/68 mmHg BP Sitting (Post-Dialysis) 158/76 mmHg Concurrent Access: falseCentral Venous Catheter (CVC) Chest (Right) Arterial BP Standing (Pre-Dialysis) 91/61 mmHg BP Standing (P ost-Dialysis) 172/89 mmHg Sitting Heart Rate Pre-Dialysis 75 BPM Sitting Heart Rate Post-Dialysis 74 BPM Standing Heart Rate Pre-Dialysis 80 BPM Standing Heart Rate Post-Dialysis 96 BPM Temperature Pre-Dialysis 98.6 degF Temperature Post -Dialysis 98.6 degF May 06, 2024 In-Center Hemodialysis Treatment [id number]:55:00.000Z 6274-06-40G47:29:56.000Z BP Sitting (Pre-Dialysis) 163/83 mmHg BP Sitting (Post-Dialysis) 171/87 mmHg Concurrent Access: falseCentral Venous Catheter (CVC) Chest (Right) Arterial BP Standing (Pre-Dialysis) 121/76 mmHg BP Standing (P ost-Dialysis) 132/78 mmHg Sitting Heart Rate Pre-Dialysis 82 BPM Sitting Heart Rate Post-Dialysis 97 BPM Standing Heart Rate Pre-Dialysis 98 BPM Standing Heart Rate Post-Dialysis 102 BPM Temperature Pre-Dialysis 98.3 degF Temperature Post -Dialysis 97.3 degF May 04, 2024 In-Center Hemodialysis Treatment 0904-60-32C37:32:57.000Z [id number]:07:57.000Z BP Sitting (Pre-Dialysis) 144/73 mmHg BP Sitting (Post-Dialysis) 110/68 mmHg Concurrent Access: falseCentral Venous Catheter (CVC) Chest (Right) Arterial BP Standing (Pre-Dialysis) 129/67 mmHg Sitti ng Heart Rate Post-Dialysis 95 BPM Sitting Heart Rate Pre-Dialysis 83 BPM Temperatu re Post-Dialysis 97.9 degF Standing Heart Rate Pre-Dialysis 90 BPM Temperature Pre-Dialysis 98.4 degF May 01, 2024 In-Center Hemodialysis Treatment [id number]:55.000Z [id number]:18:30.000Z BP Sitting (Pre-Dialysis) 168/75 mmHg BP Sitting (Post-Dialysis) 147/84 mmHg Concurrent Access: falseCentral Venous Catheter (CVC) Chest (Right) Arterial Sitting Heart Rate Pre-Dialysis 75 BPM BP Standing (Post-Dialysis) 120/73 mmHg Temperature Pre-Dialysis 98.3 degF Sitting Heart Ra te Post-Dialysis 88 BPM Standing Heart Rate Post-[place] lysis 86 BPM Temperature Post-Dialysis 97 .9 degF April 28, 2024 In-Center Hemodialysis Treatment [id number] [id number]:15.000Z BP Sitting (Pre-Dialysis) 150/71 mmHg BP Sitting (Post-Dialysis) 170/99 mmHg Concurrent Access: falseCentral Venous Catheter (CVC) Chest (Right) Arterial BP Standing (Pre-Dialysis) 147/74 mmHg BP Standing (P ost-Dialysis) 173/98 mmHg Sitting Heart Rate Pre-Dialysis 81 BPM Sitting Heart Rate Post-Dialysis 89 BPM Standing Heart Rate Pre-Dialysis 89 BPM Standing Heart Rate Post-Dialysis 102 BPM Temperature Pre-Dialysis 98.1 degF Temperature Post -Dialysis 98 degF April 26, 2024 In-Center Hemodialysis Treatment [id number]:44.000Z [id number]:06:49.000Z BP Sitting (Pre-Dialysis) 136/75 mmHg BP Sitting (Post-Dialysis) 150/84 mmHg Concurrent Access: falseCentral Venous Catheter (CVC) Chest (Right) Arterial Sitting Heart Rate Pre-Dialysis 87 BPM BP Standing (Post-Dialysis) 171/93 mmHg Temperature Pre-Dialysis 98.5 degF Sitting Heart Ra te Post-Dialysis 94 BPM Standing Heart Rate Post-[place] lysis 101 BPM Temperature Post-Dialysis 98 .4 degF April 24, 2024 In-Center Hemodialysis Treatment [id number]:27.000Z [id number]:57.000Z BP Sitting (Pre-Dialysis) 142/75 mmHg BP Sitting (Post-Dialysis) 163/112 mmHg Concurrent Access: falseCentral Venous Catheter (CVC) Chest (Right) Arterial BP Standing (Pre-Dialysis) 126/63 mmHg Sitti ng Heart Rate Post-Dialysis 91 BPM Sitting Heart Rate Pre-Dialysis 74 BPM Temperatu re Post-Dialysis 98.2 degF Standing Heart Rate Pre-Dialysis 83 BPM Temperature Pre-Dialysis 97.3 degF April 21, 2024 In-Center Hemodialysis Treatment [id number]:42:31.000Z [id number]:47:06.000Z BP Sitting (Pre-Dialysis) 136/72 mmHg BP Sitting (Post-Dialysis) 158/73 mmHg Concurrent Access: falseCentral Venous Catheter (CVC) Chest (Right) Arterial BP Standing (Pre-Dialysis) 103/62 mmHg BP Standing (P ost-Dialysis) 118/71 mmHg Sitting Heart Rate Pre-Dialysis 79 BPM Sitting Heart Rate Post-Dialysis 77 BPM Standing Heart Rate Pre-Dialysis 82 BPM Standing Heart Rate Post-Dialysis 81 BPM Temperature Pre-Dialysis 98.1 degF Temperature Post -Dialysis 98.3 degF DIALYSIS ORDER Dialysis Procedure Orders Type of Dialysis Procedure Order Order Date/Time Observations In-Center Hemodialysis Treatment September Target Weight 61.5 kg Dialysate Flow Rate 500 mL/min Blood Flow Rate 400 mL/min Treatment Time 210 min(total) Max UF Rate 13 mL/kg/hr Base Sodium Dialysate Base Sodium 138 mE q/L dialysate_temp 37 C BiCarb Dialysate BiCarbonate 38 meq/L Access Concurrent No Arterial Access Central Venous [place] [facility] (CVC) (Chest (Right)) Venous Access Central Venous [place] [facility] (CVC) (Chest (Right)) Dialyzer Nipro Elisio 15H 126 4 [email or web address] Dialysate Bath Potassium Potassium 3 mEq /L Dialysate Bath Calcium Calcium 2.5 mEq/L Results Adequacy Description Draw Date Result/Unit Status Ref Range Result Comments Std Renal KT/V 2024-11-11 18:09:53 N/A F BLOOD FLOW-QWB 2024-11-11 18:09:53 383 F stdKT/V Total 2024-11-11 18:09:53 N/A F PRESCRIBED DAYS/WEEK 2024-11-11 18:09:53 3 Day/Wk F nPCR 2024-11-11 18:09:53 0.57 G/KG/D F DIALYZER FLOW-QD 2024-11-11 18:09:53 500 mL/min F BSA TONG 2024-11-11 18:09:53 1.7 sq m F PATIENT AGE 2024-11-11 18:09:53 69 Years F HEIGHT IN INCHES 2024-11-11 18:09:53 66 Inches F stdKt/V (DIAL) 2024-11-11 18:09:53 N/A F WEIGHT - POST DAY 1 2024-11-11 18:09:53 61.7 kg F Residual kt/v 2024-11-11 18:09:53 F eKt/V 2024-11-11 18:09:53 1.32 F VT (KT/V TX VOL) 2024-11-11 18:09:53 35.7 L F AMPUTATE FACTOR 2024-11-11 18:09:53 0 F WEIGHT - PRE DAY 1 2024-11-11 18:09:53 64 kg F TOTAL HOURS/WEEK DIALYSIS 2024-11-11 18:09:53 10 hrs F CURRENT KRU 2024-11-11 18:09:53 F spKt/V 2024-11-11 18:09:53 1.56 F TBW ([place]) 2024-11-11 18:09:53 34.44 Liters F KT/V PRESCRIBED 2024-11-11 18:09:53 1.98 F URR% 2024-11-11 18:09:53 74 % F WEIGHT (KG) 2024-11-11 18:09:53 61.5 kg F VM (KT/V MEAN VOL) 2024-11-11 18:09:53 38.2 F LENGTH OF DIALYSIS 2024-11-11 18:09:53 210 min F Total Kt/V 2024-11-11 18:09:53 1.56 F Dialyzer TYRON 2024-11-11 18:09:53 1264 Calc F Urea nitrogen [Mass/volume] in Serum or Plasma 2024-11-11 18:08:16 31 mg/dL F 9.0-23.0 Urea nitrogen [Mass/volume] in Serum or Plasma --post dialysis 2024-11-11 17:34:18 8 mg/dL F 9.0-23.0 CURRENT KRU 2024-11-06 15:26:51 F Unable to calculate: Post BUN lab result is unknown,Unable to calculate: Post BUN lab result is unknown stdKT/V Total 2024-11-06 15:26:51 F Unable to calculate: Post BUN lab result is unknown,Unable to calculate: Post BUN lab result is unknown DIALYZER FLOW-QD 2024-11-06 15:26:51 500 mL/min F HEIGHT IN INCHES 2024-11-06 15:26:51 66 Inches F BLOOD FLOW-QWB 2024-11-06 15:26:51 399 F TOTAL HOURS/WEEK DIALYSIS 2024-11-06 15:26:51 6 hrs F stdKt/V (DIAL) 2024-11-06 15:26:51 F Unable to calculate: Post BUN lab result is unknown,Unable to calculate: Post BUN lab result is unknown VM (KT/V MEAN VOL) 2024-11-06 15:26:51 F Unable to calculate: Post BUN lab result is unknown,Unable to calculate: Post BUN lab result is unknown TBW ([place]) 2024-11-06 15:26:51 F Unable to calculate: Post BUN lab result is unknown,Unable to calculate: Post BUN lab result is unknown KT/V PRESCRIBED 2024-11-06 15:26:51 F Unable to calculate: Post BUN lab result is unknown,Unable to calculate: Post BUN lab result is unknown WEIGHT - PRE DAY 1 2024-11-06 15:26:51 64.1 kg F LENGTH OF DIALYSIS 2024-11-06 15:26:51 209 min F Total Kt/V 2024-11-06 15:26:51 F Unable to calculate: Post BUN lab result is unknown,Unable to calculate: Post BUN lab result is unknown VT (KT/V TX VOL) 2024-11-06 15:26:51 F Unable to calculate: Post BUN lab result is unknown,Unable to calculate: Post BUN lab result is unknown Std Renal KT/V 2024-11-06 15:26:51 F Unable to calculate: Post BUN lab result is unknown,Unable to calculate: Post BUN lab result is unknown WEIGHT (KG) 2024-11-06 15:26:51 61.5 kg F eKt/V 2024-11-06 15:26:51 F Unable to calculate: Post BUN lab result is unknown,Unable to calculate: Post BUN lab result is unknown Dialyzer TYRON 2024-11-06 15:26:51 1264 Calc F nPCR 2024-11-06 15:26:51 F Unable to calculate: Post BUN lab result is unknown,Unable to calculate: Post BUN lab result is unknown URR% 2024-11-06 15:26:51 F Unable to calculate: Post BUN lab result is unknown,Unable to Calculate.,Unable to calculate: Post BUN lab result is unknown spKt/V 2024-11-06 15:26:51 F Unable to calculate: Post BUN lab result is unknown,Unable to calculate: Post BUN lab result is unknown PRESCRIBED DAYS/WEEK 2024-11-06 15:26:51 3 Day/Wk F PATIENT AGE 2024-11-06 15:26:51 69 Years F AMPUTATE FACTOR 2024-11-06 15:26:51 0 F WEIGHT - POST DAY 1 2024-11-06 15:26:51 62.2 kg F Residual kt/v 2024-11-06 15:26:51 F Unable to calculate: Post BUN lab result is unknown,Unable to calculate: Post BUN lab result is unknown BSA TONG 2024-11-06 15:26:51 F Unable to calculate: Post BUN lab result is unknown,Unable to calculate: Post BUN lab result is unknown Urea nitrogen [Mass/volume] in Serum or Plasma --post dialysis 2024-11-06 15:25:38 F Recollect - Unsp un specimen,Recollect - Unspun specimen,Recollect - Unspun specimen Urea nitrogen [Mass/volume] in Serum or Plasma 2024-11-05 19:34:19 36 mg/dL F 9.0-23.0 Creatinine [Mass/volume] in Serum or Plasma 2024-10-17 14:53:08 8.93 mg/dL F 0.7-1.3 WEIGHT - PRE DAY 1 2024-10-02 21:33:50 63.3 kg F CURRENT KRU 2024-10-02 21:33:50 F Unable to calculate: Post BUN lab result is unknown AMPUTATE FACTOR 2024-10-02 21:33:50 0 F WEIGHT - POST DAY 1 2024-10-02 21:33:50 61.7 kg F URR% 2024-10-02 21:33:50 68 % F Std Renal KT/V 2024-10-02 21:33:50 N/A F LENGTH OF DIALYSIS 2024-10-02 21:33:50 211 min F BSA TONG 2024-10-02 21:33:50 1.7 sq m F VM (KT/V MEAN VOL) 2024-10-02 21:33:50 39.1 F VT (KT/V TX VOL) 2024-10-02 21:33:50 37.1 L F KT/V PRESCRIBED 2024-10-02 21:33:50 1.98 F stdKt/V (DIAL) 2024-10-02 21:33:50 N/A F Dialyzer TYRON 2024-10-02 21:33:50 1264 Calc F TOTAL HOURS/WEEK DIALYSIS 2024-10-02 21:33:50 10 hrs F TBW ([place]) 2024-10-02 21:33:50 34.44 Liters F HEIGHT IN INCHES 2024-10-02 21:33:50 66 Inches F WEIGHT (KG) 2024-10-02 21:33:50 62 kg F stdKT/V Total 2024-10-02 21:33:50 N/A F nPCR 2024-10-02 21:33:50 0.77 G/KG/D F Total Kt/V 2024-10-02 21:33:50 1.29 F eKt/V 2024-10-02 21:33:50 1.1 F PATIENT AGE 2024-10-02 21:33:50 69 Years F spKt/V 2024-10-02 21:33:50 1.29 F PRESCRIBED DAYS/WEEK 2024-10-02 21:33:50 3 Day/Wk F BLOOD FLOW-QWB 2024-10-02 21:33:50 287 F Residual kt/v 2024-10-02 21:33:50 F Unable to calculate: Post BUN lab result is unknown DIALYZER FLOW-QD 2024-10-02 21:33:50 500 mL/min F Urea nitrogen [Mass/volume] in Serum or Plasma --post dialysis 2024-10-02 21:32:18 13 mg/dL F 9.0-23.0 Urea nitrogen [Mass/volume] in Serum or Plasma 2024-10-02 13:13:15 40 mg/dL F 9.0-23.0 VM (KT/V MEAN VOL) 2024-09-19 17:15:14 39.7 F BLOOD FLOW-QWB 2024-09-19 17:15:14 399 F TBW ([place]) 2024-09-19 17:15:14 34.77 Liters F Total Kt/V 2024-09-19 17:15:14 1.71 F LENGTH OF DIALYSIS 2024-09-19 17:15:14 211 min F KT/V PRESCRIBED 2024-09-19 17:15:14 1.94 F TOTAL HOURS/WEEK DIALYSIS 2024-09-19 17:15:14 10 hrs F PATIENT AGE 2024-09-19 17:15:14 69 Years F Residual kt/v 2024-09-19 17:15:14 F Unable to calculate: Post BUN lab result is unknown stdKT/V Total 2024-09-19 17:15:14 N/A F HEIGHT IN INCHES 2024-09-19 17:15:14 66 Inches F Std Renal KT/V 2024-09-19 17:15:14 N/A F eKt/V 2024-09-19 17:15:14 1.44 F nPCR 2024-09-19 17:15:14 0.66 G/KG/D F CURRENT KRU 2024-09-19 17:15:14 F Unable to calculate: Post BUN lab result is unknown Dialyzer TYRON 2024-09-19 17:15:14 1264 Calc F stdKt/V (DIAL) 2024-09-19 17:15:14 N/A F DIALYZER FLOW-QD 2024-09-19 17:15:14 500 mL/min F PRESCRIBED DAYS/WEEK 2024-09-19 17:15:14 3 Day/Wk F WEIGHT - PRE DAY 1 2024-09-19 17:15:14 64.3 kg F AMPUTATE FACTOR 2024-09-19 17:15:14 0 F spKt/V 2024-09-19 17:15:14 1.71 F VT (KT/V TX VOL) 2024-09-19 17:15:14 33.3 L F URR% 2024-09-19 17:15:14 77 % F WEIGHT - POST DAY 1 2024-09-19 17:15:14 62.7 kg F WEIGHT (KG) 2024-09-19 17:15:14 64 kg F BSA TONG 2024-09-19 17:15:14 1.72 sq m F Urea nitrogen [Mass/volume] in Serum or Plasma --post dialysis 2024-09-19 17:13:15 6 mg/dL F 9.0-23.0 Creatinine [Mass/volume] in Serum or Plasma 2024-09-19 16:29:18 5.7 mg/dL F 0.7-1.3 Urea nitrogen [Mass/volume] in Serum or Plasma 2024-09-19 16:29:18 26 mg/dL F 9.0-23.0 URR% 2024-09-04 04:59:59 see comments F 65.0-100.0 Unable to Calculate. Urea nitrogen [Mass/volume] in Serum or Plasma --post dialysis 2024-09-04 04:49:25 7 mg/dL F 9.0-23.0 Creatinine [Mass/volume] in Serum or Plasma 2024-09-04 01:13:09 F received lav for sst 19,Recollect - Labeling Error,Recollect - Labeling Error Urea nitrogen [Mass/volume] in Serum or Plasma 2024-09-04 01:13:09 F Recollect - Labeling Error,Recollect - Labeling Error,received lav for sst 19 WEIGHT (KG) 2024-09-02 20:01:51 65 kg F HEIGHT IN INCHES 2024-09-02 20:01:51 66 Inches F AMPUTATE FACTOR 2024-09-02 20:01:51 0 F PATIENT AGE 2024-09-02 20:01:51 69 Years F WEIGHT - POST DAY 1 DIALYZER FLOW-QD BLOOD FLOW-QWB TOTAL HOURS/WEEK DIALYSIS WEIGHT - PRE DAY 1 PRESCRIBED DAYS/WEEK Dialyzer TYRON LENGTH OF DIALYSIS eKt/V spKt/V Residual kt/v CURRENT KRU VM (KT/V MEAN VOL) Total Kt/V stdKT/V Total stdKt/V (DIAL) BSA TONG Std Renal KT/V KT/V PRESCRIBED TBW ([place]) nPCR VT (KT/V TX VOL) Anemia Description Draw Date Result/Unit Status Ref Range Result Comments HCT CALC HGBX3 2024-11-05 19:24:21 33.6 % F 42.0-52.0 Hemoglobin [Mass/volume] in Blood 2024-11-05 19:23:14 11.2 g/dL F 14.0-18.0 HCT CALC HGBX3 2024-10-17 17:09:04 35.1 % F 42.0-52.0 Hemoglobin [Mass/volume] in Blood 2024-10-17 17:08:10 11.7 g/dL F 14.0-18.0 Hematocrit [Volume Fraction] of Blood by Automated count 2024-10-17 17:08:10 37.2 % F 41.0-53.0 Erythrocyte distribution width [Ratio] by Automated count 2024-10-17 17:08:08 14.9 % F 11.0-15.0 Platelets [#/volume] in Blood by Automated count 2024-10-17 17:08:08 234 x 10^3 cells/uL F 140.0-450.0 MCH [Entitic mass] by Automated count 2024-10-17 17:08:08 31.9 pg F 25.9-34.2 MCHC [Mass/volume] by Automated count 2024-10-17 17:08:08 31.4 g/dL F 29.6-35.3 Erythrocytes [#/volume] in Blood by Automated count 2024-10-17 17:08:08 3.65 x 10^6 cells/uL F 4.6-6.2 MCV [Entitic volume] by Automated count 2024-10-17 17:08:08 101.8 fL F 80.0-100.0 HCT CALC HGBX3 2024-10-02 12:36:00 33.3 % F 42.0-52.0 Hemoglobin [Mass/volume] in Blood 2024-10-02 12:35:07 11.1 g/dL F 14.0-18.0 IRON SATURATION 2024-09-20 00:43:21 8 % F 21.0-49.0 TIBC 2024-09-20 00:43:21 224 ug/dL F 250.0-425.0 Iron binding capacity.unsaturated [Mass/volume] in Serum or Plasma 2024-09-20 00:40:46 206 ug/dL F 75.0-360.0 Iron [Mass/volume] in Serum or Plasma 2024-09-19 19:36:35 18 ug/dL F 65.0-175.0 HCT CALC HGBX3 2024-09-19 17:51:58 32.4 % F 42.0-52.0 Erythrocyte distribution width [Ratio] by Automated count 2024-09-19 17:51:07 15.4 % F 11.0-15.0 Platelets [#/volume] in Blood by Automated count 2024-09-19 17:51:07 222 x 10^3 cells/uL F 140.0-450.0 Hemoglobin [Mass/volume] in Blood 2024-09-19 17:51:07 10.8 g/dL F 14.0-18.0 MCH [Entitic mass] by Automated count 2024-09-19 17:51:07 31.7 pg F 25.9-34.2 MCHC [Mass/volume] by Automated count 2024-09-19 17:51:07 32.4 g/dL F 29.6-35.3 Erythrocytes [#/volume] in Blood by Automated count 2024-09-19 17:51:07 3.42 x 10^6 cells/uL F 4.6-6.2 Hematocrit [Volume Fraction] of Blood by Automated count 2024-09-19 17:51:07 33.5 % F 41.0-53.0 MCV [Entitic volume] by Automated count 2024-09-19 17:51:07 97.8 fL F 80.0-100.0 Ferritin [Mass/volume] in Serum or Plasma 2024-09-19 17:28:18 235 ng/mL F 22.0-322.0 HCT CALC HGBX3 2024-09-17 13:07:56 32.7 % F 42.0-52.0 Hemoglobin [Mass/volume] in Blood 2024-09-17 13:07:12 10.9 g/dL F 14.0-18.0 Reticulocytes/100 erythrocytes in Blood by Automated count 2024-09-12 14:27:12 2.56 % F 0.7-2.5 ABSOLUTE RETIC COUNT 2024-09-12 14:27:12 0.088 x 10^6 cells/uL F 0.035-0.127 HCT CALC HGBX3 2024-09-09 21:03:43 28.8 % F 42.0-52.0 Hemoglobin [Mass/volume] in Blood 2024-09-09 20:57:15 9.6 g/dL F 14.0-18.0 IRON SATURATION 2024-09-04 01:13:59 F Recollect - Labeling Error,Recollect - Labeling Error,Unable to Calculate. TIBC 2024-09-04 01:13:59 F Recollect - Labeling Error,Recollect - Labeling Error,Unable to Calculate. Iron binding capacity.unsaturated [Mass/volume] in Serum or Plasma 2024-09-04 01:13:10 F Recollect - Labeling Error,Recollect - Labeling Error,received lav for sst 19 Iron [Mass/volume] in Serum or Plasma 2024-09-04 01:13:10 F Recollect - Labeling Error,Recollect - Labeling Error,received lav for sst 19 HCT CALC HGBX3 2024-09-04 00:52:10 34.5 % F 42.0-52.0 Erythrocyte distribution width [Ratio] by Automated count 2024-09-04 00:45:12 13.9 % F 11.0-15.0 Hemoglobin [Mass/volume] in Blood 2024-09-04 00:45:12 11.5 g/dL F 14.0-18.0 Platelets [#/volume] in Blood by Automated count 2024-09-04 00:45:12 246 x 10^3 cells/uL F 140.0-450.0 MCH [Entitic mass] by Automated count 2024-09-04 00:45:12 30.4 pg F 25.9-34.2 MCHC [Mass/volume] by Automated count 2024-09-04 00:45:12 31.4 g/dL F 29.6-35.3 Erythrocytes [#/volume] in Blood by Automated count 2024-09-04 00:45:12 3.77 x 10^6 cells/uL F 4.6-6.2 Hematocrit [Volume Fraction] of Blood by Automated count 2024-09-04 00:45:12 36.5 % F 41.0-53.0 MCV [Entitic volume] by Automated count 2024-09-04 00:45:12 96.8 fL F 80.0-100.0 Ferritin [Mass/volume] in Serum or Plasma 2024-09-02 22:13:17 F CANCELED - TEST CANCELED,CANCELE D - TEST CANCELED FluidBP Description Draw Date Result/Unit Status Ref Range Result Comments Sodium [Moles/volume] in Serum or Plasma 2024-10-17 23:29:39 137 mEq/L F 136.0-145.0 Sodium [Moles/volume] in Serum or Plasma 2024-09-19 19:36:35 137 mEq/L F 132.0-146.0 Sodium [Moles/volume] in Serum or Plasma 2024-09-04 01:13:10 F received lav for sst 19,Recollect - Labeling Error,Recollect - Labeling Error General Description Draw Date Result/Unit Status Ref Range Result Comments Chloride [Moles/volume] in Serum or Plasma 2024-10-17 23:29:39 97 mEq/L F 98.0-107.0 Aspartate aminotransferase [Enzymatic activity/volume] in Serum or Plasma 2024-10-17 14:53:08 18 U/L F 0.0-33.0 Alanine aminotransferase [Enzymatic activity/volume] in Serum or Plasma 2024-10-17 14:53:08 7 U/L F 10.0-49.0 Chloride [Moles/volume] in Serum or Plasma 2024-09-19 19:36:35 100 mEq/L F 99.0-109.0 Aspartate aminotransferase [Enzymatic activity/volume] in Serum or Plasma 2024-09-19 16:29:19 15 U/L F 0.0-33.0 Alanine aminotransferase [Enzymatic activity/volume] in Serum or Plasma 2024-09-19 16:29:19 9 U/L F 10.0-49.0 Alanine aminotransferase [Enzymatic activity/volume] in Serum or Plasma 2024-09-04 01:13:10 F Recollect - Labeling Error,Recollect - Labeling Error,received lav for sst 19 Aspartate aminotransferase [Enzymatic activity/volume] in Serum or Plasma 2024-09-04 01:13:10 F received lav for sst 19,Recollect - Labeling Error,Recollect - Labeling Error Chloride [Moles/volume] in Serum or Plasma 2024-09-04 01:13:09 F Recollect - Labeling Error,Recollect - Labeling Error,received lav for sst 19 InfectionVaccination Description Draw Date Result/Unit Status Ref Range Result Comments Basophils/100 leukocytes in Blood by Automated count 2024-10-17 17:08:10 0.9 % F Lymphocytes/100 leukocytes in Blood by Automated count 2024-10-17 17:08:10 21 % F Eosinophils/100 leukocytes in Blood by Automated count 2024-10-17 17:08:10 5.6 % F Basophils [#/volume] in Blood by Automated count 2024-10-17 17:08:10 82 Cells/uL F 0.0-400.0 Neutrophils/100 leukocytes in Blood by Automated count 2024-10-17 17:08:08 66.3 % F Monocytes/100 leukocytes in Blood by Automated count 2024-10-17 17:08:08 6.2 % F Monocytes [#/volume] in Blood by Automated count 2024-10-17 17:08:08 567 Cells/uL F 0.0-1100.0 Eosinophils [#/volume] in Blood by Automated count 2024-10-17 17:08:08 512 Cells/uL F 0.0-700.0 Neutrophils [#/volume] in Blood by Automated count 2024-10-17 17:08:08 6060 Cells/uL F 2000.0-8800.0 Leukocytes [#/volume] in Blood by Automated count 2024-10-17 17:08:08 9.1 x 10^3 cells/uL F 4.0-11.0 Lymphocytes [#/volume] in Blood by Automated count 2024-10-17 17:08:08 1919 Cells/uL F 620.0-3660.0 Monocytes/100 leukocytes in Blood by Automated count 2024-09-19 17:51:07 8.6 % F Eosinophils/100 leukocytes in Blood by Automated count 2024-09-19 17:51:07 5.2 % F Lymphocytes/100 leukocytes in Blood by Automated count 2024-09-19 17:51:07 19.6 % F Neutrophils/100 leukocytes in Blood by Automated count 2024-09-19 17:51:07 66.6 % F Basophils/100 leukocytes in Blood by Automated count 2024-09-19 17:51:07 0.1 % F Monocytes [#/volume] in Blood by Automated count 2024-09-19 17:51:07 816 Cells/uL F 0.0-1100.0 Basophils [#/volume] in Blood by Automated count 2024-09-19 17:51:07 9 Cells/uL F 0.0-400.0 Eosinophils [#/volume] in Blood by Automated count 2024-09-19 17:51:07 493 Cells/uL F 0.0-700.0 Neutrophils [#/volume] in Blood by Automated count 2024-09-19 17:51:07 6320 Cells/uL F 2000.0-8800.0 Leukocytes [#/volume] in Blood by Automated count 2024-09-19 17:51:07 9.5 x 10^3 cells/uL F 4.0-11.0 Lymphocytes [#/volume] in Blood by Automated count 2024-09-19 17:51:07 1860 Cells/uL F 620.0-3660.0 Neutrophils/100 leukocytes in Blood by Automated count 2024-09-04 00:45:12 70 % F Eosinophils/100 leukocytes in Blood by Automated count 2024-09-04 00:45:12 2.2 % F Monocytes/100 leukocytes in Blood by Automated count 2024-09-04 00:45:12 7.1 % F Lymphocytes/100 leukocytes in Blood by Automated count 2024-09-04 00:45:12 20.5 % F Basophils/100 leukocytes in Blood by Automated count 2024-09-04 00:45:12 0.2 % F Monocytes [#/volume] in Blood by Automated count 2024-09-04 00:45:12 756 Cells/uL F 0.0-1100.0 Basophils [#/volume] in Blood by Automated count 2024-09-04 00:45:12 21 Cells/uL F 0.0-400.0 Eosinophils [#/volume] in Blood by Automated count 2024-09-04 00:45:12 234 Cells/uL F 0.0-700.0 Neutrophils [#/volume] in Blood by Automated count 2024-09-04 00:45:12 7455 Cells/uL F 2000.0-8800.0 Leukocytes [#/volume] in Blood by Automated count 2024-09-04 00:45:12 10.6 x 10^3 cells/uL F 4.0-11.0 Lymphocytes [#/volume] in Blood by Automated count 2024-09-04 00:45:12 2183 Cells/uL F 620.0-3660.0 MineralBone Disorder Description Draw Date Result/Unit Status Ref Range Result Comments CA CORRECTED 2024-11-06 03:39:14 8.6 mg/dL F CA*PO4 CORRCTD 2024-11-06 03:37:11 74 Calc F 21.0-53.0 CA/PHOS PRODUCT 2024-11-06 03:37:11 74 Calc F 21.0-53.0 Calcium [Mass/volume] in Serum or Plasma 2024-11-06 03:20:46 8.6 mg/dL F 8.7-10.4 Parathyrin.intact [Mass/volume] in Serum or Plasma 2024-11-05 19:53:19 547 pg/mL F 18.0-80.0 Phosphate [Mass/volume] in Serum or Plasma 2024-11-05 19:34:19 8.6 mg/dL F 2.4-5.1 Alkaline phosphatase [Enzymatic activity/volume] in Serum or Plasma 2024-10-17 14:53:08 72 U/L F 46.0-116.0 CA CORRECTED 2024-10-03 07:29:16 8.5 mg/dL F CA*PO4 CORRCTD 2024-10-03 07:27:30 67.8 Calc F 21.0-53.0 CA/PHOS PRODUCT 2024-10-03 07:27:30 67.2 Calc F 21.0-53.0 Calcium [Mass/volume] in Serum or Plasma 2024-10-03 07:07:30 8.4 mg/dL F 8.7-10.4 Phosphate [Mass/volume] in Serum or Plasma 2024-10-02 13:13:15 8 mg/dL F 2.4-5.1 Parathyrin.intact [Mass/volume] in Serum or Plasma 2024-10-02 13:10:23 684 pg/mL F 18.0-80.0 CA CORRECTED 2024-09-19 19:41:53 8.2 mg/dL F CA/PHOS PRODUCT 2024-09-19 19:40:44 39.7 Calc F 21.0-53.0 CA*PO4 CORRCTD 2024-09-19 19:40:44 40.1 Calc F 21.0-53.0 Calcium [Mass/volume] in Serum or Plasma 2024-09-19 19:36:35 8.1 mg/dL F 8.7-10.4 Parathyrin.intact [Mass/volume] in Serum or Plasma 2024-09-19 17:28:18 786 pg/mL F 18.0-80.0 Phosphate [Mass/volume] in Serum or Plasma 2024-09-19 16:29:19 4.9 mg/dL F 2.4-5.1 Alkaline phosphatase [Enzymatic activity/volume] in Serum or Plasma 2024-09-19 16:29:19 72 U/L F 46.0-116.0 25-Hydroxyvitamin D3+25-Hydroxyvitamin D2 [Mass/volume] in Serum or Plasma 2024-09-04 04:17:26 47.6 ng/mL F CA*PO4 CORRCTD 2024-09-04 01:13:59 F Recollect - Labe ling Error,Unable to Calculate due to no valid Albumin History resultUnable to Calculate.,Recollect - Labeling Error CA/PHOS PRODUCT 2024-09-04 01:13:59 F Recollect - Labe ling Error,Recollect - Labeling Error,Unable to Calculate. Phosphate [Mass/volume] in Serum or Plasma 2024-09-04 01:13:10 F received lav for sst 19,Recollect - Labeling Error,Recollect - Labeling Error Alkaline phosphatase [Enzymatic activity/volume] in Serum or Plasma 2024-09-04 01:13:09 F Recollect - Labe ling Error,received lav for sst 19,Recollect - Labeling Error Calcium [Mass/volume] in Serum or Plasma 2024-09-04 01:13:09 F received lav for sst 19,Recollect - Labeling Error,Recollect - Labeling Error Parathyrin.intact [Mass/volume] in Serum or Plasma 2024-09-02 22:13:17 F CANCELED - TEST CANCELED,CANCELED - TEST CANCELED CA CORRECTED F Nutrition Description Draw Date Result/Unit Status Ref Range Result Comments Potassium [Moles/volume] in Serum or Plasma 2024-10-17 23:29:39 5.4 mEq/L F 3.5-5.1 GLOBULIN 2024-10-17 14:53:56 2.1 g/dL F 0.9-5.0 A/G RATIO 2024-10-17 14:53:56 2 Calc F 1.0-2.5 Lactate dehydrogenase [Enzymatic activity/volume] in Serum or Plasma 2024-10-17 14:53:08 174 U/L F 120.0-246.0 Bicarbonate [Moles/volume] in Serum or Plasma 2024-10-17 14:53:08 25 mEq/L F 20.0-31.0 Albumin [Mass/volume] in Serum or Plasma by Bromocresol green (BCG) dye binding method 2024-10-17 14:53:08 4.3 g/dL F 3.2-4.8 Protein [Mass/volume] in Serum or Plasma 2024-10-17 14:53:08 6.4 g/dL F 5.7-8.2 Glucose [Mass/volume] in Serum or Plasma 2024-10-17 14:53:08 91 mg/dL F 74.0-106.0 Potassium [Moles/volume] in Serum or Plasma 2024-09-19 19:36:35 4.1 mEq/L F 3.5-5.5 GLOBULIN 2024-09-19 16:30:18 1.9 g/dL F 0.9-5.0 A/G RATIO 2024-09-19 16:30:18 2.1 Calc F 1.0-2.5 Bicarbonate [Moles/volume] in Serum or Plasma 2024-09-19 16:29:19 27 mEq/L F 20.0-31.0 Protein [Mass/volume] in Serum or Plasma 2024-09-19 16:29:19 5.8 g/dL F 5.7-8.2 Lactate dehydrogenase [Enzymatic activity/volume] in Serum or Plasma 2024-09-19 16:29:18 175 U/L F 120.0-246.0 Albumin [Mass/volume] in Serum or Plasma by Bromocresol green (BCG) dye binding method 2024-09-19 16:29:18 3.9 g/dL F 3.4-4.8 Glucose [Mass/volume] in Serum or Plasma 2024-09-19 16:29:18 93 mg/dL F 70.0-99.0 A/G RATIO 2024-09-04 01:13:59 F Recollect - Labeling Error,Recollect - Labeling Error,Unable to Calculate. GLOBULIN 2024-09-04 01:13:59 F Recollect - Labeling Error,Unable to Calculate.,Recolle ct - Labeling Error Potassium [Moles/volume] in Serum or Plasma 2024-09-04 01:13:10 F Recollect - Labeling Error,Recollect - Labeling Error,received lav for sst 19 Lactate dehydrogenase [Enzymatic activity/volume] in Serum or Plasma 2024-09-04 01:13:10 F received lav for sst 19,Recollect - Labeling Error,Recollect - Labeling Error Protein [Mass/volume] in Serum or Plasma 2024-09-04 01:13:10 F received lav for sst 19,Recollect - Labeling Error,Recollect - Labeling Error Albumin [Mass/volume] in Serum or Plasma by Bromocresol green (BCG) dye binding method 2024-09-04 01:13:09 F Recollect - Labeling Error,Recollect - Labeling Error,received lav for sst 19 Bicarbonate [Moles/volume] in Serum or Plasma 2024-09-04 01:13:09 F Recollect - Labeling Error,received lav for sst 19,Recollect - Labeling Error Glucose [Mass/volume] in Serum or Plasma 2024-09-04 01:13:09 F received lav for sst 19,Recollect - Labeling Error,Recollect - Labeling Error Encounters No encounter information to report Immunizations Ordered Immunization Name Filled Immunization Name Date Status Comments Refusal Reason TST-PPD intradermal 2024-10-21 11:17:36 TST-PPD intradermal 2024-06-03 20:20:22 TST-PPD intradermal 2024-05-18 18:00:00 Influenza Vaccination 2024-01-28 05:00:00 Covid-19 Vaccination 2023-01-08 05:00:00 pneumococcal polysaccharide PPV23 2018 06:00:00 Plan of Treatment Planned Activity Provider Planned Date Details Commen ts Diagnostic Test Pending [facility] 2024-04-21 07:26:19 Parathyrin.intact [Mass/volume] in Serum or Plasma [code = 2731-8] Diagnostic Test Pending [facility] 2024-05-30 07:25:34 Ferritin [Mass/volume] in Serum or Plasma [code = 2276-4] Diagnostic Test Pending [facility] 2024-09-05 06:16:12 Hemoglobin [Mass/volume] in Blood [code = 718-7] Diagnostic Test Pending [facility] 2024-04-21 07:26:27 Alanine aminotransferase [Enzymatic activity/volume] in Serum or Plasma [code = 1742-6] Diagnostic Test Pending [facility] 2024-04-20 20:46:25 25-Hydroxyvitamin D3+25-Hydroxyvitamin D2 [Mass/volume] in Serum or Plasma [code = 59372-8] Diagnostic Test Pending [facility] 2024-04-20 20:46:19 Sodium [Moles/volume] in Serum or Plasma [code = 2951-2] Diagnostic Test Pending [facility] 2024-04-20 20:45:04 Glucose [Mass/volume] in Serum or Plasma [code = 2345-7] Diagnostic Test Pending [facility] 2024-04-20 20:44:58 Creatinine [Mass/volume] in Serum or Plasma [code = 2160-0] Diagnostic Test Pending [facility] 2024-04-20 20:44:53 Aluminum [Mass/volume] in Serum or Plasma [code = 5574-9] Diagnostic Test Pending [facility] 2024-04-20 20:43:03 Albumin [Mass/volume] in Serum or Plasma by Bromocresol green (BCG) dye binding method [code = 07336-0] Diagnostic Test Pending [facility] 2024-10-06 17:47:31 In-Center Hemodialysis Treatment [code = YAM616] Diet Order [facility] April 30, 2024 Diet Calorie 25 kcal/kg Fluid Value 1000 mL/d Phosphorus Value 750 mg/d Potassium Value 2000 mg/d Protein Value 1.2 gm/kg Sodium Value 2000 mg/d Calculated Weight 62 kg
--- OUTSIDE RECORDS SUMMARY | 2024-11-12 01:20 | XMS_ITS | Encounter Summary ---
Author Organization [facility] Address [address] [place] [address] Care Team Providers Care [employer] Mechanic Name Role Phone Unknown, Provider Primary Care Provider Unavaila ble Reason for Referral * Laboratory Services (Routine) - Open Specialty Diagnoses / Procedures Referred By Dilshad cao Referred To Contact Diagnoses Pre-transplant evaluation for kidney transplant Procedures OXALATE BLOOD Scott Bryant MD [address] [employer] [facility] [place] [address] Phone: tel: fax: Referral ID Status Reason Start Date Expiration Date Visits Re quested Visits Authorized [id number] Open 11/10/2024 11/10/2025 1 1 Reason for Visit * Laboratory Services (Routine) - Open Specialty Diagnoses / Procedures Referred By Dilshad cao Referred To Contact Diagnoses Pre-transplant evaluation for kidney transplant Procedures OXALATE BLOOD Scott Bryant MD [address] [employer] [facility] [place] [address] Phone: tel: fax: Referral ID Status Reason Start Date Expiration Date Visits Re quested Visits Authorized [id number] Open 11/10/2024 11/10/2025 1 1 Encounter Details Date Type Department Care Team (Latest Contact Info) Description 11/10/2024 3:16 PM CDT - 11/10/2024 11:59 PM CDT Hospital Encounter [facility] [address] [place] [id number] Discharge Disposition: Home or Self Care Social History Tobacco Use Types Packs/Day Years Used Date Smoking Tobacco: Never Smokeless Tobacco: Never Alcohol Use Standard Drinks/Week Comments Yes 0 (1 standard drink = 0.6 oz pur e alcohol) occ Sex and Gender Information Value Date Recorded Sex Assigned at Not on file Legal Sex Male 6:28 AM [employer]ICE [employer] Gender Identity Not on file Sexual Orientation Not on file documented as of this encounter Medications at Time of Discharge acetaminophen-cod eine (Tylenol #3) 300-30 MG tablet 07/02/2024 amLODIPine (Norvasc) 10 MG tablet Take 1 (one) tablet by mouth every morning 04/30/2024 atorvastatin (Lipitor) 80 MG tablet Take 1 (one) tablet by mouth 04/30/2024 carvedilol (Coreg) 12.5 MG tablet Take 2 (two) tablets by mouth every 12 hours 04/20/2024 clopidogrel (plaVIX) 75 MG tablet Take 1 (one) tablet by mouth once daily 04/30/2024 losartan (Cozaar) 25 MG tablet Take 1 (one) tablet by mouth once daily 05/07/2024 ondansetron, disintegrating, (Zofran ODT) 4 MG tablet DISSOLVE 1 TABLET IN MOUTH EVERY 6 HOURS NEEDED 05/22/2024 sodium bicarbonate 650 MG tablet Take 1 (one) tablet by mouth 2 times daily 09/24/2023 documented as of this encounter Plan of Treatment Pending Results Name Type Priority Associated Diagnoses Date /Time OXALATE BLOOD Lab Routine Pre-transplant evaluation for kidney transplant 11/10/2024 3:40 PM CDT DRUG ABUSE URINE PANEL 9A RFLX TO CONFIRM Lab Routine Pre-transplant evaluation for kidney transplant ESRD (end stage renal disease) (HCC) Hypertension, unspecified type Coronary artery disease involving tribal heart, unspecified vessel or lesion type, unspecified whether angina present Hyperlipidemia, unspecified hyperlipidemia type Osteoarthritis, unspecified osteoarthritis type, unspecified site Gastroesophageal reflux disease, unspecified whether esophagitis present History of kidney stones 11/10/2024 3:41 PM CDT Scheduled Orders Name Type Priority Associated Diagnoses Orde r Schedule OXALATE BLOOD Lab Routine Pre-transplant evaluation for kidney transplant 1 Occurrences starting 11/10/2024 until 11/10/2024 DRUG ABUSE URINE PANEL 9A RFLX TO CONFIRM Lab Routine Pre-transplant evaluation for kidney transplant ESRD (end stage renal disease) (HCC) Hypertension, unspecified type Coronary artery disease involving tribal heart, unspecified vessel or lesion type, unspecified whether angina present Hyperlipidemia, unspecified hyperlipidemia type Osteoarthritis, unspecified osteoarthritis type, unspecified site Gastroesophageal reflux disease, unspecified whether esophagitis present History of kidney stones 1 Occurrences starting 11/10/2024 until 11/10/2024 documented as of this encounter Procedures Procedure Name Priority Date/Time Associated Diagnosis Comments URINALYSIS REFLEX MICROSCOPIC REFLEX CULTURE Routine 11/10/2024 3:41 PM CDT Pre-transplant evaluation for kidney transplant ESRD (end stage renal disease) (HCC) History of kidney stones PROTEIN URINE RANDOM QUANTITATIVE Routine 11/10/2024 3:41 PM CDT Pre-transplant evaluation for kidney transplant ESRD (end stage renal disease) (HCC) Hypertension, unspecified type Coronary artery disease involving tribal heart, unspecified vessel or lesion type, unspecified whether angina present Hyperlipidemia, unspecified hyperlipidemia type Osteoarthritis, unspecified osteoarthritis type, unspecified site Gastroesophageal reflux disease, unspecified whether esophagitis present History of kidney stones CREATININE URINE RANDOM Routine 11/10/2024 3:41 PM CDT Pre-transplant evaluation for kidney transplant ESRD (end stage renal disease) (HCC) Hypertension, unspecified type Coronary artery disease involving tribal heart, unspecified vessel or lesion type, unspecified whether angina present Hyperlipidemia, unspecified hyperlipidemia type Osteoarthritis, unspecified osteoarthritis type, unspecified site Gastroesophageal reflux disease, unspecified whether esophagitis present History of kidney stones HEPATITIS B SURFACE ANTIBODY QUANT Routine 11/10/2024 3:40 PM CDT Pre-transplant evaluation for kidney transplant documented in this encounter Results * (ABNORMAL) URINALYSIS REFLEX MICROSCOPIC REFLEX CULTURE (11/10/2024 3:41 PM CDT) Color UA Yellow Yellow, Straw 11/10/2024 5:00 PM CDT [facility] Clarity UA Clear Clear 11/10/2024 5:00 PM [facility] Glucose UA Trace(A) Normal 11/10/2024 5:00 PM [facility] Bilirubin UA Negative Negative 11/10/2024 5:00 PM [facility] Ketone UA Negative Negative 11/10/2024 5:00 PM [facility] Specific [place] UA 1.007 1.005 - 1.030 11/10/2024 5:00 PM [facility] Blood UA 1+(A) Negative 11/10/2024 5:00 PM [facility] pH UA 7.5 5.0 - 8.0 11/10/2024 5:00 PM [facility] Protein UA 1+(A) Negative 11/10/2024 5:00 PM [facility] Urobilinogen UA Normal Normal mg/dL 11/10/2024 5:00 PM [facility] Nitrite UA Negative Negative 11/10/2024 5:00 PM [facility] Leukocyte Esterase UA Negative Negative 11/10/2024 5:00 PM [facility] RBC UA 0-2 0 - 5 # /hpf 11/10/2024 5:00 PM [facility] WBC UA 6-10(A) 0 - 5 # /hpf 11/10/2024 5:00 PM [facility] Bacteria UA Trace(A) None Seen 11/10/2024 5:00 PM [facility] Squamous Epithelial Cells None Seen 0 - 5 /hpf 11/10/2024 5:00 PM [facility] Reflex Status Culture not indicated 11/10/2024 5:00 PM [facility] Urine URINE SPECIMEN OBTAINED BY CLEAN CATCH PROCEDURE / Unknown Collection / Unknown 11/10/2024 3:41 PM CDT 11/10/2024 4:37 PM CDT Tanner Shukla MD LAB - URINALYSIS ORDERABLES Fin al Result [facility] [address] [place] [address], [place] [phone] * CREATININE URINE RANDOM (11/10/2024 3:41 PM CDT) Creatinine Urine 52.95 Not Established mg/dL 11/10/2024 5:09 PM CDT [facility] Urine URINE SPECIMEN OBTAINED BY CLEAN CATCH PROCEDURE / Unknown Collection / Unknown 11/10/2024 3:41 PM CDT 11/10/2024 4:37 PM CDT us Scott Bryant MD LAB - URINE CHEMISTRY ORDERAB LES Final Result Performing Organization Address City/[facility]/ZIP Co de Phone Number [address] [address], [facility] [phone] * PROTEIN URINE RANDOM QUANTITATIVE (11/10/2024 3:41 PM CDT) Protein Urine 109 Not Established mg/dL 11/10/2024 5:09 PM CDT [facility] Urine URINE SPECIMEN OBTAINED BY CLEAN CATCH PROCEDURE / Unknown Collection / Unknown 11/10/2024 3:41 PM CDT 11/10/2024 4:37 PM CDT us Scott Bryant MD LAB - URINE CHEMISTRY ORDERAB LES Final Result Performing Organization Address [facility] Co de Phone Number [address] [address], [place] [phone] * HEPATITIS B SURFACE ANTIBODY QUANT (11/10/2024 3:40 PM CDT) Hepatitis B Virus Surface Antibody Non-react aleida Non-react aleida 11/10/2024 5:14 PM CDT [facility] Comment: < 8 mIU/mL Hepatitis B surface Antibody (HBsAb). Nonreactive for HBsAb - individual is considered not immune to Hepatitis B Virus infection. Hepatitis B Surface Antibody Quantitative <3.0 <8.0 mIU/mL 11/10/2024 5:14 PM CDT [facility] Comment: Hepatitis B Surface Antibody Numeric Result Interpretation: Nonreactive: <8.0 mIU/mL Indeterminate: 8.0 - 12.0 mIU/mL Reactive: >12.0 mIU/mL Blood BLOOD SPECIMEN / Unknown Lab Venipuncture / Unknown 11/10/2024 3:40 PM CDT 11/10/2024 3:46 PM CDT Narrative [facility] - 11/10/2024 5:14 PM CDT This assay should not be used for blood, plasma, or tissue donor screening. This assay is not recommended for neonates born to HBV-infected or suspected HBV-infected mothers. Scott Bryant MD LAB - SEROLOGY ORDERABLES Fin al Result [facility] [address] [place] [address], [facility] [phone] documented in this encounter Visit Diagnoses Diagnosis Pre-transplant evaluation for kidney transplant ESRD (end stage renal disease) (HCC) End stage renal disease Hypertension, unspecified type Coronary artery disease involving tribal heart, unspecified vessel or lesion type, unspecified whether angina present Hyperlipidemia, unspecified hyperlipidemia type Osteoarthritis, unspecified osteoarthritis type, unspecified site Gastroesophageal reflux disease, unspecified whether esophagitis present History of kidney stones Personal history of urinary calculi documented in this encounter Care Teams [employer] Mechanic Relationship Specialty Start Date End Date Unknown, Provider PCP - General 08/11/24 documented as of this encounter
--- OUTSIDE RECORDS SUMMARY | 2024-11-12 01:20 | XMS_ITS | Clinical Summary ---
Author Organization [facility] [email or web address] Address [address] [place] [address] Care Team Providers Care Track Walker Name Role Phone Unknown, Provider Primary Care Provider Unavaila ble Source Comments [facility] [email or web address],non-owned Affiliates and Associated Physician Practices is amultiple site organization consisting of ambulatory clinics and hospital sitesin [place], [place], [place] and [place]. This disclosure is being madepursuant to the Care Everywhere program and may not contain all information available regarding this patient. Last updated 18.[facility] [email or web address] Allergies No known active allergies Medications * Be aware that medications may not be up to date on this document. Alwaysverify current medications with the patient. acetaminophen-co deine (Tylenol #3) 300-30 MG tablet 5 Active amLODIPine (Norvasc) 10 MG tablet Take 1 (one) tablet by mouth every morning 5 Active atorvastatin (Lipitor) 80 MG tablet Take 1 (one) tablet by mouth 5 Active carvedilol (Coreg) 12.5 MG tablet Take 2 (two) tablets by mouth every 12 hours 4 Active clopidogrel (plaVIX) 75 MG tablet Take 1 (one) tablet by mouth once daily 5 Active losartan (Cozaar) 25 MG tablet Take 1 (one) tablet by mouth once daily 5 Active ondansetron, disintegrating, (Zofran ODT) 4 MG tablet DISSOLVE 1 TABLET IN MOUTH EVERY 6 HOURS NEEDED 5 Active sodium bicarbonate 650 MG tablet Take 1 (one) tablet by mouth 2 times daily 4 Active Active Problems Problem Noted Date Diagnosed Date Pre-transplant evaluation for kidney transplant 07/06/2024 Overview (11/10/2024): Images from the original note were not included. Esther Altman 1955 Referring Certified Alcohol And Drug Counselor: Maricruz Hawthorne Listing Date: Dialysis Info: Type: HD Time: 81 days Blood Type: A+ There is no height or weight on file to calculate BMI. ALERTS Consulting Technical Manager: Does not have DM ESRD r/t HTN Past Medical History: Diagnosis Date Arthropathy Coronary artery disease 2021 Esophageal reflux ESRD on hemodialysis Hypercholesteremia Hypertension 2005 Kidney stones [place] Myocardial infarction 2021 Neuropathy Past Surgical History: Procedure Laterality Date Arthroplasty Left CARDIAC STERNAL PRECAUTION CARPAL TUNNEL SURGERY Left HAND OR FINGER(S) TENDON REPAIR Left Tonsillectomy Social History Socioeconomic History Marital status: Spouse name: Not on file Number of children: Not on file Years of education: Not on file Highest education level: Not on file Occupational History Not on file Tobacco Use Smoking status: Never Smokeless tobacco: Never Vaping Use Vaping status: Never Used Substance and Sexual Activity Alcohol use: Yes Comment: occ Drug use: Yes Types: Marijuana Sexual activity: Not on file Other Topics Concern Not on file Social History Narrative Not on file Social Drivers of Health Financial Resource Strain: Not on file Food Insecurity: Not on file Transportation Needs: Not on file Stress: Not on file Housing Stability: Not on file Transplant Surgery Clinic Appt w/: Date: 11/10/2024 A/P: Nephrology Clinic Appt w/: Date: 11/10/2024 A/P: Other Consults: Pertinent Previous Committee Presentations: Labs: 10/21/2024 PTH:659 A1c: 4.6 Glucose:103 GFR:8 PSA:1.9 Serologies:see below CMV Igg:negative EBV Igg:positive Varicella:immune MMR:+++ Toxo:<3.0 Strongyloides:0 Albumin:4.2 Tox Screen:see below PRA: Class 1 Class 2 = 0,0 Latest Reference Range & Units 10/01/24 13:14 Total Cholesterol (NMR) <200 mg/dL 188 Triglycerides <150 mg/dL 78 HDL >40 mg/dL 66 LDL Calculated <100 mg/dL 106 (H) (H): Data is abnormally high Latest Reference Range & Units 10/01/24 13:14 HIV Antigen/Antibody 1 & 2 Non-reactive Non-reactive Hepatitis A Virus Antibody Total Negative Positive ! HBc Antibody Total Non-reactive Non-reactive Hepatitis B Virus Surface Antigen Non-reactive Non-reactive Hepatitis C Antibody Non-reactive Non-reactive !: Data is abnormal *Hep B surface ab pending Kidney Biopsy: Renasight: EK10/01/2024 NORMAL SINUS RHYTHM NORMAL ECG WHEN COMPARED WITH ECG OF 08-AUG-2004 12:10, T WAVE INVERSION NO LONGER EVIDENT IN INFERIOR LEADS Confirmed by DAVID GUPTA MD ([id number]) on 10/03/2024 6:54:55 PM Echo: 10/01/2024 Summary * The left ventricle is normal in size, with normal systolic function and an estimated ejection fraction of 65 % by biplane method of disks. Left ventricular wall motion is normal. * The left ventricular diastolic function is normal. * Right ventricle is normal in size with normal systolic function. Left Ventricle The left ventricle is normal in size. Left ventricular systolic function is normal with an estimated ejection fraction of 65 % by biplane method of disks. The left ventricular mass is normal. Left ventricular segmental wall motion is normal. The left ventricular diastolic function is normal. Right Ventricle The right ventricle is normal in size. Right ventricular systolic function is normal. Left Atrium The left atrium is normal in size with a left atrial volume index of 25 ml/m2 by BP MOD. Right Atrium The right atrium is normal in size. Atrial Septum Intact interatrial septum visualized by 2D and color Doppler imaging. Aortic Valve The aortic valve is mildly calcified and not well visualized. There is no aortic valve stenosis. There is no aortic valve regurgitation. Pulmonic Valve The pulmonic valve is normal. There is no pulmonic regurgitation. Mitral Valve The mitral valve is thickened ; mild calcification of the posterior leaflet and restricted motion. There is no mitral valve stenosis. There is no mitral valve regurgitation. Tricuspid Valve The tricuspid valve is normal. There is no tricuspid valve regurgitation. Unable to assess pulmonary pressures due to a lack of tricuspid and pulmonic regurgitation. Inferior Vena Cava The inferior vena cava is normal in size (< 2.1 cm). There is < 50% collapse of the IVC upon inspiration with an estimated right atrial pressure of 3 mmHg. Pericardium/Pleural There is no pericardial effusion. Aorta The aortic root at the sinus of Valsalva is normal in size. The ascending aorta is normal in size. LHC: 10/24/2021 CXR: 10/01/2024 FINDINGS: Right IJ central venous catheter terminates in the right atrium. Normal cardiomediastinal silhouette. Atherosclerotic aorta. No focal consolidation, pleural effusion, or pneumothorax. There are a few chronic appearing bilateral rib abnormalities and T12 compression deformity. IMPRESSION: No acute cardiopulmonary abnormalities. CT abd/pelvis non-contrast: 10/01/2024 Findings: Evaluation of visceral and vascular structures is degraded due to lack of intravenous contrast administration. Lower Chest: Scattered coronary atherosclerotic calcifications are present. A calcified granuloma is present within the anterior right lung base. The lower chest otherwise appears normal. Liver: Within the limitations of a noncontrast examination, the liver is unremarkable. Gallbladder and Bile Ducts: The gallbladder appears normal. The common bile duct is dilated beyond what is expected for patient's age measuring 1 cm in diameter without wall thickening (series 3, image 36; series 4, image 36). There is no intrahepatic biliary ductal dilation. The pancreatic duct appears normal. No obstructing stone is identified. Spleen: Multiple calcified granulomas are noted in the spleen, likely sequelae of prior granulomatous disease. Pancreas: Normal. Adrenals: Normal. Kidneys: The bilateral kidneys are atrophic. Multiple renal cysts are present. A large 1.2 cm stone is noted in the inferior pole the right kidney. Bladder: The bladder is decompressed without substantial wall thickening. No stones or wall mass identified. Gastrointestinal: The stomach and visualized loops of small bowel are unremarkable. Colonic diverticulosis without evidence of diverticulitis is seen. Normal appendix. Mesentery/Peritoneum/Retroperitoneum: Normal. Reproductive Organs: The prostate is enlarged measuring up to 5 cm in the transverse dimension. Vasculature: Extensive atherosclerotic calcification of the aorta and its branch vessels. The common iliac arteries are tortuous with scattered atherosclerotic plaques. The right external iliac artery is tortuous without significant atherosclerotic calcifications. The left external iliac artery is also tortuous without significant atherosclerotic calcifications. Bilateral common femoral arteries exhibit atherosclerotic calcifications, nearly circumferential on the left. Bones: Bone windows demonstrate no suspicious lytic or blastic lesions. The visible osseous structures are intact. Severe degenerative changes are seen in the spine. Soft tissues: Normal. Impression: 1.Bilateral renal atrophy consistent with patient's known renal disease. 2.Tortuous bilateral external iliac arteries without significant atherosclerotic calcifications. 3.Common bile duct dilatation measuring up to 1 cm without intrahepatic or pancreatic ductal dilation or wall thickening. If clinical concern persists, consider MRI/MRCP for further evaluation. 4.Prostatomegaly. 5.Scattered coronary atherosclerotic calcifications. MRI/MRCP: 11/08/2024 Findings: Lower Chest: Lung bases are clear. No pleural effusion seen. Biliary system: Gallbladder: Normal. Intrahepatic bile ducts: Mild central intrahepatic biliary dilation noted. Extrahepatic bile ducts: Mild to moderate extrahepatic bile ductal dilation is noted.Common bile duct measures: 10 mm. Focal smooth narrowing noted at the distal end of the common bile duct concerning for stricture (image 9 series 7). Ductal stones or obstructing lesions: None. Pancreas: Pancreas is normal morphology and signal intensity. No focal lesions seen. Pancreatic duct: Focal dilation of the pancreatic duct is noted in the head of pancreas measures up to 8 mm (image 10 series 7). No obstructing lesions is seen. The pancreatic duct in the body and tail of the pancreas are unremarkable. Liver: Liver morphology: Normal morphology, smooth outline and normal signal intensity. Steatosis: None. Iron: There is minimal signal drop in in-phase images compared to out of phase image suggestive of minimal hepatic iron deposit. Portal vein and Hepatic veins: Patent. Varices: None. Spleen: Normal. Signal drop in in-phase image suggestive of iron deposition. Retroperitoneum Adrenals: Unremarkable. Kidneys: Atrophic kidneys. A few small cysts are noted in the parenchyma. No solid renal lesions is seen and no hydronephrosis. Lymph nodes: No significantly enlarged retroperitoneal or mesenteric lymph node enlargement. Blood vessels: Aorta and inferior vena cava are unremarkable. No significant plaque burden is noted in the aorta and visualized iliac arteries and branches. Gastrointestinal: Stomach and visualized small bowel loops and colon are unremarkable. Other findings: None. Impression: 1.Biliary system: Focal narrowing noted at the distal common bile duct associated with the mild proximal ductal dilation including central intrahepatic ducts, likely focal biliary stricture. No stones or obstructing lesions are seen in the duct. 2.Focal dilation of the pancreatic duct also noted at the head of pancreas. Pancreas is otherwise unremarkable. 3.Liver: Signal drop is noted in the in phase images compared to out of phase in the liver and spleen suggesting mild iron overload. Liver is otherwise unremarkable. 4.Others: Atrophic kidneys and a few small cysts are noted bilaterally. LE arterial doppler: 10/01/2024 PPD/Quant Gold: Latest Reference Range & Units 10/01/24 13:14 QuantiFERON-TB Gold Plus Negative Negative Colonoscopy: Panorex/Dental: 10/01/2024 IMPRESSION: Multiple dental restorations. There are multiple dental caries including tooth #21 and 22. Heavenly periapical lucency. SW: 10/01/2024 Clinical Social Work Impression: It is the impression of this vp digital marketing social media and crm that Esther Altman has several positive factors for Kidney from a psychosocial perspective. Patient appears to have appropriate knowledge of illness. Patient has sufficient insurance coverage and stable financial situation for post transplant needs. No concerns regarding substance abuse, legal issues, or mental health needs. Patient has adequate support system and appropriate discharge plan. Pt Joy has dementia/schizophrenia and has called multiple providers of pt to disrupt his care. Pt has moved out for his safety and is staying with friends until appropriate care can be provided for his . Current address: [address] [place] [address] Plan: cooler worker to provide supportive services as needed. Patient appears to be a reasonable candidate for transplant from a psychosocial perspective. -Post transplant arrangement forms are needed prior to being listed. Psychiatric Consult Recommended: No Transplant Turfgrass Technician: Patricia Fuentes LMSW Abdominal Transplant Turfgrass Technician [phone] C INSTRUCTOR forms: Transplant Caregiver Confirmation Note Caregiver Confirmation Date Primary Name of Primary: Koffi Felecia Relationship: Friend - Confirmed during initial assessment Secondary Name of Secondary: Areli Ibis Relationship: friend - Confirmed via telephone on 10/05/24 Post Transplant Arrangement Forms scanned into media on this date. Patricia Fuentes LMSW Abdominal Transplant Turfgrass Technician [phone] RD:10/01/2024 BMI: 24, Normal weight. Pt is considered to be a good candidate for a Kidney Transplant from a Nutrition standpoint. Of note though, awaiting labs. Items Still Pending: Colonoscopy Dental clearance Encounters Date Type Department Care Team Description 11/10/2024 3:16 PM CDT - 11/10/2024 11:59 PM CDT Hospital Encounter [facility] LAB OP DRAW STATION [address] [place] [address] Discharge Disposition: Home or Self Care 11/10/2024 3:00 PM CDT Office Visit [facility] TXP TAY CSM [address] [place] [address] Pat Godinez MD 11/10/2024 2:00 PM CDT Office Visit [facility] - Nephrology [address] [place] [address] Tanner Shukla MD Pre-transplant evaluation for kidney transplant (Primary Dx) 11/10/2024 Orders Only [facility] TRANSPLANT [address] [place] [phone] Patricia Garsia, RN Pre-transplant evaluation for kidney transplant ; ESRD (end stage renal disease) (HCC); History of kidney stones; Hypertension, unspecified type; Coronary artery disease involving seminole heart, unspecified vessel or lesion type, unspecified whether angina present; Hyperlipidemia, unspecified hyperlipidemia type; Osteoarthritis, unspecified osteoarthritis type, unspecified site; Gastroesophageal reflux disease, unspecified whether esophagitis present; Common bile duct dilatation 11/10/2024 Telephone [facility] TRANSPLANT [address] [place] [address] Patricia Garsia, RN Kidney Transplant Evaluation 11/10/2024 Orders Only [facility] TRANSPLANT [address] [place] [address] Patricia Garsia, RN Pre-transplant evaluation for kidney transplant ; ESRD (end stage renal disease) (HCC); History of kidney stones 11/10/2024 Travel 11/10/2024 Orders Only [facility] TRANSPLANT [address] [place] [address] Patricia Garsia, RN Pre-transplant evaluation for kidney transplant 11/08/2024 12:06 PM CDT - 11/08/2024 11:59 PM CDT Hospital Encounter [facility] MRI [address] [place] [address] Scott Bryant MD Discharge Disposition: Home or Self Care 11/08/2024 Travel 10/23/2024 Telephone [facility] TRANSPLANT [address] [place] [address] Doron Dawna Kidney Transplant Evaluation 10/19/2024 Telephone [facility] TRANSPLANT [address] [place] [address] Patricia Garsia, RN Kidney Transplant Evaluation 10/15/2024 Telephone [facility] TRANSPLANT [address] [place] [address] Patricia Garsia, RN Kidney Transplant Evaluation 10/01/2024 12:00 PM CDT - 10/01/2024 11:59 PM CDT Hospital Encounter [facility] EKG/HOLTER [address] [place] [address] Scott Bryant MD Discharge Disposition: Home or Self Care 10/01/2024 11:55 AM CDT - 10/01/2024 11:59 AM CDT Hospital Encounter [facility] DIAGNOSTIC RAD OP [address] [place] [address] Scott Bryant MD Discharge Disposition: Home or Self Care 10/01/2024 11:30 AM CDT - 10/01/2024 11:54 AM CDT Hospital Encounter [facility] LAB OP DRAW STATION [address] [place] [address] Scott Bryant MD Discharge Disposition: Home or Self Care 10/01/2024 10:04 AM CDT - 10/01/2024 11:29 AM CDT Hospital Encounter [facility] CAT SCAN [address] [place] [address] Scott Bryant MD Discharge Disposition: Home or Self Care 10/01/2024 9:44 AM CDT - 10/01/2024 10:03 AM CDT Hospital Encounter [facility] VASCULAR US [address] [place] [address] Scott Bryant MD Discharge Disposition: Home or Self Care 10/01/2024 9:00 AM CDT - 10/01/2024 9:43 AM CDT Hospital Encounter H ECHO [address] [place] [address] Scott Bryant MD Discharge Disposition: Home or Self Care 09/30/2024 Telephone [facility] TRANSPLANT [address] [place] [address] Herminia Reich CPC Kidney Transplant Evaluation 08/19/2024 Telephone [facility] TRANSPLANT [address] [place] [address] Herminia Reich CPC Kidney Transplant Evaluation 08/13/2024 2:30 PM CDT - 08/13/2024 11:59 PM CDT Hospital Encounter [facility] VASCULAR US [address] [place] [address] Mattie Lara MD Discharge Disposition: Home or Self Care from Last 3 Months Family History Medical History Relation Name Comments CAD (Coronary Artery Disease) Father Cancer Father liver Cancer Mother liver CAD (Coronary Artery Disease) Sister Relation Name Status Comments Father Mother Sister Social History Tobacco Use Types Packs/Day Years Used Date Smoking Tobacco: Never Smokeless Tobacco: Never Tobacco Cessation:Counseling Given: Not Answered Alcohol Use Standard Drinks/Week Comments Yes 0 (1 standard drink = 0.6 oz pur e alcohol) occ Sex and Gender Information Value Date Recorded Sex Assigned at Not on file 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 Gender Identity Not on file Sexual Orientation Not on file Last Filed Vital Signs Vital Sign Reading Time Taken Comments Blood Pressure 184/105 11/10/2024 2:21 PM CDT Pulse 76 11/10/2024 1:42 PM CDT Temperature - - Respiratory Rate - - Oxygen Saturation 100% 11/10/2024 1:42 PM CDT Inhaled Oxygen Concentration - - Weight 63.5 kg (140 lb) 11/10/2024 1:42 PM CDT Height 162.6 cm (5' 4) 10/01/2024 1:00 PM CDT Body Mass Index 24.03 10/01/2024 1:00 PM CDT Plan of Treatment Health Maintenance Due Date Last Done Comments COLOGUARD (AGES 45-75) - COL ON CA SCREENING 1955 COLON MONITORING 1955 COLONOSCOPY - COLON CA SCREENING 1953 CT COLONOGRAPHY - COLON CA SCREENING 1955 Colorectal Cancer Screening 1955 FIT - COLON CA SCREENING 1955 FLEX SIG - COLON CA SCREENING 1955 MEDICARE AWV 12 MONTHS 1955 DTAP/TDAP/TD VACCINES (1 - Tdap) 1972 PNEUMOCOCCAL VACCINE 50+ (1 of 1 - PCV) 2003 ZOSTER VACCINE (1 of 2) 2003 Respiratory Syncytial Virus (RSV) Vaccine Pt: or over 60 yrs (1 - Risk 60-74 years 1-dose series) 2013 COVID-19 VACCINE (1 - 2023-2 5 season) 2023 DEPRESSION SCREENING 04/29/2024 INFLUENZA VACCINE (#1) 2024 HEPATITIS C SCREENING Completed 10/01/2024 HEPATITIS B VACCINE Aged Out No longe r eligible based on patient's age to complete this topic HIB VACCINE Aged Out No longer eligi ble based on patient's age to complete this topic HPV VACCINE Aged Out No longer eligi ble based on patient's age to complete this topic MENINGOCOCCAL (Group B) VACC INE SHARED DECISION-MAKING Aged Out No longer eligibl e based on patient's age to complete this topic MENINGOCOCCAL GROUPS A/C/Y/W VACCINE Aged Out No longer eligible b ased on patient's age to complete this topic Procedures Procedure Name Priority Date/Time Associated Diagnosis Comments URINALYSIS REFLEX MICROSCOPIC REFLEX CULTURE Routine 11/10/2024 3:41 PM CDT Pre-transplant evaluation for kidney transplant ESRD (end stage renal disease) (HCC) History of kidney stones CREATININE URINE RANDOM Routine 11/10/2024 3:41 PM CDT Pre-transplant evaluation for kidney transplant ESRD (end stage renal disease) (HCC) Hypertension, unspecified type Coronary artery disease involving seminole heart, unspecified vessel or lesion type, unspecified whether angina present Hyperlipidemia, unspecified hyperlipidemia type Osteoarthritis, unspecified osteoarthritis type, unspecified site Gastroesophageal reflux disease, unspecified whether esophagitis present History of kidney stones PROTEIN URINE RANDOM QUANTITATIVE Routine 11/10/2024 3:41 PM CDT Pre-transplant evaluation for kidney transplant ESRD (end stage renal disease) (HCC) Hypertension, unspecified type Coronary artery disease involving seminole heart, unspecified vessel or lesion type, unspecified whether angina present Hyperlipidemia, unspecified hyperlipidemia type Osteoarthritis, unspecified osteoarthritis type, unspecified site Gastroesophageal reflux disease, unspecified whether esophagitis present History of kidney stones HEPATITIS B SURFACE ANTIBODY QUANT Routine 11/10/2024 3:40 PM CDT Pre-transplant evaluation for kidney transplant MRI ABDOMEN W MRCP WWO CONT W3D Routine 11/08/2024 1:37 PM CDT Pre-transplant evaluation for kidney transplant ESRD (end stage renal disease) (HCC) Hypertension, unspecified type Coronary artery disease involving seminole heart, unspecified vessel or lesion type, unspecified whether angina present Hyperlipidemia, unspecified hyperlipidemia type Osteoarthritis, unspecified osteoarthritis type, unspecified site Gastroesophageal reflux disease, unspecified whether esophagitis present History of kidney stones Common bile duct dilatation BLOOD TYPE ABO+ RH PANEL Routine 10/01/2024 1:22 PM CDT Pre-transplant evaluation for kidney transplant ESRD (end stage renal disease) (HCC) Hypertension, unspecified type Coronary artery disease involving seminole heart, unspecified vessel or lesion type, unspecified whether angina present Hyperlipidemia, unspecified hyperlipidemia type Osteoarthritis, unspecified osteoarthritis type, unspecified site Gastroesophageal reflux disease, unspecified whether esophagitis present History of kidney stones HLA ANTIBODY SCREEN LUM CLASS 2 SAB Routine 10/01/2024 1:14 PM CDT Pre-transplant evaluation for kidney transplant ESRD (end stage renal disease) (HCC) Hypertension, unspecified type Coronary artery disease involving seminole heart, unspecified vessel or lesion type, unspecified whether angina present Hyperlipidemia, unspecified hyperlipidemia type Osteoarthritis, unspecified osteoarthritis type, unspecified site Gastroesophageal reflux disease, unspecified whether esophagitis present History of kidney stones HLA ANTIBODY SCREEN LUM CLASS 1 SAB Routine 10/01/2024 1:14 PM CDT Pre-transplant evaluation for kidney transplant ESRD (end stage renal disease) (HCC) Hypertension, unspecified type Coronary artery disease involving seminole heart, unspecified vessel or lesion type, unspecified whether angina present Hyperlipidemia, unspecified hyperlipidemia type Osteoarthritis, unspecified osteoarthritis type, unspecified site Gastroesophageal reflux disease, unspecified whether esophagitis present History of kidney stones HLA TYPING DNA LOW RESOLUTION DR,DQ Routine 10/01/2024 1:14 PM CDT Pre-transplant evaluation for kidney transplant ESRD (end stage renal disease) ([facility]) Hypertension, unspecified type Coronary artery disease involving seminole heart, unspecified vessel or lesion type, unspecified whether angina present Hyperlipidemia, unspecified hyperlipidemia type Osteoarthritis, unspecified osteoarthritis type, unspecified site Gastroesophageal reflux disease, unspecified whether esophagitis present History of kidney stones HLA TYPING DNA LOW RESOLUTION A,B,C Routine 10/01/2024 1:14 PM CDT Pre-transplant evaluation for kidney transplant ESRD (end stage renal disease) ([facility] [facility] Hypertension, unspecified type Coronary artery disease involving seminole heart, unspecified vessel or lesion type, unspecified whether angina present Hyperlipidemia, unspecified hyperlipidemia type Osteoarthritis, unspecified osteoarthritis type, unspecified site Gastroesophageal reflux disease, unspecified whether esophagitis present History of kidney stones TYPE + SCREEN PANEL Routine 10/01/2024 1 :14 PM CDT Pre-transplant evaluation for kidney transplant ESRD (end stage renal disease) ([facility]) Hypertension, unspecified type Coronary artery disease involving seminole heart, unspecified vessel or lesion type, unspecified whether angina present Hyperlipidemia, unspecified hyperlipidemia type Osteoarthritis, unspecified osteoarthritis type, unspecified site Gastroesophageal reflux disease, unspecified whether esophagitis present History of kidney stones STRONGYLOIDES ANTIBODY IGG Routine 10/01/2024 1:14 PM CDT Pre-transplant evaluation for kidney transplant ESRD (end stage renal disease) ([facility]) Hypertension, unspecified type Coronary artery disease involving seminole heart, unspecified vessel or lesion type, unspecified whether angina present Hyperlipidemia, unspecified hyperlipidemia type Osteoarthritis, unspecified osteoarthritis type, unspecified site Gastroesophageal reflux disease, unspecified whether esophagitis present History of kidney stones TOXOPLASMA GONDII ANTIBODY IGG Routine 10/01/2024 1:14 PM CDT Pre-transplant evaluation for kidney transplant ESRD (end stage renal disease) ([facility]) Hypertension, unspecified type Coronary artery disease involving seminole heart, unspecified vessel or lesion type, unspecified whether angina present Hyperlipidemia, unspecified hyperlipidemia type Osteoarthritis, unspecified osteoarthritis type, unspecified site Gastroesophageal reflux disease, unspecified whether esophagitis present History of kidney stones HIV-1 HIV-2 ANTIBODY + HIV P24 AG PANEL Routine 10/01/2024 1:14 PM CDT Pre-transplant evaluation for kidney transplant ESRD (end stage renal disease) ([facility]) Hypertension, unspecified type Coronary artery disease involving seminole heart, unspecified vessel or lesion type, unspecified whether angina present Hyperlipidemia, unspecified hyperlipidemia type Osteoarthritis, unspecified osteoarthritis type, unspecified site Gastroesophageal reflux disease, unspecified whether esophagitis present History of kidney stones PROSTATE SPECIFIC ANTIGEN SCREEN Routine 10/01/2024 1:14 PM CDT Pre-transplant evaluation for kidney transplant ESRD (end stage renal disease) ([facility]) Hypertension, unspecified type Coronary artery disease involving seminole heart, unspecified vessel or lesion type, unspecified whether angina present Hyperlipidemia, unspecified hyperlipidemia type Osteoarthritis, unspecified osteoarthritis type, unspecified site Gastroesophageal reflux disease, unspecified whether esophagitis present History of kidney stones QUANTIFERON-TB GOLD PLUS 4-TUBE Routine 10/01/2024 1:14 PM CDT Pre-transplant evaluation for kidney transplant ESRD (end stage renal disease) ([facility]) Hypertension, unspecified type Coronary artery disease involving seminole heart, unspecified vessel or lesion type, unspecified whether angina present Hyperlipidemia, unspecified hyperlipidemia type Osteoarthritis, unspecified osteoarthritis type, unspecified site Gastroesophageal reflux disease, unspecified whether esophagitis present History of kidney stones VARICELLA ZOSTER ANTIBODY IGG Routine 10/01/2024 1:14 PM CDT Pre-transplant evaluation for kidney transplant ESRD (end stage renal disease) ([facility]) Hypertension, unspecified type Coronary artery disease involving seminole heart, unspecified vessel or lesion type, unspecified whether angina present Hyperlipidemia, unspecified hyperlipidemia type Osteoarthritis, unspecified osteoarthritis type, unspecified site Gastroesophageal reflux disease, unspecified whether esophagitis present History of kidney stones RUBELLA ANTIBODY IGG TITER Routine 10/01/2024 1:14 PM CDT Pre-transplant evaluation for kidney transplant ESRD (end stage renal disease) ([facility]) Hypertension, unspecified type Coronary artery disease involving seminole heart, unspecified vessel or lesion type, unspecified whether angina present Hyperlipidemia, unspecified hyperlipidemia type Osteoarthritis, unspecified osteoarthritis type, unspecified site Gastroesophageal reflux disease, unspecified whether esophagitis present History of kidney stones MUMPS ANTIBODY IGG Routine 10/01/2024 1: 14 PM CDT Pre-transplant evaluation for kidney transplant ESRD (end stage renal disease) ([facility]) Hypertension, unspecified type Coronary artery disease involving seminole heart, unspecified vessel or lesion type, unspecified whether angina present Hyperlipidemia, unspecified hyperlipidemia type Osteoarthritis, unspecified osteoarthritis type, unspecified site Gastroesophageal reflux disease, unspecified whether esophagitis present History of kidney stones RUBEOLA ANTIBODY IGG Routine 10/01/2024 1:14 PM CDT Pre-transplant evaluation for kidney transplant ESRD (end stage renal disease) ([facility]) Hypertension, unspecified type Coronary artery disease involving seminole heart, unspecified vessel or lesion type, unspecified whether angina present Hyperlipidemia, unspecified hyperlipidemia type Osteoarthritis, unspecified osteoarthritis type, unspecified site Gastroesophageal reflux disease, unspecified whether esophagitis present History of kidney stones NICOTINE + METABOLITES BLOOD Routine 10/01/2024 1:14 PM CDT Pre-transplant evaluation for kidney transplant ESRD (end stage renal disease) ([facility]) Hypertension, unspecified type Coronary artery disease involving seminole heart, unspecified vessel or lesion type, unspecified whether angina present Hyperlipidemia, unspecified hyperlipidemia type Osteoarthritis, unspecified osteoarthritis type, unspecified site Gastroesophageal reflux disease, unspecified whether esophagitis present History of kidney stones ALCOHOL ETHYL BLOOD Routine 10/01/2024 1 :14 PM CDT Pre-transplant evaluation for kidney transplant ESRD (end stage renal disease) ([facility]) Hypertension, unspecified type Coronary artery disease involving seminole heart, unspecified vessel or lesion type, unspecified whether angina present Hyperlipidemia, unspecified hyperlipidemia type Osteoarthritis, unspecified osteoarthritis type, unspecified site Gastroesophageal reflux disease, unspecified whether esophagitis present History of kidney stones SYPHILIS ANTIBODY CASCADING REFLEX Routine 10/01/2024 1:14 PM CDT Pre-transplant evaluation for kidney transplant ESRD (end stage renal disease) ([facility]) Hypertension, unspecified type Coronary artery disease involving seminole heart, unspecified vessel or lesion type, unspecified whether angina present Hyperlipidemia, unspecified hyperlipidemia type Osteoarthritis, unspecified osteoarthritis type, unspecified site Gastroesophageal reflux disease, unspecified whether esophagitis present History of kidney stones HEMOGLOBIN A1C Routine 10/01/2024 1:14 PM CDT Pre-transplant evaluation for kidney transplant ESRD (end stage renal disease) ([facility]) Hypertension, unspecified type Coronary artery disease involving seminole heart, unspecified vessel or lesion type, unspecified whether angina present Hyperlipidemia, unspecified hyperlipidemia type Osteoarthritis, unspecified osteoarthritis type, unspecified site Gastroesophageal reflux disease, unspecified whether esophagitis present History of kidney stones VALENTÍN-BRAMBILA VIRUS ANTIBODY TO VCA IGG Routine 10/01/2024 1:14 PM CDT Pre-transplant evaluation for kidney transplant ESRD (end stage renal disease) ([facility]) Hypertension, unspecified type Coronary artery disease involving seminole heart, unspecified vessel or lesion type, unspecified whether angina present Hyperlipidemia, unspecified hyperlipidemia type Osteoarthritis, unspecified osteoarthritis type, unspecified site Gastroesophageal reflux disease, unspecified whether esophagitis present History of kidney stones CYTOMEGALOVIRUS ANTIBODY IGG BLOOD Routine 10/01/2024 1:14 PM CDT Pre-transplant evaluation for kidney transplant ESRD (end stage renal disease) (H[facility]) Hypertension, unspecified type Coronary artery disease involving seminole heart, unspecified vessel or lesion type, unspecified whether angina present Hyperlipidemia, unspecified hyperlipidemia type Osteoarthritis, unspecified osteoarthritis type, unspecified site Gastroesophageal reflux disease, unspecified whether esophagitis present History of kidney stones HEPATITIS A ANTIBODY Routine 10/01/2024 1:14 PM CDT Pre-transplant evaluation for kidney transplant ESRD (end stage renal disease) (HCC) Hypertension, unspecified type Coronary artery disease involving seminole heart, unspecified vessel or lesion type, unspecified whether angina present Hyperlipidemia, unspecified hyperlipidemia type Osteoarthritis, unspecified osteoarthritis type, unspecified site Gastroesophageal reflux disease, unspecified whether esophagitis present History of kidney stones HEPATITIS C ANTIBODY Routine 10/01/2024 1:14 PM CDT Pre-transplant evaluation for kidney transplant ESRD (end stage renal disease) (HCC) Hypertension, unspecified type Coronary artery disease involving seminole heart, unspecified vessel or lesion type, unspecified whether angina present Hyperlipidemia, unspecified hyperlipidemia type Osteoarthritis, unspecified osteoarthritis type, unspecified site Gastroesophageal reflux disease, unspecified whether esophagitis present History of kidney stones HEPATITIS B CORE ANTIBODY TOTAL Routine 10/01/2024 1:14 PM CDT Pre-transplant evaluation for kidney transplant ESRD (end stage renal disease) (HCC) Hypertension, unspecified type Coronary artery disease involving seminole heart, unspecified vessel or lesion type, unspecified whether angina present Hyperlipidemia, unspecified hyperlipidemia type Osteoarthritis, unspecified osteoarthritis type, unspecified site Gastroesophageal reflux disease, unspecified whether esophagitis present History of kidney stones HEPATITIS B SURFACE ANTIGEN W RFLX CONFIRMATION Routine 10/01/2024 1:14 PM CDT Pre-transplant evaluation for kidney transplant ESRD (end stage renal disease) (HCC) Hypertension, unspecified type Coronary artery disease involving seminole heart, unspecified vessel or lesion type, unspecified whether angina present Hyperlipidemia, unspecified hyperlipidemia type Osteoarthritis, unspecified osteoarthritis type, unspecified site Gastroesophageal reflux disease, unspecified whether esophagitis present History of kidney stones LIPID PROFILE Routine 10/01/2024 1:14 PM CDT Pre-transplant evaluation for kidney transplant ESRD (end stage renal disease) (HCC) Hypertension, unspecified type Coronary artery disease involving seminole heart, unspecified vessel or lesion type, unspecified whether angina present Hyperlipidemia, unspecified hyperlipidemia type Osteoarthritis, unspecified osteoarthritis type, unspecified site Gastroesophageal reflux disease, unspecified whether esophagitis present History of kidney stones PTH INTACT W/O CALCIUM Routine 1:14 PM CDT Pre-transplant evaluation for kidney transplant ESRD (end stage renal disease) (HCC) Hypertension, unspecified type Coronary artery disease involving seminole heart, unspecified vessel or lesion type, unspecified whether angina present Hyperlipidemia, unspecified hyperlipidemia type Osteoarthritis, unspecified osteoarthritis type, unspecified site Gastroesophageal reflux disease, unspecified whether esophagitis present History of kidney stones PHOSPHORUS BLOOD Routine 10/01/2024 1:14 PM CDT Pre-transplant evaluation for kidney transplant ESRD (end stage renal disease) (HCC) Hypertension, unspecified type Coronary artery disease involving seminole heart, unspecified vessel or lesion type, unspecified whether angina present Hyperlipidemia, unspecified hyperlipidemia type Osteoarthritis, unspecified osteoarthritis type, unspecified site Gastroesophageal reflux disease, unspecified whether esophagitis present History of kidney stones IRON BLOOD Routine 10/01/2024 1:14 PM CDT Pre-transplant evaluation for kidney transplant ESRD (end stage renal disease) (HCC) Hypertension, unspecified type Coronary artery disease involving seminole heart, unspecified vessel or lesion type, unspecified whether angina present Hyperlipidemia, unspecified hyperlipidemia type Osteoarthritis, unspecified osteoarthritis type, unspecified site Gastroesophageal reflux disease, unspecified whether esophagitis present History of kidney stones FERRITIN Routine 10/01/2024 1:14 PM CDT Pre-transplant evaluation for kidney transplant ESRD (end stage renal disease) (HCC) Hypertension, unspecified type Coronary artery disease involving seminole heart, unspecified vessel or lesion type, unspecified whether angina present Hyperlipidemia, unspecified hyperlipidemia type Osteoarthritis, unspecified osteoarthritis type, unspecified site Gastroesophageal reflux disease, unspecified whether esophagitis present History of kidney stones TRANSFERRIN Routine 10/01/2024 1:14 PM CDT Pre-transplant evaluation for kidney transplant ESRD (end stage renal disease) (HCC) Hypertension, unspecified type Coronary artery disease involving seminole heart, unspecified vessel or lesion type, unspecified whether angina present Hyperlipidemia, unspecified hyperlipidemia type Osteoarthritis, unspecified osteoarthritis type, unspecified site Gastroesophageal reflux disease, unspecified whether esophagitis present History of kidney stones VITAMIN D 25-HYDROXY Routine 10/01/2024 1:14 PM CDT Pre-transplant evaluation for kidney transplant ESRD (end stage renal disease) (HCC) Hypertension, unspecified type Coronary artery disease involving seminole heart, unspecified vessel or lesion type, unspecified whether angina present Hyperlipidemia, unspecified hyperlipidemia type Osteoarthritis, unspecified osteoarthritis type, unspecified site Gastroesophageal reflux disease, unspecified whether esophagitis present History of kidney stones URIC ACID BLOOD Routine 10/01/2024 1:14 PM CDT Pre-transplant evaluation for kidney transplant ESRD (end stage renal disease) (HCC) Hypertension, unspecified type Coronary artery disease involving seminole heart, unspecified vessel or lesion type, unspecified whether angina present Hyperlipidemia, unspecified hyperlipidemia type Osteoarthritis, unspecified osteoarthritis type, unspecified site Gastroesophageal reflux disease, unspecified whether esophagitis present History of kidney stones COMPREHENSIVE METABOLIC PANEL Routine 10/01/2024 1:14 PM CDT Pre-transplant evaluation for kidney transplant ESRD (end stage renal disease) (HCC) Hypertension, unspecified type Coronary artery disease involving seminole heart, unspecified vessel or lesion type, unspecified whether angina present Hyperlipidemia, unspecified hyperlipidemia type Osteoarthritis, unspecified osteoarthritis type, unspecified site Gastroesophageal reflux disease, unspecified whether esophagitis present History of kidney stones CBC W AUTO DIFFERENTIAL Routine 10/01/2024 1:14 PM CDT Pre-transplant evaluation for kidney transplant ESRD (end stage renal disease) (HCC) Hypertension, unspecified type Coronary artery disease involving seminole heart, unspecified vessel or lesion type, unspecified whether angina present Hyperlipidemia, unspecified hyperlipidemia type Osteoarthritis, unspecified osteoarthritis type, unspecified site Gastroesophageal reflux disease, unspecified whether esophagitis present History of kidney stones XR PANOREX Routine 10/01/2024 1:00 PM CDT Pre-transplant evaluation for kidney transplant ESRD (end stage renal disease) (HCC) Hypertension, unspecified type Coronary artery disease involving seminole heart, unspecified vessel or lesion type, unspecified whether angina present Hyperlipidemia, unspecified hyperlipidemia type Osteoarthritis, unspecified osteoarthritis type, unspecified site Gastroesophageal reflux disease, unspecified whether esophagitis present History of kidney stones XR CHEST 2VW Routine 10/01/2024 1:00 PM CDT Pre-transplant evaluation for kidney transplant ESRD (end stage renal disease) (HCC) Hypertension, unspecified type Coronary artery disease involving seminole heart, unspecified vessel or lesion type, unspecified whether angina present Hyperlipidemia, unspecified hyperlipidemia type Osteoarthritis, unspecified osteoarthritis type, unspecified site Gastroesophageal reflux disease, unspecified whether esophagitis present History of kidney stones EKG 12-LEAD Routine 10/01/2024 12:25 PM CDT Pre-transplant evaluation for kidney transplant ESRD (end stage renal disease) (HCC) Hypertension, unspecified type Coronary artery disease involving seminole heart, unspecified vessel or lesion type, unspecified whether angina present Hyperlipidemia, unspecified hyperlipidemia type Osteoarthritis, unspecified osteoarthritis type, unspecified site Gastroesophageal reflux disease, unspecified whether esophagitis present History of kidney stones VAS ARTERIAL MULTILEVEL LE Routine 10/01/2024 10:43 AM CDT Pre-transplant evaluation for kidney transplant ESRD (end stage renal disease) ([facility]) Hypertension, unspecified type Coronary artery disease involving seminole heart, unspecified vessel or lesion type, unspecified whether angina present Hyperlipidemia, unspecified hyperlipidemia type Osteoarthritis, unspecified osteoarthritis type, unspecified site Gastroesophageal reflux disease, unspecified whether esophagitis present History of kidney stones CT ABDOMEN PELVIS WO CONTRAST Routine 10/01/2024 10:18 AM CDT Pre-transplant evaluation for kidney transplant ESRD (end stage renal disease) ([facility]) Hypertension, unspecified type Coronary artery disease involving seminole heart, unspecified vessel or lesion type, unspecified whether angina present Hyperlipidemia, unspecified hyperlipidemia type Osteoarthritis, unspecified osteoarthritis type, unspecified site Gastroesophageal reflux disease, unspecified whether esophagitis present History of kidney stones ECHO COMPLETE Routine 10/01/2024 9:52 AM CDT Pre-transplant evaluation for kidney transplant ESRD (end stage renal disease) ([facility]) Hypertension, unspecified type Coronary artery disease involving seminole heart, unspecified vessel or lesion type, unspecified whether angina present Hyperlipidemia, unspecified hyperlipidemia type Osteoarthritis, unspecified osteoarthritis type, unspecified site Gastroesophageal reflux disease, unspecified whether esophagitis present History of kidney stones VAS BILAT MAPPING FOR HEMODIALYSIS Routine 08/13/2024 3:20 PM CDT CKD (chronic kidney disease) stage 5, GFR less than 15 ml/min ([facility]) Pre-transplant evaluation for CKD (chronic kidney disease) from Last 3 Months Results * (ABNORMAL) URINALYSIS REFLEX MICROSCOPIC REFLEX CULTURE (11/10/2024 3:41 PM CDT) Color UA Yellow Yellow, Straw 11/10/2024 5:00 PM CDT [facility] Clarity UA Clear Clear 11/10/2024 5:00 PM T [facility] Glucose UA Trace(A) Normal 11/10/2024 5:00 PM CDT [facility] Bilirubin UA Negative Negative 11/10/2024 5:00 PM T [facility] Ketone UA Negative Negative 11/10/2024 5:00 PM T [facility] Specific [place] UA 1.007 1.005 - 1.030 11/10/2024 5:00 PM [facility] Blood UA 1+(A) Negative 11/10/2024 5:00 PM [facility] pH UA 7.5 5.0 - 8.0 11/10/2024 5:00 PM [facility] Protein UA 1+(A) Negative 11/10/2024 5:00 PM [facility] Urobilinogen UA Normal Normal mg/dL 11/10/2024 5:00 PM [facility] Nitrite UA Negative Negative 11/10/2024 5:00 PM [facility] Leukocyte Esterase UA Negative Negative 11/10/2024 5:00 PM [facility] RBC UA 0-2 0 - 5 # /hpf 11/10/2024 5:00 PM [facility] WBC UA 6-10(A) 0 - 5 # /hpf 11/10/2024 5:00 PM [facility] Bacteria UA Trace(A) None Seen 11/10/2024 5:00 PM [facility] Squamous Epithelial Cells None Seen 0 - 5 /hpf 11/10/2024 5:00 PM [facility] Reflex Status Culture not indicated 11/10/2024 5:00 PM [facility] Urine URINE SPECIMEN OBTAINED BY CLEAN CATCH PROCEDURE / Unknown Collection / Unknown 11/10/2024 3:41 PM CDT 11/10/2024 4:37 PM CDT Tanner Shukla MD LAB - URINALYSIS ORDERABLES Fin al Result [facility] [address] [place] [address], [facility] [phone] * PROTEIN URINE RANDOM QUANTITATIVE (11/10/2024 3:41 PM CDT) Protein Urine 109 Not Established mg/dL 11/10/2024 5:09 PM [facility] Urine URINE SPECIMEN OBTAINED BY CLEAN CATCH PROCEDURE / Unknown Collection / Unknown 11/10/2024 3:41 PM CDT 11/10/2024 4:37 PM CDT us Scott Bryant MD LAB - URINE CHEMISTRY ORDERAB LES Final Result Performing Organization Address City/[facility]/ZIP Co de Phone Number [address] [address], [facility] [phone] * CREATININE URINE RANDOM (11/10/2024 3:41 PM CDT) Creatinine Urine 52.95 Not Established mg/dL 11/10/2024 5:09 PM CDT [facility] Urine URINE SPECIMEN OBTAINED BY CLEAN CATCH PROCEDURE / Unknown Collection / Unknown 11/10/2024 3:41 PM CDT 11/10/2024 4:37 PM CDT us Scott Bryant MD LAB - URINE CHEMISTRY ORDERAB LES Final Result Performing Organization Address [facility] de Phone Number [address] [address], [facility] [phone] * HEPATITIS B SURFACE ANTIBODY QUANT (11/10/2024 3:40 PM CDT) Hepatitis B Virus Surface Antibody Non-react aleida Non-react aleida 11/10/2024 5:14 PM CDT [facility] Comment: < 8 mIU/mL Hepatitis B surface Antibody (HBsAb). Nonreactive for HBsAb - individual is considered not immune to Hepatitis B Virus infection. Hepatitis B Surface Antibody Quantitative <3.0 <8.0 mIU/mL 11/10/2024 5:14 PM CDT [facility] Comment: Hepatitis B Surface Antibody Numeric Result Interpretation: Nonreactive: <8.0 mIU/mL Indeterminate: 8.0 - 12.0 mIU/mL Reactive: >12.0 mIU/mL Blood BLOOD SPECIMEN / Unknown Lab Venipuncture / Unknown 11/10/2024 3:40 PM CDT 11/10/2024 3:46 PM CDT Narrative [facility] - 11/10/2024 5:14 PM CDT This assay should not be used for blood, plasma, or tissue donor screening. This assay is not recommended for neonates born to HBV-infected or suspected HBV-infected mothers. us Scott Bryant MD LAB - SEROLOGY ORDERABLES Fin al Result [facility] [address] [place] [address], [facility] [phone] * MRI Abdomen W Mrcp Wwo Cont W3D (11/08/2024 1:37 PM CDT) Anatomical Region Laterality Modality Abdomen Magnetic Resonan ce 11/08/2024 6:12 PM CDT Impressions 11/08/2024 6:30 PM CDT Impression: 1.Biliary system: Focal narrowing noted at the distal common bile duct associated with the mild proximal ductal dilation including central intrahepatic ducts, likely focal biliary stricture. No stones or obstructing lesions are seen in the duct. 2.Focal dilation of the pancreatic duct also noted at the head of pancreas. Pancreas is otherwise unremarkable. 3.Liver: Signal drop is noted in the in phase images compared to out of phase in the liver and spleen suggesting mild iron overload. Liver is otherwise unremarkable. 4.Others: Atrophic kidneys and a few small cysts are noted bilaterally. > Interpreting Provider: Domo King MD on 11/08/2024 6:30 PM Narrative 11/08/2024 6:30 PM CDT PROCEDURE: MRI ABDOMEN W MRCP WWO CONT W3D, DATE/TIME OF EXAM: 11/08/2024 1:37 PM, LOCATION [facility] [place] INDICATION: Z01.818: Pre-transplant evaluation for kidney transplant N18.6: ESRD (end stage renal disease) (HCC) I10: Hypertension, unspecified type I25.10: Coronary artery disease involving seminole heart, unspecified vessel or lesion type, unspecified whether angina present E78.5: Hyperlipidemia, unspecified hyperlipidemia type M19.90: Osteoarthritis, unspecified osteoarthritis type, unspecified site K2 ADDITIONAL CLINICAL INFORMATION: Ordering Provider Reason For Exam: further evaluate 1 cm common bile duct dilation Technologist Note: Additional: COMPARISON: None. TECHNIQUE: Noncontrast followed by multiphasic contrast-enhanced MRI examination of was performed using routine multiplanar sequences. MRCP: 3-D MRCP images were obtained and MIP reconstruction were also performed from the source images. CONTRAST: 12 mL of Dotarem was used as intravenous contrast. No procedure related complications seen. IMAGE QUALITY: Average diagnostic quality. Findings: Lower Chest: Lung bases are clear. No pleural effusion seen. Biliary system: Gallbladder: Normal. Intrahepatic bile ducts: Mild central intrahepatic biliary dilation noted. Extrahepatic bile ducts: Mild to moderate extrahepatic bile ductal dilation is noted.Common bile duct measures: 10 mm. Focal smooth narrowing noted at the distal end of the common bile duct concerning for stricture (image 9 series 7). Ductal stones or obstructing lesions: None. Pancreas: Pancreas is normal morphology and signal intensity. No focal lesions seen. Pancreatic duct: Focal dilation of the pancreatic duct is noted in the head of pancreas measures up to 8 mm (image 10 series 7). No obstructing lesions is seen. The pancreatic duct in the body and tail of the pancreas are unremarkable. Liver: Liver morphology: Normal morphology, smooth outline and normal signal intensity. Steatosis: None. Iron: There is minimal signal drop in in-phase images compared to out of phase image suggestive of minimal hepatic iron deposit. Portal vein and Hepatic veins: Patent. Varices: None. Spleen: Normal. Signal drop in in-phase image suggestive of iron deposition. Retroperitoneum Adrenals: Unremarkable. Kidneys: Atrophic kidneys. A few small cysts are noted in the parenchyma. No solid renal lesions is seen and no hydronephrosis. Lymph nodes: No significantly enlarged retroperitoneal or mesenteric lymph node enlargement. Blood vessels: Aorta and inferior vena cava are unremarkable. No significant plaque burden is noted in the aorta and visualized iliac arteries and branches. Gastrointestinal: Stomach and visualized small bowel loops and colon are unremarkable. Other findings: None. 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 TECHNIQUE: Noncontrast followed by multiphasic contrast-enhanced MRI examination of was performed using routine multiplanar sequences. MRCP: 3-D MRCP images were obtained and MIP reconstruction were also performed from the source images. CONTRAST: 12 mL of Dotarem was used as intravenous contrast. No procedure related complications seen. IMAGE QUALITY: Average diagnostic quality. Findings: Lower Chest: Lung bases are clear. No pleural effusion seen. Biliary system: Gallbladder: Normal. Intrahepatic bile ducts: Mild central intrahepatic biliary dilation noted. Extrahepatic bile ducts: Mild to moderate extrahepatic bile ductaldilation is noted.Common bile duct measures: 10 mm. Focal smooth narrowing notedat the distal end of the common bile duct concerning for stricture (image 9 series 7). Ductal stones or obstructing lesions: None. Pancreas: Pancreas is normal morphology and signal intensity. No focal lesions seen. Pancreatic duct: Focal dilation of the pancreatic duct is noted in the head of pancreas measures up to 8 mm (image 10 series 7).No obstructing lesions is seen. The pancreatic duct in the body and tail of the pancreas are unremarkable. Liver: Liver morphology: Normal morphology, smooth outline and normal signal intensity. Steatosis: None. Iron: There is minimal signal drop in in-phase images compared to out of phase image suggestive of minimal hepatic iron deposit. Portal vein and Hepatic veins: Patent. Varices: None. Spleen: Normal. Signal drop in in-phase image suggestive of iron deposition. Retroperitoneum Adrenals: Unremarkable. Kidneys: Atrophic kidneys. A few small cysts are noted in theparenchyma. No solid renal lesions is seen and no hydronephrosis. Lymph nodes: No significantly enlarged retroperitoneal or mesentericlymph node enlargement. Blood vessels: Aorta and inferior vena cava are unremarkable. No significant plaque burden is noted in the aorta and visualized iliac arteries and branches. Gastrointestinal: Stomach and visualized small bowel loops and colon are unremarkable. Other findings: None. Impression: 1.Biliary system: Focal narrowing noted at the distal common bile duct associated with the mild proximal ductal dilation including central intrahepatic ducts, likely focal biliary stricture. No stones or obstructing lesions are seen in the duct. 2.Focal dilation of the pancreatic duct also noted at the head ofpancreas. Pancreas is otherwise unremarkable. 3.Liver: Signal drop is noted in the in phase images compared to out of phase in the liver and spleen suggesting mild iron overload. Liver is otherwise unremarkable. 4.Others: Atrophic kidneys and a few small cysts are noted bilaterally. > Interpreting Provider: Domo King MD on 56:30 PM us Scott Bryant MD MR ORDERABLES Final Result * BLOOD TYPE ABO+ RH PANEL (10/01/2024 1:22 PM CDT) Pathologist [facility] ABO Rh A POS 10/01/2024 2:2 4 PM CDT [facility]OD [facility] LAB Blood BLOOD SPECIMEN / Unknown Lab Venipuncture / Unknown 10/01/2024 1:22 PM CDT 10/01/2024 1:42 PM CDT Scott Bryant MD LAB - BLOOD BANK ORDERABLES F inal Result [facility]OD [facility] LAB [address] [place] [address], [facility] [phone] * HLA TYPING DNA LOW RESOLUTION DR,DQ (10/01/2024 1:14 PM CDT) DR DQ Low Resolution DRB1-1 *03(DR17) 10/06/2024 10:40 AM CDT [facility] ([facility]) DR DQ Low Resolution DRB1-2 *04 10/06/2024 10:40 AM CDT [facility] ([facility]) DR DQ Low Resolution DQB1-1 *02 10/06/2024 10:40 AM CDT [facility] ([facility]) DR DQ Low Resolution DQB1-2 *03 (DQ7) 10/06/2024 10:40 AM CDT [facility] ([facility]) DR DQ Low Resolution DRB3-1 *01 10/06/2024 10:40 AM CDT [facility] ([facility]) DR DQ Low Resolution DRB3-2 Negative 10/06/2024 10:40 AM CDT [facility] ([facility]) DR DQ Low Resolution DRB4-1 *01 10/06/2024 10:40 AM CDT [facility] ([facility]) DR DQ Low Resolution DRB4-2 Negative 10/06/2024 10:40 AM CDT [facility] ([facility]) DR DQ Low Resolution DRB5-1 Negative 10/06/2024 10:40 AM CDT [facility] ([facility]) DR DQ Low Resolution DRB5-2 Negative 10/06/2024 10:40 AM CDT [facility] ([facility]) DR DQ Low Resolution Methodology Real Time PCR 10/06/2024 10:40 AM CDT [facility] ([facility]) DR DQ Low Resolution test date [id number] 10/06/2024 10:40 AM CDT [facility] ([facility]) Comment: Methodology - Real-Time PCR This test was developed and its performance characteristics determined by the [facility]. It has not been cleared or approved by the U.S. Food and Drug Administration. The FDA has determined that such clearance or approval is not necessary. This test is used for clinical purposes. It should not be regarded as investigational or for research. This laboratory is certified under the Clinical Laboratory Improvement Amendments of 1988 (CLIA-88) as qualified to perform high complexity clinical laboratory testing. CLIA ID# [id number] Performed at: [facility], [address] [place] [id number] [employer] Machine Tender: Antonio Guo, Ph.D., D([facility]), Blood BLOOD SPECIMEN / Unknown Lab Venipuncture / Unknown 10/01/2024 1:14 PM CDT 10/01/2024 1:31 PM CDT Scott Bryant MD LAB - BLOOD BANK ORDERABLES F inal Result [facility] ([facility]) [address] [place] [address] * HLA TYPING DNA LOW RESOLUTION A,B,C (10/01/2024 1:14 PM CDT) [facility] DNA A1 *02 10/06/2024 10:40 AM CDT [facility] ([facility]) ABC DNA A2 *11 10/06/2024 10:40 AM CDT [facility] ([facility]) ABC DNA B1 *08 10/06/2024 10:40 AM CDT [facility] ([facility]) ABC DNA B2 *44 10/06/2024 10:40 AM CDT [facility] ([facility]) ABC DNA BW1 6 10/06/2024 10:40 AM CDT [facility] ([facility]) ABC DNA BW2 4 10/06/2024 10:40 AM CDT [facility] ([facility]) ABC DNA C1 *05 10/06/2024 10:40 AM CDT [facility] ([facility]) ABC DNA C2 *07 10/06/2024 10:40 AM CDT [facility] ([facility]) ABC DNA Methodology Real Time PCR 10/06/2024 10:40 AM CDT [facility] ([facility]) ABC DNA Test Date [id number] 01/2025 10:40 AM CDT [facility] ([facility]) Comment: Methodology - Real-Time PCR This test was developed and its performance characteristics determined by the [facility]. It has not been cleared or approved by the U.S. Food and Drug Administration. The FDA has determined that such clearance or approval is not necessary. This test is used for clinical purposes. It should not be regarded as investigational or for research. This laboratory is certified under the Clinical Laboratory Improvement Amendments of 1988 (CLIA-88) as qualified to perform high complexity clinical laboratory testing. CLIA ID# [id number] Performed at: [facility], [address] [place] [phone] [employer] Machine Tender: Antonio Guo, Ph.D., D([facility]), Blood BLOOD SPECIMEN / Unknown Lab Venipuncture / Unknown 10/01/2024 1:14 PM CDT 10/01/2024 1:31 PM CDT Scott Bryant MD LAB - BLOOD BANK ORDERABLES F inal Result Performing Organization Address City/State/[facility] Co de Phone Number [facility] ([facility]) [address] [place] [address], [facility] * HLA ANTIBODY SCREEN LUM CLASS 2 SAB (10/01/2024 1:14 PM CDT) % PRA 0 10/06/2024 10:40 AM CDT [facility] ([facility]) Class 2 SAB Test Date [id number] 10/06/2024 10:40 AM CDT [facility] ([facility]) Comment: Methodology - Luminex Bead-Based Immunoassay. This test was developed and its performance characteristics determined by the [facility]. It has not been cleared or approved by the U.S. Food and Drug Administration. The FDA has determined that such clearance or approval is not necessary. This test is used for clinical purposes. It should not be regarded as investigational or for research. This laboratory is certified under the Clinical Laboratory Improvement Amendments of 1988 (CLIA-88) as qualified to perform high complexity clinical laboratory testing. CLIA ID# [id number] Performed at: [facility], [address] [place] [phone] [employer] Machine Tender: Antonio Guo, Ph.D., D([facility]), Blood BLOOD SPECIMEN / Unknown Lab Venipuncture / Unknown 10/01/2024 1:14 PM CDT 10/01/2024 1:32 PM CDT Scott Bryant MD LAB - BLOOD BANK ORDERABLES F inal Result [facility] ([facility]) [address] [place], [place] [id number] [place] [address] * HLA ANTIBODY SCREEN LUM CLASS 1 SAB (10/01/2024 1:14 PM CDT) % PRA 0 10/06/2024 10:40 AM CDT [facility] ([facility]) Class 1 SAB Test Date [id number] 10/06/2024 10:40 AM CDT [facility] ([facility]) Comment: Methodology - Luminex Bead-Based Immunoassay. This test was developed and its performance characteristics determined by the [facility]. It has not been cleared or approved by the U.S. Food and Drug Administration. The FDA has determined that such clearance or approval is not necessary. This test is used for clinical purposes. It should not be regarded as investigational or for research. This laboratory is certified under the Clinical Laboratory Improvement Amendments of 1988 (CLIA-88) as qualified to perform high complexity clinical laboratory testing. CLIA ID# [id number] Performed at: [facility], [address] [place] [phone] [employer] B[employer] Machine Tender: Antonio Guo, Ph.D., D([facility]), Blood BLOOD SPECIMEN / Unknown Lab Venipuncture / Unknown 10/01/2024 1:14 PM CDT 10/01/2024 1:32 PM CDT Scott Bryant MD LAB - BLOOD BANK ORDERABLES F inal Result Performing Organization Address [facility]/ZIP Co de Phone Number [facility] ([facility]) [address] [place] [address], [facility] * SYPHILIS ANTIBODY CASCADING REFLEX (10/01/2024 1:14 PM CDT) Pathologist [facility] Treponema pallidum Antibody Non-react aleida Non-react aleida 10/01/2024 2:28 PM CDT [facility] Comment: No Laboratory evidence of syphilis infection. Note: Circulating antibodies may be low or undetectable in early infection. If recent exposure is suspected, re-draw sample in 2-4 weeks and repeat testing. Blood BLOOD SPECIMEN / Unknown Lab Venipuncture / Unknown 10/01/2024 1:14 PM CDT 10/01/2024 1:32 PM CDT us Scott Bryant MD LAB - SEROLOGY ORDERABLES Fin al Result Performing Organization Address [facility]/ZIP Co de Phone Number [facility] [address] [place] [address], [place] [phone] * QUANTIFERON-TB GOLD PLUS 4-TUBE (10/01/2024 1:14 PM CDT) [facility] QuantiFERON Mitogen Minus NIL 9.97 IU/mL 10/03/2024 12:27 PM CDT [facility] ([facility]) QuantiFERON Nil Value 0.03 IU/mL 10/03/2024 12:27 PM CDT [facility] ([facility]) QuantiFERON Plus TB1 Minus NIL 0.07 <=0.34 IU/mL 10/03/2024 12:27 PM CDT [facility] ([facility]) QuantiFERON Plus TB2 Minus NIL 0.06 <=0.34 IU/mL 10/03/2024 12:27 PM CDT [facility] ([facility]) QuantiFERON-TB Gold Plus Negative Negative 10/03/2024 12:27 PM CDT [facility] ([facility]) Comment: INTERPRETIVE INFORMATION:Quantiferon TB Gold Plus Interferon gamma release is measured for specimens from each of the four collection tubes. A qualitative result (Negative, Positive, or Indeterminate) is based on interpretation of the four values: NIL, MITOGEN minus NIL (MITOGEN-NIL), TB1 minus NIL (TB1-NIL), and TB2 minus NIL (TB2-NIL). The NIL value represents nonspecific reactivity produced by the patient specimen. The MITOGEN-NIL value serves as the positive control for the patient specimen, demonstrating successful lymphocyte activity. The TB1-NIL tube specifically detects CD4+ lymphocyte reactivity, specifically stimulated by the TB1 antigens. The TB2-NIL tube detects both CD4+ and CD8+ lymphocyte reactivity, stimulated by TB2 antigens. An overall Negative result does not completely rule out TB infection. A false-positive result in the absence of other clinical evidence of TB infection is not uncommon. Refer to: Updated Guidelines for Using Interferon Gamma Release Assays to Detect Mycobacterium tuberculosis Infection -- [place], 2010 (http://www.cdc.gov/mmwr/preview/mmwrhtml/bl7311c0.htm), for more information concerning test performance in low-prevalence populations and use in occupational screening. Performed By: [facility] [address] [place] [address] Chief Concierge: Jose Stahl MD, PhD CLIA Number: [id number] Blood BLOOD SPECIMEN / Unknown Lab Venipuncture / Unknown 10/01/2024 1:14 PM CDT 10/01/2024 1:33 PM CDT us Scott Bryant MD LAB - CHEMISTRY ORDERABLES Fi nal Result [facility] ([facility]) [address] [place] [address], [facility] * (ABNORMAL) PTH INTACT W/O CALCIUM (10/01/2024 1:14 PM CDT) Pathologist [facility] PTH Intact 569.0(H) 8.0 - 77.0 pg/mL 10/01/2024 2:18 PM CDT [facility] Blood BLOOD SPECIMEN / Unknown Lab Venipuncture / Unknown 10/01/2024 1:14 PM CDT 10/01/2024 1:41 PM CDT us Scott Bryant MD LAB - CHEMISTRY ORDERABLES Fi nal Result Performing Organization Address [facility]/ZIP Co de Phone Number [address] [address], [place] [phone] * HIV-1 HIV-2 ANTIBODY + HIV P24 AG PANEL (10/01/2024 1:14 PM CDT) [facility] HIV Antigen/Antibod y 1 & 2 Non-reacti ve Non-react aleida 10/01/2024 2:28 PM CDT [facility] Comment:No Laboratory eviden ce of HIV infection. Blood BLOOD SPECIMEN / Unknown Lab Venipuncture / Unknown 10/01/2024 1:14 PM CDT 10/01/2024 1:32 PM CDT us Scott Bryant MD LAB - CHEMISTRY ORDERABLES nal Result Performing Organization Address City/[facility]/ZIP Co de Phone Number [address] [address], [place] [phone] * URIC ACID BLOOD (10/01/2024 1:14 PM CDT) Pathologist [facility] Uric Acid 5.1 3.5 - 7.2 mg/dL 10/01/2024 2:17 PM CDT [facility] Blood BLOOD SPECIMEN / Unknown Lab Venipuncture / Unknown 10/01/2024 1:14 PM CDT 10/01/2024 1:41 PM CDT Scott Bryant MD LAB - CHEMISTRY ORDERABLES Fi nal Result Performing Organization Address City/[facility]/ZIP Co de Phone Number [address] [address], [facility] [phone] * STRONGYLOIDES ANTIBODY IGG (10/01/2024 1:14 PM CDT) [facility] Strongyloides Antibody IgG 0.0 <=0.9 IV 10/04/2024 5:51 AM CDT [facility] ([facility]) Comment: INTERPRETIVE INFORMATION: Strongyloides Ab, IgG by LONNY 0.9 IV or less....... Negative - No significant level of Strongyloides IgG antibody detected. 1.0 IV................Equivocal - The Strongyloides IgG antibody result is borderline and therefore inconclusive. Recommend retesting the patient in 2-4 weeks, if clinically indicated. 1.1 IV or greater ... Positive - IgG antibodies to Strongyloides detected, which may suggest current or past infection. False-positive results may occur with prior exposure to other helminth infections. Testing low-prevalence populations may also result in false-positive results. Performed By: [facility] [address] [place] [address] Chief Concierge: Jose Stahl MD, PhD CLIA Number: [id number] Blood BLOOD SPECIMEN / Unknown Lab Venipuncture / Unknown 10/01/2024 1:14 PM CDT 10/01/2024 1:32 PM CDT Scott Bryant MD LAB - SEROLOGY ORDERABLES Fin al Result Performing Organization Address City/[facility]/ZIP Co de Phone Number [facility]) [address] [id number] [place] [address] * CYTOMEGALOVIRUS ANTIBODY IGG BLOOD (10/01/2024 1:14 PM CDT) Cytomegalovirus Antibody IgG <0.20 <=0.70 U/mL 10/03/2024 4:18 AM CDT [facility] ([facility]) Comment: INTERPRETIVE INFORMATION: Cytomegalovirus Antibody, IgG 0.59 U/mL or less......... Not Detected 0.6 - 0.69 U/mL........... Indeterminate-Repeat testing in 10-14 days may be helpful. 0.70 U/mL or greater...... Detected In immunocompromised patients, CMV serology (IgG or IgM antibody titers) may not be reliable and may be misleading in the diagnosis of acute or reactivation CMV disease. The preferred method for diagnosis is culture of virus and/or demonstration of viral antigen in peripheral white cells (buffy coat), bronchoalveolar lavage (BAL) cells, or tissue biopsies. This test should not be used for blood donor screening, associated re-entry protocols, or for screening Human Cell, Tissues and Cellular and Tissue-Based Products (HCT/P). The best evidence for current infection is a significant change on two appropriately timed specimens, where both tests are done in the same laboratory at the same time. Performed By: [facility] [address] [place] [address] Chief Concierge: Jose Stahl MD, PhD CLIA Number: [id number] Blood BLOOD SPECIMEN / Unknown Lab Venipuncture / Unknown 10/01/2024 1:14 PM CDT 10/01/2024 1:32 PM CDT Scott Bryant MD LAB - CHEMISTRY ORDERABLES Fi nal Result [facility] [employer] [facility]) [address] * RUBELLA ANTIBODY IGG TITER (10/01/2024 1:14 PM CDT) Rubella Antibody IgG 220.0 IU/mL 10/03/2024 3:22 AM CDT [facility] ([facility]) Comment: INTERPRETIVE INFORMATION: Rubella Antibody, IgG Less than 9 IU/mL ........ Not Detected 9 - 9.9 IU/mL ............ Indeterminate-Repeat testing in 10-14 days may be helpful. 10 IU/mL or Greater ...... Detected The best evidence for current infection is a significant change on two appropriately timed specimens, where both tests are done in the same laboratory at the same time. The magnitude of the measured result is not indicative of the amount of antibody present. Performed By: [facility] [address] [place] [address] Chief Concierge: Jose Stahl MD, PhD CLIA Number: [id number] Blood BLOOD SPECIMEN / Unknown Lab Venipuncture / Unknown 10/01/2024 1:14 PM CDT 10/01/2024 1:32 PM CDT Scott Bryant MD LAB - SEROLOGY ORDERABLES [facility] al Result [facility] [employer] [facility]) [address] [place] [address] * RUBEOLA ANTIBODY IGG (10/01/2024 1:14 PM CDT) [facility] Measles (Rubeola) Antibody IgG >300.0 AU/mL 10/03/2024 4:04 AM CDT [facility] [employer] ([facility]) Comment: INTERPRETIVE INFORMATION: Measles (Rubeola) Antibody, IgG 13.4 AU/mL or less........ Negative - No significant level of detectable measles (rubeola) IgG antibody. 13.5-16.4 AU/mL .......... Equivocal - Repeat testing in 10-14 days may be helpful. 16.5 AU/mL or greater .... Positive - IgG antibody to measles (rubeola) detected which may indicate a current or past exposure/immunization to measles (rubeola). The best evidence for current infection is a significant change on two appropriately timed specimens, where both tests are done in the same laboratory at the same time. Performed By: [facility] [address] [place] [address] Chief Concierge: Jose Stahl MD, PhD CLIA Number: [id number] Blood BLOOD SPECIMEN / Unknown Lab Venipuncture / Unknown 10/01/2024 1:14 PM CDT 10/01/2024 1:32 PM CDT Scott Bryant MD LAB - CHEMISTRY ORDERABLES Fi nal Result Performing Organization Address [facility] de Phone Number [facility]) [address] [place] [address] * MUMPS ANTIBODY IGG (10/01/2024 1:14 PM CDT) Mumps Virus Antibody IgG 213.0 AU/mL 10/03/2024 4:06 AM CDT [facility] ([facility]) Comment: INTERPRETIVE INFORMATION: Mumps Ab, IgG by NENA 8.9 AU/mL or less .... Negative - No significant level of detectable IgG mumps virus antibody 9.0-10.9 AU/mL ....... Equivocal - Repeat testing in 10-14 days may be helpful 11.0 AU/mL or greater: Positive - IgG antibody to mumps virus detected, which may indicate a current or past exposure/ immunization to mumps virus. The best evidence for current infection is a significant change on two appropriately timed specimens, where both tests are done in the same laboratory at the same time. Performed By: [facility] [address] [place] [address] Chief Concierge: Jose Stahl MD, PhD CLIA Number: [id number] Blood BLOOD SPECIMEN / Unknown Lab Venipuncture / Unknown 10/01/2024 1:14 PM CDT 10/01/2024 1:32 PM CDT us Scott Bryant MD LAB - CHEMISTRY ORDERABLES Fi nal Result Performing Organization Address [facility] de Phone Number [facility]) [address] [place] [address] * (ABNORMAL) VARICELLA ZOSTER ANTIBODY IGG (10/01/2024 1:14 PM CDT) Varicella zoster Virus Antibody IgG 6.51(H) <=0.99 S/CO 10/03/2024 4:24 AM CDT [facility]) Comment: INTERPRETIVE INFORMATION: VZV Ab, IgG <=0.99 S/CO: Negative - No significant level of detectable varicella-zoster IgG antibody. >=1.00 S/CO: Positive - IgG antibody to varicella-zoster detected, which may indicate a current or past varicella-zoster infection. The best evidence for current infection is a significant change on two appropriately timed specimens, where both tests are done in the same laboratory at the same time. Performed By: [facility] [address] [place] [address] Chief Concierge: Jose Stahl MD, PhD CLIA Number: [id number] Blood BLOOD SPECIMEN / Unknown Lab Venipuncture / Unknown 10/01/2024 1:14 PM CDT 10/01/2024 1:32 PM CDT us Scott Bryant MD LAB - CHEMISTRY ORDERABLES Fi nal Result Performing Organization Address [facility] de Phone Number [facility]) [address] [id number] * TRANSFERRIN (10/01/2024 1:14 PM CDT) [facility] Transferrin 196 174 - 382 mg/dL 10/01/2024 2:08 PM CDT [facility] Blood BLOOD SPECIMEN / Unknown Lab Venipuncture / Unknown 10/01/2024 1:14 PM CDT 10/01/2024 1:32 PM CDT Scott Bryant MD LAB - CHEMISTRY ORDERABLES Fi nal Result Performing Organization Address [facility] de Phone Number [address] [address], [facility] [phone] * TOXOPLASMA GONDII ANTIBODY IGG (10/01/2024 1:14 PM CDT) Pathologist [facility] Toxoplasma Antibody IgG <3.0 <=8.8 IU/mL 10/03/2024 4:08 AM CDT [facility]) Comment: INTERPRETIVE INFORMATION: Toxoplasma Ab, IgG 7.1 IU/mL or less....... Not Detected 7.2-8.7 IU/mL .......... Indeterminate-Repeat testing in 10-14 days may be helpful. 8.8 IU/mL or greater ... Detected The best evidence for current infection is a significant change on two appropriately timed specimens, where both tests are done in the same laboratory at the same time. This test should not be used for blood donor screening, associated re-entry protocols, or for screening Human Cell, Tissues and Cellular and Tissue-Based Products (HCT/P). The magnitude of the measured result is not indicative of the amount of antibody present. Performed By: [facility] [address] [place] [address] Chief Concierge: Jose Stahl MD, PhD CLIA Number: [id number] Blood BLOOD SPECIMEN / Unknown Lab Venipuncture / Unknown 10/01/2024 1:14 PM CDT 10/01/2024 1:32 PM CDT Scott Bryant MD LAB - CHEMISTRY ORDERABLES nal Result [facility]) [address] [place] [address] * (ABNORMAL) VALENTÍN-BRAMBILA VIRUS ANTIBODY TO VCA IGG (10/01/2024 1:14 PM CDT) [facility] Valentín-Brambila Virus Antibody IgG Viral Capsid Antigen 299.0(H) 0.0 - 21.9 U/mL 10/03/2024 4:24 AM CDT [facility] [employer] ([facility]) Comment: INTERPRETIVE INFORMATION: Valentín-Brambila Virus Antibody to Viral Capsid Antigen, IgG 17.9 U/mL or less.......Not Detected 18.0-21.9 U/mL..........Indeterminate - Repeat testing in 10-14 days may be helpful. 22.0 U/mL or greater....Detected Performed By: [facility] [address] [place] [address] Chief Concierge: Jose Stahl MD, PhD CLIA Number: [id number] Blood BLOOD SPECIMEN / Unknown Lab Venipuncture / Unknown 10/01/2024 1:14 PM CDT 10/01/2024 1:32 PM CDT us Scott Bryant MD LAB - CHEMISTRY ORDERABLES nal Result [facility] ([facility]) [address] [address] * HEMOGLOBIN A1C (10/01/2024 1:14 PM CDT) Hemoglobin A1c 4.6 <=5.6 % 10/01/2024 3:47 PM CDT [facility] Estimated Average Glucose 85 mg/dL 10/01/2024 3:47 PM CDT [facility] Comment: HbA1c Interpretation: Normal : < 5.7% Pre-diabetes: 5.7-6.4% Diabetes: Equal to or greater than 6.5% Test results diagnostic of diabetes should be repeated for confirmation. Treatment target values recommended by ADA and other clinical organizations should be used to evaluate metabolic control in patients. Reference: [place] [employer], Standards of Care in Diabetes -2020 In patients 70 years and older consider HbA1c target range of 7.0-7.5% (Reference: Dejuan Zamora, et al. JAMDA. 2012) The Sebia assay for the measurement of HbA1c is a National Glycohemoglobin Standardization Program (NGSP) certified method. Blood BLOOD SPECIMEN / Unknown Lab Venipuncture / Unknown 10/01/2024 1:14 PM CDT 10/01/2024 1:39 PM CDT us Scott Bryant MD LAB - CHEMISTRY ORDERABLES Fi nal Result [facility] [address] [place] [address], [facility] [phone] * VITAMIN D 25-HYDROXY (10/01/2024 1:14 PM CDT) Vitamin D, 25 Hydroxy 68.0 30.0 - 80.0 ng/mL 10/01/2024 2:34 PM CDT [facility] Comment: The recommendations for 25-Hydroxy Vitamin D clinical decision points are as follows: Deficient: <20.0 ng/mL Insufficient: 20.0 - 29.9 ng/mL Sufficient: 30.0 - 100.0 ng/mL Potential Toxicity: >100 ng/mL Reference: The Endocrine Society Clinical Practice Guidelines. 2011 If the 25-Hydroxy Vitamin D results are inconsitent with clinical evidence, it is recommended that follow-up testing using a method such as LC/MS/MS be performed to confirm the result. Blood BLOOD SPECIMEN / Unknown Lab Venipuncture / Unknown 10/01/2024 1:14 PM CDT 10/01/2024 1:41 PM CDT us Scott Bryant MD LAB - CHEMISTRY ORDERABLES Fi nal Result [facility] [address] [place] [address], [place] [phone] * TYPE + SCREEN PANEL (10/01/2024 1:14 PM CDT) Antibody Screen NEG 2:31 PM CDT [facility] BLOOD BANK LAB ABO Rh A POS 10/01/2024 2:31 PM CDT [facility] BLOOD B[facility] LAB Blood Bank BLOOD SPECIMEN / Unknown Lab Venipuncture / Unknown 10/01/2024 1:14 PM CDT 10/01/2024 1:42 PM CDT us Scott Bryant MD LAB - BLOOD BANK ORDERABLES F inal Result [facility] BLOOD BANK LAB [address] [place] [address], [place] [phone] * NICOTINE + METABOLITES BLOOD (10/01/2024 1:14 PM CDT) Nicotine <5 ng/mL 10/06/2024 10:42 PM CDT [facility] [employer] ([facility]) Comment: INTERPRETIVE INFORMATION: Nicotine and Metabolites, Serum or Plasma, Quantitative Methodology: Quantitative Liquid Chromatography-Tandem Mass Spectrometry Positive cutoff: 5 ng/mL For medical purposes only; not valid for forensic use. This test is designed to evaluate recent use of nicotine-containing products. Passive and active exposure cannot be discriminated definitively, although a cutoff of 10 ng/mL cotinine is frequently used for surgery qualification purposes. For smoking cessation programs or compliance testing, the absence of expected drug(s) and/or drug metabolite(s) may indicate non-compliance, inappropriate timing of specimen collection relative to drug administration, poor drug absorption, or limitations of testing. This test cannot distinguish between use of tobacco and purified nicotine products. The concentration value must be greater than or equal to the cutoff to be reported as positive. This test was developed and its performance characteristics determined by [facility]. It has not been cleared or approved by the [place] Food and Drug Administration. This test was performed in a CLIA certified laboratory and is intended for clinical purposes. Performed By: [facility] [employer] [address] [place] [address] Chief Concierge: Jose Stahl MD, PhD CLIA Number: [id number] Cotinine <5 ng/mL 10/06/2024 10:42 PM CDT [facility]) Blood BLOOD SPECIMEN / Unknown Lab Venipuncture / Unknown 10/01/2024 1:14 PM CDT 10/01/2024 1:32 PM CDT Scott Bryant MD LAB - CHEMISTRY ORDERABLES nal Result [facility]) [address] [place] [address], [facility] * (ABNORMAL) CBC W AUTO DIFFERENTIAL (10/01/2024 1:14 PM CDT) WBC 12.1(H) 4.0 - 10.7 x10E9/L 10/01/2024 1:46 PM CDT [facility] RBC Count 3.61(L) 4.30 - 5.80 x10E12/L 10/01/2024 1:46 PM CDT [facility] Hemoglobin 11.4(L) 13.3 - 17.5 g/dL 10/01/2024 1:46 PM CDT [facility] Hematocrit 34.2(L) 38.7 - 51.1 % 10/01/2024 1:46 PM CDT [facility] MCV 94.7 80.0 - 98.0 fL 10/01/2024 1:46 PM [facility] MCH 31.6 26.7 - 33.6 pg 10/01/2024 1:46 PM [facility] MCHC 33.3 31.7 - 36.3 g/dL 10/01/2024 1:46 PM [facility] RDW-CV 13.9 11.3 - 14.8 % 10/01/2024 1:46 PM [facility] Platelet Count 321 150 - 420 x10E9/L 10/01/2024 1:46 PM [facility] MPV 9.3 7.8 - 11.4 fL 10/01/2024 1:46 PM [facility] Neutrophil % 70.5 41.0 - 74.0 % 10/01/2024 1:46 PM [facility] Lymphocyte % 19.7 17.0 - 47.0 % 10/01/2024 1:46 PM [facility] Monocyte % 6.9 3.0 - 11.0 % 10/01/2024 1:46 PM [facility] Eosinophil % 2.3 0.0 - 7.0 % 10/01/2024 1:46 PM [facility] Basophil % 0.4 0.0 - 1.6 % 10/01/2024 1:46 PM [facility] Immature Granulocytes % 0.2 0.0 - 1.0 % 10/01/2024 1:46 PM [facility] Neutrophil Absolute 8.53(H) 1.60 - 7.50 x10E9/L 10/01/2024 1:46 PM [facility] Lymphocyte Absolute 2.38 1.00 - 4.40 x10E9/L 10/01/2024 1:46 PM [facility] Monocyte Absolute 0.83 0.15 - 1.00 x10E9/L 10/01/2024 1:46 PM [facility] Eosinophil Absolute 0.28 0.00 - 0.60 x10E9/L 10/01/2024 1:46 PM [facility] Basophil Absolute 0.05 0.00 - 0.13 x10E9/L 10/01/2024 1:46 PM [facility] Blood BLOOD SPECIMEN / Unknown Lab Venipuncture / Unknown 10/01/2024 1:14 PM CDT 10/01/2024 1:39 PM CDT Scott Bryant MD LAB - HEMATOLOGY ORDERABLES F inal Result [facility] [address] [place] [address], [facility] [phone] * (ABNORMAL) COMPREHENSIVE METABOLIC PANEL (10/01/2024 1:14 PM CDT) BUN 27(H) 7 - 26 mg/dL 10/01/2024 2:16 PM [facility] Creatinine 6.82(H) 0.71 - 1.16 mg/dL 10/01/2024 2:16 PM [facility] Sodium 140 136 - 145 mmol/L 10/01/2024 2:16 PM [facility] Potassium 3.4(L) 3.5 - 4.5 mmol/L 10/01/2024 2:16 PM [facility] Chloride 102 98 - 107 mmol/L 10/01/2024 2:16 PM [facility] CO2 24 22 - 29 mmol/L 10/01/2024 2:16 PM [facility] Glucose 103(H) 70 - 99 mg/dL 10/01/2024 2:16 PM [facility] Calcium 9.4 8.4 - 10.2 mg/dL 10/01/2024 2:16 PM [facility] Protein Total 7.4 6.0 - 8.3 g/dL 10/01/2024 2:16 PM [facility] Albumin 4.2 3.4 - 5.0 g/dL 10/01/2024 2:16 PM [facility] Bilirubin Total 0.4 0.2 - 1.2 mg/dL 10/01/2024 2:16 PM [facility] Alkaline Phosphatase 74 40 - 150 U/L 10/01/2024 2:16 PM [facility] ALT 6 5 - 55 U/L 10/01/2024 2:16 PM CDT [facility] AST 14 5 - 34 U/L 10/01/2024 2:16 PM T [facility] Anion Gap 14 6 - 16 10/01/2024 2:16 PM T [facility] BUN/Creatinine Ratio 4(L) 7 - 23 10/01/2024 2:16 PM T [facility] Osmolality Calculated 295 275 - 295 mOsm/kg 10/01/2024 2:16 PM T [facility] Albumin/Globulin Ratio 1.3 1.1 - 2.3 10/01/2024 2:16 PM T [facility] eGFR by CKD-EPI 8(L) >=90 mL/min/1.7 3 m2 10/01/2024 2:16 PM CDT [facility] Blood BLOOD SPECIMEN / Unknown Lab Venipuncture / Unknown 10/01/2024 1:14 PM CDT 10/01/2024 1:41 PM CDT [facility] - 10/01/2024 2:16 PM CDT Estimated Glomerular Filtration Rate (eGFR) calculated using the CKD-EPI Creatinine Equation (2020), per the National Kidney Foundation and [place] Society of Nephrology recommendations. Scott Bryant MD LAB - CHEMISTRY ORDERABLES [facility] Result [facility] [address] [place] [address], [facility] [phone] * PROSTATE SPECIFIC ANTIGEN SCREEN (10/01/2024 1:14 PM CDT) PSA Total 1.9 <4.0 ng/mL 10/01/2024 2:23 PM CDT [facility] Blood BLOOD SPECIMEN / Unknown Lab Venipuncture / Unknown 10/01/2024 1:14 PM CDT 10/01/2024 1:32 PM CDT [facility] - 10/01/2024 2:23 PM CDT PSA values will vary depending on the testing procedure used. Results are not comparable across different test methods. [facility] uses the Lantigua Alinity immunoassay test method. us Scott Bryant MD LAB - CHEMISTRY ORDERABLES Fi nal Result Performing Organization Address [facility]/ZIP Co de Phone Number [address] [address], [facility] [phone] * (ABNORMAL) PHOSPHORUS BLOOD (10/01/2024 1:14 PM CDT) Phosphorus 5.4(H) 2.8 - 5.1 mg/dL 10/01/2024 2:17 PM CDT [facility] Blood BLOOD SPECIMEN / Unknown Lab Venipuncture / Unknown 10/01/2024 1:14 PM CDT 10/01/2024 1:41 PM CDT us Scott Bryant MD LAB - CHEMISTRY ORDERABLES Fi nal Result Performing Organization Address [facility] Co de Phone Number [address] [address], [facility] [phone] * (ABNORMAL) IRON BLOOD (10/01/2024 1:14 PM CDT) Iron 31(L) 50 - 175 ug/dL 10/01/2024 2:08 PM CDT [facility] Blood BLOOD SPECIMEN / Unknown Lab Venipuncture / Unknown 10/01/2024 1:14 PM CDT 10/01/2024 1:32 PM CDT us Scott Bryant MD LAB - CHEMISTRY ORDERABLES Fi nal Result Performing Organization Address City/[facility]/ZIP Co de Phone Number [address] [address], [place] [phone] * HEPATITIS B CORE ANTIBODY (10/01/2024 1:14 PM CDT) HBc Antibody Total Non-reacti ve Non-reacti ve 10/01/2024 2:28 PM CDT [facility] Blood BLOOD SPECIMEN / Unknown Lab Venipuncture / Unknown 10/01/2024 1:14 PM CDT 10/01/2024 1:32 PM CDT us Scott Bryant MD LAB - CHEMISTRY ORDERABLES Fi nal Result Performing Organization Address [facility]/ZIP Co de Phone Number [address] [address], [facility] [phone] * HEPATITIS B SURFACE ANTIGEN W RFLX CONFIRMATION (10/01/2024 1:14 PM CDT) Hepatitis B Virus Surface Antigen Non-reacti ve Non-reacti ve 10/01/2024 2:28 PM CDT [facility] Blood BLOOD SPECIMEN / Unknown Lab Venipuncture / Unknown 10/01/2024 1:14 PM CDT 10/01/2024 1:32 PM CDT us Scott Bryant MD LAB - CHEMISTRY ORDERABLES Fi nal Result Performing Organization Address [facility] de Phone Number [address] [address], [facility] [phone] * ALCOHOL ETHYL BLOOD (10/01/2024 1:14 PM CDT) Pathologist [facility] Ethanol (mg/dL) <10 <=10 mg/dL 2:17 PM CDT [facility] Ethanol Calculated (g/dL) <0.010 <0.010 g/dL 10/01/2024 2:17 PM CDT [facility] Blood BLOOD SPECIMEN / Unknown Lab Venipuncture / Unknown 10/01/2024 1:14 PM CDT 10/01/2024 1:41 PM CDT Narrative [facility] - 10/01/2024 2:17 PM CDT Ethanol Interp <10: None Detected. Depression of [employer]ITURE [employer]DING INSPECTOR: >100 mg/dl Potentially Critical: >250 mg/dl Potentially Fatal >400 mg/dl Ethanol in the patient's blood will contribute to the osmolar gap. Ethanol's contribution to the osmolar gap can be estimated by dividing the concentration of ethanol in mg/dL by 4.6. This test is for clinical use only and does not equal a REFUGIO for legal purposes. Scott Bryant MD LAB - CHEMISTRY ORDERABLES Fi nal Result Performing Organization Address [facility] Co de Phone Number [address] [address], [facility] [phone] * HEPATITIS C ANTIBODY (10/01/2024 1:14 PM CDT) Pathologist [facility] Hepatitis C Antibody Non-react aleida Non-reac tive 10/01/2024 2:28 PM CDT [facility] Comment:Hepatitis C Antibody screen indicates no serologic evidence of past or current infection with Hepatitis C Virus. Patients with unexplained liver disease who are immunocompromised or suspected of having acute Hepatitis C infection may benefit from Nucleic Acid Test (JONNIE) for Hepatitis C Viral RNA to confirm Hepatitis C status. Blood BLOOD SPECIMEN / Unknown Lab Venipuncture / Unknown 10/01/2024 1:14 PM CDT 10/01/2024 1:32 PM CDT Scott Bryant MD LAB - CHEMISTRY ORDERABLES Fi nal Result Performing Organization Address [facility] de Phone Number [address] [address], [facility] [phone] * (ABNORMAL) HEPATITIS A ANTIBODY (10/01/2024 1:14 PM CDT) [facility] Hepatitis A Virus Antibody Total Positive( A) Negative 10/02/2024 9:30 PM CDT [facility] ([facility]) Comment: The positive anti-HAV is consistent with recent or remote Hepatitis A infection or antibody response to HAV vaccination. False positive anti-HAV can occur. Performed By: [facility] [address] [place] [address] Chief Concierge: Jose Stahl MD, PhD CLIA Number: [id number] Blood BLOOD SPECIMEN / Unknown Lab Venipuncture / Unknown 10/01/2024 1:14 PM CDT 10/01/2024 1:32 PM CDT Scott Bryant MD LAB - CHEMISTRY ORDERABLES Fi nal Result [facility] ([facility]) [address] [place] [address], [facility] * (ABNORMAL) FERRITIN (10/01/2024 1:14 PM CDT) Ferritin 494(H) 22 - 275 ng/mL 10/01/2024 2:28 PM CDT [facility] Blood BLOOD SPECIMEN / Unknown Lab Venipuncture / Unknown 10/01/2024 1:14 PM CDT 10/01/2024 1:32 PM CDT Scott Bryant MD LAB - CHEMISTRY ORDERABLES Fi nal Result [facility] [address] [place] [address], [facility] [phone] * (ABNORMAL) LIPID PROFILE (10/01/2024 1:14 PM CDT) Cholesterol Total 188 <200 mg/dL 10/01/2024 2:17 PM CDT [facility] HDL 66 >40 mg/dL 10/01/2024 2:17 PM CDT [facility] Comment: ATP III Classification of HDL Cholesterol: <40 mg/dL: Considered a major risk factor. >60 mg/dL: Considered a negative risk factor. LDL Calculated 106(H) <100 mg/dL 10/01/2024 2:17 PM T [facility] Comment: ATP III Classification of LDL Cholesterol: <100 mg/dL: Optimal 100 - 129 mg/dL: Near Optimal/Above Optimal 130 - 159 mg/dL: Borderline High 160 - 189 mg/dL: High >190 mg/dL: Very High Triglycerides 78 <150 mg/dL 10/01/2024 2:17 PM T [facility] Comment: ATP III Classification of Triglycerides: <150 mg/dL: Normal 150 - 199 mg/dL: Borderline High 200 - 400 mg/dL: High >500 mg/dL: Very High Blood BLOOD SPECIMEN / Unknown Lab Venipuncture / Unknown 10/01/2024 1:14 PM CDT 10/01/2024 1:41 PM CDT Narrative [facility] - 10/01/2024 2:17 PM CDT LDL is calculated using the Friedewald equation. us Scott Bryant MD LAB - CHEMISTRY ORDERABLES Fi nal Result [facility] [address] [place] [address], [facility] [phone] * XR CHEST PA AND LATERAL (10/01/2024 1:00 PM CDT) Anatomical Region Laterality Modality Chest Digital Radiogra phy 10/04/2024 5:44 AM CDT Impressions 10/04/2024 5:45 AM CDT IMPRESSION: No acute cardiopulmonary abnormalities. > Interpreting Provider: Lynette Jasso MD on 10/04/2024 5:45 AM Narrative 10/04/2024 5:45 AM CDT PROCEDURE: XR CHEST 2VW DATE/TIME OF EXAM: 10/01/2024 1:00 PM CLINICAL INFORMATION: None relevant/not provided if blank. 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 FINDINGS: Right IJ central venous catheter terminates in the right atrium. Normal cardiomediastinal silhouette. Atherosclerotic aorta. No focal consolidation, pleural effusion, or pneumothorax. There are a few chronic appearing bilateral rib abnormalities and T12 compression deformity. Procedure Note Lynette Jasso MD - 10/04/2024 PROCEDURE: XR CHEST 2VW DATE/TIME OF EXAM: 10/01/2024 1:00 PM CLINICAL INFORMATION: None relevant/not provided if blank. Indication: Z01.818: Pre-transplant evaluation for kidney transplant N18.6: ESRD (end stage renal disease) (HCC) I10: Hypertension, unspecified type I25.10: Coronary artery disease involving seminole heart, unspecifiedvessel or lesion type, unspecified whether angina present E78.5: Hyperlipidemia, unspecified hyperlipidemia type M19.90: Osteoarthritis, unspecified osteoarthritis type, unspecifiedsite K2 Additional History: COMPARISON: None. FINDINGS: Right IJ central venous catheter terminates in the right atrium. Normal cardiomediastinal silhouette. Atherosclerotic aorta. No focal consolidation, pleural effusion, or pneumothorax. There are a fewchronic appearing bilateral rib abnormalities and T12 compression deformity. IMPRESSION: No acute cardiopulmonary abnormalities. > Interpreting Provider: Lynette Jasso MD on 10/04/2024 5:45 AM Scott Bryant MD DIAGNOSTIC IMAGING ORDERABLES Final Result * XR PANOREX (10/01/2024 1:00 PM CDT) Anatomical Region Laterality Modality Head Digital Radiogra phy 10/04/2024 7:22 PM CDT Impressions 10/04/2024 7:22 PM CDT IMPRESSION: Multiple dental restorations. There are multiple dental caries including tooth #21 and 22. Heavenly periapical lucency. > Interpreting Provider: Kendell Sims MD on 10/04/2024 7:22 PM Narrative 10/04/2024 7:22 PM CDT PROCEDURE: XR PANOREX DATE/TIME OF EXAM: 10/01/2024 1:00 PM CLINICAL INFORMATION: None relevant/not provided if blank. 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 Procedure Note Kendell Sims MD - 10/04/2024 PROCEDURE: XR PANOREX DATE/TIME OF EXAM: 10/01/2024 1:00 PM CLINICAL INFORMATION: None relevant/not provided if blank. Indication: Z01.818: Pre-transplant evaluation for kidney transplant N18.6: ESRD (end stage renal disease) ([facility]) I10: Hypertension, unspecified type I25.10: Coronary artery disease involving seminole heart, unspecifiedvessel or lesion type, unspecified whether angina present E78.5: Hyperlipidemia, unspecified hyperlipidemia type M19.90: Osteoarthritis, unspecified osteoarthritis type, unspecifiedsite K2 Additional History: COMPARISON: None. IMPRESSION: Multiple dental restorations. There are multiple dental caries including tooth #21 and 22. Heavenly periapical lucency. > Interpreting Provider: Kendell Sims MD on 10/04/2024 7:22 PM Scott Bryant MD DIAGNOSTIC IMAGING ORDERABLES Final Result * EKG 12-LEAD (10/01/2024 12:25 PM CDT) Ventricular Rate 67 BPM [facility] Atrial Rate 67 BPM [facility] P-R Interval 148 ms [facility] QRS Duration ms 74 ms [facility] Q-T Interval ms 402 ms [facility] QTC Calculation (Bezet) 424 ms [facility] Calculated P [place] 53 degrees [facility] Calculated R [place] 6 degrees [facility] Calculated T [place] 59 degrees [facility] Interpretation EKG NORMAL SINUS RHYTHM NORMAL ECG WHEN COMPARED WITH ECG OF 08-AUG-2004 12:10, T WAVE INVERSION NO LONGER EVIDENT IN INFERIOR LEADS Confirmed by DAVID GUPTA MD ([id number]) on 10/03/2024 6:54:55 PM [facility] MUSE 10/01/2024 12:2 5 PM CDT 10/03/2024 6:54 PM CDT Scott Bryant MD ECG ORDERABLES Edited Result - Final [facility] MUSE * VAS ARTERIAL MULTILEVEL LE (10/01/2024 10:43 AM CDT) Anatomical Region Laterality Modality Intravascular Ul trasound 10/01/2024 9:46 AM CDT Narrative Procedure Note Christian Jiang MD - 10/01/2024 Scott Bryant MD VASCULAR LAB ORDERABLES Edite d Result - Final * CT ABDOMEN AND PELVIS NON IV CONTRAST (10/01/2024 10:18 AM CDT) Anatomical Region Laterality Modality Abdomen, Pelvis Computed Tomogra phy 10/01/2024 2:26 PM CDT Impressions 10/01/2024 3:09 PM CDT Impression: 1.Bilateral renal atrophy consistent with patient's known renal disease. 2.Tortuous bilateral external iliac arteries without significant atherosclerotic calcifications. 3.Common bile duct dilatation measuring up to 1 cm without intrahepatic or pancreatic ductal dilation or wall thickening. If clinical concern persists, consider MRI/MRCP for further evaluation. 4.Prostatomegaly. 5.Scattered coronary atherosclerotic calcifications. This report was dictated by Hardik Mccoy M.D. (/IR Resident). IKoffi have personally reviewed and interpreted this examination/study. 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 TECHNIQUE: CT of the abdomen and pelvis was performed without contrast according to standard protocol. Findings: Evaluation of visceral and vascular structures is degraded due to lack of intravenous contrast administration. Lower Chest: Scattered coronary atherosclerotic calcifications are present. A calcified granuloma is present within the anterior right lung base. The lower chest otherwise appears normal. Liver: Within the limitations of a noncontrast examination, the liver is unremarkable. Gallbladder and Bile Ducts: The gallbladder appears normal. The common bile duct is dilated beyond what is expected for patient's age measuring 1 cm in diameter without wall thickening (series 3, image 36; series 4, image 36). There is no intrahepatic biliary ductal dilation. The pancreatic duct appears normal. No obstructing stone is identified. Spleen: Multiple calcified granulomas are noted in the spleen, likely sequelae of prior granulomatous disease. Pancreas: Normal. Adrenals: Normal. Kidneys: The bilateral kidneys are atrophic. Multiple renal cysts are present. A large 1.2 cm stone is noted in the inferior pole the right kidney. Bladder: The bladder is decompressed without substantial wall thickening. No stones or wall mass identified. Gastrointestinal: The stomach and visualized loops of small bowel are unremarkable. Colonic diverticulosis without evidence of diverticulitis is seen. Normal appendix. Mesentery/Peritoneum/Retroperitoneum: Normal. Reproductive Organs: The prostate is enlarged measuring up to 5 cm in the transverse dimension. Vasculature: Extensive atherosclerotic calcification of the aorta and its branch vessels. The common iliac arteries are tortuous with scattered atherosclerotic plaques. The right external iliac artery is tortuous without significant atherosclerotic calcifications. The left external iliac artery is also tortuous without significant atherosclerotic calcifications. Bilateral common femoral arteries exhibit atherosclerotic calcifications, nearly circumferential on the left. Bones: Bone windows demonstrate no suspicious lytic or blastic lesions. The visible osseous structures are intact. Severe degenerative changes are seen in the spine. Soft tissues: Normal. Procedure Note Koffi Oquendo MD - 10/01/2024 PROCEDURE: CT ABDOMEN PELVIS WO CONTRAST, DATE/TIME OF EXAM: 10/01/2024 10:18 AM, LOCATION [facility] INDICATION: Z01.818: Pre-transplant evaluation for kidney transplant N18.6: ESRD (end stage renal disease) (HCC) I10: Hypertension, unspecified type I25.10: Coronary artery disease involving seminole heart, unspecifiedvessel or lesion type, unspecified whether angina present E78.5: Hyperlipidemia, unspecified hyperlipidemia type M19.90: Osteoarthritis, unspecified osteoarthritis type, unspecifiedsite K2 ADDITIONAL CLINICAL INFORMATION: Ordering Provider Reason For Exam: pre kidney transplant eval COMPARISON: None. TECHNIQUE: CT of the abdomen and pelvis was performed without contrast according to standard protocol. Findings: Evaluation of visceral and vascular structures is degraded due to lackof intravenous contrast administration. Lower Chest: Scattered coronary atherosclerotic calcifications arepresent. A calcified granuloma is present within the anterior right lung base.The lower chest otherwise appears normal. Liver: Within the limitations of a noncontrast examination, the liver is unremarkable. Gallbladder and Bile Ducts: The gallbladder appears normal. The commonbile duct is dilated beyond what is expected for patient's age measuring 1 cmin diameter without wall thickening (series 3, image 36; series 4, image36). There is no intrahepatic biliary ductal dilation. The pancreatic duct appears normal. No obstructing stone is identified. Spleen: Multiple calcified granulomas are noted in the spleen, likely sequelae of prior granulomatous disease. Pancreas: Normal. Adrenals: Normal. Kidneys: The bilateral kidneys are atrophic. Multiple renal cysts are present. A large 1.2 cm stone is noted in the inferior pole the right kidney. Bladder: The bladder is decompressed without substantial wallthickening. No stones or wall mass identified. Gastrointestinal: The stomach and visualized loops of small bowel are unremarkable. Colonic diverticulosis without evidence of diverticulitisis seen. Normal appendix. Mesentery/Peritoneum/Retroperitoneum: Normal. Reproductive Organs: The prostate is enlarged measuring up to 5 cm inthe transverse dimension. Vasculature: Extensive atherosclerotic calcification of the aorta andits branch vessels. The common iliac arteries are tortuous with scattered atherosclerotic plaques. The right external iliac artery is tortuous without significant atherosclerotic calcifications. The left externaliliac artery is also tortuous without significant atheroscleroticcalcifications. Bilateral common femoral arteries exhibit atheroscleroticcalcifications, nearly circumferential on the left. Bones: Bone windows demonstrate no suspicious lytic or blastic lesions.The visible osseous structures are intact. Severe degenerative changes areseen in the spine. Soft tissues: Normal. Impression: 1.Bilateral renal atrophy consistent with patient's known renal disease. 2.Tortuous bilateral external iliac arteries without significant atherosclerotic calcifications. 3.Common bile duct dilatation measuring up to 1 cm without intrahepaticor pancreatic ductal dilation or wall thickening. If clinical concern persists, consider MRI/MRCP for further evaluation. 4.Prostatomegaly. 5.Scattered coronary atherosclerotic calcifications. This report was dictated by Hardik Mccoy M.D. (/IR Resident). Koffi Starr have personally reviewed and interpreted this examination/study. > Interpreting Provider: Koffi Oquendo on 10/01/2024 3:09 PM [address] MD [address] ORDERABLES Final Result * ECHO COMPLETE (10/01/2024 9:52 AM CDT) AV area index 1.637 cm /m [facility] P[facility] LA vol index 0.025 l/m [facility] Dimensionless Index 0.997 unitless [facility] Myocardial strain charge 2 unitless [facility] Sinus of Valsalva 3 cm SS M CV [facility] P[facility] IVSd 2D 0.716 cm [facility] PACS LVIDd 3.95 cm [facility] PACS LVIDs 1.605 cm [facility] PACS LVOT diam 1.886 cm [facility] PACS LVPWd 0.747 cm [facility] PACS LV biplane EF 65.458 % [facility] PACS LV A2C EF 67.625 % [facility] I PACS LV A4C EF 61.895 % [facility] PACS LV EDV A2C 82.438 ml [facility] PACS LV EDV A4C 94.599 ml [facility] PACS LV ESV A2C 26.689 ml [facility] CV [facility] PACS LV ESV A4C 36.047 ml [facility] PACS LVOT pk grad 6.57 mmHg [facility] PACS LVOT pk blaise 130.374 cm/s [facility] CV F U PACS LVOT VTI 21.917 cm [facility] PACS RV-[place] basal diam 1.338 cm [facility] PACS RVIDd 3.968 cm [facility] PACS RVOT diam Doppler 3.037 cm SS M CV [facility] PACS RVOT pk blaise 76.197 cm/s [facility] CV F U PACS RVOT VTI 12.095 cm [facility] PACS LA size 4.167 cm [facility] PACS LA vol BP 42.015 ml [facility] CV [facility] I PACS RA area 11.677 cm [facility] PACS AV area pk blaise 2.819 cm [facility] PACS AV area cont VTI 2.786 cm [facility] PACS AV pk grad 4.747 mmHg [facility] CV [facility] JI PACS AV mn grad 3.103 mmHg [facility] CV [facility] JI PACS AV pk blaise 129.2 cm/s [facility] CV [facility]UJ I PACS AV VTI 21.976 cm [facility] CV [facility]UJ I PACS MV A pk blaise 97.884 cm/s [facility] CV F UJI PACS MV E pk blaise 68.333 cm/s [facility] CV F UJI PACS MV E' lateral blaise 10.283 cm/s SS M CV FUJI PACS TAPSE 1.787 cm [facility] CV [facility] I PACS TR pk blaise 263.677 cm/s [facility] CV [facility] I PACS Ascending aorta 2.83 cm [facility] CV [facility] PACS IVC Diam Expiration 1.407 cm [facility] CV [facility]I PACS Anatomical Region Laterality Modality Ultrasound 10/01/2024 9:17 AM CDT Narrative 10/01/2024 10:09 AM CDT Summary * The left ventricle is normal in size, with normal systolic function and an estimated ejection fraction of 65 % by biplane method of disks. Left ventricular wall motion is normal. * The left ventricular diastolic function is normal. * Right ventricle is normal in size with normal systolic function. Patient Info Name: Esther Altman Age: 69 years : 1955 Gender: Male Ht: 64 in Wt: 140 lb BSA: 1.70 m2 HR: 73 bpm BP: 135 / 67 mmHg Heart Rhythm: Sinus Rhythm Exam Date: 10/01/2024 9:17 AM Patient Status: O/P Study Site: [facility] Primary Location: [facility] EStudy Info Technical Quality: Good Exam Type: ECHO COMPLETE Indications Please refer to EHR for Exam Diagnosis Codes - Procedure(s) * A complete 2D, color Doppler, spectral Doppler, and M-Mode transthoracic echocardiogram was performed. Staff Referring Physician: Scott Bryant Ordering Provider: Scott Bryant Attending Physician: Scott Bryant Clinical Research Tech: Grazyna Parker Left Ventricle The left ventricle is normal in size. Left ventricular systolic function is normal with an estimated ejection fraction of 65 % by biplane method of disks. The left ventricular mass is normal. Left ventricular segmental wall motion is normal. The left ventricular diastolic function is normal. Right Ventricle The right ventricle is normal in size. Right ventricular systolic function is normal. Left Atrium The left atrium is normal in size with a left atrial volume index of 25 ml/m2 by BP MOD. Right Atrium The right atrium is normal in size. Atrial Septum Intact interatrial septum visualized by 2D and color Doppler imaging. Aortic Valve The aortic valve is mildly calcified and not well visualized. There is no aortic valve stenosis. There is no aortic valve regurgitation. Pulmonic Valve The pulmonic valve is normal. There is no pulmonic regurgitation. Mitral Valve The mitral valve is thickened ; mild calcification of the posterior leaflet and restricted motion. There is no mitral valve stenosis. There is no mitral valve regurgitation. Tricuspid Valve The tricuspid valve is normal. There is no tricuspid valve regurgitation. Unable to assess pulmonary pressures due to a lack of tricuspid and pulmonic regurgitation. Inferior Vena Cava The inferior vena cava is normal in size (< 2.1 cm). There is < 50% collapse of the IVC upon inspiration with an estimated right atrial pressure of 3 mmHg. Pericardium/Pleural There is no pericardial effusion. Aorta The aortic root at the sinus of Valsalva is normal in size. The ascending aorta is normal in size. Measurements Left Ventricular Outflow Tract Name Value Normal LVOT 2D LVOT Diameter 1.9 cm LVOT Area 2.8 cm2 LVOT Doppler LVOT Peak Velocity 1.3 m/s LVOT Peak Gradient 7 mmHg LVOT Mean Velocity 75.34 cm/s LVOT Mean Gradient 3 mmHg LVOT VTI 21.9 cm LVOT VTI/AV VTI Ratio 1.0 LVOT Stroke Volume 61 ml LVOT Stroke Volume Index 36 ml/m2 35-58 LVOT CO 4.4 l/min LVOT CI 2.6 l/min/m2 Pulmonic Valve Name Value Normal PV 2D RVOT Diameter (2D) 3.0 cm 1.7-2.7 RVOT Doppler RVOT Peak Velocity 0.8 m/s RVOT Peak Gradient 2 mmHg RVOT Mean Gradient 1 mmHg Mitral Valve Name Value Normal MV Diastolic Function MV E Peak Velocity 0.7 m/sec MV A Peak Velocity 1.0 m/sec MV E/A 0.7 MV Decel Time (PW) 267 ms MV A Wave Duration 114 ms MV Annular TDI MV Septal e' Velocity 6 cm/s >=8 MV E/e' (Septal) 11 <=8 MV Lateral e' Velocity 10 cm/s >=10 MV E/e' (Lateral) 7 <=8 MV e' Average 8 cm/s MV E/e' (Average) 9 Tricuspid Valve Name Value Normal TV 2D TV Annulus Diameter (4C) 3.2 cm TV Regurgitation Doppler TR Peak Velocity 2.6 m/s TR Peak Gradient 28 mmHg Estimated PAP/RSVP RA Pressure 3 mmHg <=5 PA Systolic Pressure 31 mmHg <35 RV Systolic Pressure 31 mmHg <36 Pulmonary Vessels Name Value Normal Pulmonary Veins Pulm Vein Peak Systolic Velocity 54.0 cm/s Pulm Vein Peak Diastolic Velocity 34.8 cm/s Pulm Vein S/D Velocity Ratio 2 Pulm Vein Ar Velocity 44.8 cm/s Pulm Vein Ar Dur - MV A Dur -6 ms Aorta Name Value Normal Ascending Aorta Sinus of Valsalva Diameter 3.0 cm 2.8-4.0 Sinus of Valsalva Index 1.8 cm/m2 1.3-2.1 Asc Ao Diameter 2.8 cm 2.2-3.8 Asc Ao Diameter Index 1.7 cm/m2 1.1-1.9 Septae/Shunt/Generic Name Value Normal Qp/Qs Qp/Qs 1.4 Venous Name Value Normal IVC/SVC IVC Diameter 1.4 cm <=2.1 Aortic Valve Name Value Normal AV Doppler AV Peak Velocity 1.29 m/s AV Peak Gradient 5 mmHg AV Mean Gradient 3 mmHg AV VTI 22 cm AV Area (Cont Eq VTI) 2.79 cm2 >=2.00 AV Area (Cont Eq Blaise) 2.82 cm2 AV DI (VTI) 1.00 AV DI (Blaise) 1.01 AV Regurgitation 2D LVOT Area 2.79 cm2 Ventricles Name Value Normal LV Dimensions 2D/MM IVS Diastolic Thickness (2D) 0.7 cm 0.6-1.0 LVID Diastole (2D) 4.0 cm 4.2-5.8 LVPW Diastolic Thickness (2D) 0.7 cm 0.6-1.0 IVS Systolic Thickness (2D) 1.4 cm LVID Systole (2D) 1.6 cm 2.5-4.0 LVPW Systolic Thickness (2D) 1.4 cm LV Mass (2D Cubed) 72 g 88-224 LV Mass Index (2D Cubed) 42 g/m2 49-115 Relative Wall Thickness (2D) 0.38 <=0.42 LV Fractional Shortening/Ejection Fraction 2D/MM LV Fractional Shortening (2D) 59 % 25-43 LV EF (2D Teicholz) 89 % 52-72 LV Diastolic Volume (4C MOD) 95 ml LV EF (4C MOD) 62 % LV Diastolic Volume (2C MOD) 82 ml LV EF (2C MOD) 68 % LV Diastolic Volume (BP MOD) 91 ml 62-150 LV Diastolic Volume Index (BP MOD) 54 ml/m2 34-74 LV Systolic Volume (BP MOD) 32 ml 21-61 LV Systolic Volume Index (BP MOD) 19 ml/m2 11-31 LV EF (BP MOD) 65 % 52-72 LV Diastolic Length (4C) 8.4 cm LV Systolic Length (4C) 6.9 cm LV Stroke Volume (4C MOD) 59 ml RV Dimensions 2D/MM RVID Diastole (2D) 4.0 cm 2.5-3.5 RVID Systole (2D) 3.6 cm RV Basal Diastolic Dimension 1.3 cm 2.5-4.1 RV Diastolic Length (4C) 5.7 cm 5.9-8.3 TAPSE 1.8 cm >=1.7 Atria Name Value Normal LA Dimensions LA Dimension (2D) 4.2 cm 3.0-4.1 LA Dimen Index (2D) 2.4 cm/m2 LA Volume (BP MOD) 42 ml LA Volume Index (BP MOD) 25 ml/m2 16-34 RA Dimensions RA Area (4C) 12 cm2 <=18 RA Area (4C) Index 7 cm2/m2 Report Signatures Finalized by Glenroy Elena DR on 10/01/2024 10:09 AM Procedure Note Glenroy Elena MD - 10/01/2024 Summary * The left ventricle is normal in size, with normal systolic functionand an estimated ejection fraction of 65 % by biplane method of disks. Left ventricular wall motion is normal. * The left ventricular diastolic function is normal. * Right ventricle is normal in size with normal systolic function. Patient Info Name: Esther Altman Age: 69 years : 1955 Gender: Male Ht: 64 in Wt: 140 lb BSA: 1.70 m2 HR: 73 bpm BP: 135 / 67 mmHg Heart Rhythm: Sinus Rhythm Exam Date: 10/01/2024 9:17 AM Patient Status: O/P Study Site: [facility] Primary Location: [facility] EStudy Info Technical Quality: Good Exam Type: ECHO COMPLETE Indications Please refer to EHR for Exam Diagnosis Codes - Procedure(s) * A complete 2D, color Doppler, spectral Doppler, and M-Modetransthoracic echocardiogram was performed. Staff Referring Physician: Scott Bryant Ordering Provider: Scott Bryant Attending Physician: Scott Bryant Clinical Research Tech: Grazyna Parker Left Ventricle The left ventricle is normal in size. Left ventricular systolic functionis normal with an estimated ejection fraction of 65 % by biplane method ofdisks. The left ventricular mass is normal. Left ventricular segmental wallmotion is normal. The left ventricular diastolic function is normal. Right Ventricle The right ventricle is normal in size. Right ventricular systolicfunction is normal. Left Atrium The left atrium is normal in size with a left atrial volume index of25 ml/m2 by BP MOD. Right Atrium The right atrium is normal in size. Atrial Septum Intact interatrial septum visualized by 2D and color Doppler imaging. Aortic Valve The aortic valve is mildly calcified and not well visualized. There isno aortic valve stenosis. There is no aortic valve regurgitation. Pulmonic Valve The pulmonic valve is normal. There is no pulmonic regurgitation. Mitral Valve The mitral valve is thickened ; mild calcification of the posteriorleaflet and restricted motion. There is no mitral valve stenosis. There is nomitral valve regurgitation. Tricuspid Valve The tricuspid valve is normal. There is no tricuspid valveregurgitation. Unable to assess pulmonary pressures due to a lack of tricuspid andpulmonic regurgitation. Inferior Vena Cava The inferior vena cava is normal in size (< 2.1 cm). There is < 50%collapse of the IVC upon inspiration with an estimated right atrial pressure of 3mmHg. Pericardium/Pleural There is no pericardial effusion. Aorta The aortic root at the sinus of Valsalva is normal in size. Theascending aorta is normal in size. Measurements Left Ventricular Outflow Tract Name Value Normal LVOT 2D LVOT Diameter 1.9 cm LVOT Area 2.8 cm2 LVOT Doppler LVOT Peak Velocity 1.3 m/s LVOT Peak Gradient 7 mmHg LVOT Mean Velocity 75.34 cm/s LVOT Mean Gradient 3 mmHg LVOT VTI 21.9 cm LVOT VTI/AV VTI Ratio 1.0 LVOT Stroke Volume 61 ml LVOT Stroke Volume Index 36 ml/m2 35-58 LVOT CO 4.4 l/min LVOT CI 2.6 l/min/m2 Pulmonic Valve Name Value Normal PV 2D RVOT Diameter (2D) 3.0 cm 1.7-2.7 RVOT Doppler RVOT Peak Velocity 0.8 m/s RVOT Peak Gradient 2 mmHg RVOT Mean Gradient 1 mmHg Mitral Valve Name Value Normal MV Diastolic Function MV E Peak Velocity 0.7 m/sec MV A Peak Velocity 1.0 m/sec MV E/A 0.7 MV Decel Time (PW) 267 ms MV A Wave Duration 114 ms MV Annular TDI MV Septal e' Velocity 6 cm/s >=8 MV E/e' (Septal) 11 <=8 MV Lateral e' Velocity 10 cm/s >=10 MV E/e' (Lateral) 7 <=8 MV e' Average 8 cm/s MV E/e' (Average) 9 Tricuspid Valve Name Value Normal TV 2D TV Annulus Diameter (4C) 3.2 cm TV Regurgitation Doppler TR Peak Velocity 2.6 m/s TR Peak Gradient 28 mmHg Estimated PAP/RSVP RA Pressure 3 mmHg <=5 PA Systolic Pressure 31 mmHg <35 RV Systolic Pressure 31 mmHg <36 Pulmonary Vessels Name Value Normal Pulmonary Veins Pulm Vein Peak Systolic Velocity 54.0 cm/s Pulm Vein Peak Diastolic Velocity 34.8 cm/s Pulm Vein S/D Velocity Ratio 2 Pulm Vein Ar Velocity 44.8 cm/s Pulm Vein Ar Dur - MV A Dur -6 ms Aorta Name Value Normal Ascending Aorta Sinus of Valsalva Diameter 3.0 cm 2.8-4.0 Sinus of Valsalva Index 1.8 cm/m2 1.3-2.1 Asc Ao Diameter 2.8 cm 2.2-3.8 Asc Ao Diameter Index 1.7 cm/m2 1.1-1.9 Septae/Shunt/Generic Name Value Normal Qp/Qs Qp/Qs 1.4 Venous Name Value Normal IVC/SVC IVC Diameter 1.4 cm <=2.1 Aortic Valve Name Value Normal AV Doppler AV Peak Velocity 1.29 m/s AV Peak Gradient 5 mmHg AV Mean Gradient 3 mmHg AV VTI 22 cm AV Area (Cont Eq VTI) 2.79 cm2 >=2.00 AV Area (Cont Eq Blaise) 2.82 cm2 AV DI (VTI) 1.00 AV DI (Blaise) 1.01 AV Regurgitation 2D LVOT Area 2.79 cm2 Ventricles Name Value Normal LV Dimensions 2D/MM IVS Diastolic Thickness (2D) 0.7 cm 0.6-1.0 LVID Diastole (2D) 4.0 cm 4.2-5.8 LVPW Diastolic Thickness (2D) 0.7 cm 0.6-1.0 IVS Systolic Thickness (2D) 1.4 cm LVID Systole (2D) 1.6 cm 2.5-4.0 LVPW Systolic Thickness (2D) 1.4 cm LV Mass (2D Cubed) 72 g 88-224 LV Mass Index (2D Cubed) 42 g/m2 49-115 Relative Wall Thickness (2D) 0.38 <=0.42 LV Fractional Shortening/Ejection Fraction 2D/MM LV Fractional Shortening (2D) 59 % 25-43 LV EF (2D Teicholz) 89 % 52-72 LV Diastolic Volume (4C MOD) 95 ml LV EF (4C MOD) 62 % LV Diastolic Volume (2C MOD) 82 ml LV EF (2C MOD) 68 % LV Diastolic Volume (BP MOD) 91 ml 62-150 LV Diastolic Volume Index (BP MOD) 54 ml/m2 34-74 LV Systolic Volume (BP MOD) 32 ml 21-61 LV Systolic Volume Index (BP MOD) 19 ml/m2 11-31 LV EF (BP MOD) 65 % 52-72 LV Diastolic Length (4C) 8.4 cm LV Systolic Length (4C) 6.9 cm LV Stroke Volume (4C MOD) 59 ml RV Dimensions 2D/MM RVID Diastole (2D) 4.0 cm 2.5-3.5 RVID Systole (2D) 3.6 cm RV Basal Diastolic Dimension 1.3 cm 2.5-4.1 RV Diastolic Length (4C) 5.7 cm 5.9-8.3 TAPSE 1.8 cm >=1.7 Atria Name Value Normal LA Dimensions LA Dimension (2D) 4.2 cm 3.0-4.1 LA Dimen Index (2D) 2.4 cm/m2 LA Volume (BP MOD) 42 ml LA Volume Index (BP MOD) 25 ml/m2 16-34 RA Dimensions RA Area (4C) 12 cm2 <=18 RA Area (4C) Index 7 cm2/m2 Report Signatures Finalized by Glenroy Elena DR on 10/01/2024 10:09 AM us Scott Bryant MD ECHO [facility] Final Result * VAS Bilat Mapping for Hemodialysis (08/13/2024 3:20 PM CDT) Anatomical Region Laterality Modality Lower Extremity, Upper Extremity Intravascular Ultrasound 08/13/2024 2:51 PM CDT Narrative Procedure Note Eddie Cordova MD - 08/14/2024 us Mattie Lara MD VASCULAR LAB ORDERABLES Edited Result - Final from Last 3 Months Insurance MEDICARE [facility] Care Teams Track Walker Relationship Specialty Start Date End Date Unknown, Provider PCP - General 08/11/24
--- OUTSIDE RECORDS SUMMARY | 2024-11-12 01:20 | XMS_ITS | Clinical Summary ---
Author Organization [facility] Address [address], [place] [address] Phone Care Team Providers Care Aircraft Body Repairer Name Role Phone Wes Armando DO Primary Care Provider [phone] Allergies Active Allergy Reactions Criticality Noted Date Comments Rosuvastatin Calcium Itching 12/13/2021 Medications acetaminophen-c odeine (TYLENOL #3) 300-30 MG per tablet Take [...] at Not on file Legal Sex Male 9:04 AM MDT Gender Identity Not on file Sexual Orientation Not on file Last Filed Vital Signs Vital Sign Reading Time Taken Comments Blood Pressure 138/82 03/21/2022 11:50 AM 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 Pulse - - Temperature 36.1 C (97 F) 03/21/2022 11:50 AM 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 Respiratory Rate 18 03/21/2022 11:50 AM 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 Oxygen Saturation - - Inhaled Oxygen Concentration - - Weight 60.3 kg (133 lb) 03/21/2022 11:50 AM 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
[2024-11-12 11:34] VITALS: BP 148/90; PULSE 92; RESP 18; TEMP 36.9; O2SAT 99
[2024-11-12] MEDS: SODIUM CHLORIDE 0.9% IV 500 ML IV CONT (11:57)
--- NOTE | 2024-11-12 12:16 | P.PNAN_ITS ---
Anes - Initial Pre Proc Eval Procedure: Operation Date: 11/12/24 12:30 Proposed Procedures p Screening Colonoscopy - Dedrick Segura MD Date/Time: 11/12/24 12:16 Surgeon: Dedrick Segura MD Pre Op Diagnosis: screening Patient Data Age: 69 Gender: M Height: 1.63 m Weight: 63.7 kg Last Vital Signs Temp 98.5 F 11/12/24 11:34 Pulse 92 11/12/24 11:34 Resp 18 11/12/24 11:34 BP 148/90 H 11/12/24 11:34 Pulse Ox 99 11/12/24 11:34 O2 Del Method Room Air 11/12/24 11:34 Allergies Allergy/AdvReac Type Severity Reaction Status Date / Time rosuvastatin (From Crestor) Allergy Mild Hives Verified 11/12/24 11:30 Home Medications ?Medication ?Instructions ?Recorded ?Confirmed ?Type amlodipine 10 mg tablet 10 mg PO QAM #90 tabs 04/30/24 11/12/24 Rx aspirin 81 mg tablet,delayed See Rx Instructions .Route 04/30/24 11/12/24 Rx release .COMPLEX #90 tabs atorvastatin 80 mg tablet 80 mg PO QHS #90 tabs 04/30/24 11/12/24 Rx carvedilol 12.5 mg tablet (Coreg) 25 mg (2 x 12.5 mg) PO Q12HR #360 04/30/24 11/12/24 Rx tabs clopidogrel 75 mg tablet 75 mg PO DAILY #90 tabs 04/30/24 11/12/24 Rx calcitriol 0.25 mcg capsule 0.25 mcg PO 3XW 06/04/24 11/12/24 History epoetin beta, methoxy peg 50 50 mcg IV .[id number] 06/04/24 11/03/24 History mcg/0.3 mL injection syringe (Mircera) heparin (porcine) 1,000 unit/mL See Rx Instructions IV .COMPLEX 06/04/24 11/03/24 History injection solution iron sucrose 50 mg iron/2.5 mL 50 mg IV WEEKLY 06/04/24 11/03/24 History intravenous solution (Venofer) sevelamer carbonate 800 mg tablet 1,600 mg PO BID 06/04/24 11/12/24 History sodium chloride 0.9 % solution 10 ml miscellaneous .PRE DIALYSIS 06/04/24 11/12/24 History (Saline Wound Wash) tuberculin PPD 5 tub. unit/0.1 mL 0.1 ml intradermal ONCE 06/04/24 11/03/24 H istory intradermal injection solution (Tubersol) losartan 25 mg tablet See Rx Instructions .Route 10/12/24 11/12/24 Rx .COMPLEX #90 tabs acetaminophen 300 mg-codeine 30 mg 1 tablet PO TID PRN pain #30 tabs 11/03/24 11/12/24 Rx tablet Patient hx anesthesia problems: none Family hx anesthesia problems: none Results Review: All pre-operative results and documents have been reviewed as part of the pre- operative evaluation. [facility] Past Medical History Medical History Coronary artery disease CKD (chronic kidney disease) stage 4, GFR 15-29 ml/min Osteoarthritis involving multiple joints on both sides of body CKD (chronic kidney disease) Chronic kidney disease Hyperlipidemia Hypertension GERD (gastroesophageal reflux disease) Arthritis Anxiety Surgical History Surgical History History of colonoscopy with polypectomy 3 polyps removed, internal hemorrhoids History of tonsillectomy History of hemorrhoidectomy (~2011) History of carpal tunnel surgery of left wrist History of cardiac catheterization (~2003) No significant blockages History of repair of right rotator cuff (2008) History of lithotripsy X2 with complications including with sounds like shock H/O hand surgery Due to trauma had surgical repair of the left thenar eminence Family History Family History Mother Acute myocardial infarction Liver cancer Father Acute myocardial infarction Liver cancer Social History Social History Social History: He has been for 41 years. They have 2 children who are healthy. He has never smoked. He does smoke marijuana on a somewhat frequent basis. He drinks a couple of beers a day and some whiskey. 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 Code status: Full code Surrogate decision maker: [email or web address] Smoking status: Never smoker Alcohol intake: current Drinks per week: 14 Alcohol use details: beers Substance use: never Substance use type: marijuana Do You Feel Safe in your Home?: No Lack of Transportation: No Lack of Food: Never True Current Housing: I Have Housing Concerned About Future Housing: No Difficulty Paying Gas/Electric Bills: No Difficulty Paying for Meds: No Currently Unemployed: No Education: Trade/Vocational Certificate Difficulty w/ Childcare or Family Care: YES Living arrangements: alone Additional occupation/education comments: 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 Gender identity (if verbalized by the patient): Male Spiritual care concerns: No Anes - Eval Final PreProcedure Day of Procedure 11/12/24 12:16 Patient weight: normal Lungs: normal air movement Airway: Mallampati scale class II Neurological: alert and oriented Last oral intake: >/= 8 hours ASA classification: IV Emergent: no Anesthetic plan: proceed Anesthesia type and monitoring: general GIVS and standard monitoring Results Review: All pre-operative results and documents have been reviewed as part of the pre- operative evaluation. Complicated hx reviewed w pt. Pt has ESRD and HD yest. Noted to have cont plavix at this time, GI dr aware of status. Informed Consent: The patient's anesthetic plan and its attendant risks and benefits were discussed with the patient/family/POA. Questions were solicited and answers provided to the satisfaction of the patient/family/POA.
--- NOTE | 2024-11-12 12:24 | SUR.PREOP ---
Pt stated he took his plavix this morning at [address] Segura he said he would proceed with the procedure today.
--- NOTE | 2024-11-12 12:38 | PM.IMHP ---
H&P: HPI History of Present Illness Date/Time: 11/12/24 12:38 Chief Complaint: Screening colonoscopy Narrative: This is the patient's 2nd colonoscopy after 10 years.. There are no GI symptoms and there is no family history of colorectal cancer. Review of Systems Review of Systems: All systems reviewed & are unremarkable except as noted in HPI and below PMFSH Past Medical History Medical History Coronary artery disease CKD (chronic kidney disease) stage 4, GFR 15-29 ml/min Osteoarthritis involving multiple joints on both sides of body CKD (chronic kidney disease) Chronic kidney disease Hyperlipidemia Hypertension GERD (gastroesophageal reflux disease) Arthritis Anxiety Surgical History Surgical History History of colonoscopy with polypectomy 3 polyps removed, internal hemorrhoids History of tonsillectomy History of hemorrhoidectomy (~2011) History of carpal tunnel surgery of left wrist History of cardiac catheterization (~2003) No significant blockages History of repair of right rotator cuff (2008) History of lithotripsy X2 with complications including with sounds like shock H/O hand surgery Due to trauma had surgical repair of the left thenar eminence Family History Family History Mother Acute myocardial infarction Liver cancer Father Acute myocardial infarction Liver cancer Social History Social History Social History: He has been for 41 years. They have 2 children who are healthy. He has never smoked. He does smoke marijuana on a somewhat frequent basis. He drinks a couple of beers a day and some whiskey. 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 Code status: Full code Surrogate decision maker: mayito carrillo Smoking status: Never smoker Alcohol intake: current Drinks per week: 14 Alcohol use details: beers Substance use: never Substance use type: marijuana Do You Feel Safe in your Home?: No Lack of Transportation: No Lack of Food: Never True Current Housing: I Have Housing Concerned About Future Housing: No Difficulty Paying Gas/Electric Bills: No Difficulty Paying for Meds: No Currently Unemployed: No Education: Trade/Vocational Certificate Difficulty w/ Childcare or Family Care: YES Living arrangements: alone Additional occupation/education comments: 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 Gender identity (if verbalized by the patient): Male Spiritual care concerns: No Meds Home Medications and Allergies Home Medications ?Medication ?Instructions ?Recorded ?Confirmed ?Type amlodipine 10 mg tablet 10 mg PO QAM #90 tabs 04/30/24 11/12/24 Rx aspirin 81 mg tablet,delayed See Rx Instructions .Route 04/30/24 11/12/24 Rx release .COMPLEX #90 tabs atorvastatin 80 mg tablet 80 mg PO QHS #90 tabs 04/30/24 11/12/24 Rx carvedilol 12.5 mg tablet (Coreg) 25 mg (2 x 12.5 mg) PO Q12HR #360 04/30/24 11/12/24 Rx tabs clopidogrel 75 mg tablet 75 mg PO DAILY #90 tabs 04/30/24 11/12/24 Rx calcitriol 0.25 mcg capsule 0.25 mcg PO 3XW 06/04/24 11/12/24 History epoetin beta, methoxy peg 50 50 mcg IV .[id number] 06/04/24 11/03/24 History mcg/0.3 mL injection syringe (Mircera) heparin (porcine) 1,000 unit/mL See Rx Instructions IV .COMPLEX 06/04/24 11/03/24 History injection solution iron sucrose 50 mg iron/2.5 mL 50 mg IV WEEKLY 06/04/24 11/03/24 History intravenous solution (Venofer) sevelamer carbonate 800 mg tablet 1,600 mg PO BID 06/04/24 11/12/24 History sodium chloride 0.9 % solution 10 ml miscellaneous .PRE DIALYSIS 06/04/24 11/12/24 History (Saline Wound Wash) tuberculin PPD 5 tub. unit/0.1 mL 0.1 ml intradermal ONCE 06/04/24 11/03/24 History intradermal injection solution (Tubersol) losartan 25 mg tablet See Rx Instructions .Route 10/12/24 11/12/24 Rx .COMPLEX #90 tabs acetaminophen 300 mg-codeine 30 mg 1 tablet PO TID PRN pain #30 tabs 11/03/24 11/12/24 Rx tablet Allergies Allergy/AdvReac Type Severity Reaction Status Date / Time rosuvastatin (From Crestor) Allergy Mild Hives Verified 11/12/24 11:30 Vital Signs Vital Signs - 24 hr 11/12/24 11:34 Temperature 98.5 F Pulse Rate 92 Respiratory Rate 18 Blood Pressure 148/90 H Pulse Oximetry 99 Oxygen Delivery Room Air Exam Const: General: cooperative and healthy appearing Resp: Effort & Inspection: normal respiratory effort and able to speak in complete sentences Auscultation: clear to auscultation bilaterally Cardio: Rate: regular rate Rhythm: regular rhythm GI: Inspection: normal to inspection GI Palp: No No hepatosplenomegaly present Auscultation: normal bowel sounds Rectal Exam: deferred Skin: General skin exam: normal color Psych: Appearance: grossly normal Mental Status: mental status grossly normal Assessment and Plan Assessment and plan (1) Screening for colon cancer: Code(s): Z12.11 - Encounter for screening for malignant neoplasm of colon Status: Acute Assessment and Plan: The patient is deemed a good candidate for the procedure. Consent signed. Will proceed.
--- NOTE | 2024-11-12 13:00 | S_PTH ---
PATIENT: Esther Altman LOC: [facility] U#:[id number] AGE/SX: 69/M ROOM: RE11/12/[address]: Dedrick Segura MD : 1955 BED: DIS: 11/12/2024 SPEC #: [id number] RECD: 11/12/24 13:50 STATUS: YANDY RENaseem #: [id number] ALYSSA: 11/12/24 13:[address]: Dedrick Segura DEPT: [facility] Surgical RECD BY: Zee De León ENTERED: 11/12/24 13:51 SP TYPE: Surgical OTHR DR: Fadia Martin, NEUROLOGY EPILEPSY PHYSICIAN Tissues: A - Colon Polypectomy Procedures: Hematoxylin and Eosin Stain Gross and Microscopic Level 4
[2024-11-12 13:06] VITALS: BP 136/77; PULSE 85; RESP 23; O2SAT 99
[2024-11-12 13:16] VITALS: BP 129/77; PULSE 82; RESP 26; O2SAT 99
[2024-11-12 13:26] VITALS: BP 154/87; PULSE 77; RESP 22; O2SAT 100
== END 2024-11-12 13:45 | disposition home or self-care (01) ==
PROVIDERS: PCP Nurse Practitioner; Visit Provider Internal Medicine Gastroenterology
PROC: 0DJD8ZZ Inspection of Lower Intestinal Tract, Via Natural or Artificial Opening Endoscopic (ICD-10-PCS; CPT 45378; principal; 2024-11-12 12:30)
DX: Z12.11 Encounter for screening for malignant neoplasm of colon (principal); D12.2 Benign neoplasm of ascending colon; K57.30 Diverticulosis of large intestine without perforation or abscess without bleeding; K64.8 Other hemorrhoids; F12.90 Cannabis use, unspecified, uncomplicated
CPT/HCPCS: 45385; 88305; J2003; J2704; J7040

== ENCOUNTER 2025-01-04 09:33 | Outpatient (CLI) | payer MEDICARE, SELFPAY ==
--- OUTSIDE RECORDS SUMMARY | 2025-01-04 09:52 | XMS_ITS | Clinical Summary ---
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 TEACHER Pulse - - Temperature 36.1 C (97 F) 03/21/2022 11:50 AM FITNESS STUDIES TEACHER Respiratory Rate 18 03/21/2022 11:50 AM FITNESS STUDIES TEACHER Oxygen Saturation - - Inhaled Oxygen Concentration - - Weight 60.3 kg (133 lb) 03/21/2022 11:50 AM FITNESS STUDIES TEACHER Height 170.2 cm (5' 7) 03/21/2022 11:50 AM FITNESS STUDIES TEACHER Body Mass Index 20.83 03/21/2022 11:50 AM FITNESS STUDIES TEACHER Plan of Treatment Health Maintenance Due Date Last Done Comments Pneumococcal PPSV23/PCV13 65 + Years / Low and Medium Risk (1 of 2 - PCV) 2003 Influenza Vaccine (#1) 2024 Insurance MEDICARE [facility] Care Teams Propellant Charge Zone Assembler Relationship Specialty Start Date End Date Wes Armando DO [address] [place] [address] [phone] PCP - General Internal Medicine 11/15/21
--- OUTSIDE RECORDS SUMMARY | 2025-01-04 09:52 | XMS_ITS | Clinical Summary ---
Author Organization [facility] [employer] Address [address] [place] [address] Care Team Providers Care Chief Lock Operator Name Role Phone Wes Armando DO Primary Care Provider [phone] Source Comments [facility] [employer],non-owned Affiliates and Associated Physician Practices is amultiple site organization consisting of ambulatory clinics and hospital sitesin [place], [place], [place] and [place]. This disclosure is being madepursuant to the Care Everywhere program and may not contain all information available regarding this patient. Last updated 18.[facility] [employer] Allergies No known active allergies Medications * [...] Pre-transplant evaluation for kidney transplant 07/06/2024 Overview (12/15/2024): Images from the original note were not included. Amisha Altman 1955 Referring Enrolled Agent: Maricruz Hawthorne Listing Date: Dialysis Info: Type: HD Time: 81 days Blood Type: A+ There is no height or weight on file to calculate BMI. ALERTS Journalist: Does not have DM ESRD r/t HTN Past Medical History: Diagnosis Date Arthropathy Coronary artery disease 2021 Esophageal reflux ESRD on hemodialysis Hypercholesteremia Hypertension 2004 Kidney stones [place] Myocardial infarction 2021 Neuropathy [...] Appt w/: Date: 11/10/2024 A/P: Other Consults: Fibroscan: 12/08/2024 Date of Exam: 12/08/2024 Liver Stiffness: (LSM, kPa) median: 3.2 IQR/Median% (ideally < 30%): 12% CAP (controlled attenuation parameter): 212 Technical Difficulty: None Ordering Provider: Pat Godinez MD Phone Fax Fibroscan interpretation: I have personally reviewed the Fibroscan report and associated tracings. The calculated Liver Stiffness Measurement (LSM, kPa) indicates that: The probability of advanced liver fibrosis is: low. The loss of ultrasound signal, (controlled attenuation parameter, CAP [dB/m]), indicates that the probability of hepatic steatosis is: low. Avtar Carrero MD Pertinent Previous Committee Presentations: Labs: 10/21/2024 [id number] [...] LONGER EVIDENT IN INFERIOR LEADS Confirmed by ALONSO HERNANDEZ, DAVID BALBUENA ([id number]) on 10/03/2024 6:54:55 PM Echo: 10/01/2024 Summary [...] Impression: It is the impression of this manager social responsibility that Amisha Altman has several positive factors for Kidney [...] be provided for his . 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 Patient appears to be a reasonable candidate for transplant from a psychosocial perspective. -Post transplant arrangement forms are needed prior to being listed. Psychiatric Consult Recommended: No Transplant Yacht Rigger: Patricia Fuentes LMSW Abdominal Transplant Yacht Rigger [phone] JELLY forms: Transplant Caregiver Confirmation Note Caregiver Confirmation Date Primary Name of Primary: Koffi Izquierdo Relationship: Friend - Confirmed during initial assessment Secondary Name of Secondary: Areli Baumann Relationship: friend - Confirmed via telephone on 10/05/24 Post Transplant Arrangement Forms scanned into media on this date. Patricia Fuentes LMSW Abdominal Transplant Yacht Rigger [phone] RD:10/01/2024 BMI: 24, Normal weight. Pt is considered to be a good candidate for a Kidney Transplant from a Nutrition standpoint. Of note though, awaiting labs. Items Still Pending: Colonoscopy Dental clearance Encounters Date Type Department Care Team Description 12/29/2024 4:00 PM CDT Office Visit [facility] - Vascular Surgery [address] [place] [phone] Christian Jiang MD ESRD (end stage renal disease) ([facility]) 12/29/2024 Travel 12/08/2024 10:00 AM CDT Procedure visit [facility] - GI [address] [place] [phone] Pat Godinez MD Pre-transplant evaluation for kidney transplant ; ESRD (end stage renal disease) ([facility]); History of kidney stones; Hypertension, unspecified type; Coronary artery disease involving stockbridge heart, unspecified vessel or lesion type, unspecified whether angina present; Hyperlipidemia, unspecified hyperlipidemia type; Osteoarthritis, unspecified osteoarthritis type, unspecified site; Gastroesophageal reflux disease, unspecified whether esophagitis present; Common bile duct dilatation 12/08/2024 Travel 12/01/2024 Telephone [facility] [address] [place] [phone] Patricia Garsia, RN Kidney Transplant Evaluation 11/27/2024 Travel 11/13/2024 Telephone [facility] - Cardiology [address] [facility] [address] [place] [address] Cristian Foster, DENNIS Appointment 11/12/2024 Telephone [facility] [place] [address] Patricia Garsia, RN Kidney Transplant Evaluation 11/10/2024 3:16 PM CDT - 11/10/2024 11:59 PM CDT Hospital Encounter [facility] OP DRAW STATION [address] [place] [address] Discharge Disposition: Home or Self Care 11/10/2024 3:00 PM CDT Office Visit [facility] TXP TAY CSM [address]L [address] [place] [address] Pat Godinez MD Pre-transplant evaluation for kidney transplant (Primary Dx) 11/10/2024 2:00 PM CDT Office Visit [facility] - Nephrology [address] [place] [phone] Tanner Shukla MD Pre-transplant evaluation for kidney transplant (Primary Dx) 11/10/2024 Orders Only [facility] [address] [place] [phone] Patricia Garsia RN Pre-transplant evaluation for kidney transplant ; ESRD (end stage renal disease) (HCC); History of kidney stones; Hypertension, unspecified type; Coronary artery disease involving stockbridge heart, unspecified vessel or lesion type, unspecified whether angina present; Hyperlipidemia, unspecified hyperlipidemia type; Osteoarthritis, unspecified osteoarthritis type, unspecified site; Gastroesophageal reflux disease, unspecified whether esophagitis present; Common bile duct dilatation 11/10/2024 Telephone [facility] [address] [place] [phone] Patricia Garsia, RN Kidney Transplant Evaluation 11/10/2024 Orders Only [facility] [address] [place] [phone] Patricia Garsia, DENNIS Pre-transplant evaluation for kidney transplant ; ESRD (end stage renal disease) (HCC); History of kidney stones 11/10/2024 Travel 11/10/2024 Orders Only [facility] [address] [place] [phone] Patricia Garsia RN Pre-transplant evaluation for kidney transplant 11/08/2024 12:06 PM CDT - 11/08/2024 11:59 PM CDT Hospital Encounter [facility] MRI [address] [place] [phone] Scott Bryant MD Discharge Disposition: Home or Self Care 11/08/2024 Travel 10/23/2024 Telephone [facility] [address] [place] [phone] Dawna Sal Kidney Transplant Evaluation 10/19/2024 Telephone [facility] [address] [place] [phone] Patricia Garsia, RN Kidney Transplant Evaluation 10/15/2024 Telephone [facility] [address] [place] [phone] Patricia Garsia, RN Kidney Transplant Evaluation from Last 3 Months Family History Medical [...] on file 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 Gender Identity Not on file Sexual Orientation Not on file Last Filed Vital Signs Vital Sign Reading Time Taken Comments Blood Pressure 129/82 12/29/2024 3:53 PM CDT Pulse 87 12/29/2024 3:53 PM CDT Temperature 36.7 C (98 F) 12/29/2024 3:53 PM CDT Respiratory Rate - - Oxygen Saturation 97% 12/29/2024 3:53 PM CDT Inhaled Oxygen Concentration - - Weight 64.9 kg (143 lb) 12/29/2024 3:53 PM CDT Height 162.6 cm (5' 4) 12/29/2024 3:53 PM CDT Body Mass Index 24.55 12/29/2024 3:53 PM CDT Plan of Treatment Upcoming Encounters Date Type Department Care Team (Latest Contact Info) Description 01/05/2025 3:30 PM CDT Office Visit [facility] - Cardiology [address] [facility] [place] [phone] Leeroy Lambert MD [address] [facility] [place] [address] 02/01/2025 7:05 AM CDT Hospital Encounter [facility] OP [address] [place] [address] Christian Jiang MD [facility] 2L [place] [address] Surgery General 02/01/2025 7:05 AM CDT - 02/01/2025 9:50 AM CDT Surgery [facility] OP [address] [place] [address] Christian Jiang MD [facility] [address]L [place] [address] Left upper extremity arteriovenous fistula creation Scheduled Procedures Name Priority Associated Diagnoses Date/Ti me CREATION ARTERIOVENOUS (AV) FISTULA DIRECT End stage renal disease (HCC) 02/01/2025 7:05 AM CDT Health Maintenance Due Date Last Done Comments [...] - Risk 60-74 years 1-dose series) 2013 DEPRESSION SCREENING 04/29/2024 COVID-19 VACCINE (1 - 2023-2 5 season) 2024 INFLUENZA VACCINE (#1) 2024 HEPATITIS C SCREENING [...] Procedure Name Priority Date/Time Associated Diagnosis Comments VT LIVER ELASTOGRAPHY Routine 12/08/2024 10:01 AM CDT Pre-transplant evaluation for kidney transplant ESRD (end stage renal disease) (HCC) History of kidney stones Hypertension, unspecified type Coronary artery disease involving stockbridge heart, unspecified vessel or lesion type, unspecified whether angina present Hyperlipidemia, unspecified hyperlipidemia type Osteoarthritis, unspecified osteoarthritis type, unspecified site Gastroesophageal reflux disease, unspecified whether esophagitis present Common bile duct dilatation URINALYSIS REFLEX MICROSCOPIC REFLEX CULTURE Routine 11/10/2024 3:41 PM CDT Pre-transplant evaluation for kidney transplant ESRD (end stage renal disease) (HCC) History of kidney stones DRUG ABUSE URINE PANEL 9A RFLX TO CONFIRM Routine 11/10/2024 3:41 PM CDT Pre-transplant evaluation for kidney transplant ESRD (end stage renal disease) (HCC) Hypertension, unspecified type Coronary artery disease involving stockbridge heart, unspecified vessel or lesion type, unspecified whether angina present Hyperlipidemia, unspecified hyperlipidemia type Osteoarthritis, unspecified osteoarthritis type, unspecified site Gastroesophageal reflux disease, unspecified whether esophagitis present History of kidney stones CREATININE URINE RANDOM Routine 11/10/2024 3:41 PM CDT Pre-transplant evaluation for kidney transplant ESRD (end stage renal disease) (HCC) Hypertension, unspecified type Coronary artery disease involving stockbridge heart, unspecified vessel or lesion type, unspecified whether angina present Hyperlipidemia, unspecified hyperlipidemia type Osteoarthritis, unspecified osteoarthritis type, unspecified site Gastroesophageal reflux disease, unspecified whether esophagitis present History of kidney stones PROTEIN URINE RANDOM QUANTITATIVE Routine 11/10/2024 3:41 PM CDT Pre-transplant evaluation for kidney transplant ESRD (end stage renal disease) (HCC) Hypertension, unspecified type Coronary artery disease involving stockbridge heart, unspecified vessel or lesion type, unspecified whether angina present Hyperlipidemia, unspecified hyperlipidemia type Osteoarthritis, unspecified osteoarthritis type, unspecified site Gastroesophageal reflux disease, unspecified whether esophagitis present History of kidney stones HEPATITIS B SURFACE ANTIBODY QUANT Routine 11/10/2024 3:40 PM CDT Pre-transplant evaluation for kidney transplant OXALATE BLOOD Routine 11/10/2024 3:40 PM CDT Pre-transplant evaluation for kidney transplant MRI ABDOMEN W MRCP WWO CONT W3D Routine 11/08/2024 1:37 PM CDT Pre-transplant evaluation for kidney transplant ESRD (end stage renal disease) (HCC) Hypertension, unspecified type Coronary artery disease involving stockbridge heart, unspecified vessel or lesion type, unspecified whether angina present Hyperlipidemia, unspecified hyperlipidemia type Osteoarthritis, unspecified osteoarthritis type, unspecified site Gastroesophageal reflux disease, unspecified whether esophagitis present History of kidney stones Common bile duct dilatation HEPATITIS C ANTIBODY Routine 10/01/2024 1:14 PM CDT Pre-transplant evaluation for kidney transplant ESRD (end stage renal disease) (HCC) Hypertension, unspecified type Coronary artery disease involving stockbridge heart, unspecified vessel or lesion type, unspecified whether angina present Hyperlipidemia, unspecified hyperlipidemia type Osteoarthritis, unspecified osteoarthritis type, unspecified site Gastroesophageal reflux disease, unspecified whether esophagitis present History of kidney stones from Last 3 Months or Most Recently Relevant to Health Maintenance Results * VT LIVER ELASTOGRAPHY (12/08/2024 10:01 AM CDT) Narrative Avtar Mendez MD - 12/08/2024 10:01 AM CDT Avtar Mendez MD 12/08/2024 10:31 PM Diagnosis: Pre-Kidney Transplant eval RN verified patient is NPO for prior 3 hours. Procedure explained. Date of Exam: 12/08/2024 Liver Stiffness: (LSM, kPa) median: 3.2 IQR/Median% (ideally < 30%): 12% CAP (controlled attenuation parameter): 212 Technical Difficulty: None Ordering Provider: Pat Godinez MD Phone Fax Fibroscan interpretation: I have personally reviewed the Fibroscan report and associated tracings. The calculated Liver Stiffness Measurement (LSM, kPa) indicates that: The probability of advanced liver fibrosis is: low. The loss of ultrasound signal, (controlled attenuation parameter, CAP [dB/m]), indicates that the probability of hepatic steatosis is: low. Avtar Carrero MD The following criteria are used to indicate the probability of advanced (stage 3-4) fibrosis: < 7.0 kPa: low 7.0-8.9 kPa: low to moderate 9.0-14.9 kPa: moderate 15-20 kPa: high > 20 kPa: very high Liver stiffness > 12 kPa is associated with an increased risk of cirrhosis-related complications over the next 3-5 years (Harinder, 2022). Liver stiffness > 20 kPa is also associated with a high probability of complications of portal hypertension including varices and ascites. Liver stiffness > 50 kPa is associated with a high risk of variceal bleeding. These interpretations are based on the following published data: Harinder J, Sariahr m H, Ekshashi M, Bruce C, Bonadustini M, Cure S, Ampuero J, Nasr P, Tallab L, Canivet CM, Kechagias S, S nchez Y, Dincuff E, Kvng A, Eze M, Rionaina J, Lan A and Stoll-Dillon M. Non-invasive tests accurately stratify patients with NAFLD based on their risk of liver-related events. J Hepatol (2021) 76: 5453-5094. Richie PJ, Marva M, Liz M, et al. Accuracy of FibroScan controlled attenuation parameter and liver stiffness measurement in assessing steatosis and fibrosis in patients with nonalcoholic fatty liver disease. Gastroenterology 2019;156:9706-1310. Romero MS, Juan Carlos R, Van Natta ML, et al. Vibration-controlled transient elastography to assess fibrosis and steatosis in patients with nonalcoholic fatty liver disease. Clin Gastroenterol Hepatol 2019;17:156-163. Note that scores have been developed that incorporate the Fibroscan liver stiffness measurement from large cohorts of patients with liver biopsies to further refine the ability of Fibroscan to identify patients with MASH and advanced fibrosis. These include the FAST (Fibroscan-AST) score (Antwon, 2021) and the Agile3+ and Agile4 scores (Karen, 2022; Karen, 2023). Antwon TA, Van Marbin ML, Dariel M, Regan A, et al. Validation of the accuracy of the FAST score for detecting patients with at-risk nonalcoholic steatohepatitis (BARAHONA) in a [place] cohort and comparison to other non-invasive algorithms. PLoS ONE (2021) 17: [id number]. Karen AJ, Nanda J, Ana ZM, et al. Enhanced diagnosis of advanced fibrosis and cirrhosis in individuals with NAFLD using FibroScan-based Agile scores. J Hepatol (2022) 78: 247-259. Karen et al. Vibration-controlled transient elastography scores to predict liver-related events in steatotic liver disease. KRAIG (2023) 331: 0715-9525 Fibroscan LSM can also be used with laboratory parameters without formulas to assess prognosis. According to the Baveno-VII criteria (Jenkins, 2021), Fibroscan LSM <=15 kPa plus a platelet count of >=[id number]/L rules out clinically significant portal hypertension (sensitivity and negative predictive value >90%) in patients with compensated advanced chronic liver disease. de Delma R, Janes J, Luis-Kathi G, Rekelechiger T, Serenity C on behalf of the Baveno VII Faculty. Baveno VII--Renewing consensus in portal hypertension. J Hepatol (2021) 76: 959-974 Assessing the likelihood of advanced fibrosis in patients with intermediate liver stiffness measurement (LSM) by Fibroscan (e.g., 8-15 kPa) can be improved by also calculating the FIB-4 score (Aidanuke et al. Hepatology Communications 2019;3:1368-0660) or NAFLD Fibrosis score (Salvador et al. Clinical Gastroenterology and Hepatology 2019;17:1447-1825 using routine clinical data. Notes: 1. Fibroscan cannot reliably identify earlier stages of fibrosis (ie distinguish F0 from F1 and F2) and thus a histologic stage cannot be predicted from the Fibroscan reading. 2. Liver stiffness can be increased by factors other than fibrosis including passive congestion, infiltrative processes, active alcoholism, recent moderate alcohol consumption in the 2 weeks before the exam, biliary obstruction and marked inflammation. The interpretation of the Fibroscan result provided above may not have taken such clinical factors into account. 3. Identifying steatosis by an elevated CAP score (> 250 db/m) is useful for establishing a diagnosis of steatotic liver disease. However the severity of steatosis does not correlate with liver related outcomes. Disease etiology also influences Fibroscan cutoff values for fibrosis stages and the following cutoffs have been proposed (Rosendo et al, Clin Gastro Hepatol 2015; 13:27-36): Cutoffs for Stage 3 and Stage 4 fibrosis respectively: Hepatitis B: >9 and >11.7 kPa Hepatitis C: >9.5 and >12.5 kPa HCV-HIV: >11 and >14 kPa Cholestatic liver diseases: >10 and >17.9 kPa MASLD/MASH: >10 and >14 kPa CAP estimates of steatosis: normal <200 dB/m mild 200 to 250 dB/m moderate 250-290 dB/m substantial > 290 dB/m (Note that Fibroscan is not a quantitative measure of liver fat.) These criteria are estimates and may change as additional supporting data becomes available. (This additional interpretive data was last updated 05/01/24.) [email or web address] Pat Godinez MD PROCEDURE/MINOR SURGICA L ORDERABLES Final Result * DRUG ABUSE URINE PANEL 9A RFLX TO CONFIRM (11/10/2024 3:41 PM CDT) Amphetamines Urine See scanned report. 11/24/2024 11:16 AM CDT [facility] ([facility]) Urine URINE / Unknown Collection / Unknown 11/10/2024 3:41 PM CDT 11/10/2024 4:37 PM CDT us Scott Bryant MD LAB - URINE CHEMISTRY ORDERAB LES Final Result Xochitl (So-Shee) [employer] ([facility]) [address] [place] [address], [facility] * (ABNORMAL) URINALYSIS REFLEX MICROSCOPIC REFLEX CULTURE (11/10/2024 3:41 PM CDT) Color UA Yellow Yellow, Straw 11/10/2024 5:00 PM [facility] Clarity UA Clear Clear 11/10/2024 5:00 PM [facility] Glucose UA Trace(A) Normal 11/10/2024 5:00 PM [facility] Bilirubin UA Negative Negative 11/10/2024 5:00 PM [facility] Ketone UA Negative Negative 11/10/2024 5:00 PM [facility] Specific [place] UA 1.007 1.005 - 1.030 11/10/2024 5:00 PM [facility] Blood UA 1+(A) Negative 11/10/2024 5:00 PM [facility] pH UA 7.5 5.0 - 8.0 11/10/2024 5:00 PM [facility] Protein UA 1+(A) Negative 11/10/2024 5:00 PM [facility] Urobilinogen UA Normal Normal mg/dL 11/10/2024 5:00 PM [facility] Nitrite UA Negative Negative 11/10/2024 5:00 PM [facility] Leukocyte Esterase UA Negative Negative 11/10/2024 5:00 PM [facility] RBC UA 0-2 0 - 5 # /hpf 11/10/2024 5:00 PM [facility] WBC UA 6-10(A) 0 - 5 # /hpf 11/10/2024 5:00 PM [facility] Bacteria UA Trace(A) None Seen 11/10/2024 5:00 PM [facility] Squamous Epithelial Cells None Seen 0 - 5 /hpf 11/10/2024 5:00 PM [facility] Reflex Status Culture not indicated 11/10/2024 5:00 PM [facility] Urine URINE SPECIMEN OBTAINED BY CLEAN CATCH PROCEDURE / Unknown Collection / Unknown 11/10/2024 3:41 PM CDT 11/10/2024 4:37 PM [facility] Tanner Shukla MD LAB - URINALYSIS ORDERABLES Fin al Result [facility] [address] [place] [address], [facility] [phone] * PROTEIN URINE RANDOM QUANTITATIVE (11/10/2024 3:41 PM CDT) Protein Urine 109 Not Established mg/dL 11/10/2024 5:09 PM CDT [facility] Urine URINE SPECIMEN OBTAINED BY CLEAN CATCH PROCEDURE / Unknown Collection / Unknown 11/10/2024 3:41 PM CDT 11/10/2024 4:37 PM CDT Scott Bryant MD LAB - URINE CHEMISTRY ORDERAB LES Final Result [address] [address], [facility] [phone] * CREATININE URINE RANDOM (11/10/2024 3:41 PM CDT) Creatinine Urine 52.95 Not Established mg/dL 11/10/2024 5:09 PM CDT [facility] Urine URINE SPECIMEN OBTAINED BY CLEAN CATCH PROCEDURE / Unknown Collection / Unknown 11/10/2024 3:41 PM CDT 11/10/2024 4:37 PM CDT Scott Bryant MD LAB - URINE CHEMISTRY ORDERAB LES Final Result Performing Organization Address City/[facility]/ZIP Co de Phone Number [address] [address], [facility] [phone] * (ABNORMAL) OXALATE BLOOD (11/10/2024 3:40 PM CDT) Oxalate 13.8(H) <=2.0 umol/L 11/13/2024 11:38 PM CDT Xochitl ([employer]Shee) [employer] ([facility]) Comment: INTERPRETIVE INFORMATION: Oxalate, Plasma This test was developed and its performance characteristics determined by [employer]. It has not been cleared or approved by the US Food and Drug Administration. This test was performed in a CLIA certified laboratory and is intended for clinical purposes. Performed By: [facility] [address] [place] [id number] Addiction Counselor: Jose Stahl MD, PhD CLIA Number: [id number] Blood BLOOD SPECIMEN / Unknown Lab Venipuncture / Unknown 11/10/2024 3:40 PM CDT 11/10/2024 3:46 PM CDT Scott Bryant MD LAB - CHEMISTRY ORDERABLES Fi nal Result Performing Organization Address City/[facility]/ZIP Co de Phone Number [address] * HEPATITIS B SURFACE ANTIBODY QUANT (11/10/2024 3:40 PM CDT) Hepatitis B Virus Surface Antibody Non-react aleida Non-react aleida 11/10/2024 5:14 PM CDT [facility] Comment: < 8 mIU/mL Hepatitis B surface Antibody (HBsAb). Nonreactive for HBsAb - individual is considered not immune to Hepatitis B Virus infection. Hepatitis B Surface Antibody Quantitative <3.0 <8.0 mIU/mL 11/10/2024 5:14 PM CDT [facility] Comment: Hepatitis B Surface Antibody Numeric Result Interpretation: Nonreactive: <8.0 mIU/mL Indeterminate: 8.0 - 12.0 mIU/mL Reactive: >12.0 mIU/mL Blood BLOOD SPECIMEN / Unknown Lab Venipuncture / Unknown 11/10/2024 3:40 PM CDT 11/10/2024 3:46 PM CDT Narrative [facility] - 11/10/2024 5:14 PM CDT This assay should not be used for blood, plasma, or tissue donor screening. This assay is not recommended for neonates born to HBV-infected or suspected HBV-infected mothers. Scott Bryant MD LAB - SEROLOGY ORDERABLES Fin al Result Performing Organization Address City/[facility]/ZIP Co de Phone Number [facility] [address] [place] [phone], [facility] [phone] * MRI Abdomen W Mrcp Wwo Cont [...] DATE/TIME OF EXAM: 11/08/2024 1:37 PM, LOCATION [facility] INDICATION: Z01.818: Pre-transplant evaluation for kidney transplant N18.6: ESRD (end stage renal disease) (HCC) I10: Hypertension, unspecified type I25.10: Coronary artery disease involving [place]bridge heart, unspecified vessel or lesion type, unspecified [...] W3D, DATE/TIME OF EXAM:11/08/2024 1:37 PM, LOCATION [facility] INDICATION: Z01.818: Pre-transplant evaluation for kidney transplant N18.6: ESRD (end stage renal disease) (HCC) I10: Hypertension, unspecified type I25.10: Coronary artery disease involving stockbridge heart, unspecifiedvessel or lesion type, unspecified whether [...] Bryant MD MR ORDERABLES Final Result * HEPATITIS C ANTIBODY (10/01/2024 1:14 PM CDT) Hepatitis C Antibody Non-react aleida Non-reac tive 10/01/2024 2:28 PM CDT [facility] Comment:Hepatitis C Antibody screen indicates no serologic [...] MD LAB - CHEMISTRY ORDERABLES nal Result [facility] [address] [place] [address], [facility] [phone] from Last 3 Months or Most Recently Relevant to Health Maintenance Insurance MEDICARE [facility] SELF PAY NO INSURANCE Member Subscriber Plan / Payer (Ef fective for All Dates) Name:Amisha Altman Member ID:Not on file Relation to Subscriber:Not on file Name:AMISHA ALTMAN Subscriber ID:Not on file (Home) Address: [address] [place] [address] Payer ID:Not on file Group ID:Not on file Type:Self Pay Address: [place], [place] Care Teams Chief Lock Operator Relationship Specialty Start Date End Date Wes Armando DO [address] [place] [address] PCP - General Internal Medicine 11/27/24
--- OUTSIDE RECORDS SUMMARY | 2025-01-04 09:52 | XMS_ITS ---
Author Organization [facility] Address 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 Care Team Name Role Phone Fax Email Patricia Garsia RN Kidney Coordinator N/A N/A N/A Jeanna Kan Setter Induction Heating Equipment N/A N/A N/A Patricia Fuentes LMSW Field Artillery Operations Specialist [phone] N/A N/A Maricruz Hawthorne MD Referring Physician [phone] N/A Events Pre-Transplant Referred: 05/13/2024 Evaluation began: 07/03/2024 Dialysis History Dialysis History Start End Type Comments Center 04/16/2024 In-center Hemodialysis [facility] Dialysis Center Information Center Phone Fax Address [facility] [phone] [address] [place] [id number]
[2025-01-04 13:26] LABS: Cholesterol 138 mg/dL (0-200); HDL Direct 53 mg/dL; Triglycerides 64 mg/dL (<150)
[2025-01-04 14:02] LABS: Prostate Specific Antigen 3.3 ng/mL (< OR = 4.0)
== END 2025-01-04 09:34 | disposition home or self-care (01) ==
LOC: ANHGOSHLAB 09:35
PROVIDERS: PCP Nurse Practitioner; Visit Provider Nurse Practitioner
DX: E78.2 Mixed hyperlipidemia (principal); Z12.5 Encounter for screening for malignant neoplasm of prostate
CPT/HCPCS: 36415; 80061; 84153; G0103